=== PATIENT | female | born 1955 | race Caucasian/White ===

== ENCOUNTER 2018-10-12 12:42 | Outpatient (CLI) | payer MEDICARE, MEDICAID ==
[~2018-10-12] VITALS: Ht 165.1 cm; Wt 114.3 kg
[~2018-10-12 12:42] MED LIST: ASPI-586 PO; BUME1TAB4 PO; DICL100G13 TOP; DIPH25CA79 PO; DOCU100T7 PO; EPIN0.3P3 IM; ESZO2TAB31 PO; ESZO2TAB4 PO; ESZO3TAB39 PO; FLUO20CA25 PO; FLUO20TA28 PO; GABA-488 PO; HYDR-34 PO; LOSA1TAB19 PO; LOSA1TAB26 PO; LOVA20TA2 PO; MULT-874 PO; OXYC1TAB87 PO; PANT40TA3 PO; PNT40TEC PO; POTA20TA8 PO; SUMA25TA3 PO; TRAM50TA2 PO
[2018-10-12 12:51] VITALS: BP 145/92
[2018-10-12 13:38] LABS: BILIRUBIN,URINE NEGATIVE (NEGATIVE); CLARITY,URINE CLEAR; COLOR,URINE YELLOW; GLUCOSE, URINE (UA) NEGATIVE (NEGATIVE); KETONES,URINE NEGATIVE (NEGATIVE); LEUKOCYTE ESTERASE ,URINE NEGATIVE (NEGATIVE); NITRITE,URINE NEGATIVE (NEGATIVE); PH,URINE 6.5 (5-9); PROTEIN,URINE NEGATIVE (NEGATIVE); UROBILINOGEN,URINE NORMAL (NORMAL)
[2018-10-12 13:39] LABS: BASOPHILS % (AUTO) 0 % (0-10); EOSINOPHILS # (AUTO) 0.1 10^3/uL (0.0-0.3); EOSINOPHILS % (AUTO) 1 % (0-10); HEMATOCRIT 40 % (35-52); LYMPHOCYTES % (AUTO) 32 % (12-44); MEAN CORPUSCULAR HEMOGLOBIN 27 PG (25-34); MEAN CORPUSCULAR HGB CONC 33 G/DL (32-36); MEAN CORPUSCULAR VOLUME 83 FL (80-99); MEAN PLATELET VOLUME 9.5 FL (7.4-10.4); MONOCYTES # (AUTO) 0.7 X 10^3 (0.0-1.0); MONOCYTES % (AUTO) 8 % (0-12); NEUTROPHILS # (AUTO) 5.7 X 10^3 (1.8-7.8); NEUTROPHILS % (AUTO) 60 % (42-75); PLATELET COUNT 377 10^3/uL (130-400); RED BLOOD COUNT 4.77 10^6/uL (4.35-5.85); RED CELL DISTRIBUTION WIDTH 14.8 % (10.0-14.5); WHITE BLOOD COUNT 9.5 10^3/uL (4.3-11.0)
[2018-10-12] MEDS ORDERED: FLUO40CR8 TP (13:55)
[2018-10-12] MEDS ORDERED: CLOP75TA28 PO (13:55)
[2018-10-12] MEDS ORDERED: ATOR20TA66 PO (13:55)
[2018-10-12] MEDS ORDERED: BUME1TAB4 PO (13:55)
[2018-10-12] MEDS ORDERED: TRET40CR4 TP (13:55)
[2018-10-12 13:58] LABS: INR 1.1 (0.8-1.4); PROTHROMBIN TIME PATIENT 14.2 SEC (12.2-14.7)
[2018-10-12 14:00] LABS: ALANINE AMINOTRANSFERASE 17 U/L (0-55); ALBUMIN 4.3 GM/DL (3.2-4.5); ALKALINE PHOSPHATASE 122 U/L (40-136); BILIRUBIN,TOTAL 0.5 MG/DL (0.1-1.0); BUN/CREATININE RATIO 17; CALCIUM 9.6 MG/DL (8.5-10.1); CARBON DIOXIDE 24 MMOL/L (21-32); CHLORIDE 105 MMOL/L (98-107); CREATININE SERUM 0.86 MG/DL (0.60-1.30); GFR ESTIMATED > 60; GLUCOSE 122 MG/DL (70-105); POTASSIUM 3.2 MMOL/L (3.6-5.0); SODIUM 141 MMOL/L (135-145); TOTAL PROTEIN 7.3 GM/DL (6.4-8.2)
[2018-10-12 14:14] LABS: BACTERIA,URINE TRACE /HPF; HYALINE CASTS, URINE RARE /LPF
[2018-10-12 14:16] LABS: ERYTHROCYTE SEDIMENTATION RATE 29 MM/HR (0-30)
--- NOTE | 2018-10-12 17:02 | Diagnostic Imaging Report ---
EXAMINATION: PA and lateral chest at 01:50 p.m. INDICATION: Preop for left total knee replacement. FINDINGS: There are no prior studies available for comparison. The heart size is within normal limits. The lungs are clear. There is no evidence for failure, pneumonia, or for a pleural effusion. The mediastinum is not widened. The osseous structures are intact. IMPRESSION: There is no evidence for active disease. Dictated by: Dictated on workstation # [id number]
== END 2018-10-12 15:00 | disposition home or self-care (01) ==
LOC: PREOP 12:42
PROVIDERS: ATTEND Orthopaedic Surgery
DX: Z01.810 Encounter for preprocedural cardiovascular examination (principal); Z01.811 Encounter for preprocedural respiratory examination; Z01.812 Encounter for preprocedural laboratory examination; M17.12 Unilateral primary osteoarthritis, left knee; R53.83 Other fatigue
CPT/HCPCS: 36415; 71046; 80053; 81000; 85025; 85610; 85652; 86850; 86900; 86901; 87081; 93005

== ENCOUNTER 2018-10-18 06:00 | Inpatient (IN) | payer MEDICARE, MEDICAID ==
--- NOTE | 2018-10-09 11:23 | HISTORY AND PHYSICAL ---
DATE OF SERVICE: 10/18/2018 ADMISSION HISTORY AND PHYSICAL DATE OF ADMISSION: 10/18/2018 DATE OF SURGERY: 10/18/2018 for left total knee arthroplasty. HISTORY OF PRESENT ILLNESS: The patient is a 63-year-old female with complaints of progressive worsening left knee pain. She has undergone treatment with injections multiple times. She reports progressive worsening pain to the point where it is interfering with her right knee. She reports activity limitations. She reports this is affecting her activities of daily living. Radiographs reveal complete loss of medial joint space with mild lateral patellofemoral joint space narrowing. Due to functional impairment and failure to improve with conservative measures, the patient elected to proceed with surgical intervention. REVIEW OF SYSTEMS: No chest pain, no shortness of breath. No dysuria. PAST MEDICAL HISTORY: Significant for reflux, hyperlipidemia, hypertension and anxiety. PAST SURGICAL HISTORY: Appendectomy, lumbar spine, tubal ligation, cholecystectomy, hysterectomy, breast lumpectomy, pelvic sling and skin cancer removal from the face. FAMILY HISTORY: Significant for Alzheimer's, aortic aneurysm, breast cancer, diabetes. PRIMARY CARE PROVIDER: Dr. Braden in [place]. MEDICATIONS: Lovastatin, pantoprazole, bumetanide, EpiPen, Lunesta, gabapentin, Percocet, ibuprofen, clopidogrel and losartan. ALLERGIES: SULFA and TAPE. SOCIAL HISTORY: The patient denies alcohol and tobacco use. PHYSICAL EXAMINATION: GENERAL: Well-developed, well-nourished, in no acute distress. HEENT: Normocephalic, atraumatic. Pupils were equal, round and reactive to light. Oropharynx is clear. NECK: Supple. No lymphadenopathy. LUNGS: Clear to auscultation bilaterally. HEART: Regular rate and rhythm. ABDOMEN: Soft, nontender, nondistended. EXTREMITIES: Her left knee demonstrates varus alignment. There is a slight effusion. She has no joint line tenderness. Patella tracks well. There is no varus valgus laxity. Negative anterior and posterior drawer. Range of motion is 0/0/120. She is tender along the medial femoral condyle and pain medially with Jr's. She is also tender along the medial tibial plateau. She ambulates with an antalgic gait. IMPRESSION: Left knee severe osteoarthritis, unresponsive to conservative measures. PLAN: Left total knee arthroplasty. Risks, benefits, options, ramifications and recovery have been discussed at length with the patient. She understands and wishes to proceed. She will require regular inpatient admission due to pain management, physical therapy, weakness and gait training. Date of admission will be 10/18/2018. Job ID: [id number] DocumentID: [id number] Dictated Date: 10/09/2018 10:44:36 Tank Builder Helper Date: 10/09/2018 11:23:03 Dictated By: OC SMITH MD
[~2018-10-18] VITALS: Ht 165.1 cm; Wt 114.3 kg
[~2018-10-18 06:00] MED LIST changes: +ATOR20TA66 PO; +CLOP75TA28 PO; +FLUO40CR8 TP; +TRET40CR4 TP
[2018-10-18] MEDS: LACTATED RINGERS 1,000 ML IV PRN ×2 (06:20→07:45)
[2018-10-18] MEDS ORDERED: CEFUROXIME INJECTION 1,500 MG in NS (IVPB) 50 ML IV ONE (06:30)
[2018-10-18] MEDS ORDERED: FAMOTIDINE 20MG/2ML IV (PEPCID) ONE (06:37)
[2018-10-18] MEDS ORDERED: ONDANSETRON 4 MG/2 ML (SDV) Z0FRAN ONE ×2 (06:38→08:20)
[2018-10-18] MEDS ORDERED: SCOPOLAMINE 1.5 MG (TRANSDERM-SCOP) PATCH ONE (06:38)
[2018-10-18] MEDS ORDERED: SCOPOLAMINE 1.5 MG (TRANSDERM-SCOP) PATCH TOP ONE (06:45)
[2018-10-18] MEDS ORDERED: ONDANSETRON 4 MG/2 ML (SDV) Z0FRAN IV ONE (06:45)
[2018-10-18] MEDS ORDERED: FAMOTIDINE 20MG/2ML IV (PEPCID) IV ONE (06:45)
[2018-10-18] MEDS ORDERED: fentaNYL INJECTION 100 MCG/2 ML AMP ONE ×2 (06:55→07:57)
[2018-10-18] MEDS ORDERED: MIDAZOLAM 2 MG/2 ML (VERSED) VIAL ONE (06:56)
[2018-10-18] MEDS ORDERED: NS (IVPB) 50 ML ONE (06:58)
[2018-10-18] MEDS ORDERED: CEFUROXIME 1.5 GM (ZINACEF) VIAL ONE (06:58)
[2018-10-18] MEDS ORDERED: NS IV 1000 ML 1,000 ML IV SCH ×2 (07:11→22:30)
[2018-10-18] MEDS ORDERED: ACETAMINOPHEN 325 MG TABLET PO PRN (07:15)
[2018-10-18] MEDS ORDERED: morphine PCA 100 MG/100 ML BAG IV PRN (07:15)
[2018-10-18] MEDS ORDERED: ONDANSETRON 4 MG/2 ML (SDV) Z0FRAN IVP PRN ×2 (07:15→09:15)
--- NOTE | 2018-10-18 07:22 | Progress Note-Pre Operative ---
Pre-Operative Progress Note H&P Reviewed The H&P was reviewed, patient examined and no changes noted. Date Seen by Provider: Oct 18, 2018 Time Seen by Provider: 07:21 Date H&P Reviewed: Oct 18, 2018 Time H&P Reviewed: 07:21 Pre-Operative Diagnosis: left knee primary osteoarthitis OC SMITH MD Oct 18, 2018 07:21
--- NOTE | 2018-10-18 07:22 | Progress Note-Post Operative ---
Post-Operative Progess Note Surgeon (s)/Tree Inspector (s) Surgeon OC SMITH MD Tree Inspector: Rik Van Pre-Operative Diagnosis left knee primary osteoarthitis Post-Operative Diagnosis left knee primary osteoarthritis Procedure & Operative Findings Date of Procedure 10/18/18 Procedure Performed/Findings left total knee arthroplasty Anesthesia Type GETA Estimated Blood Loss Estimated blood loss (mL): minimal Specimens/Packing Specimens Removed none Packing: none OC SMITH MD Oct 18, 2018 07:22
--- NOTE | 2018-10-18 07:25 | D/C HH Face to Face Order ---
D/C Face to Face Orders Instructions for Patient Via [facility], Patient Instructions/FollowUp: three weeks Physician to follow Patient: three weeks Discharge Diet for Home: Regular Diet Patient Data-Allergies,Ht & Wt Patient Allergies: Coded Allergies: wasp venom (Verified Allergy, Severe, 08/20/15) Sulfa (Sulfonamide Antibiotics) (Unverified Allergy, Unknown, 09/30/14) Uncoded Allergies: TAPE (Allergy, Mild, RASH, 08/20/15) Height (Feet): 5 Height (Inches): 5.00 Weight (Pounds): 252 Weight (Ounces): 0.0 Home Health Need/Face to Face Date of Face to Face: Oct 18, 2018 Clinical Findings: Instability, Muscle weakness, Pain with ambulation, Unsteady gait I have seen Pt [id number]: Yes Discharged To: Home Diagnosis/Conditions: left total knee arthroplasty Patient is Homebound due to: Simone fall risk due to instabilty, Muscle weakness , Pain w/ambulation Homebound Status Due to the above stated illness, injury or surgical procedure (medical condition or diagnosis) and associated clinical findings, the patient is homebound because of his/her inability to leave home except with aid of a supportive device and/or person AND leaving the home requires a considerable and taxing effort or is medically contraindicated. Pt req the following assistanc: [facility] Nursing Orders Home Health Services Order: Physical Therapy-Evaluate & Treat Therapy Orders Therapy Orders: Physical Therapy, PT to assess for OT Therapy Specific Orders: Eval assistive deivces, Teach enviro modifications/ safety, Gait training, Increase strength/endurance, Restore ROM (DC left knee sneha and apply steri strips 11/01/18) Certify Stmt I certify that this patient is under my care and that I, a nurse practitioner or a physician; a editorial assistant working with me, had a face to face encounter that - meets the physician face to face encounter requirements with this patient as dated. OC SMITH MD Oct 18, 2018 07:25
[2018-10-18] MEDS ORDERED: INTRA-ARTICULAR IU ONE ×5 (07:45)
[2018-10-18] MEDS ORDERED: TRANEXAMIC ACID 100 MG/ML 10 ML INJECTION IV ONE (08:12)
[2018-10-18] MEDS ORDERED: LIDOCAINE PF 2% 5 ML (XYLOCAINE) VIAL ONE (08:20)
[2018-10-18] MEDS ORDERED: proPOfol 200 MG/20 ML (DIPRIVAN) VIAL IV ONE (08:20)
[2018-10-18] MEDS ORDERED: DEXAMETHASONE 10 MG/ML (DECADRON) 1 ML VIAL ONE (08:20)
[2018-10-18] MEDS ORDERED: BUPIVACAINE 0.5% 30 ML (SENSORCAINE) VIAL ONE (08:20)
[2018-10-18] MEDS ORDERED: SEVOFLURANE (ULTANE) 15 ML INHAL SOLN ONE ×2 (08:41→09:11)
[2018-10-18] MEDS ORDERED: OXYC1TAB87 PO (09:02)
[2018-10-18] MEDS ORDERED: ATROPINE INJ 0.4 MG/ML SDV ONE (09:12)
[2018-10-18] MEDS ORDERED: morphine INJ 10 MG/ML 1ML (SYR OR VIAL) IVP ONE (09:15)
[2018-10-18] MEDS ORDERED: HYDROmorphone 2 MG/ML VIAL (DILAUDID) IV ONE (09:15)
--- NOTE | 2018-10-18 09:33 | Progress Note-Standard ---
Standard Progress Note Progress Notes/Assess & Plan Date Seen by a Provider: Oct 18, 2018 Time Seen by a Provider: 09:32 Progress/Assessment & Plan post op check no complaints radiographs--HW well positioned without fracture LLE--2 plus DP pulse with brisk cap refill. Intact sensation throughout. Intact DF and PF of toes and ankle s/p LTKA mobilize as able OC SMITH MD Oct 18, 2018 09:33
--- NOTE | 2018-10-18 09:58 | Diagnostic Imaging Report ---
EXAMINATION: Left knee at 9:17 AM. INDICATION: Knee pain. TECHNIQUE/COMPARISON: AP and lateral views were obtained from the OR. There are no prior plain film examinations available for comparison. FINDINGS: There is a total knee prosthesis in place. The prosthetic components seem to be in good position. There is gas in the soft tissues and there are skin sneha along the anterior aspect of the knee joint. There is no fracture or acute bony abnormality noted. IMPRESSION: Stable post operative left knee. Dictated by: Dictated on workstation # [id number]
[2018-10-18 10:00] VITALS: BP 152/81
[2018-10-18] MEDS: SENNA W/DOCUSATE (SENOKOT S) TABLET PO SCH ×2 (10:54→20:53)
[2018-10-18] MEDS: oxyCODONE/APAP 5/325MG (PERCOCET 5) TABLET PO PRN (10:54)
--- OUTSIDE RECORDS SUMMARY | 2018-10-18 11:44 | XMS REPORT | CCD ---
Author Author JESSY SPARKS Organization Unknown Address [address] [place] [address] Care Team Providers Care Signal Worker Helper Name Role Phone JAYASHREE NICHOLSON MD Attphys JAYASHREE NICHOLSON MD Prisurg Allergies Allergy Code Allergy Type Reaction Status SULFA (sulfonamide) 0 Drug allergy Active TAPE 0 Allergy to substance Active Active Medications Unknown or Not Available. Problems Unknown or Not Available. Procedures Procedure Code Procedure Type Date KNEE [address] 08/04/2016 KNEE [address] 08/04/2016 Results Unknown or Not Available. Function Status Unknown or Not Available. History of Immunizations Immunization Code Date pneumococcal polysaccharide PPV23 33 07/22/2016 Influenza, seasonal, injectable 141 08/04/2016 Plan of Treatment Unknown or Not Available. Social History Smoking Status Code Start Date End Date Never smoker [id number] Vital Signs Unknown or Not Available. Function Status Unknown or Not Available. Goals Unknown or Not Available. ASSESSMENTS Unknown or Not Available. Health Concerns Section Unknown or Not Available.
--- OUTSIDE RECORDS SUMMARY | 2018-10-18 11:44 | XMS REPORT | CCD ---
Author Author ROYA WALKER Unknown Address [address] [place], [place] [id number] Care Team Providers Care Talent Development Manager Name Role Phone ANURAG WILLARD, OC [place] Attphyeduard ANURAG WILLARD, OC [place] Vital Signs Unknown or Not Available. Allergies Allergy Code Allergy Type Reaction Status SULFA (sulfonamide) 0 Drug allergy Active TAPE 0 Allergy to substance Active Procedures Procedure Code Procedure Type Date CT HEAD W/O CONTRAST 894298445 SNOMED CT 07/20/2016 UA ROUTINE C&S IF IND 982021862 SNOMED CT 07/20/[address] 07/20/2016 C REACTIVE PROTEIN 32225475 [facility] CT 07/20/2016 COMPREHENSIVE METABOLIC PANEL 968465866 SNOMED CT 2015 CBC W/ AUTO DIFF (RFLX MAN DIFF IF IND) 6629830 SNOMED CT 07/20/2016 ^CBC W/AUTO DIFF 5920618 OMED CT 07/20/2016 History of Immunizations Unknown or Not Available. Problems Unknown or Not Available. Results COMPREHENSIVE METABOLIC PANEL - Collect Date/Time: 07/20/2016 17:20 Test Name Code Test Result Test Units Test Ref Range GLUCOSE 2345-7 127 MG/DL L=70 H=100 SODIUM 2951-2 142 MEQ/L L=135 H=148 POTASSIUM 2823-3 3.7 MEQ/L L=3.5 H=5.3 CHLORIDE 2075-0 104 MEQ/L L=96 H=110 CO2 2028-9 25 MEQ/L L=22 H=29 BUN 3094-0 19 MG/DL L=8 H=22 CREATININE 2160-0 1.0 MG/DL L=0.6 H=1.6 SGOT/AST 1920-8 20 IU/L L=10 H=40 SGPT/ALT 1742-6 29 IU/L L=8 H=54 ALK PHOS 6768-6 125 IU/L L=35 H=115 TOTAL PROTEIN 2885-2 7.7 G/DL L=5.5 H=8.5 ALBUMIN 1751-7 4.5 G/DL L=3.1 H=5.4 TOTAL BILI 1975-2 0.3 MG/DL L=0.0 H=1.5 CALCIUM 46237-9 10.1 MG/DL L=8.2 H=10.6 AGE 60 yrs GFR NonAA 57 GFR AA 69 eGFR 57 mL/min/1.7 eGFR AA* >60 N/A CPK - Collect Date/Time: 07/20/2016 17:20 Test Name Code Test Result Test Units Test Ref Range CPK 2157-6 33 IU/L L=0 H=235 CBC W/ AUTO DIFF (RFLX MAN DIFF IF IND) - Collect Date/Time: 07/20/2016 17:20 Test Name Code Test Result Test Units Test Ref Range WBC 71570-6 10.5 TH/CMM L=4.5 H=10.8 RBC 789-8 4.99 ML/CMM L=4.20 H=5.40 HGB 718-7 13.2 G/DL L=12.0 H=16.0 HCT 4544-3 42.7 % L=37.0 H=47.0 MCV 86 FL L=81 H=99 MCH 26.5 PG L=27.0 H=33.0 MCHC 30.9 G/DL L=31.0 H=36.0 RDW SD 46 FL L=36 H=50 RDW CV 14.8 % L=0.0 H=14.8 MPV 9.3 FL L=9.3 H=12.5 PLT 777-3 383 TH/CMM L=130 H=440 NRBC# 0.00 TH/CMM L=0.00 H=0.00 NRBC% 0.0 /100WBC L=0.0 H=2.0 %NEUT 50.8 % %LYMP 39.1 % %MONO 8.0 % %EOS 1.1 % %BASO 0.4 % #NEUT 5.32 TH/CMM L=2.10 H=8.20 #LYMP 4.09 TH/CMM L=0.90 H=5.20 #MONO 0.84 TH/CMM L=0.16 H=1.00 #EOS 0.11 TH/CMM L=0.00 H=0.80 #BASO 0.04 TH/CMM L=0.00 H=0.20 MANUAL DIFF NOT IND N/A PT/PTT - Collect Date/Time: 07/20/2016 17:20 Test Name Code Test Result Test Units Test Ref Range PROTIME 72108-9 11.1 SEC L=9.9 H=11.9 INR 1.0 PTT 3173-2 25.0 SEC L=22.2 H=37.2 UA ROUTINE C&S IF IND - Collect Date/Time: 07/20/2016 18:10 Test Name Code Test Result Test Units Test Ref Range COLOR YELLOW N/A NL: YELLOW APPEARANCE CLEAR N/A NL: CLEAR SPEC GRAV 1.020 N/A NL: 1.002 - 1.022 pH 6.0 N/A NL: 5 - 9 PROTEIN NEGATIVE N/A NL: NEGATIVE mg/dl GLUCOSE NEGATIVE N/A NL: NEGATIVE mg/dl KETONE NEGATIVE N/A NL: NEGATIVE mg/dl BILIRUBIN NEGATIVE N/A NL: NEGATIVE BLOOD NEGATIVE N/A NL: NEGATIVE NITRITE NEGATIVE N/A NL: NEGATIVE LEUK SCREEN NEGATIVE N/A NL: NEGATIVE MICRO INDICATED? NOT INDICATED N/A C REACTIVE PROTEIN - Collect Date/Time: 07/20/2016 17:20 Test Name Code Test Result Test Units Test Ref Range C REACTIVE PROTEIN 1988-5 2.6 MG/DL L=0.0 H= 1.0 Active Medications Unknown or Not Available. Medications Administered During Visit Unknown or Not Available. 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 Discharge Instructions You were admitted to [facility] on 07/20/2016 15:48 with a principal diagnosis of Fluency disorder following cerebral infarction You had the following tests done: C REACTIVE PROTEIN CBC W/ AUTO DIFF (RFLX MAN DIFF IF IND) COMPREHENSIVE METABOLIC PANEL CPK PT/PTT UA ROUTINE C&S IF IND You were discharged from [facility] on 07/20/2016 19:43 Should you have any questions prior to discharge, please contact a member of your healthcare team. If you have left the hospital and have any questions, please contact your primary care physician. Chief Complaint and Reason For Visit Chief Complaint Date of Onset POSS STROKE Function Status Unknown or Not Available. Plan of Care Unknown or Not Available. Referral/Transition of Care Unknown or Not Available.
--- OUTSIDE RECORDS SUMMARY | 2018-10-18 11:45 | XMS REPORT ---
Author Candido Liriano [facility] Address [address] [place], [place] [id number] Care Team Providers Care Workday Manager Name Role Phone Candido Willoughby PCP Candido Willoughby PreferredProvider Allergies and Adverse Reactions Name Reaction Notes SULFA (SULFONAMIDES) body shuts down Wasp Sting anaphyalatic reaction Tape skin rash Percocet skin itching Plan of Treatment Planned Activity Comments Planned Date Planned Time Plan/Goal Magnesium level 08/21/2015 12:00 AM Lipid Blood Profile 12/27/2016 12:00 AM RUQ US (right upper quadrant ultrasound) 03/03/2017 12:00 AM HIV 1 + 2 ab ser w reflex to Western blot conf 03/04/2017 12:00 AM Medications Active Name Start Date Estimated Completion Date SIG Comments fluoxetine 20 mg oral capsule take 1 capsule (20 mg) by oral route once daily EpiPen 2-Filipe 0.3 mg/0.3 mL injection auto-injector 01/26/2016 inject 0.3 milliliter (0.3 mg) by intramuscular route once as needed for anaphylaxis EpiPen 2-Filipe 0.3 mg/0.3 mL injection auto-injector 01/26/2016 inject 0.3 milliliter (0.3 mg) by intramuscular route once as needed for anaphylaxis bumetanide 1 mg oral tablet 03/11/2016 take 1 tablet (1 mg) by oral route every other day for 30 days aspirin 81 mg oral tablet,delayed release (DR/EC) take 1 tablet (81 mg) by oral route once daily Benadryl 25 mg oral capsule take 3 capsules by oral route eszopiclone 3 mg oral tablet take 1 tablet (3 mg) by oral route once daily at bedtime multivitamin oral capsule take 1 capsule by oral route daily ibuprofen 800 mg oral tablet take 1 tablet by oral route every 8 hours bumetanide 1 mg oral tablet 10/28/2016 TAKE 1 TABLET EVERY OTHER DAY fluorouracil 5 % topical cream apply a sufficient amount to cover the lesions in the affected area(s) by topical route 2 times per day for 2-4 weeks oxycodone 10 mg oral tablet take 1 tablet (10 mg) by oral route every 6 hours sumatriptan 20 mg/actuation nasal spray,non-aerosol 04/26/2018 1 spray (20 mg)intranasal route once; if headache returns, may be repeated once after 2 hours, not to exceed 40 mg per day losartan-hydrochlorothiazide 100-12.5 mg oral tablet 05/29/2018 TAKE 1 TABLET BY MOUTH DAILY pantoprazole 40 mg oral tablet,delayed release (DR/EC) 05/29/2018 TAKE 1 TABLET BY MOUTH DAILY bumetanide 1 mg oral tablet 05/29/2018 TAKE 1 TABLET BY MOUTH EVERY OTHER DAY baclofen 10 mg oral tablet take 1 tablet (10 mg) by oral route 3 times per day tretinoin topical atorvastatin 20 mg oral tablet 08/09/2018 02/05/2019 take 1 tablet (20 mg) by oral route once daily at bedtime for 30 days clopidogrel 75 mg oral tablet 08/18/2018 TAKE ONE TABLET BY MOUTH ONCE DAILY Name Start Date Expiration Date SIG Comments doxycycline hyclate 100 mg oral capsule 11/08/2013 11/18/2013 take 1 capsule ( 100 mg) by oral route every 12 hours for 10 days Tessalon Perles 100 mg oral capsule 11/08/2013 11/18/2013 take 1 capsule by oral route once a day (at bedtime) for 10 days hydrocodone-acetaminophen 5-325 mg oral tablet 01/28/2015 02/04/2015 take 1 tablet by oral route every 6 hours as needed for pain for 7 days potassium chloride 20 mEq oral tablet extended release 08/21/2015 09/20/2015 take 2 tablet (20 meq) by oral route TID x 3 days then 40mEq daily amoxicillin 500 mg oral capsule 12/06/2016 12/13/2016 take 1 capsule (500 mg) by oral route every 12 hours for 7 days clopidogrel 75 mg oral tablet 08/11/2017 02/07/2018 TAKE ONE TABLET BY MOUTH ONCE DAILY bumetanide 1 mg oral tablet 11/10/2017 11/10/2017 TAKE 1 TABLET EVERY OTHER DAY gabapentin 300 mg oral capsule 12/12/2017 12/12/2017 TAKE ONE CAPSULE BY MOUTH ONCE DAILY AT BEDTIME Discontinued Name Start Date Discontinued Date SIG Comments trandolapril 4 mg oral tablet 01/28/2015 take 1 tablet (4 mg) by oral route once daily EpiPen 0.3 mg/0.3 mL injection auto-injector 07/28/2018 inject 0.3 milliliter (0.3 mg) by intramuscular route once as needed for anaphylaxis already on list EpiPen 0.3 mg/0.3 mL injection auto-injector 07/28/2018 inject 0.3 milliliter (0.3 mg) by intramuscular route once as needed for anaphylaxis already on list Voltaren 1 % topical gel 05/05/2016 apply 2 gram to the affected area(s) by topical route 4 times per day Lunesta 2 mg oral tablet 01/28/2015 take 1 tablet (2 mg) by oral route once daily at bedtime Percocet 5-325 mg oral tablet 01/28/2015 take 1 - 2 tablets by oral route every 4-6 hours as needed eszopiclone 2 mg oral tablet 05/05/2016 take 1 tablet (2 mg) by oral route once daily at bedtime docusate sodium 100 mg oral capsule 07/28/2018 take 1 capsule (100 mg) by oral route 2 times per day as needed cyclobenzaprine 10 mg oral tablet 12/14/2016 take 1 tablet (10 mg) by oral route 3 times per day PRN Vitamin D2 50,000 unit oral capsule 12/14/2016 07/28/2018 take 1 capsule (50, 000 unit) by oral route once weekly atorvastatin 40 mg oral tablet 02/03/2017 02/21/2017 take 1 tablet (40 mg) by oral route once daily for 30 days epinephrine 0.3 mg/0.3 mL injection auto-injector 05/20/2017 07/28/2018 INJECT 0.3 ML'S BY INTRAMUSCULAR ROUTE ONCE NEEDED FOR ANAPHYLAXIS already on list epinephrine 0.3 mg/0.3 mL injection auto-injector 05/20/2017 07/28/2018 INJECT 0.3 ML'S BY INTRAMUSCULAR ROUTE ONCE NEEDED FOR ANAPHYLAXIS already on list potassium chloride 10 mEq oral tablet extended release 10/11/2017 07/28/2018 take 1 tablet (10 meq) by oral route with food, on 3 days of the week. d/c'd by Dr Riddel Problem List Description Status Onset Hypercholesterolemia Active Hypertension Active Breast Mass Active Vital Signs Date Time BP-Sys(mm[Hg] BP-Nasra(mm[Hg]) HR(bpm) RR(rpm) Temp WT HT HC BMI BSA BMI Percentile O2 Sat(%) 09/22/2018 3:28:00 PM 117 mmHg 74 mmHg 78 bpm 20 rpm 98.1 F 255 lbs 64 in 43.7702 kg/m 2.2854 m 96 % 07/28/2018 8:41:00 AM 124 mmHg 86 mmHg 63 bpm 18 rpm 98.4 F 252.25 lbs 64 in 43.30 kg/m2 2.27 m2 97 % 07/28/2018 8:32:00 AM 252.5 lbs 64 in 43.34 kg/m2 2.2742 m 10/10/2017 1:08:00 PM 116 mmHg 82 mmHg 105 bpm 18 rpm 99 F 243.125 lbs 64 in 41.73 kg/m2 2.23 m2 95 % 03/03/2017 2:13:00 PM 138 mmHg 98 mmHg 88 bpm 18 rpm 98.8 F 248.375 lbs 64 in 42.633 kg/m 2.2555 m 98 % 01/27/2017 11:32:00 AM 126 mmHg 92 mmHg 90 bpm 16 rpm 98.2 F 247.5 lbs 64 in 42.48 kg/m2 2.25 m2 97 % 12/06/2016 1:55:00 PM 142 mmHg 90 mmHg 73 bpm 18 rpm 99 F 246.375 lbs 64 in 42.2897 kg/m 2.2464 m 99 % 08/04/2016 11:03:00 AM 138 mmHg 92 mmHg 94 bpm 16 rpm 99.4 F 249.375 lbs 64 in 42.80 kg/m2 2.26 m2 97 % 07/20/2016 2:35:00 PM 126 mmHg 92 mmHg 97 bpm 18 rpm 98.8 F 251.5 lbs 64 in 43.1694 kg/m 2.2696 m 97 % 05/05/2016 4:26:00 PM 118 mmHg 84 mmHg 85 bpm 18 rpm 98.4 F 250 lbs 64 in 42.91 kg/m2 2.26 m2 96 % 01/26/2016 2:08:00 PM 105 mmHg 80 mmHg 110 bpm 16 rpm 96.7 F 239 lbs 64 in 41.0238 kg/m 2.2125 m 97 % 05/07/2015 8:19:00 AM 132 mmHg 96 mmHg 61 bpm 20 rpm 97.3 F 238.6 lbs 64 in 40.96 kg/m2 2.21 m2 99 % 01/28/2015 8:18:00 AM 126 mmHg 94 mmHg 78 bpm 98 F 228.25 lbs 64 in 39.1786 kg/m 2.1622 m 98 % 07/30/2014 9:19:00 AM 150 mmHg 105 mmHg 78 bpm 18 rpm 96.7 F 233 lbs 64 in 39.99 kg/m2 2.18 m2 98 % 05/02/2014 8:41:00 AM 140 mmHg 102 mmHg 69 bpm 18 rpm 97.5 F 245.125 lbs 64 in 42.0752 kg/m 2.2407 m 98 % 11/08/2013 1:49:00 PM 98 bpm 22 rpm 101 F 241 lbs 64 in 41.37 kg/ m2 2.22 m2 96 % 10/24/2013 3:41:00 PM 115 mmHg 70 mmHg 114 bpm 18 rpm 97.7 F 243 lbs 64 in 41.7104 kg/m 2.231 m 98 % 10/10/2013 3:30:00 PM 145 mmHg 102 mmHg 96 bpm 18 rpm 96.9 F 245 lbs 64 in 42.05 kg/m2 2.24 m2 97 % 09/28/2013 9:54:00 AM 145 mmHg 90 mmHg 81 bpm 18 rpm 96.6 F 240 lbs 64 in 41.1955 kg/m 2.2171 m 97 % 09/05/2013 11:26:00 AM 126 mmHg 100 mmHg 90 bpm 20 rpm 96 F 239 lbs 64 in 41.02 kg/m2 2.21 m2 97 % 08/28/2013 11:52:00 AM 140 mmHg 100 mmHg 72 bpm 16 rpm 96 F 240 lbs 64 in 41.1955 kg/m 2.2171 m 98 % Social History Name Description Comments Tobacco Never smoker History of Procedures Date Ordered Description Order Status 07/30/2015 12:00 AM MAMMOGRAM BOTH BREASTS Reviewed 08/21/2015 12:00 AM COMPREHEN METABOLIC PANEL Reviewed 08/03/2016 12:00 AM MAMMOGRAM BOTH BREASTS Reviewed 08/04/2016 12:00 AM IM ADM PRQ ID SUBQ/IM [id number] 1 VACCINE Reviewed 08/04/2016 12:00 AM INFLUENZA VACCINE QUADRIVALENT 3 YRS PLUS IM Reviewed 12/06/2016 12:00 AM COMPLETE CBC W/AUTO DIFF WBC Returned 12/06/2016 12:00 AM COMPREHEN METABOLIC PANEL Returned 12/06/2016 12:00 AM GLYCOSYLATED HEMOGLOBIN TEST Returned 12/06/2016 12:00 AM VITAMIN D 25 HYDROXY Returned 12/06/2016 12:00 AM ASSAY OF GGT Returned 01/23/2017 12:00 AM COMPREHEN METABOLIC PANEL Returned 01/23/2017 12:00 AM ASSAY OF GGT Returned 01/23/2017 12:00 AM LIPID PANEL Returned 02/03/2017 12:00 AM ASSAY OF GGT Returned 03/04/2017 12:00 AM COMPREHEN METABOLIC PANEL Returned 03/04/2017 12:00 AM ASSAY THYROID STIM HORMONE Returned 03/04/2017 12:00 AM ACUTE HEPATITIS PANEL Returned 03/04/2017 12:00 AM ASSAY OF IRON Returned 03/04/2017 12:00 AM IRON BINDING TEST Returned 03/04/2017 12:00 AM ASSAY OF TRANSFERRIN Returned 03/04/2017 12:00 AM ASSAY OF FERRITIN Returned 03/04/2017 12:00 AM ANTINUCLEAR ANTIBODIES LAMONT Returned 03/04/2017 12:00 AM [id number] TOTAL Returned 03/04/2017 12:00 AM ASSAY OF CERULOPLASMIN Returned 07/12/2017 12:00 AM MAMMOGRAM BOTH BREASTS Reviewed 09/13/2017 12:00 AM [facility] MEDICARE - flu vaccine administration Reviewed 09/13/2017 12:00 AM INFLUENZA VAC 4 VALENT PRSRV FREE 3 YRS PLUS IM Reviewed 10/10/2017 12:00 AM METABOLIC PANEL TOTAL CA Returned 10/10/2017 12:00 AM COMPLETE CBC W/AUTO DIFF WBC Returned 07/28/2018 12:00 AM LIPID PANEL Returned 07/28/2018 12:00 AM GLYCOSYLATED HEMOGLOBIN TEST Returned 07/28/2018 12:00 AM COMPREHEN METABOLIC PANEL Returned 07/28/2018 12:00 AM FLU VAC NO PRSV 4 LEONARD 6-35 M Reviewed 07/28/2018 12:00 AM MEDICARE - flu vaccine administration Reviewed 07/31/2018 12:00 AM FLU VAC NO PRSV 4 LEONARD 3 YRS+ Reviewed 2018 12:00 AM COMPREHEN METABOLIC PANEL Returned 08/24/2018 12:00 AM ROUTINE VENIPUNCTURE Reviewed 08/28/2013 12:00 AM Mammographic guidance for needle placement, breast (eg, for wire localization or for injection), each lesion, radiological supervision and interpretation Reviewed 10/29/2013 12:00 AM MAMMOGRAM ONE BREAST Reviewed 05/02/2014 12:00 AM COMPREHEN METABOLIC PANEL Reviewed 05/02/2014 12:00 AM LIPID PANEL Reviewed 05/02/2014 12:00 AM COMPLETE CBC W/AUTO DIFF WBC Reviewed 07/23/2014 12:00 AM MAMMOGRAM BOTH BREASTS Reviewed 01/28/2015 12:00 AM COMPLETE CBC W/AUTO DIFF WBC Reviewed 01/28/2015 12:00 AM COMPREHEN METABOLIC PANEL Reviewed 01/28/2015 12:00 AM LIPID PANEL Reviewed 01/28/2015 12:00 AM VITAMIN B-12 Reviewed 02/20/2015 12:00 AM URINALYSIS AUTO W/SCOPE Reviewed Results Summary Date and Description Results 05/06/2014 9:48 AM GLUCOSE 106.0 mg/dLSODIUM 139.0 mmol/LPOTASSIUM 4.20 mmol/ LCHLORIDE 106.0 mmol/LCO2 23.0 mmol/LBUN 17.0 mg/dLCREATININE 0.70 mg/dLSGOT/ AST 24.0 IU/LSGPT/ALT 35.0 IU/LALK PHOS 92.0 IU/LTOTAL PROTEIN 7.10 g/dLALBUMIN 4.20 g/dLTOTAL BILI 0.50 mg/dLCALCIUM 9.40 mg/dLAGE 58 GFR NonAA 87 GFR AA 105 eGFR 60 eGFR AA* 60 WBC 8.4 RBC 4.76 HGB 13.0 g/dLHCT 39.70 %MCV 83.0 fLMCH 27.30 pgMCHC 32.70 g/dLRDW SD 42 RDW CV 13.80 %MPV 9.20 fLPLT 311 NRBC# 0.00 NRBC% 0.0 %NEUT 49.60 %%LYMP 41.40 %%MONO 7.30 %%EOS 1.50 %%BASO 0.20 %#NEUT 4.16 #LYMP 3.48 #MONO 0.61 #EOS 0.13 #BASO 0.02 MANUAL DIFF NOT IND TRIGLYCERIDES 135.0 mg/dLCHOLESTEROL 204.0 mg/dLHDL 54.0 mg/dLTOT CHOL/HDL 3.8 LDL (CALC) 123.0 mg/dL 02/20/2015 9:20 AM WBC 7.6 RBC 4.62 HGB 12.60 g/dLHCT 39.70 %MCV 86.0 fLMCH 27.30 pgMCHC 31.70 g/dLRDW SD 44 RDW CV 14.10 %MPV 9.70 fLPLT 302 NRBC# 0.00 NRBC% 0.0 %NEUT 50.60 %%LYMP 41.30 %%MONO 7.20 %%EOS 0.80 %%BASO 0.10 %#NEUT 3.86 #LYMP 3.15 #MONO 0.55 #EOS 0.06 #BASO 0.01 MANUAL DIFF NOT IND GLUCOSE 100.0 mg/dLSODIUM 142.0 mmol/LPOTASSIUM 3.60 mmol/LCHLORIDE 103.0 mmol/LCO2 27.0 mmol/LBUN 20.0 mg/dLCREATININE 0.70 mg/dLSGOT/AST 14.0 IU/LSGPT/ALT 15.0 IU /LALK PHOS 93.0 IU/LTOTAL PROTEIN 7.40 g/dLALBUMIN 4.30 g/dLTOTAL BILI 0.70 mg/ dLCALCIUM 9.80 mg/dLAGE 59 GFR NonAA 86 GFR AA 104 eGFR >60 mL/min/1.73 m2eGFR AA* >60 TRIGLYCERIDES 168.0 mg/dLCHOLESTEROL 218.0 mg/dLHDL 56.0 mg/dLTOT CHOL/ HDL 3.9 LDL (CALC) 128.0 mg/dLVITAMIN B12 356.0 pg/mL 02/20/2015 9:31 AM COLOR YELLOW APPEARANCE CLEAR SPEC GRAV 1.020 pH 6.0 PROTEIN NEGATIVE GLUCOSE NEGATIVE KETONE NEGATIVE BILIRUBIN NEGATIVE BLOOD NEGATIVE NITRITE NEGATIVE LEUK SCREEN NEGATIVE WBC/HPF NEGATIVE RBC/HPF NEGATIVE CASTS/LPF NEGATIVE CRYSTALS NEGATIVE MUCOUS THRDS 1+ BACTERIA NEGATIVE EPITH CELLS 1+ SQUAMOUS TRICHOMONAS NEGATIVE YEAST NEGATIVE CULT SET UP? NO 08/24/2015 1:10 PM GLUCOSE 94.0 mg/dLSODIUM 139.0 mmol/LPOTASSIUM 4.70 mmol/ LCHLORIDE 105.0 mmol/LCO2 26.0 mmol/LBUN 17.0 mg/dLCREATININE 0.70 mg/dLSGOT/ AST 16.0 IU/LSGPT/ALT 18.0 IU/LALK PHOS 99.0 IU/LTOTAL PROTEIN 7.10 g/dLALBUMIN 4.10 g/dLTOTAL BILI 0.40 mg/dLCALCIUM 9.80 mg/dLAGE 60 GFR NonAA 86 GFR AA 104 eGFR >60 mL/min/1.73meGFR AA* >60 History Of Immunizations Name Date Admin Mfg Name Mfg Code Trade Name Lot# Route Inj Vis Given Vis Pub CVX Tdap 07/30/2014 Not Entered NE Not Entered Not Entered Not Entered 11/0711/07/2018 115 Influenza 09/10/2014 Not Entered NE Flucelvax Not Entered Not Entered 11/07/2018 11/07/2018 141 Pneumococcal 07/22/2016 Not Entered NE PNEUMOVAX 23 Not Entered Not Entered 08/04/2016 11/07/2018 33 Influenza 08/04/2016 sanofi pasteur PMC FLUZONE [id number] Intramuscular Left Deltoid 08/04/2016 06/13/2015 141 Influenza 09/13/2017 GlaxoSmithKline SKB Flulaval quadrivalent [id number] Intramuscular Left Deltoid 09/13/2017 06/13/2015 158 Influenza 07/28/2018 sanofi pasteur PMC Flulaval quadrivalent 3PM59 Intramuscular Right Arm 07/28/2018 11/07/2018 158 Influenza 07/28/2018 GlaxoSmithKline SKB Flulaval quadrivalent 3PM59 Intramuscular Right Arm 07/28/2018 11/07/2018 158 History of Past Illness Name Date of Onset Comments Hypercholesterolemia Hypertension Arthritis unspecified Breast Mass Left breast x2 Fatigue Breast Mass Aug 28 2013 3:27PM Abnormal mammogram Aug 28 2013 11:56AM Breast Neoplasm, Benign Sep 05 2013 11:28AM Fibrocystic changes of the breast Sep 05 2013 11:28AM Post Operative Follow-up Visit Sep 05 2013 11:28AM Transient Ischemic Attack (TIA) Sep 28 2013 10:03AM Injury to peripheral nerve(s) of shoulder girdle and upper limb; unspecified nerve of shoulder girdle and upper limb Sep 28 2013 10:03AM Breast Cancer, Female Sep 28 2013 10:03AM Knee Meniscus Injury Sep 28 2013 10:03AM Lumbar spinal stenosis Sep 28 2013 10:03AM Migraine Oct 10 2013 3:33PM Hypertension Oct 10 2013 3:33PM Hypercholesterolemia Oct 24 2013 3:47PM Hypertension Oct 24 2013 3:47PM Breast Mass Oct 24 2013 3:47PM Screening Mammogram For High Risk Patient Oct 29 2013 3:09PM Upper Respiratory Infection Nov 08 2013 1:53PM Essential Hypertension May 02 2014 8:49AM Hyperlipidemia May 02 2014 8:49AM Osteoarthrosis May 02 2014 8:49AM Migraine May 02 2014 8:49AM Depressive Disorder May 02 2014 8:49AM Insomnia May 02 2014 8:49AM Screening Mammogram Jul 23 2014 11:06AM Hypertension Jul 30 2014 9:24AM Hypercholesterolemia Jul 30 2014 9:24AM Breast Mass Jul 30 2014 9:24AM Hypercholesterolemia Jan 28 2015 8:22AM Back Pain Jan 28 2015 8:22AM Hypertension Jan 28 2015 8:22AM Sciatica Jan 28 2015 8:22AM Edema Jan 28 2015 8:22AM Dysuria Feb 20 2015 8:14AM Pre-op examination May 07 2015 8:22AM Mastodynia Jun 24 2015 11:20AM Screening Mammogram Jul 30 2015 9:52AM Hypokalemia Aug 21 2015 2:07PM Hypokalemia Aug 21 2015 2:24PM History of anaphylaxis Jan 26 2016 2:10PM Preop exam for internal medicine May 05 2016 4:30PM Screening Mammogram Aug 03 2016 2:39PM Flu Vaccine Aug 04 2016 11:43AM Lymphedema Aug 04 2016 11:09AM Cognitive and behavioral changes Aug 04 2016 11:09AM Hyperlipidemia, Mixed Dec 06 2016 2:01PM Hypertension Dec 06 2016 2:01PM Sinusitis, Acute Dec 06 2016 2:01PM prison medication use Dec 06 2016 2:01PM Osteoporosis Dec 06 2016 2:01PM Hyperglycemia Dec 06 2016 2:01PM Elevated alkaline phosphatase level Dec 06 2016 2:01PM Osteopenia Dec 06 2016 2:01PM Elevated liver enzymes Jan 23 2017 9:39AM Hyperlipidemia Jan 23 2017 9:39AM Hypertension Jan 23 2017 9:39AM Hypertension, Benign Essential Jan 27 2017 11:34AM Elevated liver enzymes Feb 03 2017 9:43AM Elevated liver enzymes Mar 03 2017 2:46PM Elevated liver enzymes Mar 03 2017 2:17PM Hyperlipidemia, Mixed Mar 03 2017 2:17PM Obesity Mar 03 2017 2:17PM Osteoarthritis Mar 03 2017 2:17PM Hypertension, Benign Essential Mar 03 2017 2:17PM Dorsalgia, unspecified Mar 03 2017 2:17PM Other chronic pain Mar 03 2017 2:17PM History of TIA (transient ischemic attack) Mar 03 2017 2:17PM Screening Mammogram Jul 12 2017 5:41PM Flu Vaccine Sep 13 2017 2:55PM Preop exam for internal medicine Oct 10 2017 1:12PM Chronic sinusitis, unspecified Oct 10 2017 1:12PM Other viral agents as the cause of diseases classified elsewhere Oct 10 2017 1:12PM Pure hypercholesterolemia Jul 28 2018 8:43AM Essential Hypertension Jul 28 2018 8:43AM Screening for diabetes mellitus Jul 28 2018 8:43AM Hemispheric carotid artery syndrome Jul 28 2018 8:43AM Establishing care with new doctor, encounter for Jul 28 2018 8:43AM At risk for falling Jul 28 2018 8:43AM Flu Vaccine Jul 28 2018 9:57AM Potassium (K) deficiency Aug 09 2018 8:39AM Potassium (K) deficiency Aug 24 2018 9:03AM Pre-operative general physical examination Sep 22 2018 3:32PM Payers Insurance Name Company Name Plan Name Plan Number Policy Number Policy Group Number Start Date Medicare RHC Medicare [facility] [id number] Saturday, 2018 [facility] Comm Plan of [id number] N/A [facility] [id number] N/A [facility] [id number] N/A FRA Insurance Plans FRA Insurance Plans [id number] N/A Disability Determination Disability Determination [id number] Tuesday BCBS Bcbs [facility] [id number] N/A [employer] - [facility] - [place] State Plan Amer[employer] - [facility] State Plan [id number] N/A [facility] Financial Assistance [facility] Financial [place] 50 percent November [facility] Financial Assistance [facility] Financial [place] 50 percent Saturday, November 07, 2015 Medicare [facility] Medicare RHC [id number] Saturday, February 06, 2016 Medicare Part A Medicare - Lab/Xray [id number] Saturday, February 06, 2016 Medicare Part B Medicare Of [place] [id number] N/A AARP Aarp [id number] July [facility] Community [facility] Comm [id number] Thursday, September 07, 2017 History of Encounters Visit Date Visit Type Provider 09/22/[address] Candido Willoughby MD 08/24/2018 Laboratory Adonay Sarabia NP 07/28/[address] Candido Willoughby MD 10/10/2017 Office visit Bailey Braden MD 09/13/2017 Nurse visit Bailey Braden MD 04/05/2017 Hospital Addi Mancilla MD 03/03/2017 Office visit Bailey Braden MD 01/27/2017 Nurse visit Bailey Braden MD 12/06/2016 Office visit Bailey Braden MD 08/04/2016 Office visit Bailey Braden MD 07/20/2016 Voided Bailey Braden MD 07/20/2016 [facility] Addi Mancilla MD 05/05/2016 Office visit Bailey Braden MD 01/26/2016 Office visit Sourav Ruiz APRN 06/24/2015 Office visit Ron Cochran MD 05/07/2015 Office visit Michela Gaytan TOP FORMER 05/07/2015 [facility] Addi Mancilla MD 01/28/2015 Office visit Bailey Braden MD 07/30/2014 Office visit Bailey Braden MD 05/02/2014 Office visit Michela Gaytan TOP FORMER 01/21/2014 Records Request Bailey Braden MD 11/08/2013 Office visit Bailey Braden MD 10/24/2013 Office visit Bailey Braden MD 10/10/2013 Office visit Bailey Braden MD 10/10/2013 Records Request Ron Cochran MD 09/28/2013 Office visit Bailey Braden MD 09/05/2013 Office visit Ron Cochran MD 08/30/2013 Surgery Ron Cochran MD 08/28/2013 Office visit Ron Cochran MD
--- OUTSIDE RECORDS SUMMARY | 2018-10-18 11:46 | XMS REPORT ---
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 Name Role Phone Adonay Sarabia PCP Candido Willoughby PreferredProvider Allergies and Adverse [...] HC BMI BSA BMI Percentile O2 Sat(%) 07/28/2018 8:41:00 AM 124 mmHg 86 mmHg 63 bpm 18 rpm 98.4 F 252.25 lbs 64 in 43.2982 kg/m 2.273 m 97 % 07/28/2018 8:32:00 AM 252.5 lbs 64 in 43.34 kg/m2 2.27 m2 10/10/2017 1:08:00 PM 116 mmHg 82 mmHg 105 bpm 18 rpm 99 F 243.125 lbs 64 in 41.7319 kg/m 2.2315 m 95 % 03/03/2017 2:13:00 PM 138 mmHg 98 mmHg 88 bpm 18 rpm 98.8 F 248.375 lbs 64 in 42.63 kg/m2 2.26 m2 98 % 01/27/2017 11:32:00 AM 126 mmHg [...] ANTINUCLEAR ANTIBODIES LAMONT Returned 03/04/2017 12:00 AM [id number] TOTAL Returned 03/04/2017 12:00 AM ASSAY OF CERULOPLASMIN Returned 07/12/2017 12:00 AM MAMMOGRAM BOTH BREASTS Reviewed 09/13/2017 12:00 AM [facility] MEDICARE - flu vaccine administration Reviewed [...] 33 Influenza 08/04/2016 sanofi pasteur PMC FLUZONE [id number] Intramuscular Left Deltoid 08/04/2016 06/13/2015 141 Influenza [...] 2:01PM Sinusitis, Acute Dec 06 2016 2:01PM care home medication use Dec 06 2016 2:01PM Osteoporosis [...] Potassium (K) deficiency Aug 24 2018 9:03AM Payers Insurance Name Company Name Plan Name Plan Number Policy Number Policy Group Number Start Date Medicare [facility] Medicare [facility] [id number] Saturday, 2018 [facility] Plan [facility] Comm Plan of [id number] N/A [facility] [id number] N/A [facility] [employer] [id number] N/A FRA Insurance Plans FRA Insurance Plans [id number] N/A Disability Determination Disability Determination [id number] Tuesday [id number] N/A [employer] - [place] State Plan [employer] - [facility] State Plan [id number] N/A [facility] Financial Assistance [facility] Financial [place] 50 percent November [facility] Financial Assistance [facility] Financial [place] 50 percent Saturday, November 07, 2015 Medicare [facility] Medicare C [id number] Saturday, February 06, 2016 Medicare Part A Medicare - Lab/Xray [id number] Saturday, February 06, 2016 Medicare Part B Medicare Of [place] [id number] N/A AARP Aarp [id number] July [facility] - [facility] - Community [place] [facility] [id number] Thursday, September 07, 2017 History of Encounters Visit Date Visit Type Provider 08/24/2018 Laboratory Adonay Sarabia NP 07/28/[address] Candido Willoughby MD 10/10/2017 Office visit Bailey Braden MD 09/13/2017 Nurse visit Bailey Braden MD 04/05/2017 [facility] Rosalinda Mancilla MD 03/03/2017 Office visit Bailey Braden MD 01/27/2017 Nurse visit Bailey Braden MD 12/06/2016 Office visit Bailey Braden MD 08/04/2016 Office visit Bailey Braden MD 07/20/2016 Voided Bailey Braden MD 07/20/2016 Hospital Addi Mancilla MD 05/05/2016 Office visit Bailey Braden MD 01/26/2016 Office visit Sourav Ruiz APRN 06/24/2015 Office visit Ron Cochran MD 05/07/2015 Office visit Michela Gaytan CARROTER 05/07/2015 Hospital Addi Mancilla MD 01/28/2015 Office visit Bailey Braden MD 07/30/2014 Office visit Bailey Braden MD 05/02/2014 Office visit Michela Gaytan CARROTER 01/21/2014 Records Request Bailey Braden MD 11/08/2013 Office visit Bailey Braden MD 10/24/2013 Office visit Bailey Braden MD 10/10/2013 Office visit Bailey Braden MD 10/10/2013 Records Request Ron Cochran MD 09/28/2013 Office visit Bailey Braden MD 09/05/2013 Office visit Ron Cochran MD 08/30/2013 Surgery Ron Cochran MD 08/28/2013 Office visit Ron Cochran MD
--- OUTSIDE RECORDS SUMMARY | 2018-10-18 11:46 | XMS REPORT ---
Author Author Adonay Sarabia Organization [facility] Address [address] [place], [place] [id number] Care Team Providers Care Ceramics Technician Name Role Phone Adonay Sarabia PCP Candido [...] to Western blot conf 03/04/2017 12:00 AM CMP 2018 12:00 AM Medications Active Name Start Date [...] days of the week. d/c'd by Dr Braden Problem List Description Status Onset Hypercholesterolemia Active [...] ANTINUCLEAR ANTIBODIES LAMONT Returned 03/04/2017 12:00 AM [id number] TOTAL Returned 03/04/2017 12:00 AM ASSAY OF CERULOPLASMIN Returned 07/12/2017 12:00 AM MAMMOGRAM BOTH BREASTS Reviewed 09/13/2017 12:00 AM [facility] MEDICARE - flu vaccine administration Reviewed [...] NO PRSV 4 LEONARD 3 YRS+ Reviewed 08/24/2018 12:00 AM ROUTINE VENIPUNCTURE Reviewed 08/28/2013 [...] 33 Influenza 08/04/2016 sanofi pasteur PMC FLUZONE [id number] Intramuscular Left Deltoid 08/04/2016 06/13/2015 141 Influenza [...] 2:01PM Sinusitis, Acute Dec 06 2016 2: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 Dec 06 2016 2:01PM Osteoporosis [...] Number Policy Group Number Start Date Medicare RH Medicare RH [id number] Saturday, 2018 [facility] Comm Plan of [id number] N/A [facility] TriWest [id number] N/A [facility] TriWest [id number] N/A FRA Insurance Plans FRA Insurance Plans [id number] N/A Disability Determination Disability Determination [id number] Tuesday BCBS Bcbs [facility] [id number] N/A Amerigroup - [place] - [place] State Plan Amerigroup - [facility] State Plan [id number] N/A [facility] Financial Assistance [facility] R[place] 50 percent November [facility] Financial [facility] [place] 50 percent Saturday, November 07, 2015 Medicare [facility] Medicare RHC [id number] Saturday, February 06, 2016 Medicare Part A Medicare - Lab/Xray [id number] Saturday, February 06, 2016 Medicare Part B Medicare Of [place] [id number] N/A AARP Aarp [id number] July United [facility] - [facility] - Community Plan [facility] RHC Comm [id number] Thursday, September 07, 2017 History of Encounters Visit Date Visit Type Provider 08/24/2018 Laboratory Adonay Sarabia NP 07/28/[address] Candido Willoughby MD 10/10/2017 Office visit Bailey Braden MD 09/13/2017 Nurse visit Bailey Braden MD 04/05/2017 [facility] Rosalinda Mancilla MD 03/03/2017 Office visit Bailey Braden MD 01/27/2017 Nurse visit Bailey Braden MD 12/06/2016 Office visit Bailey Braden MD 08/04/2016 Office visit Bailey Braden MD 07/20/2016 Voided Bailey Braden MD 07/20/2016 Hospital Addi Mancilla MD 05/05/2016 Office visit Bailey Braden MD 01/26/2016 Office visit Sourav Ruiz FREIGHT CAR INSPECTOR 06/24/2015 Office visit Ron Cochran MD 05/07/2015 Office visit Michela Gaytan FREIGHT CAR INSPECTOR 05/07/2015 Hospital Addi Mancilla MD 01/28/2015 Office visit Bailey Braden MD 07/30/2014 Office visit Bailey Braden MD 05/02/2014 Office visit Michela Gaytan FREIGHT CAR INSPECTOR 01/21/2014 Records Request Bailey Braden MD 11/08/2013 Office visit Bailey Braden MD 10/24/2013 Office visit Bailey Braden MD 10/10/2013 Office visit Bailey Braden MD 10/10/2013 Records Request Ron Cochran MD 09/28/2013 Office visit Bailey Braden MD 09/05/2013 Office visit Ron Cochran MD 08/30/2013 Surgery Ron Cochran MD 08/28/2013 Office visit Ron Cochran MD
--- OUTSIDE RECORDS SUMMARY | 2018-10-18 11:47 | XMS REPORT ---
Author Candido Liriano [facility] Address [address] [place], [place] [id number] Care Team Providers Care Security Engineer Name Role Phone Candido Willoughby PCP Candido [...] mg) by oral route every 6 hours clopidogrel 75 mg oral tablet 02/28/2018 TAKE ONE TABLET BY MOUTH ONCE DAILY sumatriptan 20 mg/actuation nasal spray,non-aerosol 04/26/2018 1 [...] once daily at bedtime for 30 days Name Start Date Expiration Date SIG Comments [...] ANTINUCLEAR ANTIBODIES LAMONT Returned 03/04/2017 12:00 AM [id number] TOTAL Returned 03/04/2017 12:00 AM ASSAY OF CERULOPLASMIN Returned 07/12/2017 12:00 AM MAMMOGRAM BOTH BREASTS Reviewed 09/13/2017 12:[address] [facility] MEDICARE - flu vaccine administration Reviewed [...] NO PRSV 4 LEONARD 3 YRS+ Reviewed 08/28/2013 12:00 AM Mammographic guidance for [...] 33 Influenza 08/04/2016 sanofi pasteur PMC FLUZONE [id number] Intramuscular Left Deltoid 08/04/2016 06/13/2015 141 Influenza [...] 2:01PM Sinusitis, Acute Dec 06 2016 2:01PM residential medication use Dec 06 2016 2:01PM Osteoporosis [...] Potassium (K) deficiency Aug 09 2018 8:39AM Payers Insurance Name Company Name Plan Name Plan Number Policy Number Policy Group Number Start Date Medicare RHC Medicare RHC [id number] Saturday, 2018 [facility] - RHC - Community Plan [facility] RHC Comm [id number] Thursday, 2017 [facility] TriWest [id number] N/A [facility] C [facility] [id number] N/A FRA Insurance Plans FRA Insurance Plans [id number] N/A Disability Determination Disability Determination [id number] Tuesday BCBS Bcbs [facility] [id number] N/A Amerigroup - [place] State [place] Amer[employer] [place] [id number] N/A [facility] Financial Assistance [facility] Financial [place]iana 50 percent November [facility] Financial Assistance [facility] Financial R[place] 50 percent Saturday, November 07, 2015 Medicare RHC Medicare RHC [id number] Saturday, February 06, 2016 Medicare Part A Medicare - Lab/Xray [id number] Saturday, February 06, 2016 Medicare Part B Medicare Of [place] [id number] N/A AARP Aarp [id number] July History of Encounters Visit Date Visit Type Provider 07/28/[address] Candido Willoughby MD 10/10/2017 Office visit Bailey Braden MD 09/13/2017 Nurse visit Bailey Braden MD 04/05/2017 Hospital Addi Mancilla MD 03/03/2017 Office visit Bailey Braden MD 01/27/2017 Nurse visit Bailey Braden MD 12/06/2016 Office visit Bailey Braden MD 08/04/2016 Office visit Bailey Braden MD 07/20/2016 Voided Bailey Braden MD 07/20/2016 [facility] Addi Mancilla MD 05/05/2016 Office visit Bailey Braden MD 01/26/2016 Office visit Sourav Ruiz PAID SEARCH SPECIALIST 06/24/2015 Office visit Ron Cochran MD 05/07/2015 Office visit Michela Gaytan PAID SEARCH SPECIALIST 05/07/2015 [facility] Rosalinda Mancilla MD 01/28/2015 Office visit Bailey Braden MD 07/30/2014 Office visit Bailey Braden MD 05/02/2014 Office visit Michela Gaytan PAID SEARCH SPECIALIST 01/21/2014 Records Request Bailey Braden MD 11/08/2013 Office visit Bailey Braden MD 10/24/2013 Office visit Bailey Braden MD 10/10/2013 Office visit Bailey Braden MD 10/10/2013 Records Request Ron Cochran MD 09/28/2013 Office visit Bailey Braden MD 09/05/2013 Office visit Ron Cochran MD 08/30/2013 Surgery Ron Cochran MD 08/28/2013 Office visit Ron Cochran MD
--- OUTSIDE RECORDS SUMMARY | 2018-10-18 11:48 | XMS REPORT ---
Author Candido Liriano [facility] Address [address] [place], [place] [phone] Care Team Providers Care Final Cleaner Name Role Phone Candido Willoughby PCP Candido [...] to Western blot conf 03/04/2017 12:00 AM Flu vaccine 3 yrs & older, Quadrivalent, Preservative-free (single-dose syringe ) 07/31/2018 12:00 AM Medications Active Name Start Date [...] route 3 times per day tretinoin topical Name Start Date Expiration Date SIG Comments [...] ANTINUCLEAR ANTIBODIES LAMONT Returned 03/04/2017 12:00 AM [id number] TOTAL Returned 03/04/2017 12:00 AM ASSAY OF CERULOPLASMIN Returned 07/12/2017 12:00 AM MAMMOGRAM BOTH BREASTS Reviewed 09/13/2017 12:00 AM [facility] MEDICARE - flu vaccine administration Reviewed 09/13/2017 [...] NO PRSV 4 LEONARD 6-35 M Reviewed 08/28/2013 12:00 AM Mammographic guidance for [...] NE Not Entered Not Entered Not Entered 11/0711/07/2017 115 Influenza 09/10/2014 Not Entered NE Flucelvax Not Entered Not Entered 11/07/2017 11/07/2017 141 Pneumococcal 07/22/2016 Not Entered NE PNEUMOVAX 23 Not Entered Not Entered 08/04/2016 11/07/2017 33 Influenza 08/04/2016 sanofi pasteur PMC FLUZONE [id number] Intramuscular Left Deltoid 08/04/2016 06/13/2015 141 Influenza 09/13/2017 GlaxoSmithKline SKB Flulaval quadrivalent [id number] Intramuscular Left Deltoid 09/13/2017 06/13/2015 158 Influenza 07/28/2018 sanofi pasteur PMC Flulaval quadrivalent [id number] Intramuscular Right Arm 07/28/2018 11/07/2017 158 History of Past Illness Name Date [...] 2:01PM Sinusitis, Acute Dec 06 2016 2:01PM skilled nursing medication use Dec 06 2016 2:01PM Osteoporosis [...] 8:43AM Flu Vaccine Jul 28 2018 9:57AM Payers Insurance Name Company Name Plan Name Plan Number Policy Number Policy Group Number Start Date Medicare RHC Medicare RHC [id number] Saturday, 2018 [facility] - RHC - Community Plan [place] [facility] Comm [id number] Thursday, 2017 [facility] C [facility] [id number] N/A [facility] - UHC [facility]West [id number] N/A FRA Insurance Plans FRA Insurance Plans [id number] N/A Disability Determination Disability Determination [id number] Tuesday BCBS Bcbs [facility] [id number] N/A Amerigroup - [place] - [place] State Plan Amerigroup - RHC [place] State Plan [id number] N/A [facility] Financial Assistance [facility] Financial [place] 50 percent November [facility] Financial Assistance [facility] Financial R[place] 50 percent Saturday, November 07, 2015 Medicare RHC Medicare RHC [id number] Saturday, February 06, 2016 Medicare Part A Medicare - Lab/Xray [id number] Saturday, February 06, 2016 Medicare Part B Medicare Of [place] [id number] N/A AARP Aarp [id number] July History of Encounters Visit Date Visit Type Provider 07/28/[address] Candido Willoughby MD 10/10/2017 Office visit Bailey Braden MD 09/13/2017 Nurse visit Bailey Braden MD 04/05/2017 [facility] Addi Mancilla MD 03/03/2017 Office visit Bailey Braden MD 01/27/2017 Nurse visit Bailey Braden MD 12/06/2016 Office visit Bailey Braden MD 08/04/2016 Office visit Bailey Braden MD 07/20/2016 Voided Bailey Braden MD 07/20/2016 Hospital Addi Mancilla MD 05/05/2016 Office visit Bailey Braden MD 01/26/2016 Office visit Sourav Ruiz APRN 06/24/2015 Office visit Ron Cochran MD 05/07/2015 Office visit Michela Gaytan OFFICE CASHIER 05/07/2015 [facility] Addi Mancilla MD 01/28/2015 Office visit Bailey Braden MD 07/30/2014 Office visit Bailey Braden MD 05/02/2014 Office visit Michela Gaytan OFFICE CASHIER 01/21/2014 Records Request Bailey Braden MD 11/08/2013 Office visit Bailey Braden MD 10/24/2013 Office visit Bailey Braden MD 10/10/2013 Office visit Bailey Braden MD 10/10/2013 Records Request Ron Cochran MD 09/28/2013 Office visit Bailey Braden MD 09/05/2013 Office visit Ron Cochran MD 08/30/2013 Surgery Ron Cochran MD 08/28/2013 Office visit Ron Cochran MD
--- OUTSIDE RECORDS SUMMARY | 2018-10-18 11:49 | XMS REPORT ---
Author Candido Liriano [facility] Address [address] [place], [place] [address] Care Team Providers Care Weigher And Grader Name Role Phone Candido Willoughby PCP Candido [...] to Western blot conf 03/04/2017 12:00 AM LIPID PANEL 07/28/2018 12:00 AM HEMOGLOBIN A1C 07/28/2018 12:00 AM CMP 07/28/2018 12:00 AM Flu Vaccine 6 to 35 month, Quadrivalent, Preservative-free (single-dose syringe ) 07/28/2018 12:00 AM Medications Active Name Start Date [...] ANTINUCLEAR ANTIBODIES LAMONT Returned 03/04/2017 12:00 AM [id number] TOTAL Returned 03/04/2017 12:00 AM ASSAY OF CERULOPLASMIN Returned 07/12/2017 12:00 AM MAMMOGRAM BOTH BREASTS Reviewed 09/13/2017 12:00 AM [facility] MEDICARE - flu vaccine administration Reviewed 09/13/2017 12:00 AM INFLUENZA VAC 4 VALENT PRSRV FREE 3 YRS PLUS IM Reviewed 10/10/2017 12:00 AM METABOLIC PANEL TOTAL CA Returned 10/10/2017 12:00 AM COMPLETE CBC W/AUTO DIFF WBC Returned 08/28/2013 12:00 AM Mammographic guidance for needle [...] 33 Influenza 08/04/2016 sanofi pasteur PMC FLUZONE [id number] Intramuscular Left Deltoid 08/04/2016 06/13/2015 141 Influenza 09/13/2017 [employer] SKB Flulaval quadrivalent [id number] Intramuscular Left Deltoid 09/13/2017 06/13/2015 158 History of Past Illness Name Date [...] 2:01PM Sinusitis, Acute Dec 06 2016 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 Dec 06 2016 2:01PM Osteoporosis [...] Number Policy Group Number Start Date Medicare [facility] Medicare [facility] [id number] Saturday, 2018 [facility] Plan [facility] Comm [id number] Thursday, 2017 [facility] [id number] N/A [facility]West [id number] N/A FRA Insurance Plans FRA Insurance Plans [id number] N/A Disability Determination Disability Determination [id number] Tuesday BCBS Bcbs [facility] [id number] N/A [employer] - [place] State Plan Amer[employer] [place] State Plan [id number] N/A [facility] Financial Assistance [facility] Financial Riana 50 percent November [facility] Financial Assistance [facility] Financial [place] 50 percent Saturday, November 07, 2015 Medicare RHC Medicare RHC [id number] Saturday, February 06, 2016 Medicare Part A Medicare - Lab/Xray [id number] Saturday, February 06, 2016 Medicare Part B Medicare Of [place] [id number] N/A AARP Aarp [id number] July History of Encounters Visit Date Visit Type Provider 07/28/[address] Candido Willoughby MD 10/10/2017 Office visit Bailey Braden MD 09/13/2017 Nurse visit Bailey Braden MD 04/05/2017 [facility] Rosalinda Mancilla MD 03/03/2017 Office visit Bailey Braden MD 01/27/2017 Nurse visit Bailey Braden MD 12/06/2016 Office visit Bailey Braden MD 08/04/2016 Office visit Bailey Braden MD 07/20/2016 Voided Bailey Braden MD 07/20/2016 Hospital Addi Mancilla MD 05/05/2016 Office visit Bailey Braden MD 01/26/2016 Office visit Sourav Ruiz SHUTTLE FINAL INSPECTOR 06/24/2015 Office visit Ron Cochran MD 05/07/2015 Office visit Michela Gaytan SHUTTLE FINAL INSPECTOR 05/07/2015 [facility] Addi Mancilla MD 01/28/2015 Office visit Bailey Braden MD 07/30/2014 Office visit Bailey Braden MD 05/02/2014 Office visit Michela Gaytan SHUTTLE FINAL INSPECTOR 01/21/2014 Records Request Bailey Braden MD 11/08/2013 Office visit Bailey Braden MD 10/24/2013 Office visit Bailey Braden MD 10/10/2013 Office visit Bailey Braden MD 10/10/2013 Records Request Ron Cochran MD 09/28/2013 Office visit Bailey Braden MD 09/05/2013 Office visit Ron Cochran MD 08/30/2013 Surgery Ron Cochran MD 08/28/2013 Office visit Ron Cochran MD
--- OUTSIDE RECORDS SUMMARY | 2018-10-18 11:50 | XMS REPORT ---
Author Author Ron Cochran [facility] Address [address] [place], [place] [id number] Care Team Providers Care [employer] Volleyball Coach Name Role Phone Ron Cochran PCP Unavailable Allergies and Adverse Reactions Name Reaction Notes SULFA (SULFONAMIDES) body shuts down Plan of Treatment Planned Activity Comments Planned Date Planned Time Plan/Goal MAMMOGRAM BOTH BREASTS 07/30/2015 12:00 AM Medications Active Name Start Date Estimated Completion Date SIG Comments fluoxetine 20 mg oral capsule take 1 capsule (20 mg) by oral route once daily EpiPen 0.3 mg/0.3 mL (1:1,000) injection auto-injector inject 0.3 milliliter (0.3 mg) by intramuscular route once as needed for anaphylaxis Voltaren 1 % topical gel apply 2 gram to the affected area(s) by topical route 4 times per day eszopiclone 2 mg oral tablet take 1 tablet (2 mg) by oral route once daily at bedtime gabapentin 300 mg oral capsule 01/28/2015 01/23/2016 take 1 capsule by oral route once a day (at bedtime) for 90 days bumetanide 1 mg oral tablet 01/28/2015 10/25/2015 take 1 tablet (1 mg) by oral route every other day for 90 days losartan-hydrochlorothiazide 100-12.5 mg oral tablet 01/28/2015 04/22/2016 TAKE ONE TABLET BY MOUTH EVERY DAY FOR 30 DAYS lovastatin 20 mg oral tablet 01/28/2015 04/22/2016 take 1 tablet (20 mg) by oral route once daily with the evening meal for 90 days pantoprazole 40 mg oral tablet,delayed release (DR/EC) 01/28/2015 04/22/2016 take 1 tablet (40 mg) by oral route once daily for 90 days Name Start Date Expiration Date SIG Comments losartan-hydrochlorothiazide 100-12.5 mg oral tablet 10/29/2013 01/22/2014 take 1 tablet by oral route once daily for 30 days doxycycline hyclate 100 mg oral capsule 11/08/2013 11/18/2013 take 1 capsule ( 100 mg) by oral route every 12 hours for 10 days Tessalon Perles 100 mg oral capsule 11/08/2013 11/18/2013 take 1 capsule by oral route once a day (at bedtime) for 10 days sumatriptan 20 mg/actuation nasal spray,non-aerosol 12/06/2014 05/05/2014 1 spray (20 mg)intranasal route once; if headache returns, may be repeated once after 2 hours, not to exceed 40 mg per day losartan-hydrochlorothiazide 100-12.5 mg oral tablet 07/15/2014 01/11/2015 TAKE ONE TABLET BY MOUTH EVERY DAY FOR 30 DAYS for 30 days hydrocodone-acetaminophen 5-325 mg oral tablet 01/28/2015 02/04/2015 take 1 tablet by oral route every 6 hours as needed for pain for 7 days Discontinued Name Start Date Discontinued Date SIG Comments trandolapril 4 mg oral tablet 01/28/2015 take 1 tablet (4 mg) by oral route once daily Lunesta 2 mg oral tablet 01/28/2015 take 1 tablet (2 mg) by oral route once daily at bedtime Percocet 5-325 mg oral tablet 01/28/2015 take 1 - 2 tablets by oral route every 4-6 hours as needed Problem List Description Status Onset Hypercholesterolemia Active Hypertension Active Breast Mass Active Vital Signs Date Time BP-Sys(mm[Hg] BP-Nasra(mm[Hg]) HR(bpm) RR(rpm) Temp WT HT HC BMI BSA BMI Percentile O2 Sat(%) 05/07/2015 8:19:00 AM 132 mmHg 96 mmHg [...] of Procedures Date Ordered Description Order Status 08/28/2013 12:00 AM Mammographic guidance for needle placement, breast (eg, for wire localization or for injection), each lesion, radiological supervision and interpretation Reviewed 10/29/2013 12:00 AM MAMMOGRAM ONE BREAST Returned 05/02/2014 12:00 AM COMPREHEN METABOLIC PANEL Returned 05/02/2014 12:00 AM LIPID PANEL Returned 05/02/2014 12:00 AM COMPLETE CBC W/AUTO DIFF WBC Returned 07/23/2014 12:00 AM MAMMOGRAM BOTH BREASTS Returned 01/28/2015 12:00 AM COMPLETE CBC W/AUTO DIFF WBC Returned 01/28/2015 12:00 AM COMPREHEN METABOLIC PANEL Returned 01/28/2015 12:00 AM LIPID PANEL Returned 01/28/2015 12:00 AM VITAMIN B-12 Returned 02/20/2015 12:00 AM URINALYSIS AUTO W/SCOPE Returned Results Summary Data and Description Results 05/06/2014 9:48 AM GLUCOSE 106.0 mg/dLSODIUM 139.0 mmol/LPOTASSIUM 4.20 mmol/ LCHLORIDE 106.0 mmol/LCO2 23.0 mmol/LBUN 17.0 mg/dLCREATININE 0.70 mg/dLSGOT/ AST 24.0 IU/LSGPT/ALT 35.0 IU/LALK PHOS 92.0 IU/LTOTAL PROTEIN 7.10 g/dLALBUMIN 4.20 g/dLTOTAL BILI 0.50 mg/dLCALCIUM 9.40 mg/dLeGFR 60 WBC 8.4 RBC 4.76 HGB 13.0 g/dLHCT 39.70 %MCV 83.0 fLMCH 27.30 pgMCHC 32.70 g/dLRDW CV 13.80 %MPV 9.20 fLPLT 311 %NEUT 49.60 %%LYMP 41.40 %%MONO 7.30 %%EOS 1.50 %%BASO 0.20 %# NEUT 4.16 #LYMP 3.48 #MONO 0.61 #EOS 0.13 #BASO 0.02 TRIGLYCERIDES 135.0 mg/ dLCHOLESTEROL 204.0 mg/dLHDL 54.0 mg/dLLDL (CALC) 123.0 mg/dL 02/20/2015 9:20 AM WBC 7.6 RBC 4.62 HGB 12.60 g/dLHCT 39.70 %MCV 86.0 fLMCH 27.30 pgMCHC 31.70 g/dLRDW CV 14.10 %MPV 9.70 fLPLT 302 %NEUT 50.60 %%LYMP 41.30 %%MONO 7.20 %%EOS 0.80 %%BASO 0.10 %#NEUT 3.86 #LYMP 3.15 #MONO 0.55 #EOS 0.06 #BASO 0.01 GLUCOSE 100.0 mg/dLSODIUM 142.0 mmol/LPOTASSIUM 3.60 mmol/ LCHLORIDE 103.0 mmol/LCO2 27.0 mmol/LBUN 20.0 mg/dLCREATININE 0.70 mg/dLSGOT/ AST 14.0 IU/LSGPT/ALT 15.0 IU/LALK PHOS 93.0 IU/LTOTAL PROTEIN 7.40 g/dLALBUMIN 4.30 g/dLTOTAL BILI 0.70 mg/dLCALCIUM 9.80 mg/dLeGFR >60 mL/min/1.73 [id number] 168.0 mg/dLCHOLESTEROL 218.0 mg/dLHDL 56.0 mg/dLLDL (CALC) 128.0 mg/dLVITAMIN B12 356.0 pg/mL 02/20/2015 9:31 AM COLOR YELLOW APPEARANCE CLEAR SPEC GRAV 1.020 pH 6.0 PROTEIN NEGATIVE GLUCOSE NEGATIVE KETONE NEGATIVE BILIRUBIN NEGATIVE BLOOD NEGATIVE NITRITE NEGATIVE LEUK SCREEN NEGATIVE CASTS/LPF NEGATIVE CRYSTALS NEGATIVE MUCOUS THRDS 1+ BACTERIA NEGATIVE EPITH CELLS 1+ SQUAMOUS TRICHOMONAS NEGATIVE YEAST NEGATIVE History Of Immunizations Name Date Admin Mfg Name [facility] Code Trade Name Lot# Route Inj Vis Given Vis Pub CVX Tdap 07/30/2014 Not Entered NE Not Entered Not Entered Not Entered 11/0711/07/2015 115 Influenza 09/10/2014 Not Entered NE Flucelvax Not Entered Not Entered 11/07/2015 11/07/2015 141 History of Past Illness Name Date of Onset Comments Hypercholesterolemia Hypertension Arthritis unspecified Breast Mass Left breast x2 Breast Mass Aug 28 2013 3:27PM Abnormal [...] 11:20AM Screening Mammogram Jul 30 2015 9:52AM Payers Insurance Name Company Name Plan Name Plan Number Policy Number Policy Group Number Start Date Bcbs [facility] [place] [id number] N/A [facility] [id number] N/A [facility] [id number] N/A FRA Insurance Plans FRA Insurance Plans [id number] N/A Disability Determination Disability Determination [id number] Tuesday History of Encounters Visit Date Visit Type Provider 06/24/2015 Office visit Ron Cochran MD 05/07/2015 Office visit Michela Gaytan TICKET COLLECTOR 05/07/2015 [facility] Rosalinda Mancilla MD 01/28/2015 Office visit Bailey Braden MD 07/30/2014 Office visit Bailey Braden MD 05/02/2014 Office visit Michela Gaytan TICKET COLLECTOR 01/21/2014 Records Request Bailey Braden MD 11/08/2013 Office visit Bailey Braden MD 10/24/2013 Office visit Bailey Braden MD 10/10/2013 Office visit Bailey Braden MD 10/10/2013 Records Request Ron Cochran MD 09/28/2013 Office visit Bailey Braden MD 09/05/2013 Office visit Ron Cochran MD 08/30/2013 Surgery Ron Cochran MD 08/28/2013 Office visit Ron Cochran MD
--- OUTSIDE RECORDS SUMMARY | 2018-10-18 11:50 | XMS REPORT ---
Author Candido Liriano [facility] Address [address] [place], [place] [id number] Care Team Providers Care Delivery Truck Driver Name Role Phone Candido Willoughby PCP Candido [...] 07/28/2018 12:00 AM CMP 07/28/2018 12:00 AM Medications Active Name Start [...] ANTINUCLEAR ANTIBODIES LAMONT Returned 03/04/2017 12:00 AM [id number] TOTAL Returned 03/04/2017 12:00 AM ASSAY OF CERULOPLASMIN Returned 07/12/2017 12:00 AM MAMMOGRAM BOTH BREASTS Reviewed 09/13/2017 12:00 AM [facility] MEDICARE - flu vaccine administration Reviewed [...] 33 Influenza 08/04/2016 sanofi pasteur PMC FLUZONE [id number] Intramuscular Left Deltoid 08/04/2016 06/13/2015 141 Influenza 09/13/2017 [employer] [facility] Flulaval quadrivalent [id number] Intramuscular Left Deltoid 09/13/2017 [...] 2:01PM Sinusitis, Acute Dec 06 2016 2:01PM longterm medication use Dec 06 2016 2:01PM Osteoporosis [...] risk for falling Jul 28 2018 8:43AM Payers Insurance Name Company Name Plan Name Plan Number Policy Number Policy Group Number Start Date Medicare RH Medicare RH [id number] Saturday, 2018 [facility] Plan [facility] [id number] Thursday, 2017 [facility] [id number] N/A [facility] [id number] N/A FRA Insurance Plans FRA Insurance Plans [id number] N/A Disability Determination Disability Determination [id number] Tuesday BCBS [employer] [place] [id number] N/A Amer[employer] [place] Amer[employer] [place] [id number] N/A [facility] Financial Assistance [facility] Financial [place] 50 percent November [facility] Financial Assistance [facility] Financial [place] 50 percent Saturday, November 07, 2015 Medicare RHC Medicare RHC [id number] Saturday, February 06, 2016 Medicare Part A Medicare - Lab/Xray [id number] Saturday, February 06, 2016 Medicare Part B Medicare Of [place] [id number] N/A AARP [employer] [id number] July History of Encounters Visit Date Visit Type Provider 07/28/[address] Candido Willoughby MD 10/10/2017 Office visit Bailey Braden MD 09/13/2017 Nurse visit Bailey Braden MD 04/05/2017 Hospital Rosalinda Mancilla MD 03/03/2017 Office visit Bailey Braden MD 01/27/2017 Nurse visit Bailey Braden MD 12/06/2016 Office visit Bailey Braden MD 08/04/2016 Office visit Bailey Braedn MD 07/20/2016 Voided Bailey Braden MD 07/20/2016 Hospital Addi Mancilla MD 05/05/2016 Office visit Bailey Braden MD 01/26/2016 Office visit Sourav Ruiz PAPER CUP HANDLE MACHINE OPERATOR 06/24/2015 Office visit Ron Cochran MD 05/07/2015 Office visit Michela Gaytan PAPER CUP HANDLE MACHINE OPERATOR 05/07/2015 Hospital Addi Mancilla MD 01/28/2015 Office visit Bailey Braden MD 07/30/2014 Office visit Bailey Braden MD 05/02/2014 Office visit Michela Gaytan PAPER CUP HANDLE MACHINE OPERATOR 01/21/2014 Records Request Bailey Braden MD 11/08/2013 Office visit Bailey Braden MD 10/24/2013 Office visit Bailey Braden MD 10/10/2013 Office visit Bailey Braden MD 10/10/2013 Records Request Ron Cochran MD 09/28/2013 Office visit Bailey Braden MD 09/05/2013 Office visit Ron Cochran MD 08/30/2013 Surgery Ron Cochran MD 08/28/2013 Office visit Ron Cochran MD
--- NOTE | 2018-10-18 11:51 | OPERATIVE REPORT ---
DATE OF SERVICE: 10/18/2018 PREOPERATIVE DIAGNOSIS: Left knee primary osteoarthritis. POSTOPERATIVE DIAGNOSIS: Left knee primary osteoarthritis. PROCEDURE PERFORMED: Left total knee arthroplasty. SURGEON: Ron Smith MD. INTERACTIVE DEVELOPER: GUILLERMO Giraldo, who assisted throughout the procedure and closed the incision. ANESTHESIA: General endotracheal plus regional nerve block by Maggie Serrano CRNA. TOURNIQUET TIME: Approximately 65 minutes at 300 mmHg. ESTIMATED BLOOD LOSS: Minimal. DRAINS: None. COMPLICATIONS: None. POSTOPERATIVE PLAN: Routine protocol. The patient was transported to the recovery room awake and in stable condition. MATERIALS: MicroPort cemented to size 4 femur, cemented size 4 tibia with a 12 mm insert and cemented size 32 patellar button. STATEMENT OF MEDICAL NECESSITY: The patient is a 63-year-old female with longstanding progressive left knee pain. She has undergone treatment with multiple injections and arthroscopy without relief. Radiographs revealed severe medial and patellofemoral arthrosis. She had failed to respond to conservative measures and due to functional impairment, the patient elected to proceed with surgical intervention. DESCRIPTION OF PROCEDURE: After the risks and benefits of the procedure were discussed and questions were answered, an informed consent was signed and placed on the chart. The operative site was confirmed in the preoperative holding area initialed by the surgeon. The patient was then transferred to the operating room and after adequate levels of general endotracheal anesthetic were obtained, a timeout was called confirming the operative site. The left lower extremity was prepped and draped in the usual sterile fashion with the leg elevated and tourniquet was inflated to 300 mmHg. A standard anterior approach was utilized. Hemostasis was obtained with the cautery. A medial parapatellar arthrotomy was performed leaving 1 cm cuff on the patella for the later reattachment. A portion of the fat pad was resected and a subperiosteal release was performed in the proximal medial tibia being careful to stay on the bony surfaces. The ACL was resected. The intramedullary guide was passed into the femur and the distal cutting block was placed. The distal cut was made and the femur was sized to a size 4. The 4 cutting block was placed parallel to the epicondylar axis and the cuts were made from posterior to anterior. Subperiosteal release was then carefully performed on the posterior distal femur being careful to stay on the bony surface. Attention was then turned to the tibia. The intramedullary guide was passed into the tibia. The cutting block was placed. The drop car transected the intramedullary axis and cut was made. The baseplate was placed and the drop car transected the intermalleolar axis and this was prepared with the drill and keel punch. The trials were inserted. The trochlear cut was made. The patella was then prepared using the free hand technique by resecting 10 mm off the undersurface. The peg guide was placed and the peg holes were drilled. The trials were inserted with 12 mm insert. Full extension was easily obtained. Greater than 120 degrees of flexion with gravity was easily obtained. The patella tracked well. There was no anterior/posterior or medial/lateral laxity in flexion or extension. The trials were removed. The bone ends were irrigated with the pulse lavage. The periarticular block was placed in the posterior capsule, medial and lateral retinaculum and extensor mechanisms. The bone ends were again copiously irrigated and dried. The tibial baseplate was cemented into position. Excessive cement was removed. The superior surface was irrigated and dried and the polyethylene insert was placed. The distal femur was irrigated and dried and the femoral prosthesis was cemented into position. Excessive cement was removed. The knee was brought into full extension until the cement had cured. The undersurface of the patella was irrigated and dried. The patellar button was cemented into position. Excessive cement was removed. Once the cement had cured, the knee was taken through range of motion with the full extension easily obtained and 120 degrees of flexion with gravity was easily obtained. The patella tracked well. There was no anterior/posterior or medial/lateral laxity in flexion or extension. The joint was further irrigated with a pulse lavage. Arthrotomy was closed with #2 Tevdek in a [id number] interrupted fashion. The knee was flexed with no undue tension over the repair site and the patella tracked well. The subcutaneous tissues were irrigated and dried using a total of 6 liters throughout the procedure. A 0 Vicryl was used for the deep subcutaneous tissues, 2-0 Vicryl for the superficial subcutaneous tissue, staple was used on the skin. A soft dressing was applied. The tourniquet was deflated. The patient was transferred to the recovery room in awake and stable condition. Job ID: [id number] DocumentID: [id number] Dictated Date: 10/18/2018 09:04:56 Mediation Commissioner Date: 10/18/2018 11:50:39 Dictated By: RON SMITH MD
--- OUTSIDE RECORDS SUMMARY | 2018-10-18 11:51 | XMS REPORT ---
Author Author Bailey Braden Organization [facility] Address [address] [place], [place] [id number] Care Team Providers Care Optical Manager Name Role Phone Bailey Braden PCP Allergies and Adverse Reactions Name Reaction Notes SULFA (SULFONAMIDES) body shuts down Wasp Sting anaphyalatic reaction Tape skin rash Percocet skin itching Plan of Treatment Planned Activity Comments Planned Date Planned Time Plan/Goal ASSAY OF MAGNESIUM 08/21/2015 12:00 AM MAMMOGRAM BOTH BREASTS 08/03/2016 12:00 AM Medications Active Name Start Date Estimated Completion Date SIG Comments fluoxetine 20 mg oral capsule take 1 capsule (20 mg) by oral route once daily EpiPen 0.3 mg/0.3 mL injection auto-injector inject 0.3 milliliter (0.3 mg) by intramuscular route once as needed for anaphylaxis gabapentin 300 mg oral capsule 01/12/2016 01/06/2017 take 1 capsule by oral route once a day (at bedtime) for 90 days EpiPen 2-Filipe 0.3 mg/0.3 mL injection auto-injector 01/26/2016 inject 0.3 milliliter (0.3 mg) by intramuscular route once as needed for anaphylaxis losartan-hydrochlorothiazide 100-12.5 mg oral tablet 02/09/2016 05/04/2017 TAKE ONE TABLET BY MOUTH EVERY DAY FOR 30 DAYS lovastatin 20 mg oral tablet 02/09/2016 05/04/2017 take 1 tablet (20 mg) by oral route once daily with the evening meal for 90 days pantoprazole 40 mg oral tablet,delayed release (DR/EC) 02/09/2016 05/04/2017 take 1 tablet (40 mg) by oral route once daily for 90 days bumetanide 1 mg oral tablet 03/11/2016 take [...] bedtime docusate sodium 100 mg oral capsule take 1 capsule (100 mg) by oral route 2 times per day as needed multivitamin oral capsule take 1 capsule by oral route daily ibuprofen 800 mg oral tablet take 1 tablet by oral route every 8 hours cyclobenzaprine 10 mg oral tablet take 1 tablet (10 mg) by oral route 3 times per day PRN clopidogrel 75 mg oral tablet 08/04/2016 01/31/2017 take 1 tablet (75 mg) by oral route once daily for 30 days sumatriptan 20 mg/actuation nasal spray,non-aerosol 08/04/2016 08/07/2016 1 spray (20 mg)intranasal route once; if headache returns, may be repeated once after 2 hours, not to exceed 40 mg per day Name Start Date Expiration Date SIG Comments [...] a day (at bedtime) for 10 days losartan-hydrochlorothiazide 100-12.5 mg oral tablet 07/15/2014 01/11/2015 [...] TID x 3 days then 40mEq daily bumetanide 1 mg oral tablet 02/10/2016 03/11/2016 take 1 tablet (1 mg) by oral route every other day for 30 days Discontinued Name Start Date Discontinued Date SIG Comments trandolapril 4 mg oral tablet 01/28/2015 take 1 tablet (4 mg) by oral route once daily Voltaren 1 % topical gel 05/05/2016 apply [...] by oral route once daily at bedtime Problem List Description Status Onset Hypercholesterolemia Active Hypertension Active Breast Mass Active Vital Signs Date Time BP-Sys(mm[Hg] BP-Nasra(mm[Hg]) HR(bpm) RR(rpm) Temp WT HT HC BMI BSA BMI Percentile O2 Sat(%) 08/04/2016 11:03:00 AM 138 mmHg 92 mmHg [...] Status 07/30/2015 12:00 AM MAMMOGRAM BOTH BREASTS Returned 08/21/2015 12:00 AM COMPREHEN METABOLIC PANEL Returned 08/04/2016 12:00 AM IM ADM PRQ ID SUBQ/IM [id number] 1 VACCINE Reviewed 08/04/2016 12:00 AM INFLUENZA VACCINE QUADRIVALENT 3 YRS PLUS IM Reviewed 08/28/2013 12:00 AM Mammographic guidance for [...] BILI 0.70 mg/dLCALCIUM 9.80 mg/dLeGFR >60 mL/min/1.73 [id number] 168.0 mg/dLCHOLESTEROL 218.0 mg/dLHDL 56.0 mg/dLLDL (CALC) 128.0 mg/dLVITAMIN B12 356.0 pg/mL 02/20/2015 9:31 AM COLOR YELLOW APPEARANCE CLEAR SPEC GRAV 1.020 pH 6.0 PROTEIN NEGATIVE GLUCOSE NEGATIVE KETONE NEGATIVE BILIRUBIN NEGATIVE BLOOD NEGATIVE NITRITE NEGATIVE LEUK SCREEN NEGATIVE CASTS/LPF NEGATIVE CRYSTALS NEGATIVE MUCOUS THRDS 1+ BACTERIA NEGATIVE EPITH CELLS 1+ SQUAMOUS TRICHOMONAS NEGATIVE YEAST NEGATIVE 08/24/2015 1:10 PM GLUCOSE 94.0 mg/dLSODIUM 139.0 mmol/LPOTASSIUM 4.70 mmol/ LCHLORIDE 105.0 mmol/LCO2 26.0 mmol/LBUN 17.0 mg/dLCREATININE 0.70 mg/dLSGOT/ AST 16.0 IU/LSGPT/ALT 18.0 IU/LALK PHOS 99.0 IU/LTOTAL PROTEIN 7.10 g/dLALBUMIN 4.10 g/dLTOTAL BILI 0.40 mg/dLCALCIUM 9.80 mg/dLeGFR >60 mL/min/1.73m 04/23/2016 8:20 AM COLOR YELLOW APPEARANCE CLEAR SPEC GRAV 1.020 pH 6.0 PROTEIN NEGATIVE GLUCOSE NEGATIVE mg/dLKETONE NEGATIVE BILIRUBIN NEGATIVE BLOOD NEGATIVE NITRITE NEGATIVE LEUK SCREEN NEGATIVE GLUCOSE 114.0 mg/dLSODIUM 137.0 mmol/LPOTASSIUM 3.50 mmol/LCHLORIDE 100.0 mmol/LCO2 26.0 mmol/LBUN 15.0 mg/ dLCREATININE 0.80 mg/dLSGOT/AST 16.0 IU/LSGPT/ALT 27.0 IU/LALK PHOS 122.0 IU/ LTOTAL PROTEIN 7.0 g/dLALBUMIN 4.40 g/dLTOTAL BILI 0.40 mg/dLCALCIUM 9.50 mg/ dLeGFR >60 mL/min/1.73mPROTIME 11.20 secsINR 1.0 WBC 10.4 RBC 4.84 HGB 12.90 g /dLHCT 40.80 %MCV 84.0 fLMCH 26.70 pgMCHC 31.60 g/dLRDW CV 14.50 %MPV 9.20 fLPLT 377 %NEUT 58.80 %%LYMP 30.30 %%MONO 8.80 %%EOS 1.30 %%BASO 0.40 %#NEUT 6.11 #LYMP 3.14 #MONO 0.91 #EOS 0.13 #BASO 0.04 History Of Immunizations Name Date Admin Mfg Name Mfg Code Trade Name Lot# Route Inj Vis Given Vis Pub CVX Tdap 07/30/2014 Not Entered NE Not Entered Not Entered Not Entered 11/0711/07/2016 115 Influenza 09/10/2014 Not Entered NE Flucelvax Not Entered Not Entered 11/07/2016 11/07/2016 141 PCV 07/22/2016 Not Entered NE Pneumovax 23 Not Entered Not Entered 11/07/2016 33 Influenza 08/04/2016 sanofi pasteur PMC Fluzone [id number] Intramuscular Left Deltoid 08/04/2016 06/13/2015 141 History of Past Illness Name Date [...] and behavioral changes Aug 04 2016 11:09AM Payers Insurance Name Company Name Plan Name Plan Number Policy Number Policy Group Number Start Date Medicare Part A Medicare RHC [id number] Saturday, 2016 [employer] [place] [employer] [place] [id number] N/A [facility] Financial Assistance [facility] Financial [place] 50 percent November [facility] Financial Assistance [facility] Financial [place] 50 percent Saturday, November 07, 2015 Medicare Part A Medicare - Lab/Xray [id number] Saturday, February 06, 2016 [facility] [id number] N/A [facility] [id number] N/A FRA Insurance Plans FRA Insurance Plans [id number] N/A Disability Determination Disability Determination [id number] Tuesday [facility] [id number] N/A History of Encounters Visit Date Visit Type Provider 08/04/2016 Office visit Bailey Braden MD 07/20/2016 Office visit Bailey Braden MD 05/05/2016 Office visit Bailey Braden MD 01/26/2016 Office visit Sourav Ruiz FOOD CONCESSION MANAGER 06/24/2015 Office visit Ron Cochran MD 05/07/2015 Office visit Michela Gaytan FOOD CONCESSION MANAGER 05/07/2015 [facility] Rosalinda Mancilla MD 01/28/2015 Office visit Bailey Braden MD 07/30/2014 Office visit Bailey Braden MD 05/02/2014 Office visit Michela Gaytan APRN 01/21/2014 Records Request Bailey Braden MD 11/08/2013 Office visit Bailey Braden MD 10/24/2013 Office visit Bailey Braden MD 10/10/2013 Office visit Bailey Braden MD 10/10/2013 Records Request Ron Cochran MD 09/28/2013 Office visit Bailey Braden MD 09/05/2013 Office visit Ron Cochran MD 08/30/2013 Surgery Ron Cochran MD 08/28/2013 Office visit Ron Cochran MD
--- OUTSIDE RECORDS SUMMARY | 2018-10-18 11:51 | XMS REPORT ---
Author Author Ron Cochran [facility] Address [address] [place], [place] [id number] Care Team Providers Care Logistics Planning Manager Name Role Phone Ron Cochran PCP Unavailable Allergies and Adverse Reactions Name Reaction Notes SULFA (SULFONAMIDES) body shuts down Plan of Treatment Planned Activity Comments Planned Date Planned Time Plan/Goal MAMMOGRAM BOTH BREASTS 07/30/2015 12:00 AM ASSAY OF MAGNESIUM 08/21/2015 12:00 AM Medications Active Name Start Date [...] BILI 0.70 mg/dLCALCIUM 9.80 mg/dLeGFR >60 mL/min/1.73 [id number] 168.0 mg/dLCHOLESTEROL 218.0 mg/dLHDL 56.0 mg/dLLDL (CALC) [...] 2015 9:52AM Hypokalemia Aug 21 2015 2:07PM Payers Insurance Name Company Name Plan Name Plan Number Policy Number Policy Group Number Start Date Bcbs [employer] [place] [id number] N/A [facility] [id number] N/A [facility] [id number] N/A FRA Insurance Plans FRA Insurance Plans [id number] N/A Disability Determination Disability Determination [id number] Tuesday History of Encounters Visit Date Visit Type Provider 06/24/2015 Office visit Ron Cochran MD 05/07/2015 Office visit Michela Gaytan CARPET CUTTER 05/07/2015 [facility] Rosalinda Mancilla MD 01/28/2015 Office visit Bailey Braden MD 07/30/2014 Office visit Bailey Braden MD 05/02/2014 Office visit Michela Gaytan CARPET CUTTER 01/21/2014 Records Request Bailey Braden MD 11/08/2013 Office visit Bailey Braden MD 10/24/2013 Office visit Bailey Braden MD 10/10/2013 Office visit Bailey Braden MD 10/10/2013 Records Request Ron Cochran MD 09/28/2013 Office visit Bailey Braden MD 09/05/2013 Office visit Ron Cochran MD 08/30/2013 Surgery Ron Cochran MD 08/28/2013 Office visit Ron Cochran MD
--- OUTSIDE RECORDS SUMMARY | 2018-10-18 11:52 | XMS REPORT ---
Author Author Bailey Braden Organization [facility] Address [address] [place], [place] [id number] Care Team Providers Care Constitutional Law Professor Name Role Phone Bailey Braden PCP Allergies [...] by oral route once daily at bedtime clopidogrel 75 mg oral tablet take 1 tablet (75 mg) by oral route once daily docusate sodium 100 mg oral capsule take 1 capsule (100 mg) by oral route 2 times per day as needed multivitamin oral capsule take 1 capsule by oral route daily ibuprofen 800 mg oral tablet take 1 tablet by oral route every 8 hours cyclobenzaprine 10 mg oral tablet take 1 tablet (10 mg) by oral route 3 times per day PRN Name Start Date Expiration Date SIG Comments [...] BILI 0.70 mg/dLCALCIUM 9.80 mg/dLeGFR >60 mL/min/1.73 [id number] 168.0 mg/dLCHOLESTEROL 218.0 mg/dLHDL 56.0 mg/dLLDL (CALC) [...] 33 Influenza 08/04/2016 sanofi pasteur PMC Fluzone [id number] Intramuscular Left Deltoid 08/04/2016 06/13/2015 141 History [...] Start Date Medicare Part A Medicare RHC [id number] Saturday, 2016 [employer] [place] [employer] [place] [id number] N/A [facility] Financial Assistance [facility] Financial [place] 50 percent November [facility] Financial Assistance [facility] Financial [place] 50 percent Saturday, November 07, 2015 Medicare Part A Medicare - Lab/Xray [id number] Saturday, February 06, 2016 [facility] [id number] N/A [facility] [id number] N/A FRA Insurance Plans FRA Insurance Plans [id number] N/A Disability Determination Disability Determination [id number] Tuesday [facility] [id number] N/A History of Encounters Visit Date Visit Type Provider 08/04/2016 Office visit Bailey Braden MD 07/20/2016 Office visit Bailey Braden MD 05/05/2016 Office visit Bailey Braden MD 01/26/2016 Office visit Sourav Ruiz SPORTING GOODS SALES ASSOCIATE 06/24/2015 Office visit Ron Cochran MD 05/07/2015 Office visit Michela Gaytan SPORTING GOODS SALES ASSOCIATE 05/07/2015 [facility] Rosalinda Mancilla MD 01/28/2015 Office visit Bailey Braden MD 07/30/2014 Office visit Bailey Braden MD 05/02/2014 Office visit Michela Gaytan SPORTING GOODS SALES ASSOCIATE 01/21/2014 Records Request Bailey Braden MD 11/08/2013 Office visit Bailey Braden MD 10/24/2013 Office visit Bailey Braden MD 10/10/2013 Office visit Bailey Braden MD 10/10/2013 Records Request Ron Cochran MD 09/28/2013 Office visit Bailey Braden MD 09/05/2013 Office visit Ron Cochran MD 08/30/2013 Surgery Ron Cochran MD 08/28/2013 Office visit Ron Cochran MD
--- OUTSIDE RECORDS SUMMARY | 2018-10-18 11:52 | XMS REPORT ---
Author Author Bailey Braden Organization [facility] Address [address] [place], [place] [address] Care Team Providers Care Cork Insulation Setter Name Role Phone Bailey Braden PCP Allergies and Adverse Reactions Name Reaction Notes SULFA (SULFONAMIDES) body shuts down Wasp Sting anaphyalatic reaction Tape skin rash Plan of Treatment Planned Activity Comments Planned Date Planned Time Plan/Goal ASSAY OF MAGNESIUM 08/21/2015 12:00 AM Medications [...] by oral route once daily at bedtime Name Start Date Expiration Date SIG Comments [...] HC BMI BSA BMI Percentile O2 Sat(%) 05/05/2016 4:26:00 PM 118 mmHg 84 mmHg [...] 08/21/2015 12:00 AM COMPREHEN METABOLIC PANEL Returned 08/28/2013 12:00 AM Mammographic guidance for [...] BILI 0.70 mg/dLCALCIUM 9.80 mg/dLeGFR >60 mL/min/1.73 [id number] 168.0 mg/dLCHOLESTEROL 218.0 mg/dLHDL 56.0 mg/dLLDL (CALC) [...] 0.04 History Of Immunizations Name Date Admin [facility] Name [facility] Code Trade Name Lot# Route Inj Vis Given Vis Pub CVX Tdap 07/30/2014 Not Entered NE Not Entered Not Entered Not Entered 11/0711/07/2016 115 Influenza 09/10/2014 Not Entered NE Flucelvax Not Entered Not Entered 11/07/2016 11/07/2016 141 History of Past Illness Name Date [...] for internal medicine May 05 2016 4:30PM Payers Insurance Name Company Name Plan Name Plan Number Policy Number Policy Group Number Start Date Medicare Part A Medicare [facility] [id number] Saturday, 2016 [employer] [place] [employer] [place] [id number] N/A [facility] Financial Assistance [facility] Financial [place] 50 percent Saturday, November 07, 2015 [facility] Financial Assistance [facility] Financial [place] 50 percent November [facility] [id number] N/A [facility] [id number] N/A FRA Insurance Plans FRA Insurance Plans [id number] N/A Disability Determination Disability Determination [id number] Tuesday [id number] N/A History of Encounters Visit Date Visit Type Provider 05/05/2016 Office visit Bailey Braden MD 01/26/2016 Office visit Sourav Ruiz ROVING INSPECTOR 06/24/2015 Office visit Ron Cochran MD 05/07/2015 Office visit Michela Gaytan ROVING INSPECTOR 05/07/2015 [facility] Rosalinda Mancilla MD 01/28/2015 Office visit Bailey Braden MD 07/30/2014 Office visit Bailey Braden MD 05/02/2014 Office visit Michela Gaytan ROVING INSPECTOR 01/21/2014 Records Request Bailey Braden MD 11/08/2013 Office visit Bailey Braden MD 10/24/2013 Office visit Bailey Braden MD 10/10/2013 Office visit Bailey Braden MD 10/10/2013 Records Request Ron Cochran MD 09/28/2013 Office visit Bailey Braden MD 09/05/2013 Office visit Ron Cochran MD 08/30/2013 Surgery Ron Cochran MD 08/28/2013 Office visit Ron Cochran MD
--- OUTSIDE RECORDS SUMMARY | 2018-10-18 11:53 | XMS REPORT ---
Author Author Bailey Braden Organization [facility] Address [address] [place], [place] [id number] Care Team Providers Care Bakery Helper Name Role Phone Bailey Braden PCP Bailey Braden PreferredProvider Allergies and Adverse Reactions Name Reaction Notes SULFA (SULFONAMIDES) body shuts down Wasp Sting anaphyalatic reaction Tape skin rash Percocet skin itching Plan of Treatment Planned Activity Comments Planned Date Planned Time Plan/Goal Magnesium level 08/21/2015 12:00 AM Lipid Blood Profile 12/27/2016 12:00 AM Medications Active Name Start Date [...] tablet by oral route every 8 hours clopidogrel 75 mg oral tablet 08/04/2016 01/31/2017 take 1 tablet (75 mg) by oral route once daily for 30 days bumetanide 1 mg oral tablet 10/28/2016 TAKE 1 TABLET EVERY OTHER DAY fluorouracil 5 % topical cream apply a sufficient amount to cover the lesions in the affected area(s) by topical route 2 times per day for 2-4 weeks Vitamin D2 50,000 unit oral capsule 12/14/2016 take 1 capsule (50,000 unit) by oral route once weekly gabapentin 300 mg oral capsule 01/17/2017 01/12/2018 take 1 capsule by oral route once a day (at bedtime) for 90 days Name Start Date Expiration [...] route every other day for 30 days sumatriptan 20 mg/actuation nasal spray,non-aerosol 08/04/2016 08/07/2016 1 spray (20 mg)intranasal route once; if headache returns, may be repeated once after 2 hours, not to exceed 40 mg per day amoxicillin 500 mg oral capsule 12/06/2016 12/13/2016 take 1 capsule (500 mg) by oral route every 12 hours for 7 days Discontinued Name Start Date [...] by oral route once daily at bedtime cyclobenzaprine 10 mg oral tablet 12/14/2016 take 1 tablet (10 mg) by oral route 3 times per day PRN Problem List Description Status Onset Hypercholesterolemia Active Hypertension Active Breast Mass Active Vital Signs Date Time BP-Sys(mm[Hg] BP-Nasra(mm[Hg]) HR(bpm) RR(rpm) Temp WT HT HC BMI BSA BMI Percentile O2 Sat(%) 12/06/2016 1:55:00 PM 142 mmHg 90 mmHg 73 bpm 18 rpm 99 F 246.375 lbs 64 in 42.29 kg/m2 2.25 m2 99 % 08/04/2016 11:03:00 AM 138 mmHg 92 mmHg 94 bpm 16 rpm 99.4 F 249.375 lbs 64 in 42.8047 kg/m 2.26 m 97 % 07/20/2016 2:35:00 PM 126 mmHg 92 mmHg 97 bpm 18 rpm 98.8 F 251.5 lbs 64 in 43.17 kg/m2 2.27 m2 97 % 05/05/2016 4:26:00 PM 118 mmHg 84 mmHg 85 bpm 18 rpm 98.4 F 250 lbs 64 in 42.912 kg/m 2.2629 m 96 % 01/26/2016 2:08:00 PM 105 mmHg 80 mmHg 110 bpm 16 rpm 96.7 F 239 lbs 64 in 41.02 kg/m2 2.21 m2 97 % 05/07/2015 8:19:00 AM 132 mmHg 96 mmHg 61 bpm 20 rpm 97.3 F 238.6 lbs 64 in 40.9552 kg/m 2.2107 m 99 % 01/28/2015 8:18:00 AM 126 mmHg 94 mmHg 78 bpm 98 F 228.25 lbs 64 in 39.18 kg/m2 2.16 m2 98 % 07/30/2014 9:19:00 AM 150 mmHg 105 mmHg 78 bpm 18 rpm 96.7 F 233 lbs 64 in 39.9939 kg/m 2.1846 m 98 % 05/02/2014 8:41:00 AM 140 mmHg 102 mmHg 69 bpm 18 rpm 97.5 F 245.125 lbs 64 in 42.08 kg/m2 2.24 m2 98 % 11/08/2013 1:49:00 PM 98 bpm 22 rpm 101 F 241 lbs 64 in 41.3671 kg/m 2.2218 m 96 % 10/24/2013 3:41:00 PM 115 mmHg 70 mmHg 114 bpm 18 rpm 97.7 F 243 lbs 64 in 41.71 kg/m2 2.23 m2 98 % 10/10/2013 3:30:00 PM 145 mmHg 102 mmHg 96 bpm 18 rpm 96.9 F 245 lbs 64 in 42.0537 kg/m 2.2401 m 97 % 09/28/2013 9:54:00 AM 145 mmHg 90 mmHg 81 bpm 18 rpm 96.6 F 240 lbs 64 in 41.20 kg/m2 2.22 m2 97 % 09/05/2013 11:26:00 AM 126 mmHg 100 mmHg 90 bpm 20 rpm 96 F 239 lbs 64 in 41.0238 kg/m 2.2125 m 97 % 08/28/2013 11:52:00 AM 140 mmHg 100 mmHg 72 bpm 16 rpm 96 F 240 lbs 64 in 41.20 kg/m2 2.22 m2 98 % Social History Name Description Comments [...] 12/06/2016 12:00 AM ASSAY OF GGT Returned 08/28/2013 12:00 AM Mammographic guidance for [...] AM URINALYSIS AUTO W/SCOPE Reviewed Results Summary Data and Description Results 05/06/2014 [...] AA 104 eGFR >60 mL/min/1.73meGFR AA* >60 04/23/2016 8:20 AM COLOR YELLOW APPEARANCE CLEAR SPEC GRAV 1.020 pH 6.0 PROTEIN NEGATIVE GLUCOSE NEGATIVE mg/dLKETONE NEGATIVE BILIRUBIN NEGATIVE BLOOD NEGATIVE NITRITE NEGATIVE LEUK SCREEN NEGATIVE MICRO INDICATED? NOT INDICATED GLUCOSE 114.0 mg/dLSODIUM 137.0 mmol/LPOTASSIUM 3.50 mmol/LCHLORIDE 100.0 mmol/ LCO2 26.0 mmol/LBUN 15.0 mg/dLCREATININE 0.80 mg/dLSGOT/AST 16.0 IU/LSGPT/ALT 27.0 IU/LALK PHOS 122.0 IU/LTOTAL PROTEIN 7.0 g/dLALBUMIN 4.40 g/dLTOTAL BILI 0.40 mg/dLCALCIUM 9.50 mg/dLAGE 60 GFR NonAA 74 GFR AA 90 eGFR >60 mL/min/1.73m eGFR AA* >60 PROTIME 11.20 secsINR 1.0 WBC 10.4 RBC 4.84 HGB 12.90 g/dLHCT 40.80 %MCV 84.0 fLMCH 26.70 pgMCHC 31.60 g/dLRDW SD 44 RDW CV 14.50 %MPV 9.20 fLPLT 377 NRBC# 0.00 NRBC% 0.0 %NEUT 58.80 %%LYMP 30.30 %%MONO 8.80 %%EOS 1.30 % %BASO 0.40 %#NEUT 6.11 #LYMP 3.14 #MONO 0.91 #EOS 0.13 #BASO 0.04 MANUAL DIFF NOT IND 12/06/2016 3:00 PM WBC 10.1 RBC 4.65 HGB 12.20 g/dLHCT 39.10 %MCV 84.0 fLMCH 26.20 pgMCHC 31.20 g/dLRDW SD 44 RDW CV 14.30 %MPV 9.30 fLPLT 352 NRBC# 0.00 NRBC% 0.0 %NEUT 57.0 %%LYMP 33.70 %%MONO 7.0 %%EOS 1.50 %%BASO 0.30 %#NEUT 5.74 #LYMP 3.39 #MONO 0.70 #EOS 0.15 #BASO 0.03 MANUAL DIFF NOT IND VITAMIN D 20.90 ng/mLGGTP 59 GLUCOSE 89.0 mg/dLSODIUM 140.0 mmol/LPOTASSIUM 4.10 mmol/LCHLORIDE 105.0 mmol/LCO2 26.0 mmol/LBUN 17.0 mg/dLCREATININE 0.80 mg/dLSGOT/AST 17.0 IU/ LSGPT/ALT 23.0 IU/LALK PHOS 121.0 IU/LTOTAL PROTEIN 7.20 g/dLALBUMIN 4.20 g/ dLTOTAL BILI 0.30 mg/dLCALCIUM 9.50 mg/dLAGE 61 GFR NonAA 73 GFR AA 88 eGFR >60 mL/min/1.73meGFR AA* >60 HGB A1C 5.70 %Est Avg Glucose 116.9 mg/dL History Of Immunizations Name Date Admin Mfg Name Mfg Code Trade Name Lot# Route Inj Vis Given Vis Pub CVX Tdap 07/30/2014 Not Entered NE Not Entered Not Entered Not Entered 11/0711/07/2017 115 Influenza 09/10/2014 Not Entered NE Flucelvax Not Entered Not Entered 11/07/2017 11/07/2017 141 Pneumococcal 07/22/2016 Not Entered NE Pneumovax 23 Not Entered Not Entered 08/04/2016 11/07/2017 33 Influenza 08/04/2016 sanofi pasteur PMC Fluzone [id number] Intramuscular Left Deltoid 08/04/2016 06/13/2015 141 History [...] 2:01PM Sinusitis, Acute Dec 06 2016 2:01PM 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 Dec 06 2016 2:01PM Osteoporosis Dec 06 2016 2:01PM Hyperglycemia Dec 06 2016 2:01PM Elevated alkaline phosphatase level Dec 06 2016 2:01PM Osteopenia Dec 06 2016 2:01PM Payers Insurance Name Company Name Plan Name Plan Number Policy Number Policy Group Number Start Date Medicare RHC Medicare RHC [id number] Saturday, 2016 AARP Aarp [id number] July Medicare Part A Medicare - Lab/Xray [id number] Saturday, February 06, 2016 Medicare Part B Medicare Of [place] [id number] N/A [facility] [id number] N/A [facility] [id number] N/A FRA Insurance Plans FRA Insurance Plans [id number] N/A Disability Determination Disability Determination [id number] Tuesday BCBS Bcbs [facility] [id number] N/A Amerigroup - [place] State Plan Amerigroup - [place] State Plan [id number] N/A [facility] Financial Assistance [facility] [place] 50 percent November [facility] Financial Assistance [facility] Financial [place] 50 percent Saturday, November 07, 2015 History of Encounters Visit Date Visit Type Provider 12/06/2016 Office visit Bailey Braden MD 08/04/2016 Office visit Bailey Braden MD 07/20/2016 Voided Bailey Braden MD 07/20/2016 [facility] Addi Mancilla MD 05/05/2016 Office visit Bailey Braden MD 01/26/2016 Office visit Sourav Ruiz APRN 06/24/2015 Office visit Ron Cochran MD 05/07/2015 Office visit Michela Gaytan HOP TRAINER 05/07/2015 [facility] Addi Mancilla MD 01/28/2015 Office visit [...]
--- OUTSIDE RECORDS SUMMARY | 2018-10-18 11:54 | XMS REPORT ---
Author Author Sourav Ruiz [facility] Address [address] [place], [place] [id number] Care Team Providers Care Blasting Clay Miner Name Role Phone Sourav Ruiz PCP Allergies and Adverse Reactions Name Reaction [...] by oral route once daily at bedtime losartan-hydrochlorothiazide 100-12.5 mg oral tablet 01/28/2015 04/22/2016 TAKE ONE TABLET BY MOUTH EVERY DAY FOR 30 DAYS lovastatin 20 mg oral tablet 01/28/2015 04/22/2016 take 1 tablet (20 mg) by oral route once daily with the evening meal for 90 days pantoprazole 40 mg oral tablet,delayed release (DR/EC) 01/28/2015 04/22/2016 take 1 tablet (40 mg) by oral route once daily for 90 days gabapentin 300 mg oral capsule 01/12/2016 01/06/2017 take 1 capsule by oral route once a day (at bedtime) for 90 days EpiPen 2-Filipe 0.3 mg/0.3 mL injection auto-injector 01/26/2016 inject 0.3 milliliter (0.3 mg) by intramuscular route once as needed for anaphylaxis Name Start Date Expiration Date SIG Comments [...] as needed for pain for 7 days bumetanide 1 mg oral tablet 01/28/2015 10/25/2015 take 1 tablet (1 mg) by oral route every other day for 90 days potassium chloride 20 mEq oral tablet extended release 08/21/2015 09/20/2015 take 2 tablet (20 meq) by oral route TID x 3 days then 40mEq daily Discontinued Name Start Date Discontinued Date SIG [...] HC BMI BSA BMI Percentile O2 Sat(%) 01/26/2016 2:08:00 PM 105 mmHg 80 mmHg [...] BILI 0.70 mg/dLCALCIUM 9.80 mg/dLeGFR >60 mL/min/1.73 [id number] 168.0 mg/dLCHOLESTEROL 218.0 mg/dLHDL 56.0 mg/dLLDL (CALC) [...] BILI 0.40 mg/dLCALCIUM 9.80 mg/dLeGFR >60 mL/min/1.73m History Of Immunizations Name Date Admin Mfg [...] History of anaphylaxis Jan 26 2016 2:10PM Payers Insurance Name Company Name Plan Name Plan Number Policy Number Policy Group Number Start Date [facility] [place] State Plan [facility] [place] State Plan [id number] N/A [employer] Financial Assistance [employer] [place] 50 percent Tuesday, November 07, 2015 [facility] Financial Assistance [employer] [place] 50 percent November [facility] [id number] N/A [facility] [id number] N/A FRA Insurance Plans FRA Insurance Plans [id number] N/A Disability Determination Disability Determination [id number] Tuesday BCBS [facility] [facility] [place] [id number] N/A History of Encounters Visit Date Visit Type Provider 01/26/2016 Office visit Sourav Ruiz SOFTWARE LICENSING EXECUTIVE 06/24/2015 Office visit Ron Cochran MD 05/07/2015 Office visit Michela Gaytan SOFTWARE LICENSING EXECUTIVE 05/07/2015 [facility] Rosalinda Mancilla MD 01/28/2015 Office visit Bailey Braden MD 07/30/2014 Office visit Bailey Braden MD 05/02/2014 Office visit Michela Gaytan SOFTWARE LICENSING EXECUTIVE 01/21/2014 Records Request Bailey Braden MD 11/08/2013 Office visit Bailey Braden MD 10/24/2013 Office visit Bailey Braden MD 10/10/2013 Office visit Bailey Braden MD 10/10/2013 Records Request Ron Cochran MD 09/28/2013 Office visit Bailey Braden MD 09/05/2013 Office visit Ron Cochran MD 08/30/2013 Surgery Ron Cochran MD 08/28/2013 Office visit Ron Cochran MD
--- OUTSIDE RECORDS SUMMARY | 2018-10-18 11:54 | XMS REPORT ---
Author Author Bailey Braden Organization [facility] Address [address] [place], [place] [address] Care Team Providers Care County Court Judge Name Role Phone Bailey Braden PCP Allergies [...] HC BMI BSA BMI Percentile O2 Sat(%) 07/20/2016 2:35:00 PM 126 mmHg 92 mmHg [...] BILI 0.70 mg/dLCALCIUM 9.80 mg/dLeGFR >60 mL/min/1.73 [id number] 168.0 mg/dLCHOLESTEROL 218.0 mg/dLHDL 56.0 mg/dLLDL (CALC) [...] 4:30PM Screening Mammogram Aug 03 2016 2:39PM Payers Insurance Name Company Name Plan Name Plan Number Policy Number Policy Group Number Start Date Medicare Part A Medicare RHC [id number] Saturday, 2016 [facility] Financial Assistance [facility] Financial [place] 50 percent Saturday, November 07, 2015 Medicare Part A Medicare - Lab/Xray [id number] Saturday, February 06, 2016 [facility] [id number] N/A [facility] [id number] N/A FRA Insurance Plans FRA Insurance Plans [id number] N/A Disability Determination Disability Determination [id number] Tuesday BCBS [facility] [place] [id number] N/A [employer] - [place] State Plan Amer[employer] - [place] State Plan [id number] N/A [facility] Financial Assistance [facility] Financial [place] 50 percent November History of Encounters Visit Date Visit Type Provider 07/20/2016 Office visit Bailey Braden MD 05/05/2016 Office visit Bailey Braden MD 01/26/2016 Office visit Sourav Ruiz APRN 06/24/2015 Office visit Ron Cochran MD 05/07/2015 Office visit Michela Gaytan POLE FRAME CONSTRUCTION WORKER 05/07/2015 [facility] Addi Mancilla MD 01/28/2015 [...]
--- OUTSIDE RECORDS SUMMARY | 2018-10-18 11:55 | XMS REPORT ---
Author Author Bailey Braden [facility] Address [address] [place], [place] [id number] Care Team Providers Care Quality Review Specialist Name Role Phone Bailey Braden PCP Allergies and Adverse Reactions Name Reaction Notes SULFA (SULFONAMIDES) body shuts down Plan of Treatment Not available. Medications Active Name Start Date Estimated Completion Date SIG Comments fluoxetine Oral capsule 20 mg take 1 capsule (20 mg) by oral route once daily EpiPen Injection auto-injector 0.3 mg/0.3 mL (1:1,000) inject 0.3 milliliter (0.3 mg) by intramuscular route once as needed for anaphylaxis Voltaren Topical Gel 1 % apply 2 gram to the affected area(s) by topical route 4 times per day eszopiclone oral tablet 2 mg take 1 tablet (2 mg) by oral route once daily at bedtime gabapentin oral capsule 300 mg 01/28/2015 01/23/2016 take 1 capsule by oral route once a day (at bedtime) for 90 days bumetanide oral tablet 1 mg 01/28/2015 10/25/2015 take 1 tablet (1 mg) by oral route every other day for 90 days losartan-hydrochlorothiazide oral tablet 100-12.5 mg 01/28/2015 04/22/2016 TAKE ONE TABLET BY MOUTH EVERY DAY FOR 30 DAYS lovastatin oral tablet 20 mg 01/28/2015 04/22/2016 take 1 tablet (20 mg) by oral route once daily with the evening meal for 90 days pantoprazole oral tablet,delayed release (DR/EC) 40 mg 01/28/2015 04/22/2016 take 1 tablet (40 mg) by oral route once daily for 90 days Name Start Date Expiration Date SIG Comments losartan-hydrochlorothiazide oral tablet 100-12.5 mg 10/29/2013 01/22/2014 take 1 tablet by oral route once daily for 30 days doxycycline hyclate oral capsule 100 mg 11/08/2013 11/18/2013 take 1 capsule ( 100 mg) by oral route every 12 hours for 10 days Tanya Bedoyaes oral capsule 100 mg 11/08/2013 11/18/2013 take 1 capsule by oral route once a day (at bedtime) for 10 days sumatriptan nasal spray,non-aerosol 20 mg/actuation 12/06/2014 05/05/2014 1 spray (20 mg)intranasal route once; if headache returns, may be repeated once after 2 hours, not to exceed 40 mg per day losartan-hydrochlorothiazide oral tablet 100-12.5 mg 07/15/2014 01/11/2015 TAKE ONE TABLET BY MOUTH EVERY DAY FOR 30 DAYS for 30 days hydrocodone-acetaminophen oral tablet 5-325 mg 01/28/2015 02/04/2015 take 1 tablet by oral route every 6 hours as needed for pain for 7 days Discontinued Name Start Date Discontinued Date SIG Comments trandolapril Oral tablet 4 mg 01/28/2015 take 1 tablet (4 mg) by oral route once daily Lunesta Oral tablet 2 mg 01/28/2015 take 1 tablet (2 mg) by oral route once daily at bedtime Percocet Oral tablet 5-325 mg 01/28/2015 take 1 - 2 tablets by [...] BILI 0.70 mg/dLCALCIUM 9.80 mg/dLeGFR >60 mL/min/1.73 [id number] 168.0 mg/dLCHOLESTEROL 218.0 mg/dLHDL 56.0 mg/dLLDL (CALC) [...] 8:14AM Pre-op examination May 07 2015 8:22AM Payers Insurance Name Company Name Plan Name Plan Number Policy Number Policy Group Number Start Date Bcbs Bcbs [facility] [id number] N/A [facility] [id number] N/A [facility] [id number] N/A FRA Insurance Plans FRA Insurance Plans [id number] N/A Disability Determination Disability Determination [id number] Tuesday History of Encounters Visit Date Visit Type Provider 05/07/2015 Office visit Michela Gaytan TIMBER MANAGEMENT TECHNICIAN 01/28/2015 Office visit Bailey Braden MD 07/30/2014 Office visit Bailey Braden MD 05/02/2014 Office visit Michela Gaytan TIMBER MANAGEMENT TECHNICIAN 01/21/2014 Records Request Bailey Braden MD 11/08/2013 Office visit Bailey Braden MD 10/24/2013 Office visit Bailey Braden MD 10/10/2013 Records Request Ron Cochran MD 10/10/2013 Office visit Bailey Braden MD 09/28/2013 Office visit Bailey Braden MD 09/05/2013 Office visit Ron Cochran MD 08/30/2013 Surgery Ron Cochran MD 08/28/2013 Office visit Ron Cochran MD
--- OUTSIDE RECORDS SUMMARY | 2018-10-18 11:55 | XMS REPORT ---
Author Author Bailey Braden [facility] Address [address] [place], [place] [address] Care Team Providers Care Space Scheduler Name Role Phone Bailey Braden PCP Bailey Braden PreferredProvider Allergies and Adverse Reactions Name Reaction Notes SULFA (SULFONAMIDES) body shuts down Wasp Sting anaphyalatic reaction Tape skin rash Percocet skin itching Plan of Treatment Planned Activity Comments Planned Date Planned Time Plan/Goal Magnesium level 08/21/2015 12:00 AM Lipid Blood Profile 12/27/2016 12:00 AM CMP 01/23/2017 12:00 AM GGTP 01/23/2017 12:00 AM Lipid Blood Profile 01/23/2017 12:00 AM Medications Active Name Start Date [...] HC BMI BSA BMI Percentile O2 Sat(%) 01/27/2017 11:32:00 AM 126 mmHg 92 mmHg [...] F 240 lbs 64 in 41.20 kg/m2 2.2171 m 97 % 09/05/2013 11:26:00 AM 126 mmHg 100 mmHg 90 bpm 20 rpm 96 F 239 lbs 64 in 41.0238 kg/m 2.21 m2 97 % 08/28/2013 11:52:00 AM 140 mmHg 100 mmHg 72 bpm 16 rpm 96 F 240 lbs 64 in 41.20 kg/m2 2.2171 m 98 % Social History Name [...] 33 Influenza 08/04/2016 sanofi pasteur PMC Fluzone [id number] Intramuscular Left Deltoid 08/04/2016 06/13/2015 141 History [...] 2:01PM Sinusitis, Acute Dec 06 2016 2:01PM 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 Dec 06 2016 2:01PM Osteoporosis Dec 06 2016 2:01PM Hyperglycemia Dec 06 2016 2:01PM Elevated alkaline phosphatase level Dec 06 2016 2:01PM Osteopenia Dec 06 2016 2:01PM Elevated liver enzymes Jan 23 2017 9:39AM Hyperlipidemia Jan 23 2017 9:39AM Hypertension Jan 23 2017 9:39AM Hypertension, Benign Essential Jan 27 2017 11:34AM Payers Insurance Name Company Name Plan Name Plan Number Policy Number Policy Group Number Start Date Medicare RHC Medicare RHC [id number] Saturday, 2016 AARP Aarp [id number] July Medicare Part A Medicare - Lab/Xray [id number] Saturday, February 06, 2016 Medicare Part B Medicare Of [place] [id number] N/A [facility] [id number] N/A [facility] [id number] N/A FRA Insurance Plans FRA Insurance Plans [id number] N/A Disability Determination Disability Determination [id number] Tuesday BCBS Bcbs [facility] [id number] N/A Amer[employer] [place] Amer[employer] [place] [id number] N/A [facility] Financial Assistance [facility] Financial [place] 50 percent November [facility] Financial Assistance [facility] Financial [place] 50 percent Saturday, November 07, 2015 History of Encounters Visit Date Visit Type Provider 01/27/2017 Nurse visit Bailey Braden MD 12/06/2016 Office visit Bailey Braden MD 08/04/2016 Office visit Bailey Braden MD 07/20/2016 Voided Bailey Braden MD 07/20/2016 Hospital Addi Mancilla MD 05/05/2016 Office visit Bailey Braden MD 01/26/2016 Office visit Sourav Ruiz APRN 06/24/2015 Office visit Ron Cochran MD 05/07/2015 Office visit Michela Gaytan APRN 05/07/2015 [facility] Addi Mancilla MD 01/28/2015 Office visit [...]
--- OUTSIDE RECORDS SUMMARY | 2018-10-18 11:55 | XMS REPORT ---
Author Author Ron Cochran [facility] Address [address] [place], [place] [address] Care Team Providers Care Glaze Sprayer Name Role Phone Ron Cochran PCP Unavailable [...] every 12 hours for 10 days Tanya Perles 100 mg oral capsule 11/08/2013 11/18/2013 [...] BILI 0.70 mg/dLCALCIUM 9.80 mg/dLeGFR >60 mL/min/1.73 [id number] 168.0 mg/dLCHOLESTEROL 218.0 mg/dLHDL 56.0 mg/dLLDL (CALC) [...] 2015 8:22AM Mastodynia Jun 24 2015 11:20AM Payers Insurance Name Company Name Plan Name Plan Number Policy Number Policy Group Number [facility] Date [id number] N/A [facility] [id number] N/A [facility] [id number] N/A FRA Insurance Plans FRA Insurance Plans [id number] N/A Disability Determination Disability Determination [id number] Tuesday History of Encounters Visit Date Visit Type Provider 06/24/2015 Office visit Ron Cochran MD 05/07/2015 Office visit Michela Gaytan EVAPORATOR REPAIRER 05/07/2015 [facility] Addi Mancilla MD 01/28/2015 Office visit Bailey Braden MD 07/30/2014 Office visit Bailey Braden MD 05/02/2014 Office visit Michela Gaytan EVAPORATOR REPAIRER 01/21/2014 Records Request Bailey Braden MD 11/08/2013 Office visit Bailey Braden MD 10/24/2013 Office visit Bailey Braden MD 10/10/2013 Office visit Bailey Braden MD 10/10/2013 Records Request Ron Cochran MD 09/28/2013 Office visit Bailey Braden MD 09/05/2013 Office visit Ron Cochran MD 08/30/2013 Surgery Ron Cochran MD 08/28/2013 Office visit Ron Cochran MD
--- OUTSIDE RECORDS SUMMARY | 2018-10-18 11:56 | XMS REPORT ---
Author Author Ron Cochran [facility] Address [address] [place], [place] [address] Care Team Providers Care Triple Drum Operator Name Role Phone Ron Cochran PCP Unavailable Allergies and Adverse Reactions Name Reaction Notes SULFA (SULFONAMIDES) body shuts down Plan of Treatment Planned Activity Comments Planned Date Planned Time Plan/Goal MAMMOGRAM BOTH BREASTS 07/30/2015 12:00 AM ASSAY OF MAGNESIUM 08/21/2015 12:00 AM COMPREHEN METABOLIC PANEL 08/21/2015 12:00 AM Medications Active Name Start [...] oral route once daily for 90 days potassium chloride 20 mEq oral tablet extended release 08/21/2015 09/20/2015 take 2 tablet (20 meq) by oral route TID x 3 days then 40mEq daily Name Start Date Expiration Date SIG Comments [...] BILI 0.70 mg/dLCALCIUM 9.80 mg/dLeGFR >60 mL/min/1.73 [id number] 168.0 mg/dLCHOLESTEROL 218.0 mg/dLHDL 56.0 mg/dLLDL (CALC) [...] 2015 2:07PM Hypokalemia Aug 21 2015 2:24PM Payers Insurance Name Company Name Plan Name Plan Number Policy Number Policy Group Number Start Date Bcbs [facility] [place] [id number] N/A [facility] [id number] N/A [facility] [id number] N/A FRA Insurance Plans FRA Insurance Plans [id number] N/A Disability Determination Disability Determination [id number] Tuesday History of Encounters Visit Date Visit Type Provider 06/24/2015 Office visit Ron Cochran MD 05/07/2015 Office visit Michela Gaytan REFRACTORY FURNACE DESIGNER 05/07/2015 [facility] Addi Mancilla MD 01/28/2015 Office visit Bailey Braden MD 07/30/2014 Office visit Bailey Braden MD 05/02/2014 Office visit Michela Gaytan REFRACTORY FURNACE DESIGNER 01/21/2014 Records Request Bailey Braden MD 11/08/2013 Office visit Bailey Braden MD 10/24/2013 Office visit Bailey Braden MD 10/10/2013 Office visit Bailey Braden MD 10/10/2013 Records Request Ron Cochran MD 09/28/2013 Office visit Bailey Braden MD 09/05/2013 Office visit Ron Cochran MD 08/30/2013 Surgery Ron Cochran MD 08/28/2013 Office visit Ron Cochran MD
--- OUTSIDE RECORDS SUMMARY | 2018-10-18 11:56 | XMS REPORT ---
Author Author Ron Cochran [facility] Address [address] [place], [place] [id number] Care Team Providers Care Disease Intervention Specialist Name Role Phone Ron Cochran PCP Unavailable [...] BILI 0.70 mg/dLCALCIUM 9.80 mg/dLeGFR >60 mL/min/1.73 [id number] 168.0 mg/dLCHOLESTEROL 218.0 mg/dLHDL 56.0 mg/dLLDL (CALC) [...] Number Policy Group Number [facility] Date [id number] N/A [facility] [id number] N/A [facility] [id number] N/A FRA Insurance Plans FRA Insurance Plans [id number] N/A Disability Determination Disability Determination [id number] Tuesday History of Encounters Visit Date Visit Type Provider 06/24/2015 Office visit Ron Cochran MD 05/07/2015 Office visit Michela Gaytan OCCUPATIONAL THERAPY DEPARTMENT CHAIR 05/07/2015 [facility] Addi Mancilla MD 01/28/2015 Office visit Bailey Braden MD 07/30/2014 Office visit Bailey Braden MD 05/02/2014 Office visit Michela Gaytan OCCUPATIONAL THERAPY DEPARTMENT CHAIR 01/21/2014 Records Request Bailey Braden MD 11/08/2013 Office visit Bailey Braden MD 10/24/2013 Office visit Bailey Braden MD 10/10/2013 Office visit Bailey Braden MD 10/10/2013 Records Request Ron Cochran MD 09/28/2013 Office visit Bailey Braden MD 09/05/2013 Office visit Ron Cochran MD 08/30/2013 Surgery Ron Cochran MD 08/28/2013 Office visit Ron Cochran MD
--- OUTSIDE RECORDS SUMMARY | 2018-10-18 11:57 | XMS REPORT ---
Author Author Bailey Braden Organization [facility] Address [address] [place], [place] [id number] Care Team Providers Care Registered Private Duty Nurse Name Role Phone Bailey Braden PCP Bailey [...] route once as needed for anaphylaxis EpiPen 0.3 mg/0.3 mL injection auto-injector inject [...] a day (at bedtime) for 90 days oxycodone 10 mg oral tablet take 1 tablet (10 mg) by oral route every 6 hours losartan-hydrochlorothiazide 100-12.5 mg oral tablet 03/03/2017 02/26/2018 TAKE ONE TABLET BY MOUTH EVERY DAY FOR 30 DAYS pantoprazole 40 mg oral tablet,delayed release (DR/EC) 03/03/2017 02/26/2018 take 1 tablet (40 mg) by oral route once daily for 90 days bumetanide 1 mg oral tablet 05/16/2017 TAKE 1 TABLET EVERY OTHER DAY epinephrine 0.3 mg/0.3 mL injection auto-injector 05/20/2017 INJECT 0.3 ML' S BY INTRAMUSCULAR ROUTE ONCE NEEDED FOR ANAPHYLAXIS epinephrine 0.3 mg/0.3 mL injection auto-injector 05/20/2017 INJECT 0.3 ML' S BY INTRAMUSCULAR ROUTE ONCE NEEDED FOR ANAPHYLAXIS clopidogrel 75 mg oral tablet 08/11/2017 02/07/2018 TAKE ONE TABLET BY MOUTH ONCE DAILY potassium chloride 10 mEq oral tablet extended release 10/11/2017 take 1 tablet (10 meq) by oral route with food, on 3 days of the week. Name Start Date Expiration Date SIG Comments losartan-hydrochlorothiazide 100-12.5 mg oral tablet 10/29/2013 01/22/2014 take 1 tablet by oral route once daily for 30 days doxycycline hyclate 100 mg oral capsule 11/08/2013 11/18/2013 take 1 capsule ( 100 mg) by oral route every 12 hours for 10 days Tanya Gonzalez 100 mg oral capsule 11/08/2013 11/18/2013 take [...] route every other day for 30 days clopidogrel 75 mg oral tablet 08/04/2016 01/31/2017 [...] oral route 3 times per day PRN atorvastatin 40 mg oral tablet 02/03/2017 02/21/2017 take 1 tablet (40 mg) by oral route once daily for 30 days Problem List Description Status Onset Hypercholesterolemia Active Hypertension Active Breast Mass Active Vital Signs Date Time BP-Sys(mm[Hg] BP-Nasra(mm[Hg]) HR(bpm) RR(rpm) Temp WT HT HC BMI BSA BMI Percentile O2 Sat(%) 10/10/2017 1:08:00 PM 116 mmHg 82 mmHg [...] ANTINUCLEAR ANTIBODIES LAMONT Returned 03/04/2017 12:00 AM [id number] TOTAL Returned 03/04/2017 12:00 AM ASSAY OF CERULOPLASMIN Returned 07/12/2017 12:00 AM MAMMOGRAM BOTH BREASTS Reviewed 09/13/2017 12:00 AM [facility] MEDICARE - flu vaccine administration [...] Of Immunizations Name Date Admin Mfg Name Mf Code Trade Name Lot# Route Inj Vis Given Vis Pub CVX Tdap 07/30/2014 Not Entered NE Not Entered Not Entered Not Entered 11/0711/07/2017 115 Influenza 09/10/2014 Not Entered NE Flucelvax Not Entered Not Entered 11/07/2017 11/07/2017 141 Pneumococcal 07/22/2016 Not Entered NE Pneumovax 23 Not Entered Not Entered 08/04/2016 11/07/2017 33 Influenza 08/04/2016 sanofi pasteur PMC Fluzone [id number] Intramuscular Left Deltoid 08/04/2016 06/13/2015 141 Influenza 09/13/2017 [employer] SKB Flulaval Quadrivalent [id number] Intramuscular Left Deltoid 09/13/2017 06/13/2015 158 [...] 2:01PM Sinusitis, Acute Dec 06 2016 2:01PM long-term medication use Dec 06 2016 2:01PM Osteoporosis [...] diseases classified elsewhere Oct 10 2017 1:12PM Payers Insurance Name Company Name Plan Name Plan Number Policy Number Policy Group Number Start Date Medicare RHC Medicare RHC [id number] Saturday, 2016 AARP Aarp [id number] July [facility] Comm [id number] Thursday, 2017 Medicare Part A Medicare - Lab/Xray [id number] Saturday, February 06, 2016 Medicare Part B Medicare Of [place] [id number] N/A [facility] [id number] N/A [facility] [id number] N/A FRA Insurance Plans FRA Insurance Plans [id number] N/A Disability Determination Disability Determination [id number] Tuesday BCBS Bcbs [facility] [id number] N/A [facility] [place] State Plan [facility] State Plan [id number] N/A [employer] Financial Assistance [employer] [place] 50 percent November [employer] Financial Assistance [facility] Financial [place] 50 percent Saturday, November 07, 2015 History of Encounters Visit Date Visit Type Provider 10/10/2017 Office visit Bailey Braden MD 09/13/2017 Nurse visit Bailey Braden MD 04/05/2017 Hospital Addi Mancilla MD 03/03/2017 Office visit Bailey Braden MD 01/27/2017 Nurse visit Bailey Braden MD 12/06/2016 Office visit Bailey Braden MD 08/04/2016 Office visit Bailey Braden MD 07/20/2016 Voided Bailey Braden MD 07/20/2016 [facility] Addi Mancilla MD 05/05/2016 Office visit Bailey Braden MD 01/26/2016 Office visit Sourav Ruiz DROSSER 06/24/2015 Office visit Ron Cochran MD 05/07/2015 Office visit Michela Gaytan DROSSER 05/07/2015 [facility] Addi Mancilla MD 01/28/2015 Office visit Bailey Braden MD 07/30/2014 Office visit Bailey Braden MD 05/02/2014 Office visit Michela Gaytan DROSSER 01/21/2014 Records Request Bailey Braden MD 11/08/2013 Office visit Bailey Braden MD 10/24/2013 Office visit Bailey Braden MD 10/10/2013 Office visit Bailey Braden MD 10/10/2013 Records Request Ron Cochran MD 09/28/2013 Office visit Bailey Braden MD 09/05/2013 Office visit Ron Cochran MD 08/30/2013 Surgery Ron Cochran MD 08/28/2013 Office visit Ron Cochran MD
--- OUTSIDE RECORDS SUMMARY | 2018-10-18 11:58 | XMS REPORT ---
Author Author Bailey Braden Organization [facility] Address [address] [place], [place] [address] Care Team Providers Care Public Works Commissioner Name Role Phone Bailey Braden PCP Allergies and Adverse Reactions Name Reaction Notes SULFA (SULFONAMIDES) body shuts down Wasp Sting anaphyalatic reaction Tape skin rash Percocet skin itching Plan of Treatment Planned Activity Comments Planned Date Planned Time Plan/Goal ASSAY OF MAGNESIUM 08/21/2015 12:00 AM MAMMOGRAM BOTH BREASTS 08/03/2016 12:00 AM IMMUNIZATION ADMIN 08/04/2016 12:00 AM FLU VACC 4 LEONARD 3 YRS PLUS IM 08/04/2016 12:00 AM Medications Active Name Start Date [...] BILI 0.70 mg/dLCALCIUM 9.80 mg/dLeGFR >60 mL/min/1.73 [id number] 168.0 mg/dLCHOLESTEROL 218.0 mg/dLHDL 56.0 mg/dLLDL (CALC) [...] 23 Not Entered Not Entered 11/07/2016 33 History of Past Illness Name Date of [...] 2:39PM Flu Vaccine Aug 04 2016 11:43AM Payers Insurance Name Company Name Plan Name Plan Number Policy Number Policy Group Number Start Date Medicare Part A Medicare RHC [id number] Saturday, 2016 [employer] - [place] [employer] - [place] [id number] N/A [facility] Financial Assistance [facility] [place] 50 percent November [facility] Financial [facility] [place] 50 percent Saturday, November 07, 2015 Medicare Part A Medicare - Lab/Xray [id number] Saturday, February 06, 2016 [facility] [id number] N/A [facility] [id number] N/A FRA Insurance Plans FRA Insurance Plans [id number] N/A Disability Determination Disability Determination [id number] Tuesday BCBS Bcbs [facility] [id number] N/A History of Encounters Visit Date Visit Type Provider 08/04/2016 Office visit Bailey Braden MD 07/20/2016 Office visit Bailey Braden MD 05/05/2016 Office visit Bailey Braden MD 01/26/2016 Office visit Sourav Ruiz TELECOMMUNICATIONS PROFESSIONAL 06/24/2015 Office visit Ron Cochran MD 05/07/2015 Office visit Michela Gaytan TELECOMMUNICATIONS PROFESSIONAL 05/07/2015 [facility] Addi Mancilla MD 01/28/2015 Office visit Bailey Braden MD 07/30/2014 Office visit Bailey Braden MD 05/02/2014 Office visit Michela Gaytan TELECOMMUNICATIONS PROFESSIONAL 01/21/2014 Records Request Bailey Braden MD 11/08/2013 Office visit Bailey Braden MD 10/24/2013 Office visit Bailey Braden MD 10/10/2013 Office visit Bailey Braden MD 10/10/2013 Records Request Ron Cochran MD 09/28/2013 Office visit Bailey Braden MD 09/05/2013 Office visit Ron Cochran MD 08/30/2013 Surgery Ron Cochran MD 08/28/2013 Office visit Ron Cochran MD
--- OUTSIDE RECORDS SUMMARY | 2018-10-18 11:58 | XMS REPORT ---
Author Author Bailey Braden Organization [facility] Address [address] [place], [place] [id number] Care Team Providers Care Multifocal Button Inspector Name Role Phone Bailey Braden PCP Bailey [...] ANTINUCLEAR ANTIBODIES LAMONT Returned 03/04/2017 12:00 AM [id number] TOTAL Returned 03/04/2017 12:00 AM ASSAY OF CERULOPLASMIN Returned 07/12/2017 12:00 AM MAMMOGRAM BOTH BREASTS Reviewed 09/13/2017 12:00 AM [facility] MEDICARE - flu vaccine administration Reviewed [...] 33 Influenza 08/04/2016 sanofi pasteur PMC Fluzone [id number] Intramuscular Left Deltoid 08/04/2016 06/13/2015 141 Influenza 09/13/2017 [employer] SKB Flulaval Quadrivalent [id number] Intramuscular Left Deltoid [...] 2:01PM Sinusitis, Acute Dec 06 2016 2:01PM nursing home medication use Dec 06 2016 2:01PM [...] for internal medicine Oct 10 2017 1:12PM Payers Insurance Name Company Name Plan Name Plan Number Policy Number Policy Group Number Start Date Medicare [facility] Medicare C [id number] Saturday, 2016 AARP Aarp [id number] July [facility] - Community Plan [facility] Comm [id number] Thursday, 2017 Medicare Part A Medicare - Lab/Xray [id number] Saturday, February 06, 2016 Medicare Part B Medicare Of [place] [id number] N/A [facility] [id number] N/A [facility] [id number] N/A FRA Insurance Plans FRA Insurance Plans [id number] N/A Disability Determination Disability Determination [id number] Tuesday [id number] N/A [facility] [place] [facility] State Plan [id number] N/A [facility] Financial Assistance [facility] [place] 50 percent November [facility] Financial Assistance [facility] [place] 50 percent Saturday, November [...] Braden MD 01/26/2016 Office visit Sourav Ruiz RESIDENT SERVICES COORDINATOR 06/24/2015 Office visit Ron Cochran MD 05/07/2015 Office visit Michela Gaytan RESIDENT SERVICES COORDINATOR 05/07/2015 [facility] Addi Mancilla MD 01/28/2015 Office visit Bailey Braden MD 07/30/2014 Office visit Bailey Braden MD 05/02/2014 Office visit Michela Gaytan RESIDENT SERVICES COORDINATOR 01/21/2014 Records Request Bailey Braden MD 11/08/2013 Office visit Bailey Braden MD 10/24/2013 Office visit Bailey Braden MD 10/10/2013 Office visit Bailey Braden MD 10/10/2013 Records Request Ron Cochran MD 09/28/2013 Office visit Bailey Braden MD 09/05/2013 Office visit Ron Cochran MD 08/30/2013 Surgery Ron Cochran MD 08/28/2013 Office visit Ron Cochran MD
[2018-10-18 12:00] VITALS: BP 138/73
--- OUTSIDE RECORDS SUMMARY | 2018-10-18 12:00 | XMS REPORT ---
Author Author Bailey Braden Organization [facility] Address [address] [place], [place] [address] Care Team Providers Care Tube Turner Name Role Phone Bailey Braden PCP Bailey [...] 33 Influenza 08/04/2016 sanofi pasteur PMC Fluzone [id number] Intramuscular Left Deltoid 08/04/2016 06/13/2015 141 History [...] 2017 9:39AM Hypertension Jan 23 2017 9:39AM Payers Insurance Name Company Name Plan Name Plan Number Policy Number Policy Group Number Start Date Medicare RHC Medicare RHC [id number] Saturday, 2016 AARP Aarp [id number] July Medicare Part A Medicare - Lab/Xray [id number] Saturday, February 06, 2016 Medicare Part B Medicare Of [place] [id number] N/A [facility] [id number] N/A [facility] [id number] N/A FRA Insurance Plans FRA Insurance Plans [id number] N/A Disability Determination Disability Determination [id number] Tuesday BCBS Bcbs [facility] [id number] N/A [employer] - [place] State [place] [employer] [place] State Plan [id number] N/A [facility] Financial Assistance [facility] [place] 50 percent November [facility] Financial Assistance [facility] Financial [place] 50 percent Saturday, November 07, 2015 History of Encounters Visit Date Visit Type Provider 12/06/2016 Office visit Bailey Braden MD 08/04/2016 Office visit Bailey Braden MD 07/20/2016 Voided Bailey Braden MD 07/20/2016 [facility] Addi Mancilla MD 05/05/2016 Office visit Bailey Braden MD 01/26/2016 Office visit Sourav Ruiz APRN 06/24/2015 Office visit Ron Cochran MD 05/07/2015 Office visit Michela Gaytan APRN 05/07/2015 [facility] Addi Mancilla MD 01/28/2015 Office [...]
--- OUTSIDE RECORDS SUMMARY | 2018-10-18 12:01 | XMS REPORT ---
Author Author Bailey Braden [facility] Address [address] [place], [place] [address] Care Team Providers Care Camp Maintenance Supervisor Name Role Phone Bailey Braden PCP Bailey Braden PreferredProvider Allergies and Adverse Reactions Name Reaction Notes SULFA (SULFONAMIDES) body shuts down Wasp Sting anaphyalatic reaction Tape skin rash Percocet skin itching Plan of Treatment Planned Activity Comments Planned Date Planned Time Plan/Goal Magnesium level 08/21/2015 12:00 AM Lipid Blood Profile 12/27/2016 12:00 AM RUQ US (right upper quadrant ultrasound) 03/03/2017 12:00 AM Medications Active Name Start Date [...] a day (at bedtime) for 90 days clopidogrel 75 mg oral tablet 02/14/2017 TAKE ONE TABLET BY MOUTH ONCE DAILY bumetanide 1 mg oral tablet 02/23/2017 TAKE 1 TABLET EVERY OTHER DAY oxycodone 10 mg oral tablet take 1 tablet (10 mg) by oral route every 6 hours Name Start Date Expiration Date SIG Comments [...] HC BMI BSA BMI Percentile O2 Sat(%) 03/03/2017 2:13:00 PM 138 mmHg 98 mmHg 88 bpm 18 rpm 98.8 F 248.375 lbs 64 in 42.63 kg/m2 2.26 m2 98 % 01/27/2017 11:32:00 AM 126 mmHg 92 mmHg 90 bpm 16 rpm 98.2 F 247.5 lbs 64 in 42.4828 kg/m 2.2515 m 97 % 12/06/2016 1:55:00 PM 142 mmHg [...] 02/03/2017 12:00 AM ASSAY OF GGT Returned 08/28/2013 [...] A1C 5.70 %Est Avg Glucose 116.9 mg/dL 01/27/2017 11:10 AM TRIGLYCERIDES 193.0 mg/dLCHOLESTEROL 251.0 mg/dLHDL 56.0 mg /dLTOT CHOL/HDL 4.5 LDL (CALC) 156.0 mg/dLGLUCOSE 95.0 mg/dLSODIUM 140.0 mmol/ LPOTASSIUM 3.50 mmol/LCHLORIDE 102.0 mmol/LCO2 24.0 mmol/LBUN 21.0 mg/ dLCREATININE 0.80 mg/dLSGOT/AST 13.0 IU/LSGPT/ALT 19.0 IU/LALK PHOS 125.0 IU/ LTOTAL PROTEIN 8.20 g/dLALBUMIN 4.30 g/dLTOTAL BILI 0.30 mg/dLCALCIUM 9.70 mg/ dLAGE 59 GFR NonAA 73 GFR AA 88 eGFR >60 mL/min/1.73meGFR AA* >60 GGTP 85 02/18/2017 10:00 AM GGTP 42 History Of Immunizations Name Date Admin Mfg [...] 33 Influenza 08/04/2016 sanofi pasteur PMC Fluzone [id number] Intramuscular Left Deltoid 08/04/2016 06/13/2015 141 History [...] 2:01PM Sinusitis, Acute Dec 06 2016 2:01PM jail medication use Dec 06 2016 2:01PM Osteoporosis [...] Elevated liver enzymes Mar 03 2017 2:46PM Payers Insurance Name Company Name Plan Name Plan Number Policy Number Policy Group Number Start Date Medicare RHC Medicare RHC [id number] Saturday, 2016 AARP Aarp [id number] July Medicare Part A Medicare - Lab/Xray [id number] Saturday, February 06, 2016 Medicare Part B Medicare Of [place] [id number] N/A [facility] [id number] N/A [facility] [id number] N/A FRA Insurance Plans FRA Insurance Plans [id number] N/A Disability Determination Disability Determination [id number] Tuesday BCBS Bcbs [facility] [id number] N/A [employer] [place] [employer] [place] Plan [id number] N/A [facility] Financial Assistance [facility] Financial [place] 50 percent November [facility] Financial Assistance [facility] Financial [place] 50 percent Saturday, November 07, 2015 History of Encounters Visit Date Visit Type Provider 03/03/2017 Office visit Bailey Braden MD 01/27/2017 Nurse visit Bailey Braden MD 12/06/2016 Office visit Bailey Braden MD 08/04/2016 Office visit Bailey Braden MD 07/20/2016 Voided Bailey Braden MD 07/20/2016 Hospital Addi Mancilla MD 05/05/2016 Office visit Bailey Braden MD 01/26/2016 Office visit Sourav Ruiz REALTIME COURT REPORTER 06/24/2015 Office visit Ron Cochran MD 05/07/2015 Office visit Michela Gaytan REALTIME COURT REPORTER 05/07/2015 Hospital Addi Mancilla MD 01/28/2015 Office visit Bailey Braden MD 07/30/2014 Office visit Bailey Braden MD 05/02/2014 Office visit Michela Gaytan REALTIME COURT REPORTER 01/21/2014 Records Request Bailey Braden MD 11/08/2013 Office visit Bailey Braden MD 10/24/2013 Office visit Bailey Braden MD 10/10/2013 Office visit Bailey Braden MD 10/10/2013 Records Request Ron Cochran MD 09/28/2013 Office visit Bailey Braden MD 09/05/2013 Office visit Ron Cochran MD 08/30/2013 Surgery Ron Cochran MD 08/28/2013 Office visit Ron Cochran MD
--- OUTSIDE RECORDS SUMMARY | 2018-10-18 12:04 | XMS REPORT ---
Author Author Bailey Braden [facility] Address [address] [place], [place] [address] Care Team Providers Care Dietist Name Role Phone Bailey Braden PCP Bailey [...] to Western blot conf 03/04/2017 12:00 AM Mammography; bilateral 07/12/2017 12:00 AM Medications Active Name Start Date [...] TAKE ONE TABLET BY MOUTH ONCE DAILY oxycodone 10 mg oral tablet take 1 [...] BY INTRAMUSCULAR ROUTE ONCE NEEDED FOR ANAPHYLAXIS Name Start Date Expiration Date SIG Comments [...] ANTINUCLEAR ANTIBODIES LAMONT Returned 03/04/2017 12:00 AM [id number] TOTAL Returned 03/04/2017 12:00 AM ASSAY OF CERULOPLASMIN Returned 08/28/2013 12:00 AM Mammographic guidance for [...] Entered 08/04/2016 11/07/2017 33 Influenza 08/04/2016 sanofi [facility] PMC Fluzone [id number] Intramuscular Left Deltoid 08/04/2016 06/13/2015 141 History [...] 2:17PM Screening Mammogram Jul 12 2017 5:41PM Payers Insurance Name Company Name Plan Name Plan Number Policy Number Policy Group Number Start Date Medicare RHC Medicare RHC [id number] Saturday, 2016 AARP Aarp [id number] July Medicare Part A Medicare - Lab/Xray [id number] Saturday, February 06, 2016 Medicare Part B Medicare Of [place] [id number] N/A [facility] [id number] N/A [facility] [id number] N/A FRA Insurance Plans FRA Insurance Plans [id number] N/A Disability Determination Disability Determination [id number] Tuesday BCBS Bcbs [facility] [id number] N/A [employer] [place] [employer] [place] Plan [id number] N/A [facility] Financial Assistance [facility] [place] 50 percent November [facility] Financial Assistance [facility] Financial [place] 50 percent Saturday, November 07, 2015 History of Encounters Visit Date Visit Type Provider 03/03/2017 Office visit Bailey Braden MD 01/27/2017 Nurse visit Bailey Braden MD 12/06/2016 Office visit Bailey Braden MD 08/04/2016 Office visit Bailey Braden MD 07/20/2016 Voided Bailey Braden MD 07/20/2016 [facility] Addi Mancilla MD 05/05/2016 Office visit Bailey Braden MD 01/26/2016 Office visit Sourav Ruiz APRN 06/24/2015 Office visit Ron Cochran MD 05/07/2015 Office visit Michela Gaytan APPLICATION PENETRATION TESTER 05/07/2015 [facility] Addi Mancilla MD 01/28/2015 Office visit Bailey Braden MD 07/30/2014 Office visit Bailey Braden MD 05/02/2014 Office visit Michela Gaytan APPLICATION PENETRATION TESTER 01/21/2014 Records Request Bailey Braden MD 11/08/2013 Office visit Bailey Braden MD 10/24/2013 Office visit Bailey Braden MD 10/10/2013 Office visit Bailey Braden MD 10/10/2013 Records Request Ron Cochran MD 09/28/2013 Office visit Bailey Braden MD 09/05/2013 Office visit Ron Cochran MD 08/30/2013 Surgery Ron Cochran MD 08/28/2013 Office visit Ron Cochran MD
--- OUTSIDE RECORDS SUMMARY | 2018-10-18 12:06 | XMS REPORT ---
Author Author Bailey Braden Organization [facility] Address [address] [place], [place] [address] Care Team Providers Care Security Control Assessor Name Role Phone Bailey Braden PCP Bailey [...] ANTINUCLEAR ANTIBODIES LAMONT Returned 03/04/2017 12:00 AM [id number] TOTAL Returned 03/04/2017 12:00 AM ASSAY OF CERULOPLASMIN Returned 07/12/2017 12:00 AM MAMMOGRAM BOTH BREASTS Reviewed 09/13/2017 12:00 AM [facility] MEDICARE - flu vaccine administration Reviewed 09/13/2017 12:00 AM INFLUENZA VAC 4 VALENT PRSRV FREE 3 YRS PLUS IM Reviewed 08/28/2013 12:00 [...] 33 Influenza 08/04/2016 sanofi pasteur PMC Fluzone [id number] Intramuscular Left Deltoid 08/04/2016 06/13/2015 141 Influenza 09/13/2017 [employer] SKB Flulaval Quadrivalent [id number] Intramuscular Left Deltoid [...] 5:41PM Flu Vaccine Sep 13 2017 2:55PM Payers Insurance Name Company Name Plan Name Plan Number Policy Number Policy Group Number Start Date Medicare C Medicare RHC [id number] Saturday, 2016 AARP Aarp [id number] July Medicare Part A Medicare - Lab/Xray [id number] Saturday, February 06, 2016 Medicare Part B Medicare Of [place] [id number] N/A [facility] [id number] N/A [facility] [id number] N/A FRA Insurance Plans FRA Insurance Plans [id number] N/A Disability Determination Disability Determination [id number] Tuesday BCBS Bcbs [facility] [id number] N/A [employer] [place] [employer] [place] [id number] N/A [facility] Financial Assistance [facility] Financial [place] 50 percent November [facility] Financial Assistance [facility] Financial [place] 50 percent Saturday, November 07, 2015 History of Encounters Visit Date Visit Type Provider 09/13/2017 Nurse visit Bailey Braden MD 04/05/2017 Hospital Addi Mancilla MD 03/03/2017 Office visit Bailey Braden MD 01/27/2017 Nurse visit Bailey Braden MD 12/06/2016 Office visit Bailey Braden MD 08/04/2016 Office visit Bailey Braden MD 07/20/2016 Voided Bailey Braden MD 07/20/2016 Hospital Addi Mancilla MD 05/05/2016 Office visit Bailey Braden MD 01/26/2016 Office visit Sourav Ruiz MENTAL HEALTH CASE MANAGER 06/24/2015 Office visit Ron Cochran MD 05/07/2015 Office visit Michela Gaytan MENTAL HEALTH CASE MANAGER 05/07/2015 [facility] Addi Mancilla MD 01/28/2015 Office [...]
--- OUTSIDE RECORDS SUMMARY | 2018-10-18 12:07 | XMS REPORT ---
Author Author Ron Cochran [facility] Address [address] [place], [place] [address] Care Team Providers Care Lead Care Manager Name Role Phone Ron Cochran PCP [...] BILI 0.70 mg/dLCALCIUM 9.80 mg/dLeGFR >60 mL/min/1.73 [id number] 168.0 mg/dLCHOLESTEROL 218.0 mg/dLHDL 56.0 mg/dLLDL (CALC) [...] Of Immunizations Name Date Admin Mfg Name [facility] Code Trade Name Lot# [...] Group Number Start Date Bcbs Bcbs [facility] [place] [id number] N/A [facility] [id number] N/A [facility] [id number] N/A FRA Insurance Plans FRA Insurance Plans [id number] N/A Disability Determination Disability Determination [id number] Tuesday History of Encounters Visit Date Visit Type Provider 06/24/2015 Office visit Ron Cochran MD 05/07/2015 Office visit Michela Gaytan CORN HUSKER MACHINE OPERATOR 05/07/2015 [facility] Rosalinda Mancilla MD 01/28/2015 Office visit Bailey Braden MD 07/30/2014 Office visit Bailey Braden MD 05/02/2014 Office visit Michela Gaytan CORN HUSKER MACHINE OPERATOR 01/21/2014 Records Request Bailey Braden MD 11/08/2013 Office visit Bailey Braden MD 10/24/2013 Office visit Bailey Braden MD 10/10/2013 Office visit Bailey Braden MD 10/10/2013 Records Request Ron Cochran MD 09/28/2013 Office visit Bailey Braden MD 09/05/2013 Office visit Ron Cochran MD 08/30/2013 Surgery Ron Cochran MD 08/28/2013 Office visit Ron Cochran MD
--- OUTSIDE RECORDS SUMMARY | 2018-10-18 12:08 | XMS REPORT ---
Author Author Bailey Braden Organization [facility] Address [address] [place], [place] [address] Care Team Providers Care Community Outreach Director Name Role Phone Bailey Braden PCP Bailey [...] ANTINUCLEAR ANTIBODIES LAMONT Returned 03/04/2017 12:00 AM [id number] TOTAL Returned 03/04/2017 12:00 AM ASSAY OF [...] GGTP 85 02/18/2017 10:00 AM GGTP 42 03/09/2017 11:15 AM IRON TOTAL 47.0 ug/dLTransferrin 203.0 mg/dLTIBC Calculation 254 %Saturation Calc 19 GLUCOSE 86.0 mg/dLSODIUM 141.0 mmol/ LPOTASSIUM 3.60 mmol/LCHLORIDE 106.0 mmol/LCO2 24.0 mmol/LBUN 20.0 mg/ dLCREATININE 0.70 mg/dLSGOT/AST 12.0 IU/LSGPT/ALT 21.0 IU/LALK PHOS 117.0 IU/ LTOTAL PROTEIN 7.30 g/dLALBUMIN 3.90 g/dLTOTAL BILI 0.30 mg/dLCALCIUM 9.10 mg/ dLAGE 59 GFR NonAA 86 GFR AA 104 eGFR >60 mL/min/1.73meGFR AA* >60 TSH 1.660 uIU/mLFERRITIN 139.0 ng/mLHIV AG/AB COMBO 0.08 Hep A Ab, IgM Negative HBsAg Screen Negative Hep B Core Ab, IgM Negative Hep C Virus Ab <0.1 Ceruloplasmin 40.6 LAMONT Direct Negative Jiasn-6-Jwsattvuezn,Serum 131 History Of Immunizations Name Date Admin Mfg [...] 33 Influenza 08/04/2016 sanofi pasteur PMC Fluzone [id number] Intramuscular Left Deltoid 08/04/2016 06/13/2015 141 History [...] 2:01PM Sinusitis, Acute Dec 06 2016 2:01PM 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 Dec 06 2016 2:01PM Osteoporosis [...] (transient ischemic attack) Mar 03 2017 2:17PM Payers Insurance Name Company Name Plan Name Plan Number Policy Number Policy Group Number Start Date Medicare RHC Medicare RHC [id number] Saturday, 2016 AARP Aarp [id number] July Medicare Part A Medicare - Lab/Xray [id number] Saturday, February 06, 2016 Medicare Part B Medicare Of [place] [id number] N/A [facility] [id number] N/A [facility] [id number] N/A FRA Insurance Plans FRA Insurance Plans [id number] N/A Disability Determination Disability Determination [id number] Tuesday BCBS Bcbs [facility] [id number] N/A Amerigroup - RHC [place] State Plan Amerigroup - [place] State Plan [id number] N/A [facility] Financial Assistance [facility] Financial [place]iana 50 percent November [facility] Financial Assistance [facility] Financial [place] 50 percent Saturday, November 07, 2015 History of Encounters Visit Date Visit Type Provider 03/03/2017 Office visit Bailey Braden MD 01/27/2017 Nurse visit Bailey Braden MD 12/06/2016 Office visit Bailey Braden MD 08/04/2016 Office visit Bailey Braden MD 07/20/2016 Voided Bailey Braden MD 07/20/2016 Hospital Addi Mancilla MD 05/05/2016 Office visit Bailey Braden MD 01/26/2016 Office visit Sourav Ruiz NEWS LIBRARY DIRECTOR 06/24/2015 Office visit Ron Cochran MD 05/07/2015 Office visit Michela Gaytan NEWS LIBRARY DIRECTOR 05/07/2015 Hospital Addi Mancilla MD 01/28/2015 Office visit Bailey Braden MD 07/30/2014 Office visit Bailey Braden MD 05/02/2014 Office visit Michela Gaytan NEWS LIBRARY DIRECTOR 01/21/2014 Records Request Bailey Braden MD 11/08/2013 Office visit Bailey Braden MD 10/24/2013 Office visit Bailey Braden MD 10/10/2013 Office visit Bailey Braden MD 10/10/2013 Records Request Ron Cochran MD 09/28/2013 Office visit Bailey Braden MD 09/05/2013 Office visit Ron Cochran MD 08/30/2013 Surgery Ron Cochran MD 08/28/2013 Office visit Ron Cochran MD
--- OUTSIDE RECORDS SUMMARY | 2018-10-18 12:10 | XMS REPORT ---
Author Author Bailey Braden Organization [facility] Address [address] [place], [place] [address] Care Team Providers Care Hotel Night Auditor Name Role Phone Bailey Braden PCP Bailey Braden PreferredProvider Allergies and Adverse Reactions Name Reaction Notes SULFA (SULFONAMIDES) body shuts down Wasp Sting anaphyalatic reaction Tape skin rash Percocet skin itching Plan of Treatment Planned Activity Comments Planned Date Planned Time Plan/Goal Magnesium level 08/21/2015 12:00 AM Lipid Blood Profile 12/27/2016 12:00 AM GGTP 02/03/2017 12:00 AM Medications Active Name Start Date [...] Returned 01/23/2017 12:00 AM LIPID PANEL Returned 08/28/2013 12:00 AM Mammographic guidance [...] eGFR >60 mL/min/1.73meGFR AA* >60 GGTP 85 History Of Immunizations Name Date Admin Mfg [...] 33 Influenza 08/04/2016 sanofi pasteur PMC Fluzone [id number] Intramuscular Left Deltoid 08/04/2016 06/13/2015 141 History [...] 2:01PM Sinusitis, Acute Dec 06 2016 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 06 2016 2:01PM Osteoporosis Dec 06 2016 2:01PM Hyperglycemia Dec 06 2016 2:01PM Elevated alkaline phosphatase level Dec 06 2016 2:01PM Osteopenia Dec 06 2016 2:01PM Elevated liver enzymes Jan 23 2017 9:39AM Hyperlipidemia Jan 23 2017 9:39AM Hypertension Jan 23 2017 9:39AM Hypertension, Benign Essential Jan 27 2017 11:34AM Elevated liver enzymes Feb 03 2017 9:43AM Payers Insurance Name Company Name Plan Name Plan Number Policy Number Policy Group Number Start Date Medicare RHC Medicare [facility] [id number] Saturday, 2016 AARP Aarp [id number] July Medicare Part A Medicare - Lab/Xray [id number] Saturday, February 06, 2016 Medicare Part B Medicare Of [place] [id number] N/A [facility] [id number] N/A [facility] [id number] N/A FRA Insurance Plans FRA Insurance Plans [id number] N/A Disability Determination Disability Determination [id number] Tuesday BCBS Bcbs [facility] [id number] N/A Amerigroup - [place] State Plan Amerigroup - [facility] [place] State Plan [id number] N/A [facility] Financial Assistance [facility] Financial [place] 50 percent November [facility] Financial Assistance [facility] Financial [place] 50 percent Saturday, November 07, 2015 History of Encounters Visit Date Visit Type Provider 01/27/2017 Nurse visit Bailey Braden MD 12/06/2016 Office visit Bailey Braden MD 08/04/2016 Office visit Bailey Braden MD 07/20/2016 Voided Bailey Braden MD 07/20/2016 Hospital Addi Mancilla MD 05/05/2016 Office visit Bailey Braden MD 01/26/2016 Office visit Sourav Ruiz BUTTER FAT TESTER 06/24/2015 Office visit Ron Cochran MD 05/07/2015 Office visit Michela Gaytan BUTTER FAT TESTER 05/07/2015 [facility] Addi Mancilla MD 01/28/2015 Office visit Bailey Braden MD 07/30/2014 Office visit Bailey Braden MD 05/02/2014 Office visit Michela Gaytan BUTTER FAT TESTER 01/21/2014 Records Request Bailey Braden MD 11/08/2013 Office visit Baiely Braden MD 10/24/2013 Office visit Bailey Braden MD 10/10/2013 Office visit Bailey Braden MD 10/10/2013 Records Request Ron Cochran MD 09/28/2013 Office visit Bailey Braden MD 09/05/2013 Office visit Ron Cochran MD 08/30/2013 Surgery Ron Cochran MD 08/28/2013 Office visit Ron Cochran MD
--- OUTSIDE RECORDS SUMMARY | 2018-10-18 12:12 | XMS REPORT | Clinical Summary ---
Author Author MD Mathew, Carlos Ramirez Organization [facility], [facility] Address [address] [facility] [address] [place] [address] Phone Care Team Providers Care Rn Digestive Name Role Phone MD Mathew, Carlos Ramirez Unavailable Conditions or Problems Problem Name Problem Code Onset Date Status Entry Date Provider Comment Standard Description Annotate Lumbar spine instability 025965124 (SNOMED CT) Active Sallie Lee Lumbar spine instability Spondylolisthesis, lumbar region 349493753 (SNOMED CT) Active MANAS Chavarria Spondylolisthesis Pain in left leg 945572953 (SNOMED CT) Active Sam Palaniswamy Pain in left lower limb Other intervertebral disc degeneration, lumbar region 03367465 (SNOMED CT) Active Sam Palaniswamy Degeneration of lumbar intervertebral disc Lumbar spondylolisthesis 434420582 (SNOMED CT) Active Sam Palaniswamy Spondylolisthesis Arthrodesis status 475974346 (SNOMED CT) Active Oren Priya H/O: arthrodesis Spinal stenosis, lumbar 00960264 (SNOMED CT) Active MANAS Menjivar Spinal stenosis of lumbar region Low back pain 248480635 (SNOMED CT) Active Oren Priya Low back pain Other intervertebral disc degeneration, lumbosacral region M51.37 (ICD-10-CM) Active Oren Powers Other intervertebral disc degeneration, lumbosacral region Displacement of lumbar intervertebral disc without myelopathy 31236998 ( SNOMED CT) Active MANAS Francis, COSC Displacement of lumbar intervertebral disc without myelopathy Degeneration of lumbar or lumbosacral intervertebral disc 722.52 (ICD-9-CM) Active MANAS Francis, COSC Degeneration of lumbar or lumbosacral intervertebral disc Lumbago 928152551 (SNOMED CT) Active MANAS Hunter Low back pain Spinal stenosis, lumbar 30746960 (SNOMED CT) Active MANAS Hunter Spinal stenosis of lumbar region Medications Medication Instructions Start Date Stop Date Generic Name [facility] Provider PERCOCET 10-325 MG TABS sig 1-2 q 4-6 prn pain OXYCODONE- ACETAMINOPHEN [id number] Carlos Carmona MD LOVASTATIN 20 MG TABS LOVASTATIN 57967091262 Geri Dyer CCM PANTOPRAZOLE SODIUM 40 MG TBEC PANTOPRAZOLE SODIUM 94346139786 LATANYA Merritt LOSARTAN POTASSIUM-HCTZ 100-12.5 MG TABS LOSARTAN POTASSIUM-HCTZ 65022748218 LATANYA Merritt BUMETANIDE 1 MG TABS BUMETANIDE 04854517379 LATANYA Merritt FLUOXETINE HCL 20 MG CAPS FLUOXETINE HCL 33922808047 LATANYA Merritt SUMATRIPTAN SUCCINATE 25 MG TABS SUMATRIPTAN SUCCINATE 95676871532 LATANYA Merritt VOLTAREN 1 % GEL DICLOFENAC SODIUM 87562245376 LATANYA Merritt CENTRUM ULTRA WOMENS TABS MULTIPLE VITAMINS-MINERALS 51994652821 LATANYA Merritt PERCOCET 10-325 MG TABS OXYCODONE-ACETAMINOPHEN 95111482029 LATAYNA Merritt PLAVIX 75 MG TABS CLOPIDOGREL BISULFATE 70411280510 LATANYA Merritt Medications Administered No information available. Allergies, Adverse Reactions, Alerts Allergy Name Reaction Description Start Date Severity Status Provider SULFA Critical Active Geri Dyer, CCMA TAPE Critical Active LATANYA Merritt Results Date Name Value Unit Range Flag Description Office Visit: F/U AFTER INJ W/DR. AREVALO LUMBAR SPINE 12/18/14 DH CRETN No CREATININE Office Visit: rck lumbar spine after injection, Medicare, 01/24/2017. 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 SMOK STATUS Never smoker Tobacco smoking status OKIS CARD RSK GRP No cardiac risk group Plan of Care Type Date Detail Appointment 02:00 PM Carlos Carmona MD, [address], [address], [place], [address], Patient education BMI Handout Patient education Oxycodone%2FAcetaminophen%20(Oral)%20(Capsule%2C %20Liquid%2C%20Tablet%2C%20Tablet%2C%20Extended%20Release) Patient education BMI Handout Procedures Code Procedure Name Date Entry Date CPT-G8730 Pain assessment documented as positive and f/u plan is documented CPT-1130F Back pain and function assessed CPT-2040F PE on initial visit for low back pain performed CPT-4248F counseled during the initial visit for back pain against bed rest > 4 days CPT-G8730 Pain assessment documented as positive and f/u plan is documented CPT-1130F Back pain and function assessed CPT-2040F PE on initial visit for low back pain performed CPT-4248F counseled during the initial visit for back pain against bed rest > 4 days CPT-1111F Discharge medications reconciled w/ current medication list CPT-1111F Discharge medications reconciled w/ current medication list CPT-35954 Lumbar Spine 4-6 Views CPT-1130F Back pain and function assessed CPT-2040F PE on initial visit for low back pain performed CPT-4248F counseled during the initial visit for back pain against bed rest > 4 days CPT-G8730 Pain assessment documented as positive and f/u plan is documented CPT-G8629 order for antibiotic to be given within 1 hour prior to surgical incision CPT-4248F counseled during the initial visit for back pain against bed rest > 4 days CPT-2040F PE on initial visit for low back pain performed CPT-1130F Back pain and function assessed CPT-G8730 Pain assessment documented as positive and f/u plan is documented CPT-1111F Discharge medications reconciled w/ current medication list CPT-03203 Lumbar Spine 4-6 Views CPT-G8629 order for antibiotic to be given within 1 hour prior to surgical incision CPT-G8629 order for antibiotic to be given within 1 hour prior to surgical incision CPT-G8629 order for antibiotic to be given within 1 hour prior to surgical incision CPT-1130F Back pain and function assessed CPT-1111F Discharge medications reconciled w/ current medication list CPT-2040F PE on initial visit for low back pain performed CPT-G8730 Pain assessment documented as positive and f/u plan is documented CPT-4248F counseled during the initial visit for back pain against bed rest > 4 days CPT-10583 Lumbar Spine 4-6 Views CPT-34687 Lumbar Spine 4-6 Views REF MD SEND LETTER TO REF MD REF MD SEND LETTER TO REF MD REF MD SEND LETTER TO REF MD REF MD SEND LETTER TO REF MD REF MD SEND LETTER TO REF MD CPT-53094 Lumbar Spine 4-6 Views REF MD SEND LETTER TO REF REF MD SEND LETTER TO REF MD REF MD SEND LETTER TO REF REF MD SEND LETTER TO REF REF MD SEND LETTER TO REF CPT-71480 Lumbar Spine 4-6 Views REF MD SEND LETTER TO REF REF MD SEND LETTER TO REF REF MD SEND LETTER TO REF REF MD SEND LETTER TO REF MD REF MD SEND LETTER TO REF REF MD SEND LETTER TO REF REF MD SEND LETTER TO REF REF MD SEND LETTER TO REF CPT-57985 Lumbar Spine 4-6 Views REF MD SEND LETTER TO REF REF MD SEND LETTER TO REF MD REF MD SEND LETTER TO REF MD REF SEND LETTER TO REF REF SEND LETTER TO REF REF SEND LETTER TO REF REF MD SEND LETTER TO REF CPT-37607 Lumbar Spine 4-6 Views REF MD SEND LETTER TO REF MD REF MD SEND LETTER TO REF MD REF MD SEND LETTER TO REF REF MD SEND LETTER TO REF REF MD SEND LETTER TO REF MD REF MD SEND LETTER TO REF CPT-L0637 [id number] CPT-66531 Lumbar Spine 4-6 Views REF MD SEND LETTER TO REF REF SEND LETTER TO REF REF SEND LETTER TO REF REF SEND LETTER TO REF REF SEND LETTER TO REF REF SEND LETTER TO REF REF SEND LETTER TO REF REF SEND LETTER TO REF REF SEND LETTER TO REF Vital Signs Date Name Value Unit Description BMI (Body Mass Index) 39.93 kg/m2 Body Mass Index [Ratio] BP Diastolic 68 mm[Hg] blood pressure, diastolic - 8462-4 BP Systolic 110 mm[Hg] blood pressure, systolic - 8480-6 Heart Rate 67 /min pulse rate E&M - 8867-4 Height 65 [in_us] height E&M - 8302-2 Weight Measured 240 [lb_av] weight E&M - 3141-9 Encounters Code Encounter Date Provider Facility CPT-88271 94301- Est Level III Carlos Carmona MD [facility] CPT-06103 00238- Est Level III Carlos Carmona MD [facility] CPT-06367 73146 - Postoperative follow-up visit GUILLERMO High [facility] CPT-79261 39445 - Postoperative follow-up visit Carlos Carmona MD [facility], [facility] CPT-41897 06588 - Postoperative follow-up visit Carlos Carmona MD [facility], [facility] CPT-32483 77139- Est Level IV Carlos Carmona MD [facility], [facility] CPT-85377 74423- Est Level IV Carlos Carmona MD [facility], [facility] CPT-71502 65063- Est Level IV Carlos Carmona MD [facility] [place] CPT-68022 03363- Est Level IV Carlos Carmona MD [facility] [place] CPT-39820 95980- Est Level III Carlos Carmona MD [facility] [place] CPT-31621 11170 - Postoperative follow-up visit Carlos Carmona MD [facility]-42856 54223 - Postoperative follow-up visit Carlos Carmona MD [facility] [place] CPT-08991 28032- Est Level III Carlos Carmona MD [facility] [place] CPT-38153 09965- Est Level IV Carlos Carmona MD [facility] [place] CPT-01211 72363- Est Level IV Carlos Carmona MD [facility] [place] CPT-25464 64561-Dbt Level IV Carlos Carmona MD [facility] [place] Social History Concept Description Observation Name Observation Value Units Start Date Alcohol use ETOH USE No Never smoker SMOK STATUS Never smoker Alcohol use ETOH USE No Never smoker SMOK STATUS Never smoker Alcohol use ETOH USE No Never smoker SMOK STATUS Never smoker Alcohol use ETOH USE No Never smoker SMOK STATUS Never smoker Alcohol use ETOH USE No Never smoker SMOK STATUS Never smoker Alcohol use ETOH USE No Never smoker SMOK STATUS Never smoker Alcohol use ETOH USE No Never smoker SMOK STATUS Never smoker Alcohol use ETOH USE No Never smoker SMOK STATUS Never smoker Alcohol use ETOH USE No Never smoker SMOK STATUS Never smoker Alcohol use ETOH USE No Never smoker SMOK STATUS Never smoker Alcohol use ETOH USE No Never smoker SMOK STATUS Never smoker Alcohol use ETOH USE No Never smoker SMOK STATUS Never smoker Alcohol use ETOH USE No Never smoker SMOK STATUS Never smoker Alcohol use ETOH USE No Never smoker SMOK STATUS Never smoker Alcohol use ETOH USE No Never smoker SMOK STATUS Never smoker
--- OUTSIDE RECORDS SUMMARY | 2018-10-18 12:12 | XMS REPORT ---
Author Author Bailey Braden [facility] Address [address] [place], [place] [address] Care Team Providers Care Forms Builder Name Role Phone Bailey Braden PCP Allergies [...] BILI 0.70 mg/dLCALCIUM 9.80 mg/dLeGFR >60 mL/min/1.73 [id number] 168.0 mg/dLCHOLESTEROL 218.0 mg/dLHDL 56.0 mg/dLLDL (CALC) [...] 8:22AM Edema Jan 28 2015 8:22AM Dysuria Apr 16 2015 8:14AM Pre-op examination May 07 2015 8:22AM Mastodynia Jun 24 2015 11:20AM Payers Insurance Name Company Name Plan Name Plan Number Policy Number Policy Group Number Start Date Bcbs Bcbs [facility] [id number] N/A [facility] [id number] N/A [facility] [id number] N/A FRA Insurance Plans FRA Insurance Plans [id number] N/A Disability Determination Disability Determination [id number] Tuesday History of Encounters Visit Date Visit Type Provider 06/24/2015 Office visit Ron Cochran MD 05/07/2015 Office visit Michela Gaytan CHEMICAL OPERATIONS SPECIALIST 01/28/2015 Office visit Bailey Braden MD 07/30/2014 Office visit Bailey Braden MD 05/02/2014 Office visit Michela Gaytan CHEMICAL OPERATIONS SPECIALIST 01/21/2014 Records Request Bailey Braden MD 11/08/2013 Office visit Bailey Braden MD 10/24/2013 Office visit Bailey Braden MD 10/10/2013 Records Request Ron Cochran MD 10/10/2013 Office visit Bailey Braden MD 09/28/2013 Office visit Bailey Braden MD 09/05/2013 Office visit Ron Cochran MD 08/30/2013 Surgery Ron Cochran MD 08/28/2013 Office visit Ron Cochran MD
--- OUTSIDE RECORDS SUMMARY | 2018-10-18 12:14 | XMS REPORT | Continuity of Care Document ---
Demographics x Preferred Language Unknown Marital Status Unknown Restorationism Affiliation Unknown Race Unknown Ethnic Group Unknown Author Author [facility] Organization [facility] Address Unknown Phone Unavailable Allergies Active Description Code Type Severity Reaction Onset Reported/Identified Relationship to Patient Clinical Status Yes bee venom (honey bee) 6698 Drug Allergy N/A N/A Yes Sulfa(Sulfonamide Antibiotics) 491 Drug Allergy N/A N/A Yes TAPE Tape Miscellaneous Allergy Moderate Rash Yes TAPE Tape Miscellaneous Allergy N/A N/A Confirmed or Verified Yes Wasp Venom 7665 Drug Allergy N/ A N/A Yes Bee Stings Drug Moderate hives~swelling Yes HYDROcodone Drug N/A [id number] Yes latex Drug N/A unknown Yes sulfa drug 16 Drug N/A N/A Yes sulfa drug 16 Drug Anaphylaxis unable to function/BP drops Yes Tape Drug N/A N/A Yes Tape Drug Severe rash Yes SULFA (sulfonamide) [id number] CLASS N/A N/A Yes TAPE [id number] ENVIRONMENTAL N/ A N/A Yes Sulfa (Sulfonamide Antibiotics) [id number] Drug Allergy Unknown N/A 2013 Yes venom-wasp [id number] Drug Allergy Severe N/A 08/20/2015 Yes wasp venom [id number] Drug Allergy Severe N/A 08/20/2015 Yes TAPE TAPE Mild RASH 08/20/2015 Yes venom-wasp venom-wasp Drug Allergy Moderate SWELLING NECK 05/12/2016 Yes wasp venom wasp venom Drug Allergy Moderate SWELLING NECK 05/12/2016 Yes adhesive tape adhesive tape Drug Allergy Mild REDNESS,RASH 05/12/2016 Yes Sulfa (Sulfonamide Antibiotics) Sulfa (Sulfonamide Antibiotics) Drug Allergy Mild "BODY SHUTS DOWN " 05/12/2016 Yes hydrocodone hydrocodone Drug Allergy Moderate HIVES 07/21/2016 Medications There is no data. Problems Date Dx Coded Attending Type Code Diagnosis Diagnosed By 09/30/2014 OC SMITH MD Ot 715.31 09/30/2014 OC SMITH MD, Ot 836.0 09/30/2014 LUIS WILLARD, OC P Ot E928.9 10/09/2014 LUIS WILLARD, OC P Ot 272.0 10/09/2014 LUIS WILLARD, OC P Ot 401.9 10/09/2014 LUIS WILLARD, OC P Ot 717.3 10/09/2014 LUIS WILLARD, OC P Ot 717.40 10/09/2014 LUIS WILLARD, OC P Ot 717.7 10/09/2014 LUIS WILLARD, OC P Ot 733.92 10/09/2014 LUIS WILLARD, OC P Ot V57.1 10/21/2014 LUIS WILLARD, OC P Ot 836.0 10/21/2014 LUIS WILLARD, OC P Ot E000.8 10/21/2014 LUIS WILLARD, OC P Ot E928.9 10/21/2014 LUIS WILLARD, OC P Ot V72.63 10/21/2014 LUIS WILLARD, OC P Ot V72.81 10/21/2014 LUIS WILLARD, OC P Ot V74.8 11/11/2014 LUIS WILLARD, OC P Ot 836.0 11/11/2014 LUIS WILLARD, OC P Ot E000.8 11/11/2014 LUIS WILLARD, OC P Ot E928.9 11/11/2014 LUIS WILLARD, OC P Ot V72.63 11/11/2014 LUIS WILLARD, CO P Ot V72.81 11/11/2014 LUIS WILLARD, OC P Ot V74.8 12/02/2014 LUIS WILLARD, OC P Ot 715.31 12/02/2014 LUIS WILLARD, OC P Ot 836.0 12/02/2014 LUIS WILLARD, OC P Ot E928.9 12/02/2014 LUIS WILLARD, OC P Ot 836.0 12/02/2014 LUIS WILLARD, OC P Ot E000.8 12/02/2014 LUIS WILLARD, OC P Ot E928.9 12/02/2014 LUIS WILLARD, OC P Ot V72.63 12/02/2014 LUIS WILLARD, OC P Ot V72.81 12/02/2014 LUIS WILLARD, OC P Ot V74.8 05/30/2015 Mathew WILLARD, [place] A 722.10 LUMBAR DISC DISPLACEMENT 05/30/2015 Mathew WILLARD, James A 722.52 LUMB/LUMBOSAC DISC DEGEN 05/30/2015 Mathew WILLARD, James A 724.02 SPINAL STENOSIS, LUMBAR REG, W/OUT NEURO 05/30/2015 Mathew WILLARD, James A 724.2 LUMBAGO 08/30/2015 LUIS WILLARD, OC P Ot E78.5 HYPERLIPIDEMIA, UNSPECIFIED 08/30/2015 LUIS WILLARD, OC P Ot I10 ESSENTIAL (PRIMARY) HYPERTENSION 08/30/2015 LUIS WILLARD, OC P Ot K21.9 GASTRO-ESOPHAGEAL REFLUX DISEASE WITHOUT 08/30/2015 LUIS WILLARD, OC P Ot M17.11 UNILATERAL PRIMARY OSTEOARTHRITIS, RIGHT 09/03/2015 LUIS WILLARD, OC P Ot M17.11 09/03/2015 LUIS WILLARD, OC P Ot R53.83 09/03/2015 LUIS WILLARD, OC P Ot Z01.812 09/03/2015 LUIS WILLARD, OC P Ot Z11.2 09/03/2015 MARY WILLARD, ITM M Ot E87.6 09/29/2015 LUIS WILLARD, OC P Ot 715.31 09/29/2015 LUIS WILLARD, OC P Ot 836.0 09/29/2015 LUIS WILLARD, OC P Ot E928.9 09/29/2015 LUIS WILLARD, OC P Ot 836.0 09/29/2015 LUIS WILLARD, OC P Ot E000.8 09/29/2015 LUIS WILLARD, OC P Ot E928.9 09/29/2015 LUIS WILLARD, OC P Ot V72.63 09/29/2015 LUIS WILLARD, OC P Ot V72.81 09/29/2015 LUIS WILLARD, OC P Ot V74.8 09/29/2015 LUIS WILLARD, OC P Ot M17.11 09/29/2015 LUIS WILLARD, OC P Ot R53.83 09/29/2015 LUIS WILLARD, OC P Ot Z01.812 09/29/2015 LUIS WILLARD, OC P Ot Z11.2 12/29/2015 LUIS WILLARD, OC P Ot M17.11 12/29/2015 LUIS WILLARD, OC P Ot R53.83 12/29/2015 LUIS WILLARD, OC Forrester Ot Z01.812 12/29/2015 LUIS WILLARD, OC Forrester Ot Z11.2 12/29/2015 MARY WILLARD, TIM M Ot E87.6 12/29/2015 LUIS WILLARD, OC Forrester Ot M17.11 12/29/2015 LUIS WILLARD, OC Forrester Ot R53.83 12/29/2015 LUIS WILLARD, OC P Ot Z01.812 12/29/2015 LUIS WILLARD, OC P Ot Z11.2 12/29/2015 MARY WILLARD, TIM M Ot E87.6 01/07/2016 LUIS WILLARD, OC Forrester Ot E78.5 HYPERLIPIDEMIA, UNSPECIFIED 01/07/2016 LUIS WILLARD, OC Forrester Ot I10 ESSENTIAL (PRIMARY) HYPERTENSION 01/07/2016 LUIS WILLARD, OC Forrester Ot K21.9 GASTRO-ESOPHAGEAL REFLUX DISEASE WITHOUT 01/07/2016 LUIS WILLARD, OC Forrester Ot S83.8X1A SPRAIN OF OTHER SPECIFIED PARTS OF RIGHT 01/07/2016 LUIS WILLARD, OC Forrester Ot W19.XXXA UNSPECIFIED FALL, INITIAL ENCOUNTER 01/07/2016 LUIS WILLARD, OC Forrester Ot Y92.[address] [facility] 01/07/2016 LUIS WILLARD, OC Forrester Ot Y99.8 OTHER EXTERNAL CAUSE STATUS 01/07/2016 LUIS WILLARD, OC Forrester Ot Z96.651 PRESENCE OF RIGHT ARTIFICIAL KNEE JOINT 01/12/2016 OC SMITH MD Ot S83.8X1A 01/12/2016 OC SMITH MD Ot W19.XXXA 01/12/2016 OC SMITH MD Ot Y92.009 01/12/2016 OC SMITH MD Ot Y99.8 01/12/2016 LUIS WILLARD, OC Forrester Ot Z01.812 01/12/2016 LUIS WILLARD, OC Forrester Ot Z11.2 05/14/2016 Mathew WILLARD, James Moreno E66.9 OBESITY, UNSPECIFIED 05/14/2016 Mathew WILLARD, James F E78.5 HYPERLIPIDEMIA, UNSPECIFIED 05/14/2016 Mathew WILLARD, James F F41.9 ANXIETY DISORDER, UNSPECIFIED 05/14/2016 James Carmona MD G43.909 MIGRAINE, UNSP, NOT INTRACTABLE, WITHOUT STATUS GA 05/14/2016 James Carmona MD I10 ESSENTIAL (PRIMARY) HYPERTENSION 05/14/2016 James Carmona MD K21.9 GASTRO-ESOPHAGEAL REFLUX DISEASE WITHOUT ESOPHAGIT 05/14/2016 James Carmona MD M48.06 SPINAL STENOSIS, LUMBAR REGION 05/14/2016 James Carmona MD M51.37 OTHER INTERVERTEBRAL DISC DEGENERATION, LUMBOSACRA 05/14/2016 James Carmona MD M54.16 RADICULOPATHY, LUMBAR REGION 05/14/2016 James Carmona MD M54.5 LOW BACK PAIN 05/14/2016 James Carmona MD Z68.41 BODY MASS INDEX (BMI) 40.0-44.9, ADULT 05/14/2016 James Carmona MD Z88.0 ALLERGY STATUS TO PENICILLIN 06/09/2016 Gibbs, Jose A M48.07 Spinal stenosis, lumbosacral region Gibbs, Jose A 06/09/2016 Gibbs, Jose A M51.27 Other intervertebral disc displacement, lumbosacral region Gibbs, Jose A 06/09/2016 Gibbs, Jose A M96.1 Postlaminectomy syndrome, not elsewhere classified Gibbs, Jose A 06/10/2016 Gibbs, Jose A M48.07 Spinal stenosis, lumbosacral region Gibbs, Jose A 06/10/2016 Gibbs, Jose A M51.27 Other intervertebral disc displacement, lumbosacral region Gibbs, Jose A 06/10/2016 Gibbs, Jose A M96.1 Postlaminectomy syndrome, not elsewhere classified Gibbs, Jose A 06/11/2016 Gibbs, Jose A M48.07 Spinal stenosis, lumbosacral region Gibbs, Jose A 06/11/2016 Gibbs, Jose A M51.27 Other intervertebral disc displacement, lumbosacral region Gibbs, Jose A 06/11/2016 Gibbs, Jose A M96.1 Postlaminectomy syndrome, not elsewhere classified Gibbs, Jose A 07/20/2016 Evelio WILLARD, Jourdan Moreno E78.5 HYPERLIPIDEMIA, UNSPECIFIED 07/20/2016 Jourdan Fraser MD G43.909 MIGRAINE, UNSP, NOT INTRACTABLE, WITHOUT STATUS GA 07/20/2016 Jourdan Fraser MD G45.9 TRANSIENT CEREBRAL ISCHEMIC ATTACK, UNSPECIFIED 07/20/2016 Jourdan Fraser MD I10 ESSENTIAL (PRIMARY) HYPERTENSION 07/20/2016 Jourdan Fraser MD I67.1 CEREBRAL ANEURYSM, NONRUPTURED 07/20/2016 Jourdan Fraser MD R47.01 APHASIA 07/28/2016 Dmitriy WILLARD, Wan Alegria R90.89 OTH ABNORMAL FINDINGS ON DIAGNOSTIC IMAG 10/27/2016 OC SMITH MD Ot M17.11 UNILATERAL PRIMARY OSTEOARTHRITIS, RIGHT 10/27/2016 OC SMITH MD Ot R53.83 OTHER FATIGUE 10/27/2016 OC SMITH MD Ot Z01.812 ENCOUNTER FOR PREPROCEDURAL LABORATORY E 10/27/2016 OC SMITH MD Ot Z11.2 ENCOUNTER FOR SCREENING FOR OTHER BACTER 04/26/2017 James Carmona MD E66.9 OBESITY, UNSPECIFIED 04/26/2017 James Carmona MD F41.9 ANXIETY DISORDER, UNSPECIFIED 04/26/2017 James Carmona MD I10 ESSENTIAL (PRIMARY) HYPERTENSION 04/26/2017 James Carmona MD I95.81 POSTPROCEDURAL HYPOTENSION 04/26/2017 James Carmona MD K21.9 GASTRO-ESOPHAGEAL REFLUX DISEASE WITHOUT ESOPHAGIT 04/26/2017 James Carmona MD M43.16 SPONDYLOLISTHESIS, LUMBAR REGION 04/26/2017 James Carmona MD M48.06 SPINAL STENOSIS, LUMBAR REGION 04/26/2017 James Carmona MD M51.16 INTERVERTEBRAL DISC DISORDERS W RADICULOPATHY, LUM 04/26/2017 James Carmona MD M53.2X6 SPINAL INSTABILITIES, LUMBAR REGION 04/26/2017 James Carmona MD M54.9 DORSALGIA, UNSPECIFIED 04/26/2017 James Carmona MD Z68.41 BODY MASS INDEX (BMI) 40.0-44.9, ADULT 04/26/2017 James Carmona MD Z86.73 PRSNL HX OF TIA (TIA), 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 04/26/2017 James Carmona MD Z88.2 ALLERGY STATUS TO SULFONAMIDES STATUS 04/27/2017 James Carmona MD E66.9 OBESITY, UNSPECIFIED 04/27/2017 James Carmona MD F41.9 ANXIETY DISORDER, UNSPECIFIED 04/27/2017 James Carmona MD I10 ESSENTIAL (PRIMARY) HYPERTENSION 04/27/2017 James Carmona MD I95.81 POSTPROCEDURAL HYPOTENSION 04/27/2017 James Carmona MD K21.9 GASTRO-ESOPHAGEAL REFLUX DISEASE WITHOUT ESOPHAGIT 04/27/2017 James Carmona MD M43.16 SPONDYLOLISTHESIS, LUMBAR REGION 04/27/2017 James Carmona MD M48.06 SPINAL STENOSIS, LUMBAR REGION 04/27/2017 James Carmona MD M51.16 INTERVERTEBRAL DISC DISORDERS W RADICULOPATHY, LUM 04/27/2017 James Carmona MD M54.9 DORSALGIA, UNSPECIFIED 04/27/2017 James Carmona MD Z68.41 BODY MASS INDEX (BMI) 40.0-44.9, ADULT 04/27/2017 James Carmona MD Z86.73 PRSNL HX OF TIA (TIA), 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 05/20/2017 Gibbs, Jose A M43.16 Spondylolisthesis, lumbar region Gibbs, Jose A 05/20/2017 Gibbs, Jose A M51.36 Other intervertebral disc degeneration, lumbar region Gibbs , Jose A 05/20/2017 Gibbs, Jose A M54.16 Radiculopathy, lumbar region Gibbs, Jose A 10/12/2018 OC SMITH MD, Ot M17.11 UNILATERAL PRIMARY OSTEOARTHRITIS, RIGHT 10/12/2018 OC SMITH MD, Ot R53.83 OTHER FATIGUE 10/12/2018 OC SMITH MD, Ot Z01.812 ENCOUNTER FOR PREPROCEDURAL LABORATORY E 10/12/2018 CO SMITH MD, Ot Z11.2 ENCOUNTER FOR SCREENING FOR OTHER BACTER 10/12/2018 TIM HERNANDEZ MD Ot E87.6 HYPOKALEMIA 10/12/2018 OC SMITH MD Ot S83.8X1A SPRAIN OF OTHER SPECIFIED PARTS OF RIGHT 10/12/2018 OC SMITH MD Ot W19.XXXA UNSPECIFIED FALL, INITIAL ENCOUNTER 10/12/2018 OC SMITH MD Ot Y92.[address] [facility] 10/12/2018 OC SMITH MD Ot Y99.8 OTHER EXTERNAL CAUSE STATUS 10/12/2018 OC SMITH MD Ot Z01.812 ENCOUNTER FOR PREPROCEDURAL LABORATORY E 10/12/2018 OC SMITH MD Ot Z11.2 ENCOUNTER FOR SCREENING FOR OTHER BACTER 10/12/2018 OC SMITH MD Ot Z01.812 ENCOUNTER FOR PREPROCEDURAL LABORATORY E 10/12/2018 OC SMITH MD Ot Z01.812 ENCOUNTER FOR PREPROCEDURAL LABORATORY E 10/16/2018 OC SMITH MD Ot M17.12 UNILATERAL PRIMARY OSTEOARTHRITIS, LEFT 10/16/2018 OC SMITH MD Ot R53.83 OTHER FATIGUE 10/16/2018 OC SMITH MD Ot Z01.810 ENCOUNTER FOR PREPROCEDURAL CARDIOVASCUL 10/16/2018 OC SMITH MD Ot Z01.811 ENCOUNTER FOR PREPROCEDURAL RESPIRATORY 10/16/2018 OC SMITH MD Ot Z01.812 ENCOUNTER FOR PREPROCEDURAL LABORATORY E 10/16/2018 OC SMITH MD Ot M17.12 UNILATERAL PRIMARY OSTEOARTHRITIS, LEFT 10/16/2018 OC SMITH MD Ot R53.83 OTHER FATIGUE 10/16/2018 OC SMITH MD Ot Z01.810 ENCOUNTER FOR PREPROCEDURAL CARDIOVASCUL 10/16/2018 OC SMITH MD Ot Z01.811 ENCOUNTER FOR PREPROCEDURAL RESPIRATORY 10/16/2018 OC SMITH MD Ot Z01.812 ENCOUNTER FOR PREPROCEDURAL LABORATORY E 10/18/2018 OC SMITH MD Ot M17.12 UNILATERAL PRIMARY OSTEOARTHRITIS, LEFT 10/18/2018 OC SMITH MD Ot R53.83 OTHER FATIGUE 10/18/2018 OC SMITH MD Ot Z01.810 ENCOUNTER FOR PREPROCEDURAL CARDIOVASCUL 10/18/2018 LUIS WILLARD, OC Forrester Ot Z01.811 ENCOUNTER FOR PREPROCEDURAL RESPIRATORY 10/18/2018 LUIS WILLARD, OC Forrester Ot Z01.812 ENCOUNTER FOR PREPROCEDURAL LABORATORY E Procedures Code Description Performed By Performed On [id number] REPLACE OF R KNEE JT WITH SYNTH SUB, ISIAH 08/27/2015 [id number] EXCISION OF LUMBOSACRAL DISC, OPEN APPROACH Mathew WILLARD, [place] 2015 [id number] FUSION LUMSAC JT W INTBD FUS DEV, ANT APPR A COLMathew MD, [place] [address] Arthrodesis, anterior interbody technique, including minimal diskectomy to prepare interspace (other Gibbs, Jose A 06/09/2016 67655 Anterior instrumentation; 2 to 3 vertebral segments GibbsRyanne salternt A 06/09 66768 Application of intervertebral biomechanical device(s) (eg, sythentic cages, threaded bone dowels, Ryanne Hilliardnt A 06/09/2016 [id number] ULTRASONOGRAPHY OF HEART WITH AORTA, TRANSESKRISH Anne MD, Wassi H 07/20/2016 72717 Arthrodesis, anterior interbody technique, including minimal diskectomy to prepare interspace (other Gibbs, Jose A 11/23/2016 78782 Anterior instrumentation; 2 to 3 vertebral segments Gibbs, Jose A 11/23 00831 Application of intervertebral biomechanical device(s) (eg, sythentic cages, threaded bone dowels, Jose Hilliard A 11/23/2016 [id number] FUSION LUM JT W AUTOL SUB , POST APPR P COL, NATAN Gibbs MD, Jose A [id number] FUSION LUM JT W INTBD FUS DEV, ANT APPR A KIT BOJORQUEZ MD, [place] [id number] RESECTION OF LUMBAR VERTEBRAL DISC, OPEN APPROACH Mathew WILLARD, [place] 04/26/2017 [id number] FUSION LUM JT W AUTOL SUB , POST APPR P COLNATAN MD, James [id number] FUSION LUM JT W INTBD FUS DEV, ANT APPR A KIT BOJORQUEZ MD, James [id number] RESECTION OF LUMBAR VERTEBRAL DISC, OPEN APPROACH Mathew WILLARD, James 04/27/2017 31567 Arthrodesis, anterior interbody technique, including minimal diskectomy to prepare interspace (other Jose Gibbs 06/16/2017 19656 Insertion of interbody biomechanical device(s) (eg, synthetic cage, mesh) with integral anterior ins Jose Gibbs 06/16/2017 <section xmlns="urn:hl7-org:v3" xmlns:xsi="http://www.Funplus3.org/2001/XMLSchema-instance"> <templateId root= "[email or web address]" /> <templateId root= "[email or web address]" /> <code codeSystemName="LOINC" codeSystem= "[id number]" code="44465-8" displayName="Results" /> <title>Results< /title> <text> <table> <thead> <tr> <th>Test</th> <th>Result</th> <th>Range</th> </tr> </thead> < tbody> <tr> <th colspan="10">CBC WITH DIFF - 06/27/14 00:00</th > </tr> <tr> <td>BASO%</td> <td>0.4 %</ td> <td>0-2</td> </tr> <tr> <td>EOS%</td> <td>1.2 %</td> <td>0-7.0</td> </tr> <tr> <td>HCT</td> <td>39.7 %</td> <td>36.9-47.0</td> </tr> <tr> <td>HGB</td> <td>12.6 G/DL</td> <td>12.0-16.0</td> </tr> <tr> <td>LYMPH%</td> <td>45.1 %</td> <td>20-40</td> </tr> <tr> <td>MCH</td> <td>27.0 PG</td> <td>27-31</td> </tr> <tr> <td>MCHC</td> <td>31.7 G/DL</td> <td>33- 37</td> </tr> <tr> <td>MCV</td> <td>85.0 FL</td > <td>81-99</td> </tr> <tr> <td>MONO%</td> <td>8.5 %</td> <td>0-10.0</td> </tr> <tr> <td>MPV</td> <td>9.3 FL</td> <td>7.3-10.4</td> </tr> <tr> <td>NEUTRO%</td> <td>44.8 %</td> <td>40-70</td> </tr> <tr> <td>PLT</td> < td>331 10^3u</td> <td>130-400</td> </tr> <tr> < td>RBC</td> <td>4.7 10^6u</td> <td>4.2-5.4</td> </tr> <tr> <td>RDW</td> <td>14.9 %</td> <td>11.5 -15.5</td> </tr> <tr> <td>WBC</td> <td>8.5 10^3u </td> <td>4.8-10.8</td> </tr> <tr> <td>NEUTRO#</ td> <td>3.8 10^3u</td> <td>1.5-7.5</td> </tr> < tr> <td>LYMPH#</td> <td>3.9 10^3u</td> <td>0.9-4.0</ td> </tr> <tr> <td>MONO#</td> <td>0.7 10^3u</td > <td>0-0.8</td> </tr> <tr> <td>EOS#</td> <td>0.1 10^3u</td> <td>0-0.6</td> </tr> <tr> <td>BASO#</td> <td>0.0 10^3u</td> <td>0-0.1</td> </tr > <tr> <th colspan="10">TYPE AND SCREEN - 06/27/14 00:00</th> </tr> <tr> <td>ABO</td> <td>A </td> <td /> </tr> <tr> <td>ABSCRN</td> <td>N </td> <td>Negative</td> </tr> <tr> <td>RH</td> <td >P </td> <td /> </tr> <tr> <th colspan="10"> CROSSMATCH - 06/27/14 00:00</th> </tr> <tr> <td>CRSMTCH</ td> <td>COMP </td> <td>Compatible</td> </tr> <tr > <th colspan="10">CROSSMATCH - 06/27/14 00:00</th> </tr> <tr> <td>CRSMTCH</td> <td>COMP </td> <td>Compatible </td> </tr> <tr> <th colspan="10">H AND H - 07/01/14 00: 00</th> </tr> <tr> <td>HCT</td> <td>37.2 %</ td> <td>36.9-47.0</td> </tr> <tr> <td>HGB</td> <td>11.5 G/DL</td> <td>12.0-16.0</td> </tr> <tr > <th colspan="10">H AND H - 07/02/14 00:00</th> </tr> < tr> <td>HCT</td> <td>33.1 %</td> <td>36.9-47.0</ td> </tr> <tr> <td>HGB</td> <td>10.3 G/DL</td> <td>12.0-16.0</td> </tr> <tr> <th colspan="10"> POTASSIUM - 05/12/16 11:34</th> </tr> <tr> <td>POTASSIUM< /td> <td>3.4 mmol/L</td> <td>3.5-5.3</td> </tr> <tr> <th colspan="10">MRSA SURVEILLANCE SCREEN - 05/12/16 11:34</th> </tr> <tr> <td>Microbiology</td> <td> </td> <td /> </tr> <tr> <th colspan="10">METABOLIC PANEL, BASIC - 05/15/16 07:10</th> </tr> <tr> <td>POTASSIUM</td > <td>3.5 mmol/L</td> <td>3.5-5.3</td> </tr> <tr > <td>EST GFR (MDRD)</td> <td>> 60 mL/min</td> <td >> 59</td> </tr> <tr> <td>ANION GAP</td> <td> 10 mmol/L</td> <td>5-15</td> </tr> <tr> <td>EST CrCl (CG)</td> <td>> 60 mL/min</td> <td>> 59</td> </tr> <tr> <td>GLUCOSE</td> <td>142 mg/dL</td> <td>70-99</td> </tr> <tr> <td>CALCIUM</td> < td>8.6 mg/dL</td> <td>8.5-10.1</td> </tr> <tr> < td>BLOOD UREA NITROGEN</td> <td>14 mg/dL</td> <td>7-20</td> </tr> <tr> <td>CREATININE</td> <td>0.7 mg/dL</td > <td>0.6-1.0</td> </tr> <tr> <td>SODIUM</td> <td>137 mmol/L</td> <td>135-148</td> </tr> <tr> <td>CHLORIDE</td> <td>102 mmol/L</td> <td>98-110</td > </tr> <tr> <td>CARBON DIOXIDE</td> <td>25 mmol /L</td> <td>21-32</td> </tr> <tr> < colspan= "10">CBC - 05/15/16 07:12</th> </tr> <tr> <td>MEAN CELL HGB</td> <td>26.9 pg</td> <td>27.0-33.0</td> </tr> <tr> <td>MEAN CELL HGB CONCENTRATION</td> <td>32.0 g/dL</ td> <td>32.0-37.0</td> </tr> <tr> <td>MEAN CELL VOLUME</td> <td>83.9 fl</td> <td>80.0-100.0</td> </tr> <tr> <td>RED BLOOD CELL</td> <td>4.17 m/cumm</td> <td>4.00-6.00</td> </tr> <tr> <td>RED CELL DISTRIBUTION WIDTH</td> <td>14.4 %</td> <td>11.0-15.6</td > </tr> <tr> <td>WHITE BLOOD CELL</td> <td>14.4 k/cumm</td> <td>5.0-10.0</td> </tr> <tr> <td> HEMOGLOBIN</td> <td>11.2 gm/dL</td> <td>12.0-16.0</td> </tr> <tr> <td>HEMATOCRIT</td> <td>35.0 %</td> <td>37.0-47.0</td> </tr> <tr> <td>PLATELET COUNT</ td> <td>299 k/cumm</td> <td>150-400</td> </tr> < tr> <th colspan="10">GLUCOSE (POC) - 07/20/16 21:34</th> </tr> <tr> <td>GLUCOSE (POC)</td> <td>120 mg/dL</td> <td>70-99</td> </tr> <tr> <th colspan="10">CBC W/DIFF - 07/21/16 00:27</th> </tr> <tr> <td>EOSINOPHIL #</td> <td>0.1 k/cumm</td> <td>0.1-0.5</td> </tr> <tr> <td>EOSINOPHIL %</td> <td>1 %</td> <td>2-4</ td> </tr> <tr> <td>GRANULOCYTE #</td> <td>4.7 k/ cumm</td> <td>2.0-9.0</td> </tr> <tr> <td> GRANULOCYTE %</td> <td>45 %</td> <td>50-75</td> </tr> <tr> <td>LYMPHOCYTE #</td> <td>4.7 k/cumm</td> <td>1.0-4.0</td> </tr> <tr> <td>LYMPHOCYTE &#37 ;</td> <td>45 %</td> <td>20-30</td> </tr> < tr> <td>MEAN CELL HGB</td> <td>26.7 pg</td> <td>27.0- 33.0</td> </tr> <tr> <td>MEAN CELL HGB CONCENTRATION</td > <td>31.9 g/dL</td> <td>32.0-37.0</td> </tr> < tr> <td>MEAN CELL VOLUME</td> <td>83.5 fl</td> <td> 80.0-100.0</td> </tr> <tr> <td>MONOCYTE #</td> < td>0.8 k/cumm</td> <td>0.1-1.0</td> </tr> <tr> < td>MONOCYTE %</td> <td>8 %</td> <td>4-6</td> </ tr> <tr> <td>RED BLOOD CELL</td> <td>4.54 m/cumm</td> <td>4.00-6.00</td> </tr> <tr> <td>RED CELL DISTRIBUTION WIDTH</td> <td>15.0 %</td> <td>11.0-15.6</td > </tr> <tr> <td>WHITE BLOOD CELL</td> <td>10.3 k/cumm</td> <td>5.0-10.0</td> </tr> <tr> <td> HEMOGLOBIN</td> <td>12.1 gm/dL</td> <td>12.0-16.0</td> </tr> <tr> <td>HEMATOCRIT</td> <td>37.9 %</td> <td>37.0-47.0</td> </tr> <tr> <td>PLATELET COUNT</ td> <td>320 k/cumm</td> <td>150-400</td> </tr> < tr> <th colspan="10">HEMOGLOBIN A1C - 07/21/16 00:27</th> </tr> <tr> <td>HEMOGLOBIN A1C</td> <td>6.1 %</td> <td>< 5.7</td> </tr> <tr> <th colspan="10"> PROTHROMBIN TIME WITH INR - 07/21/16 00:27</th> </tr> <tr> <td>INTERNATIONAL NORMAL RATIO</td> <td>1.1 </td> <td>0.9- 1.1</td> </tr> <tr> <td>PROTHROMBIN TIME</td> < td>12.1 sec</td> <td>10.0-12.9</td> </tr> <tr> < colspan="10">METABOLIC PANEL, COMPREHN - 07/21/16 00:27</th> </tr> <tr> <td>POTASSIUM</td> <td>3.5 mmol/L</td> <td> 3.5-5.3</td> </tr> <tr> <td>EST GFR (MDRD)</td> <td>> 60 mL/min</td> <td>> 59</td> </tr> <tr> <td>ANION GAP</td> <td>6 mmol/L</td> <td>5-15</td> </tr> <tr> <td>EST CrCl (CG)</td> <td>> 60 mL/min< /td> <td>> 59</td> </tr> <tr> <td>GLUCOSE</td > <td>120 mg/dL</td> <td>70-99</td> </tr> <tr> <td>CALCIUM</td> <td>9.0 mg/dL</td> <td>8.5-10.1</td > </tr> <tr> <td>BLOOD UREA NITROGEN</td> <td> 22 mg/dL</td> <td>7-20</td> </tr> <tr> <td> CREATININE</td> <td>0.9 mg/dL</td> <td>0.6-1.0</td> </ tr> <tr> <td>SODIUM</td> <td>141 mmol/L</td> < td>135-148</td> </tr> <tr> <td>CHLORIDE</td> <td >108 mmol/L</td> <td>98-110</td> </tr> <tr> <td> AST/SGOT</td> <td>15 Units/L</td> <td>10-37</td> </tr> <tr> <td>ALT/SGPT</td> <td>34 Units/L</td> < td>< 66</td> </tr> <tr> <td>CARBON DIOXIDE</td> <td>27 mmol/L</td> <td>21-32</td> </tr> <tr> <td>TOTAL PROTEIN</td> <td>7.0 gm/dL</td> <td>6.4-8.2</td> </tr> <tr> <td>ALBUMIN</td> <td>3.4 gm/dL</td> <td>3.4-5.0</td> </tr> <tr> <td>BILI TOTAL</td> <td>0.2 mg/dL</td> <td>0.0-1.0</td> </tr> <tr> <td>ALKALINE PHOSPHATASE TOTAL</td> <td>113 IU/L</td> <td>45-117</td> </tr> <tr> <th colspan="10"> PHOSPHORUS - 07/21/16 00:27</th> </tr> <tr> <td> PHOSPHORUS</td> <td>3.6 mg/dL</td> <td>2.5-4.9</td> </ tr> <tr> <th colspan="10">CREATINE KINASE (CK/CPK) - 07/21/16 00 :27</th> </tr> <tr> <td>CREATINE KINASE (CK/CPK)</td> <td>35 Units/L</td> <td>< 193</td> </tr> <tr> <th colspan="10">MAGNESIUM - 07/21/16 00:27</th> </tr> < tr> <td>MAGNESIUM</td> <td>2.1 mg/dL</td> <td>1.8-2.4 </td> </tr> <tr> <th colspan="10">THYROID STIM HORMONE ( TSH) - 07/21/16 00:27</th> </tr> <tr> <td>THYROID STIM HORMONE (TSH)</td> <td>5.07 uIU/mL</td> <td>0.34-4.82</td> </tr> <tr> <th colspan="10">TROPONIN I - 07/21/16 00:27</th > </tr> <tr> <td>TROPONIN I</td> <td>< 0.02 ng/mL</td> <td>< 0.07</td> </tr> <tr> <th colspan="10">GLUCOSE (POC) - 07/21/16 05:44</th> </tr> <tr> <td>GLUCOSE (POC)</td> <td>116 mg/dL</td> <td>70-99</td> </tr> <tr> <th colspan="10">GLUCOSE (POC) - 07/21/16 10: 26</th> </tr> <tr> <td>GLUCOSE (POC)</td> <td> 102 mg/dL</td> <td>70-99</td> </tr> <tr> <th colspan="10">PLT FUNCTION, P2Y12 (PLAVIX) - 07/21/16 14:16</th> </tr> <tr> <td>PLATELET COUNT</td> <td>364 k/cumm</td> <td>150-450</td> </tr> <tr> <td>PLT FUNCTION P2Y12</td > <td>46 PRU</td> <td>194-418</td> </tr> <tr> <th colspan="10">GLUCOSE (POC) - 07/21/16 14:46</th> </tr> <tr> <td>GLUCOSE (POC)</td> <td>121 mg/dL</td> <td> 70-99</td> </tr> <tr> <th colspan="10">GLUCOSE (POC) - 21:10</th> </tr> <tr> <td>GLUCOSE (POC)</td> <td>128 mg/dL</td> <td>70-99</td> </tr> <tr> <th colspan="10">LIPID PANEL - 07/22/16 00:39</th> </tr> <tr> <td>CHOLESTEROL/HDL RATIO</td> <td>3.5 </td> <td> &lt ; 5.0</td> </tr> <tr> <td>LDL CHOLESTEROL</td> < td>106 mg/dL</td> <td>< 100</td> </tr> <tr> < td>VLDL CHOLESTEROL</td> <td>25 mg/dL</td> <td>< 30</td> </tr> <tr> <td>TRIGLYCERIDES</td> <td>124 mg/dL</ td> <td>< 150</td> </tr> <tr> <td>CHOLESTEROL </td> <td>183 mg/dL</td> <td>< 200</td> </tr> <tr> <td>HDL CHOLESTEROL</td> <td>52 mg/dL</td> <td >> 39</td> </tr> <tr> <th colspan="10">CBC W/DIFF - 05:43</th> </tr> <tr> <td>EOSINOPHIL #</td> <td>0.1 k/cumm</td> <td>0.1-0.5</td> </tr> <tr> <td>EOSINOPHIL %</td> <td>1 %</td> <td>2-4</td> </tr> <tr> <td>GRANULOCYTE #</td> <td>3.7 k/cumm </td> <td>2.0-9.0</td> </tr> <tr> <td> GRANULOCYTE %</td> <td>43 %</td> <td>50-75</td> </tr> <tr> <td>LYMPHOCYTE #</td> <td>3.9 k/cumm</td> <td>1.0-4.0</td> </tr> <tr> <td>LYMPHOCYTE &#37 ;</td> <td>45 %</td> <td>20-30</td> </tr> < tr> <td>MEAN CELL HGB</td> <td>26.7 pg</td> <td>27.0- 33.0</td> </tr> <tr> <td>MEAN CELL HGB CONCENTRATION</td > <td>32.0 g/dL</td> <td>32.0-37.0</td> </tr> < tr> <td>MEAN CELL VOLUME</td> <td>83.3 fl</td> <td> 80.0-100.0</td> </tr> <tr> <td>MONOCYTE #</td> < td>0.9 k/cumm</td> <td>0.1-1.0</td> </tr> <tr> < td>MONOCYTE %</td> <td>10 %</td> <td>4-6</td> < /tr> <tr> <td>RED BLOOD CELL</td> <td>4.50 m/cumm</td> <td>4.00-6.00</td> </tr> <tr> <td>RED CELL DISTRIBUTION WIDTH</td> <td>14.8 %</td> <td>11.0-15.6</td > </tr> <tr> <td>WHITE BLOOD CELL</td> <td>8.6 k /cumm</td> <td>5.0-10.0</td> </tr> <tr> <td> HEMOGLOBIN</td> <td>12.0 gm/dL</td> <td>12.0-16.0</td> </tr> <tr> <td>HEMATOCRIT</td> <td>37.5 %</td> <td>37.0-47.0</td> </tr> <tr> <td>PLATELET COUNT</ td> <td>306 k/cumm</td> <td>150-400</td> </tr> < tr> <th colspan="10">METABOLIC PANEL, BASIC - 07/22/16 05:43</th> </tr> <tr> <td>POTASSIUM</td> <td>4.1 mmol/L</td> <td>3.5-5.3</td> </tr> <tr> <td>EST GFR (MDRD)</ td> <td>> 60 mL/min</td> <td>> 59</td> </tr> <tr> <td>ANION GAP</td> <td>4 mmol/L</td> <td>5- 15</td> </tr> <tr> <td>EST CrCl (CG)</td> <td>& gt; 60 mL/min</td> <td>> 59</td> </tr> <tr> < td>GLUCOSE</td> <td>103 mg/dL</td> <td>70-99</td> </tr > <tr> <td>CALCIUM</td> <td>8.9 mg/dL</td> <td >8.5-10.1</td> </tr> <tr> <td>BLOOD UREA NITROGEN</td> <td>16 mg/dL</td> <td>7-20</td> </tr> <tr> <td>CREATININE</td> <td>0.7 mg/dL</td> <td>0.6-1.0</td> </tr> <tr> <td>SODIUM</td> <td>141 mmol/L</td> <td>135-148</td> </tr> <tr> <td>CHLORIDE</td> <td>108 mmol/L</td> <td>98-110</td> </tr> <tr> <td>CARBON DIOXIDE</td> <td>29 mmol/L</td> <td>21-32</ td> </tr> <tr> <th colspan="10">PHOSPHORUS - 07/22/16 05: 43</th> </tr> <tr> <td>PHOSPHORUS</td> <td>3.6 mg/dL</td> <td>2.5-4.9</td> </tr> <tr> <th colspan="10">MAGNESIUM - 07/22/16 05:43</th> </tr> <tr> < td>MAGNESIUM</td> <td>2.2 mg/dL</td> <td>1.8-2.4</td> < /tr> <tr> <th colspan="10">GLUCOSE (POC) - 07/22/16 05:54</th> </tr> <tr> <td>GLUCOSE (POC)</td> <td>106 mg/dL< /td> <td>70-99</td> </tr> <tr> <th colspan="10"> GLUCOSE (POC) - 07/22/16 10:21</th> </tr> <tr> <td> GLUCOSE (POC)</td> <td>113 mg/dL</td> <td>70-99</td> </ tr> <tr> <th colspan="10">GLUCOSE (POC) - 07/22/16 14:58</th> </tr> <tr> <td>GLUCOSE (POC)</td> <td>120 mg/dL</ td> <td>70-99</td> </tr> <tr> <th colspan="10"> GLUCOSE (POC) - 07/22/16 20:25</th> </tr> <tr> <td> GLUCOSE (POC)</td> <td>118 mg/dL</td> <td>70-99</td> </ tr> <tr> <th colspan="10">GLUCOSE (POC) - 07/23/16 06:38</th> </tr> <tr> <td>GLUCOSE (POC)</td> <td>108 mg/dL</ td> <td>70-99</td> </tr> <tr> <th colspan="10"> CBC W/DIFF - 07/23/16 07:13</th> </tr> <tr> <td> EOSINOPHIL #</td> <td>0.1 k/cumm</td> <td>0.1-0.5</td> </tr> <tr> <td>EOSINOPHIL %</td> <td>1 %</td> <td>2-4</td> </tr> <tr> <td>GRANULOCYTE #</td> <td>4.6 k/cumm</td> <td>2.0-9.0</td> </tr> <tr> <td>GRANULOCYTE %</td> <td>54 %</td> <td>50- 75</td> </tr> <tr> <td>LYMPHOCYTE #</td> <td> 3.1 k/cumm</td> <td>1.0-4.0</td> </tr> <tr> <td> LYMPHOCYTE %</td> <td>36 %</td> <td>20-30</td> </tr> <tr> <td>MEAN CELL HGB</td> <td>26.1 pg</td> <td>27.0-33.0</td> </tr> <tr> <td>MEAN CELL HGB CONCENTRATION</td> <td>31.5 g/dL</td> <td>32.0-37.0</td> </tr> <tr> <td>MEAN CELL VOLUME</td> <td>83.0 fl</td > <td>80.0-100.0</td> </tr> <tr> <td>MONOCYTE #< /td> <td>0.7 k/cumm</td> <td>0.1-1.0</td> </tr> <tr> <td>MONOCYTE %</td> <td>8 %</td> <td>4-6 </td> </tr> <tr> <td>RED BLOOD CELL</td> <td> 4.36 m/cumm</td> <td>4.00-6.00</td> </tr> <tr> < td>RED CELL DISTRIBUTION WIDTH</td> <td>14.5 %</td> <td> 11.0-15.6</td> </tr> <tr> <td>WHITE BLOOD CELL</td> <td>8.6 k/cumm</td> <td>5.0-10.0</td> </tr> <tr> <td>HEMOGLOBIN</td> <td>11.4 gm/dL</td> <td>12.0-16.0</ td> </tr> <tr> <td>HEMATOCRIT</td> <td>36.2 &#37 ;</td> <td>37.0-47.0</td> </tr> <tr> <td> PLATELET COUNT</td> <td>312 k/cumm</td> <td>150-400</td> </tr> <tr> <th colspan="10">METABOLIC PANEL, BASIC - 07:13</th> </tr> <tr> <td>POTASSIUM</td> <td> 4.1 mmol/L</td> <td>3.5-5.3</td> </tr> <tr> <td> EST GFR (MDRD)</td> <td>> 60 mL/min</td> <td>> 59</td> </tr> <tr> <td>ANION GAP</td> <td>7 mmol/L</td> <td>5-15</td> </tr> <tr> <td>EST CrCl (CG)</td > <td>> 60 mL/min</td> <td>> 59</td> </tr> <tr> <td>GLUCOSE</td> <td>112 mg/dL</td> <td>70-99< /td> </tr> <tr> <td>CALCIUM</td> <td>8.8 mg/dL</ td> <td>8.5-10.1</td> </tr> <tr> <td>BLOOD UREA NITROGEN</td> <td>16 mg/dL</td> <td>7-20</td> </tr> <tr> <td>CREATININE</td> <td>0.6 mg/dL</td> <td> 0.6-1.0</td> </tr> <tr> <td>SODIUM</td> <td>141 mmol/L</td> <td>135-148</td> </tr> <tr> <td> CHLORIDE</td> <td>109 mmol/L</td> <td>98-110</td> </tr > <tr> <td>CARBON DIOXIDE</td> <td>25 mmol/L</td> <td>21-32</td> </tr> <tr> <th colspan="10"> PHOSPHORUS - 07/23/16 07:13</th> </tr> <tr> <td> PHOSPHORUS</td> <td>3.7 mg/dL</td> <td>2.5-4.9</td> </ tr> <tr> < colspan="10">MAGNESIUM - 07/23/16 07:13</th> </tr> <tr> <td>MAGNESIUM</td> <td>2.1 mg/dL</td> <td>1.8-2.4</td> </tr> <tr> <th colspan="10"> GLUCOSE (POC) - 07/23/16 10:36</th> </tr> <tr> <td> GLUCOSE (POC)</td> <td>100 mg/dL</td> <td>70-99</td> </ tr> <tr> < colspan="10">Ceruloplasmin - 03/09/17 11:15</th> </tr> <tr> <td>Ceruloplasmin</td> <td>40.6 mg/dL< /td> <td>19.0-39.0</td> </tr> <tr> < colspan= "10">LAMONT w/Reflex - 03/09/17 11:15</th> </tr> <tr> <td> LAMONT Direct</td> <td>Negative </td> <td>Negative</td> </ tr> <tr> < colspan="10">Afcgk-6-Wjyfbxhosit, Serum - 03/09/17 11:15</th> </tr> <tr> <td>Kdxvy-8-Lfhujnuslan, Serum</td > <td>131 mg/dL</td> <td>90-200</td> </tr> <tr> < colspan="10">Hepatitis Panel (4) - 03/09/17 11:15</th> </tr > <tr> <td>HBsAg Screen</td> <td>Negative </td> <td>Negative</td> </tr> <tr> <td>Hep A Ab, IgM</td> <td>Negative </td> <td>Negative</td> </tr> <tr> <td>Hep B Core Ab, IgM</td> <td>Negative </td> <td> Negative</td> </tr> <tr> <td>Hep C Virus Ab</td> <td><0.1 s/co ratio</td> <td>0.0-0.9</td> </tr> <tr > <th colspan="10">t-Transglutaminase (tTG) IgA - 03/09/17 11:15</th> </tr> <tr> <td>t-Transglutaminase (tTG) IgA</td> <td><2 U/mL</td> <td>0-3</td> </tr> <tr> < th colspan="10">HEMOGLOBIN - 04/26/17 05:59</th> </tr> <tr> <td>MEAN CELL VOLUME</td> <td>83.0 fl</td> <td>80.0-100.0< /td> </tr> <tr> <td>HEMOGLOBIN</td> <td>12.7 gm/ dL</td> <td>12.0-16.0</td> </tr> <tr> <th colspan="10">METABOLIC PANEL, BASIC - 04/26/17 05:59</th> </tr> < tr> <td>POTASSIUM</td> <td>3.3 mmol/L</td> <td>3.5- 5.3</td> </tr> <tr> <td>EST GFR (MDRD)</td> <td> > 60 mL/min</td> <td>> 59</td> </tr> <tr> <td>ANION GAP</td> <td>10 mmol/L</td> <td>5-15</td> </ tr> <tr> <td>EST CrCl (CG)</td> <td>> 60 mL/min</td > <td>> 59</td> </tr> <tr> <td>GLUCOSE</td> <td>125 mg/dL</td> <td>70-99</td> </tr> <tr> <td>CALCIUM</td> <td>9.0 mg/dL</td> <td>8.5-10.1</td> </tr> <tr> <td>BLOOD UREA NITROGEN</td> <td>24 mg/dL</td> <td>7-20</td> </tr> <tr> <td> CREATININE</td> <td>0.9 mg/dL</td> <td>0.6-1.0</td> </ tr> <tr> <td>SODIUM</td> <td>141 mmol/L</td> < td>135-148</td> </tr> <tr> <td>CHLORIDE</td> <td >104 mmol/L</td> <td>98-110</td> </tr> <tr> <td> CARBON DIOXIDE</td> <td>27 mmol/L</td> <td>21-32</td> < /tr> <tr> <th colspan="10">MRSA SURVEILLANCE SCREEN - 04/26/17 05:59</th> </tr> <tr> <td>Microbiology</td> <td > </td> <td /> </tr> <tr> <th colspan="10">CBC - 04/27/17 03:52</th> </tr> <tr> <td>MEAN CELL HGB</td> <td>26.3 pg</td> <td>27.0-33.0</td> </tr> <tr> <td>MEAN CELL HGB CONCENTRATION</td> <td>30.9 g/dL</td> <td>32.0-37.0</td> </tr> <tr> <td>MEAN CELL VOLUME</ td> <td>85.1 fl</td> <td>80.0-100.0</td> </tr> < tr> <td>RED BLOOD CELL</td> <td>3.96 m/cumm</td> <td> 4.00-6.00</td> </tr> <tr> <td>RED CELL DISTRIBUTION WIDTH </td> <td>15.3 %</td> <td>11.0-15.6</td> </tr> <tr> <td>WHITE BLOOD CELL</td> <td>15.6 k/cumm</td> <td>5.0-10.0</td> </tr> <tr> <td>HEMOGLOBIN</td> <td>10.4 gm/dL</td> <td>12.0-16.0</td> </tr> <tr> <td>HEMATOCRIT</td> <td>33.7 %</td> <td>37.0-47.0 </td> </tr> <tr> <td>PLATELET COUNT</td> <td> 290 k/cumm</td> <td>150-400</td> </tr> <tr> <th colspan="10">METABOLIC PANEL, BASIC - 04/27/17 03:52</th> </tr> < tr> <td>POTASSIUM</td> <td>3.9 mmol/L</td> <td>3.5- 5.3</td> </tr> <tr> <td>EST GFR (MDRD)</td> <td> > 60 mL/min</td> <td>> 59</td> </tr> <tr> <td>ANION GAP</td> <td>11 mmol/L</td> <td>5-15</td> </ tr> <tr> <td>EST CrCl (CG)</td> <td>> 60 mL/min</td > <td>> 59</td> </tr> <tr> <td>GLUCOSE</td> <td>143 mg/dL</td> <td>70-99</td> </tr> <tr> <td>CALCIUM</td> <td>7.8 mg/dL</td> <td>8.5-10.1</td> </tr> <tr> <td>BLOOD UREA NITROGEN</td> <td>15 mg/dL</td> <td>7-20</td> </tr> <tr> <td> CREATININE</td> <td>0.7 mg/dL</td> <td>0.6-1.0</td> </ tr> <tr> <td>SODIUM</td> <td>141 mmol/L</td> < td>135-148</td> </tr> <tr> <td>CHLORIDE</td> <td >107 mmol/L</td> <td>98-110</td> </tr> <tr> <td> CARBON DIOXIDE</td> <td>23 mmol/L</td> <td>21-32</td> < /tr> <tr> <th colspan="10">Complete blood count (CBC) with automated white blood cell (WBC) differential - 10/12/18 13:00</th> </tr > <tr> <td>Blood leukocytes automated count (number/volume)</td > <td>9.5 10*3/uL</td> <td>4.3-11.0</td> </tr> < tr> <td>Blood erythrocytes automated count (number/volume)</td> <td>4.77 10*6/uL</td> <td>4.35-5.85</td> </tr> <tr> <td>Venous blood hemoglobin measurement (mass/volume)</td> <td> 13.0 g/dL</td> <td>11.5-16.0</td> </tr> <tr> <td >Blood hematocrit (volume fraction)</td> <td>40 %</td> <td >35-52</td> </tr> <tr> <td>Automated erythrocyte mean corpuscular volume</td> <td>83 [foz_us]</td> <td>80-99</td> </tr> <tr> <td>Automated erythrocyte mean corpuscular hemoglobin (mass per erythrocyte)</td> <td>27 pg</td> <td>25- 34</td> </tr> <tr> <td>Automated erythrocyte mean corpuscular hemoglobin concentration measurement (mass/volume)</td> <td >33 g/dL</td> <td>32-36</td> </tr> <tr> <td> Automated erythrocyte distribution width ratio</td> <td>14.8 %</td > <td>10.0-14.5</td> </tr> <tr> <td>Automated blood platelet count (count/volume)</td> <td>377 10*3/uL</td> <td>130-400</td> </tr> <tr> <td>Automated blood platelet mean volume measurement</td> <td>9.5 [foz_us]</td> <td>7.4- 10.4</td> </tr> <tr> <td>Automated blood neutrophils/100 leukocytes</td> <td>60 %</td> <td>42-75</td> </tr> <tr> <td>Automated blood lymphocytes/100 leukocytes</td> <td>32 %</td> <td>12-44</td> </tr> <tr> <td>Blood monocytes/100 leukocytes</td> <td>8 %</td> <td>0 -12</td> </tr> <tr> <td>Automated blood eosinophils/100 leukocytes</td> <td>1 %</td> <td>0-10</td> </tr> <tr> <td>Automated blood basophils/100 leukocytes</td> < td>0 %</td> <td>0-10</td> </tr> <tr> <td> Blood neutrophils automated count (number/volume)</td> <td>5.7 10*3</td > <td>1.8-7.8</td> </tr> <tr> <td>Blood lymphocytes automated count (number/volume)</td> <td>3.0 10*3</td> <td>1.0-4.0</td> </tr> <tr> <td>Blood monocytes automated count (number/volume)</td> <td>0.7 10*3</td> <td>0.0 -1.0</td> </tr> <tr> <td>Automated eosinophil count</td> <td>0.1 10*3/uL</td> <td>0.0-0.3</td> </tr> <tr > <td>Automated blood basophil count (count/volume)</td> <td> 0.0 10*3/uL</td> <td>0.0-0.1</td> </tr> <tr> < th colspan="10">PT panel in platelet poor plasma by coagulation assay - 13:00</th> </tr> <tr> <td>Prothrombin time (PT) in platelet poor plasma by coagulation assay</td> <td>14.2 s</td> <td>12.2-14.7</td> </tr> <tr> <td>INR in platelet poor plasma or blood by coagulation assay</td> <td>1.1 </td> <td> 0.8-1.4</td> </tr> <tr> <th colspan="10">Comprehensive metabolic panel - 10/12/18 13:00</th> </tr> <tr> <td> Serum or plasma sodium measurement (moles/volume)</td> <td>141 mmol/L</ td> <td>135-145</td> </tr> <tr> <td>Serum or plasma potassium measurement (moles/volume)</td> <td>3.2 mmol/L</td> <td>3.6-5.0</td> </tr> <tr> <td>Serum or plasma chloride measurement (moles/volume)</td> <td>105 mmol/L</td> < td>98-107</td> </tr> <tr> <td>Carbon dioxide</td> <td>24 mmol/L</td> <td>21-32</td> </tr> <tr> <td>Serum or plasma anion gap determination (moles/volume)</td> <td>12 mmol/L</td> <td>5-14</td> </tr> <tr> <td>Serum or plasma urea nitrogen measurement (mass/volume)</td> <td>15 mg/dL</td > <td>7-18</td> </tr> <tr> <td>Serum or plasma creatinine measurement (mass/volume)</td> <td>0.86 mg/dL</td> <td>0.60-1.30</td> </tr> <tr> <td>Serum or plasma urea nitrogen/creatinine mass ratio</td> <td>17 </td> <td>NRG</td> </tr> <tr> <td>Serum or plasma creatinine measurement with calculation of estimated glomerular filtration rate</td> <td>> </td> <td>NRG</td> </tr> <tr> <td>Serum or plasma glucose measurement (mass/volume)</td> <td>122 mg/dL</td> <td>70-105</td> </tr> <tr> <td>Serum or plasma calcium measurement (mass/volume)</td> <td>9.6 mg/dL</td> <td> 8.5-10.1</td> </tr> <tr> <td>Serum or plasma total bilirubin measurement (mass/volume)</td> <td>0.5 mg/dL</td> < td>0.1-1.0</td> </tr> <tr> <td>Serum or plasma alkaline phosphatase measurement (enzymatic activity/volume)</td> <td>122 U/L</ td> <td>40-136</td> </tr> <tr> <td>Serum or plasma aspartate aminotransferase measurement (enzymatic activity/volume)</td> <td>14 U/L</td> <td>5-34</td> </tr> <tr> <td>Serum or plasma alanine aminotransferase measurement (enzymatic activity/ volume)</td> <td>17 U/L</td> <td>0-55</td> </tr> <tr> <td>Serum or plasma protein measurement (mass/volume)</td> <td>7.3 g/dL</td> <td>6.4-8.2</td> </tr> <tr> <td>Serum or plasma albumin measurement (mass/volume)</td> <td>4.3 g/dL</td> <td>3.2-4.5</td> </tr> <tr> <td> CALCIUM CORRECTED</td> <td>9.4 mg/dL</td> <td>8.5-10.1</td> </tr> <tr> <th colspan="10">Erythrocyte sedimentation rate by westergren method - 10/12/18 13:00</th> </tr> <tr> <td>Erythrocyte sedimentation rate by westergren method</td> <td>29 mm</td> <td>0-30</td> </tr> <tr> <th colspan="10 ">Blood type T Indirect antibody screen panel - 10/12/18 13:00</th> </tr > <tr> <td>ABO+Rh group</td> <td>AP </td> <td> NRG</td> </tr> <tr> <td>Blood group antibody screen</td> <td>NEGATIVE </td> <td>NRG</td> </tr> <tr> <th colspan="10">Methicillin resistant Staphylococcus aureus (MRSA) screening culture - 10/12/18 13:11</th> </tr> <tr> <td> Methicillin resistant Staphylococcus aureus (MRSA) screening culture</td> <td>NEG </td> <td>NRG</td> </tr> <tr> < colspan="10">Complete urinalysis with reflex to culture - 10/12/18 13:25</th> </tr> <tr> <td>Urine color determination</td> <td >YELLOW </td> <td>NRG</td> </tr> <tr> <td>Urine clarity determination</td> <td>CLEAR </td> <td>NRG</td> </tr> <tr> <td>Urine pH measurement by test strip</td> <td>6.5 </td> <td>5-9</td> </tr> <tr> <td> Specific gravity of urine by test strip</td> <td>1.010 </td> < td>1.016-1.022</td> </tr> <tr> <td>Urine protein assay by test strip, semi-quantitative</td> <td>NEGATIVE </td> <td> NEGATIVE</td> </tr> <tr> <td>Urine glucose detection by automated test strip</td> <td>NEGATIVE </td> <td>NEGATIVE</td > </tr> <tr> <td>Erythrocytes detection in urine sediment by light microscopy</td> <td>NEGATIVE </td> <td> NEGATIVE</td> </tr> <tr> <td>Urine ketones detection by automated test strip</td> <td>NEGATIVE </td> <td>NEGATIVE</td > </tr> <tr> <td>Urine nitrite detection by test strip</ td> <td>NEGATIVE </td> <td>NEGATIVE</td> </tr> < tr> <td>Urine total bilirubin detection by test strip</td> <td >NEGATIVE </td> <td>NEGATIVE</td> </tr> <tr> <td >Urine urobilinogen measurement by automated test strip (mass/volume)</td> <td>NORMAL </td> <td>NORMAL</td> </tr> <tr> <td>Urine leukocyte esterase detection by dipstick</td> <td>NEGATIVE </td> <td>NEGATIVE</td> </tr> <tr> <td> Automated urine sediment erythrocyte count by microscopy (number/high power field)</td> <td>NONE </td> <td>NRG</td> </tr> < tr> <td>Automated urine sediment leukocyte count by microscopy (number/ high power field)</td> <td> [HPF]</td> <td>NRG</td> </ tr> <tr> <td>Bacteria detection in urine sediment by light microscopy</td> <td>TRACE </td> <td>NRG</td> </tr> <tr> <td>Squamous epithelial cells detection in urine sediment by light microscopy</td> <td>10-25 </td> <td>NRG</td> </tr > <tr> <td>Crystals detection in urine sediment by light microscopy</td> <td>NONE </td> <td>NRG</td> </tr> <tr> <td>Casts detection in urine sediment by light microscopy</td> <td>PRESENT </td> <td>NRG</td> </tr> <tr> <td>Mucus detection in urine sediment by light microscopy</td> <td >NEGATIVE </td> <td>NRG</td> </tr> <tr> <td> Complete urinalysis with reflex to culture</td> <td>NO </td> < td>NRG</td> </tr> <tr> <td>Hyaline casts detection in urine sediment by light microscopy</td> <td>RARE </td> <td>NRG </td> </tr> <tr> <td>Renal epithelial cells detection in urine sediment by light microscopy</td> <td>NONE </td> <td>NRG </td> </tr> <tr> < colspan="10">Blood type T Indirect antibody screen panel - 10/18/18 06:18</th> </tr> <tr> < td>ABO+Rh group</td> <td>AP </td> <td>NRG</td> </tr> <tr> <td>Transfusion band number</td> <td>[id number] </td> <td>NRG</td> </tr> <tr> <td>Blood group antibody screen</td> <td>NEGATIVE </td> <td>NRG</td> </ tr> </tbody> </table> </text> <entry> <organizer moodCode="EVN" classCode="BATTERY"> <templateId root="[id number]...4.1" /> <id nullFlavor="NA" /> <code codeSystem="local" code="CBCD" displayName="CBC WITH DIFF" /> <statusCode code="completed" /> < component> <observation moodCode="EVN" classCode="OBS"> < templateId root="[id number]...4.2" /> <id nullFlavor="NA " /> <code codeSystem="local" code="BASO%" displayName="BASO%" /> <statusCode code="completed" /> <effectiveTime value= "" /> <value unit="%" xsi:type="PQ" value="0.4" /> <referenceRange> <observationRange> <text>0-2</ text> </observationRange> </referenceRange> </ observation> </component> <component> <observation moodCode= "EVN" classCode="OBS"> <templateId root="[id number]..4.2 " /> <id nullFlavor="NA" /> <code codeSystem="local" code="EOS %" displayName="EOS%" /> <statusCode code="completed" /> <effectiveTime value="" /> <value unit="%" xsi:type ="PQ" value="1.2" /> <referenceRange> <observationRange> <text>0-7.0</text> </observationRange> </ referenceRange> </observation> </component> <component> <observation moodCode="EVN" classCode="OBS"> <templateId root= "[id number]" /> <id nullFlavor="NA" /> < code codeSystem="local" code="HCT" displayName="HCT" /> <statusCode code="completed" /> <effectiveTime value="" /> < value unit="%" xsi:type="PQ" value="39.7" /> <referenceRange> <observationRange> <text>36.9-47.0</text> </ observationRange> </referenceRange> </observation> </ component> <component> <observation moodCode="EVN" classCode="OBS"> <templateId root="[id number]..4.2" /> <id nullFlavor="NA" /> <code codeSystem="local" code="HGB" displayName="HGB " /> <statusCode code="completed" /> <effectiveTime value= "" /> <value unit="G/DL" xsi:type="PQ" value="12.6" /> <referenceRange> <observationRange> <text>12.0- 16.0</text> </observationRange> </referenceRange> </ observation> </component> <component> <observation moodCode= "EVN" classCode="OBS"> <templateId root="[id number] " /> <id nullFlavor="NA" /> <code codeSystem="local" code= "LYMPH%" displayName="LYMPH%" /> <statusCode code="completed" / > <effectiveTime value="" /> <value unit="%" xsi:type="PQ" value="45.1" /> <interpretationCode codeSystem="local" code="H" /> <referenceRange> <observationRange> <text>20-40</text> </observationRange> </referenceRange> </observation> </component> <component> <observation moodCode="EVN" classCode="OBS"> <templateId root= "216.840.1.234584.10.20.22.4.2" /> <id nullFlavor="NA" /> < code codeSystem="local" code="MCH" displayName="MCH" /> <statusCode code="completed" /> <effectiveTime value="" /> < value unit="PG" xsi:type="PQ" value="27.0" /> <referenceRange> <observationRange> <text>27-31</text> </ observationRange> </referenceRange> </observation> </ component> <component> <observation moodCode="EVN" classCode="OBS"> <templateId root="12.23.840.1.975037.10.20.22.4.2" /> <id nullFlavor="NA" /> <code codeSystem="local" code="MCHC" displayName= "MCHC" /> <statusCode code="completed" /> <effectiveTime value ="" /> <value unit="G/DL" xsi:type="PQ" value="31.7" /> <interpretationCode codeSystem="local" code="L" /> < referenceRange> <observationRange> <text>33-37</text> </observationRange> </referenceRange> </observation> </component> <component> <observation moodCode="EVN" classCode= "OBS"> <templateId root="12.23.830.1.544479.10..22.4.2" /> < id nullFlavor="NA" /> <code codeSystem="local" code="MCV" displayName= "MCV" /> <statusCode code="completed" /> <effectiveTime value= "" /> <value unit="FL" xsi:type="PQ" value="85.0" /> <referenceRange> <observationRange> <text>81-99</ text> </observationRange> </referenceRange> </ observation> </component> <component> <observation moodCode= "EVN" classCode="OBS"> <templateId root="2.16.840.1.503445...4.2 " /> <id nullFlavor="NA" /> <code codeSystem="local" code= "MONO%" displayName="MONO%" /> <statusCode code="completed" /> <effectiveTime value="" /> <value unit="%" xsi:type="PQ" value="8.5" /> <referenceRange> < observationRange> <text>0-10.0</text> </observationRange > </referenceRange> </observation> </component> < component> <observation moodCode="EVN" classCode="OBS"> < templateId root="2.16.840.1.592312.08.26.22.4.2" /> <id nullFlavor="NA " /> <code codeSystem="local" code="MPV" displayName="MPV" /> <statusCode code="completed" /> <effectiveTime value="" /> <value unit="FL" xsi:type="PQ" value="9.3" /> <referenceRange > <observationRange> <text>7.3-10.4</text> </ observationRange> </referenceRange> </observation> </ component> <component> <observation moodCode="EVN" classCode="OBS"> <templateId root="216.840.1.522472.10.22.4.2" /> <id nullFlavor="NA" /> <code codeSystem="local" code="NEUTRO%" displayName="NEUTRO%" /> <statusCode code="completed" /> < effectiveTime value="" /> <value unit="%" xsi:type="PQ " value="44.8" /> <referenceRange> <observationRange> <text>40-70</text> </observationRange> </ referenceRange> </observation> </component> <component> <observation moodCode="EVN" classCode="OBS"> <templateId root= "12.23.840.1.285429.22.4.2" /> <id nullFlavor="NA" /> < code codeSystem="local" code="PLT" displayName="PLT" /> <statusCode code="completed" /> <effectiveTime value="" /> < value unit="10^3u" xsi:type="PQ" value="331" /> <referenceRange> <observationRange> <text>130-400</text> </ observationRange> </referenceRange> </observation> </ component> <component> <observation moodCode="EVN" classCode="OBS"> <templateId root="16.840.1.872570.10.22.4.2" /> <id nullFlavor="NA" /> <code codeSystem="local" code="RBC" displayName="RBC " /> <statusCode code="completed" /> <effectiveTime value= "" /> <value unit="10^6u" xsi:type="PQ" value="4.7" /> <referenceRange> <observationRange> <text>4.2-5.4< /text> </observationRange> </referenceRange> </ observation> </component> <component> <observation moodCode= "EVN" classCode="OBS"> <templateId root="12.23.840.1.096995.10.20.22.4.2 " /> <id nullFlavor="NA" /> <code codeSystem="local" code="RDW " displayName="RDW" /> <statusCode code="completed" /> < effectiveTime value="" /> <value unit="%" xsi:type="PQ " value="14.9" /> <referenceRange> <observationRange> <text>11.5-15.5</text> </observationRange> </ referenceRange> </observation> </component> <component> <observation moodCode="EVN" classCode="OBS"> <templateId root= "840.1.154854.10.2022.4.2" /> <id nullFlavor="NA" /> < code codeSystem="local" code="WBC" displayName="WBC" /> <statusCode code="completed" /> <effectiveTime value="" /> < value unit="10^3u" xsi:type="PQ" value="8.5" /> <referenceRange> <observationRange> <text>4.8-10.8</text> </ observationRange> </referenceRange> </observation> </ component> <component> <observation moodCode="EVN" classCode="OBS"> <templateId root="12.23.840.1.853372.10.20.22.4.2" /> <id nullFlavor="NA" /> <code codeSystem="local" code="NEUTROA" displayName= "NEUTRO#" /> <statusCode code="completed" /> <effectiveTime value="" /> <value unit="10^3u" xsi:type="PQ" value="3.8" / > <referenceRange> <observationRange> <text>1.5 -7.5</text> </observationRange> </referenceRange> </ observation> </component> <component> <observation moodCode= "EVN" classCode="OBS"> <templateId root="12.23.840.1.714421.10..4.2 " /> <id nullFlavor="NA" /> <code codeSystem="local" code= "LYMPHA" displayName="LYMPH#" /> <statusCode code="completed" /> <effectiveTime value="" /> <value unit="10^3u" xsi:type ="PQ" value="3.9" /> <referenceRange> <observationRange> <text>0.9-4.0</text> </observationRange> </ referenceRange> </observation> </component> <component> <observation moodCode="EVN" classCode="OBS"> <templateId root= "12.23.840.1.828956.08.26.22.4.2" /> <id nullFlavor="NA" /> < code codeSystem="local" code="MONOA" displayName="MONO#" /> < statusCode code="completed" /> <effectiveTime value="" /> <value unit="10^3u" xsi:type="PQ" value="0.7" /> < referenceRange> <observationRange> <text>0-0.8</text> </observationRange> </referenceRange> </observation> </component> <component> <observation moodCode="EVN" classCode= "OBS"> <templateId root="12.23.840.1.376130.08.26.22.4.2" /> < id nullFlavor="NA" /> <code codeSystem="local" code="EOSA" displayName= "EOS#" /> <statusCode code="completed" /> <effectiveTime value ="" /> <value unit="10^3u" xsi:type="PQ" value="0.1" /> <referenceRange> <observationRange> <text>0-0.6</ text> </observationRange> </referenceRange> </ observation> </component> <component> <observation moodCode= "EVN" classCode="OBS"> <templateId root="840.1.793402.08.26.22.4.2 " /> <id nullFlavor="NA" /> <code codeSystem="local" code= "BASOA" displayName="BASO#" /> <statusCode code="completed" /> <effectiveTime value="" /> <value unit="10^3u" xsi:type= "PQ" value="0.0" /> <referenceRange> <observationRange> <text>0-0.1</text> </observationRange> </ referenceRange> </observation> </component> </organizer> </entry > <entry> <organizer moodCode="EVN" classCode="BATTERY"> <templateId root="12.23.840.1.904051.08.26.22.4.1" /> <id nullFlavor="NA" /> <code codeSystem="local" code="TYPSCRN" displayName="TYPE AND SCREEN" /> < statusCode code="completed" /> <component> <observation moodCode= "EVN" classCode="OBS"> <templateId root="12.23.840.1.586336.08.26.22.4.2 " /> <id nullFlavor="NA" /> <code codeSystem="local" code="ABO " displayName="ABO" /> <statusCode code="completed" /> < effectiveTime value="" /> <value unit="" xsi:type="PQ" value="A" /> <referenceRange> <observationRange> <text /> </observationRange> </referenceRange> </ observation> </component> <component> <observation moodCode= "EVN" classCode="OBS"> <templateId root="12.23.840.1.382236.08.26.22.4.2 " /> <id nullFlavor="NA" /> <code codeSystem="local" code= "ABSCRN" displayName="ABSCRN" /> <statusCode code="completed" /> <effectiveTime value="" /> <value unit="" xsi:type="PQ " value="N" /> <referenceRange> <observationRange> <text>Negative</text> </observationRange> </ referenceRange> </observation> </component> <component> <observation moodCode="EVN" classCode="OBS"> <templateId root= "12.23.840.1.607511.08.26.224.2" /> <id nullFlavor="NA" /> < code codeSystem="local" code="RH" displayName="RH" /> <statusCode code= "completed" /> <effectiveTime value="" /> <value unit="" xsi:type="PQ" value="P" /> <referenceRange> < observationRange> <text /> </observationRange> </referenceRange> </observation> </component> </organizer> </ entry> <entry> <organizer moodCode="EVN" classCode="BATTERY"> < templateId root="12.23.840.1.377196.08.26.22.4.1" /> <id nullFlavor="NA" /> <code codeSystem="local" code="CRSMTCH" displayName="CROSSMATCH" /> < statusCode code="completed" /> <component> <observation moodCode= "EVN" classCode="OBS"> <templateId root="216.840.1.121403.10..22.4.2 " /> <id nullFlavor="NA" /> <code codeSystem="local" code= "CRSMTCH" displayName="CRSMTCH" /> <statusCode code="completed" /> <effectiveTime value="" /> <value unit="" xsi:type= "PQ" value="COMP" /> <referenceRange> <observationRange> <text>Compatible</text> </observationRange> </ referenceRange> </observation> </component> </organizer> </entry > <entry> <organizer moodCode="EVN" classCode="BATTERY"> <templateId root="216.840.1.828264.10..22.4.1" /> <id nullFlavor="NA" /> <code codeSystem="local" code="CRSMTCH" displayName="CROSSMATCH" /> <statusCode code="completed" /> <component> <observation moodCode="EVN" classCode="OBS"> <templateId root="216.840.1.059260.10..22.4.2" /> <id nullFlavor="NA" /> <code codeSystem="local" code="CRSMTCH " displayName="CRSMTCH" /> <statusCode code="completed" /> < effectiveTime value="" /> <value unit="" xsi:type="PQ" value="COMP" /> <referenceRange> <observationRange> <text>Compatible</text> </observationRange> </ referenceRange> </observation> </component> </organizer> </entry > <entry> <organizer moodCode="EVN" classCode="BATTERY"> <templateId root="2.16.840.1.446109.10..22.4.1" /> <id nullFlavor="NA" /> <code codeSystem="local" code="HH" displayName="H AND H" /> <statusCode code= "completed" /> <component> <observation moodCode="EVN" classCode= "OBS"> <templateId root="2.16.840.1.234936.10..22.4.2" /> < id nullFlavor="NA" /> <code codeSystem="local" code="HCT" displayName= "HCT" /> <statusCode code="completed" /> <effectiveTime value= "" /> <value unit="%" xsi:type="PQ" value="37.2" /> <referenceRange> <observationRange> <text>36.9- 47.0</text> </observationRange> </referenceRange> </ observation> </component> <component> <observation moodCode= "EVN" classCode="OBS"> <templateId root="2.16.840.1.223974.10..22.4.2 " /> <id nullFlavor="NA" /> <code codeSystem="local" code="HGB " displayName="HGB" /> <statusCode code="completed" /> < effectiveTime value="" /> <value unit="G/DL" xsi:type="PQ" value="11.5" /> <interpretationCode codeSystem="local" code="L" /> <referenceRange> <observationRange> <text>12.0- 16.0</text> </observationRange> </referenceRange> </ observation> </component> </organizer> </entry> <entry> <organizer moodCode="EVN" classCode="BATTERY"> <templateId root= "216.840.1.877798.10..22.4.1" /> <id nullFlavor="NA" /> <code codeSystem="local" code="HH" displayName="H AND H" /> <statusCode code= "completed" /> <component> <observation moodCode="EVN" classCode= "OBS"> <templateId root="16.840.1.873409.10..22.4.2" /> < id nullFlavor="NA" /> <code codeSystem="local" code="HCT" displayName= "HCT" /> <statusCode code="completed" /> <effectiveTime value= "" /> <value unit="%" xsi:type="PQ" value="33.1" /> <interpretationCode codeSystem="local" code="L" /> < referenceRange> <observationRange> <text>36.9-47.0</text > </observationRange> </referenceRange> </observation > </component> <component> <observation moodCode="EVN" classCode="OBS"> <templateId root="16.840.1.663578.10..22.4.2" /> <id nullFlavor="NA" /> <code codeSystem="local" code="HGB" displayName="HGB" /> <statusCode code="completed" /> < effectiveTime value="" /> <value unit="G/DL" xsi:type="PQ" value="10.3" /> <interpretationCode codeSystem="local" code="L" /> <referenceRange> <observationRange> <text>12.0- 16.0</text> </observationRange> </referenceRange> </ observation> </component> </organizer> </entry> <entry> <organizer moodCode="EVN" classCode="BATTERY"> <templateId root= "840.1.846716.08.26.22.4.1" /> <id nullFlavor="NA" /> <code codeSystem="local" code="K" displayName="POTASSIUM" /> <statusCode code= "completed" /> <component> <observation moodCode="EVN" classCode= "OBS"> <templateId root="840.1.751037.08.26.22.4.2" /> < id nullFlavor="NA" /> <code codeSystem="local" code="K" displayName= "POTASSIUM" /> <statusCode code="completed" /> <effectiveTime value="832616150762" /> <value unit="mmol/L" xsi:type="PQ" value="3.4" /> <interpretationCode codeSystem="local" code="*" /> < referenceRange> <observationRange> <text>3.5-5.3</text> </observationRange> </referenceRange> </observation > </component> </organizer> </entry> <entry> <organizer moodCode= "EVN" classCode="BATTERY"> <templateId root="840.1.751205.08.26.22.4.1 " /> <id nullFlavor="NA" /> <code codeSystem="local" code="MRSAS" displayName="MRSA SURVEILLANCE SCREEN" /> <statusCode code="completed" /> <component> <observation moodCode="EVN" classCode="OBS"> < templateId root="840.1.374112.08.26.22.4.2" /> <id nullFlavor="NA " /> <code codeSystem="local" code="MB" displayName="Microbiology" /> <statusCode code="completed" /> <effectiveTime value= "463686836311" /> <value xsi:type="ST" value="<pre><b>MRSA SURVEILLANCE SCREEN</b> See BelowMRSA SURVEILLANCE SCREEN(F) Isidro Date/Time: 05/12/2016 11:34 [place] Date/Time: 05/13/2016 13: 47SOURCE: ANTERIOR NARESSPEC DESC: NNO METHICILLIN RESISTANT STAPH [facility] [facility] [place] [address]</pre>" /> <referenceRange> <observationRange> <text /> </observationRange> </referenceRange> </observation> </ component> </organizer> </entry> <entry> <organizer moodCode="EVN" classCode="BATTERY"> <templateId root="216.840.1.154744.10.20.22.4.1" /> <id nullFlavor="NA" /> <code codeSystem="local" code="METAB" displayName="METABOLIC PANEL, BASIC" /> <statusCode code="completed" /> <component> <observation moodCode="EVN" classCode="OBS"> < templateId root="216.840.1.361228.10..22.4.2" /> <id nullFlavor="NA " /> <code codeSystem="local" code="K" displayName="POTASSIUM" /> <statusCode code="completed" /> <effectiveTime value="100446791431 " /> <value unit="mmol/L" xsi:type="PQ" value="3.5" /> < referenceRange> <observationRange> <text>3.5-5.3</text> </observationRange> </referenceRange> </observation > </component> <component> <observation moodCode="EVN" classCode="OBS"> <templateId root="216.840.1.095502.10.20.22.4.2" /> <id nullFlavor="NA" /> <code codeSystem="local" code="eGFR" displayName="EST GFR (MDRD)" /> <statusCode code="completed" /> <effectiveTime value="" /> <value unit="mL/min" xsi:type ="PQ" value="> 60" /> <referenceRange> <observationRange > <text>> 59</text> </observationRange> </ referenceRange> </observation> </component> <component> <observation moodCode="EVN" classCode="OBS"> <templateId root= "12.23.840.1.224860.10.20.22.4.2" /> <id nullFlavor="NA" /> < code codeSystem="local" code="GAP" displayName="ANION GAP" /> < statusCode code="completed" /> <effectiveTime value="" /> <value unit="mmol/L" xsi:type="PQ" value="10" /> < referenceRange> <observationRange> <text>5-15</text> </observationRange> </referenceRange> </observation> </component> <component> <observation moodCode="EVN" classCode= "OBS"> <templateId root="12.23.840.1.028098.10..22.4.2" /> < id nullFlavor="NA" /> <code codeSystem="local" code="eCrCl" displayName ="EST CrCl (CG)" /> <statusCode code="completed" /> < effectiveTime value="725101105074" /> <value unit="mL/min" xsi:type="PQ " value="> 60" /> <referenceRange> <observationRange> <text>> 59</text> </observationRange> </ referenceRange> </observation> </component> <component> <observation moodCode="EVN" classCode="OBS"> <templateId root= "12.23.830.1.390177.10..22.4.2" /> <id nullFlavor="NA" /> < code codeSystem="local" code="GLU" displayName="GLUCOSE" /> < statusCode code="completed" /> <effectiveTime value="" /> <value unit="mg/dL" xsi:type="PQ" value="142" /> < interpretationCode codeSystem="local" code="*" /> <referenceRange> <observationRange> <text>70-99</text> </ observationRange> </referenceRange> </observation> </ component> <component> <observation moodCode="EVN" classCode="OBS"> <templateId root="16.840.1.450168....4.2" /> <id nullFlavor="NA" /> <code codeSystem="local" code="CA" displayName= "CALCIUM" /> <statusCode code="completed" /> <effectiveTime value="" /> <value unit="mg/dL" xsi:type="PQ" value="8.6" / > <referenceRange> <observationRange> <text>8.5 -10.1</text> </observationRange> </referenceRange> </ observation> </component> <component> <observation moodCode= "EVN" classCode="OBS"> <templateId root="12.23.840.1.089447.10..22.4.2 " /> <id nullFlavor="NA" /> <code codeSystem="local" code="BUN " displayName="BLOOD UREA NITROGEN" /> <statusCode code="completed" /> <effectiveTime value="" /> <value unit="mg/dL" xsi:type="PQ" value="14" /> <referenceRange> < observationRange> <text>7-20</text> </observationRange> </referenceRange> </observation> </component> < component> <observation moodCode="EVN" classCode="OBS"> < templateId root="216.840.1.386218.10.4.2" /> <id nullFlavor="NA " /> <code codeSystem="local" code="CREAT" displayName="CREATININE" /> <statusCode code="completed" /> <effectiveTime value= "" /> <value unit="mg/dL" xsi:type="PQ" value="0.7" /> <referenceRange> <observationRange> <text>0.6-1.0< /text> </observationRange> </referenceRange> </ observation> </component> <component> <observation moodCode= "EVN" classCode="OBS"> <templateId root="16.840.1.367997.08.26.22.4.2 " /> <id nullFlavor="NA" /> <code codeSystem="local" code="NA " displayName="SODIUM" /> <statusCode code="completed" /> < effectiveTime value="" /> <value unit="mmol/L" xsi:type="PQ " value="137" /> <referenceRange> <observationRange> <text>135-148</text> </observationRange> </ referenceRange> </observation> </component> <component> <observation moodCode="EVN" classCode="OBS"> <templateId root= "216.840.1.535154.08.26.22.4.2" /> <id nullFlavor="NA" /> < code codeSystem="local" code="CL" displayName="CHLORIDE" /> < statusCode code="completed" /> <effectiveTime value="" /> <value unit="mmol/L" xsi:type="PQ" value="102" /> < referenceRange> <observationRange> <text>98-110</text> </observationRange> </referenceRange> </observation> </component> <component> <observation moodCode="EVN" classCode ="OBS"> <templateId root="12.23.840.1.908873.10.2022.4.2" /> < id nullFlavor="NA" /> <code codeSystem="local" code="CO2" displayName= "CARBON DIOXIDE" /> <statusCode code="completed" /> < effectiveTime value="017701055790" /> <value unit="mmol/L" xsi:type="PQ " value="25" /> <referenceRange> <observationRange> <text>21-32</text> </observationRange> </ referenceRange> </observation> </component> </organizer> </entry > <entry> <organizer moodCode="EVN" classCode="BATTERY"> <templateId root="12.23.840.1.006462.1022.4.1" /> <id nullFlavor="NA" /> <code codeSystem="local" code="CBC" displayName="CBC" /> <statusCode code= "completed" /> <component> <observation moodCode="EVN" classCode= "OBS"> <templateId root="12.23.840.1.459197.102022.4.2" /> < id nullFlavor="NA" /> <code codeSystem="local" code="MCH" displayName= "MEAN CELL HGB" /> <statusCode code="completed" /> < effectiveTime value="433284545808" /> <value unit="pg" xsi:type="PQ" value="26.9" /> <interpretationCode codeSystem="local" code="*" /> <referenceRange> <observationRange> <text>27.0- 33.0</text> </observationRange> </referenceRange> </ observation> </component> <component> <observation moodCode= "EVN" classCode="OBS"> <templateId root="216.840.1.187916.10.4.2 " /> <id nullFlavor="NA" /> <code codeSystem="local" code= "MCHC" displayName="MEAN CELL HGB CONCENTRATION" /> <statusCode code= "completed" /> <effectiveTime value="" /> <value unit="g/dL" xsi:type="PQ" value="32.0" /> <referenceRange> < observationRange> <text>32.0-37.0</text> </ observationRange> </referenceRange> </observation> </ component> <component> <observation moodCode="EVN" classCode="OBS"> <templateId root="12.23.840.1.835763.08.26.22.4.2" /> <id nullFlavor="NA" /> <code codeSystem="local" code="MCV" displayName= "MEAN CELL VOLUME" /> <statusCode code="completed" /> < effectiveTime value="" /> <value unit="fl" xsi:type="PQ" value="83.9" /> <referenceRange> <observationRange> <text>80.0-100.0</text> </observationRange> </ referenceRange> </observation> </component> <component> <observation moodCode="EVN" classCode="OBS"> <templateId root= "12.23.840.1.359969.10..4.2" /> <id nullFlavor="NA" /> < code codeSystem="local" code="RBC" displayName="RED BLOOD CELL" /> < statusCode code="completed" /> <effectiveTime value="" /> <value unit="m/cumm" xsi:type="PQ" value="4.17" /> < referenceRange> <observationRange> <text>4.00-6.00</text > </observationRange> </referenceRange> </observation > </component> <component> <observation moodCode="EVN" classCode="OBS"> <templateId root="216.840.1.119894.22.4.2" /> <id nullFlavor="NA" /> <code codeSystem="local" code="RDW" displayName="RED CELL DISTRIBUTION WIDTH" /> <statusCode code= "completed" /> <effectiveTime value="" /> <value unit="%" xsi:type="PQ" value="14.4" /> <referenceRange> <observationRange> <text>11.0-15.6</text> </ observationRange> </referenceRange> </observation> </ component> <component> <observation moodCode="EVN" classCode="OBS"> <templateId root="2.16.840.1.951545.22.4.2" /> <id nullFlavor="NA" /> <code codeSystem="local" code="WBC" displayName= "WHITE BLOOD CELL" /> <statusCode code="completed" /> < effectiveTime value="" /> <value unit="k/cumm" xsi:type="PQ " value="14.4" /> <interpretationCode codeSystem="local" code="*" /> <referenceRange> <observationRange> <text>5.0- 10.0</text> </observationRange> </referenceRange> </ observation> </component> <component> <observation moodCode= "EVN" classCode="OBS"> <templateId root="2.16.840.1.417955.08.26.22.4.2 " /> <id nullFlavor="NA" /> <code codeSystem="local" code= "HGBT" displayName="HEMOGLOBIN" /> <statusCode code="completed" /> <effectiveTime value="790125357935" /> <value unit="gm/dL" xsi: type="PQ" value="11.2" /> <interpretationCode codeSystem="local" code= "*" /> <referenceRange> <observationRange> < text>12.0-16.0</text> </observationRange> </referenceRange> </observation> </component> <component> <observation moodCode="EVN" classCode="OBS"> <templateId root= "12.23.840.1.179891...4.2" /> <id nullFlavor="NA" /> < code codeSystem="local" code="HCTT" displayName="HEMATOCRIT" /> < statusCode code="completed" /> <effectiveTime value="" /> <value unit="%" xsi:type="PQ" value="35.0" /> < interpretationCode codeSystem="local" code="*" /> <referenceRange> <observationRange> <text>37.0-47.0</text> </ observationRange> </referenceRange> </observation> </ component> <component> <observation moodCode="EVN" classCode="OBS"> <templateId root="12.23.840.1.739640.10.22.4.2" /> <id nullFlavor="NA" /> <code codeSystem="local" code="PLT" displayName= "PLATELET COUNT" /> <statusCode code="completed" /> < effectiveTime value="" /> <value unit="k/cumm" xsi:type="PQ " value="299" /> <referenceRange> <observationRange> <text>150-400</text> </observationRange> </ referenceRange> </observation> </component> </organizer> </entry > <entry> <organizer moodCode="EVN" classCode="BATTERY"> <templateId root="12.23.840.1.652274.10..22.4.1" /> <id nullFlavor="NA" /> <code codeSystem="local" code="GLUMON" displayName="GLUCOSE (POC)" /> < statusCode code="completed" /> <component> <observation moodCode= "EVN" classCode="OBS"> <templateId root="840.1.883118.10..4.2 " /> <id nullFlavor="NA" /> <code codeSystem="local" code= "GLUMON" displayName="GLUCOSE (POC)" /> <statusCode code="completed" / > <effectiveTime value="287729040774" /> <value unit="mg/dL" xsi:type="PQ" value="120" /> <interpretationCode codeSystem="local" code="*" /> <referenceRange> <observationRange> <text>70-99</text> </observationRange> </referenceRange> </observation> </component> </organizer> </entry> <entry> < organizer moodCode="EVN" classCode="BATTERY"> <templateId root= "12.23.840.1.928995.10...4.1" /> <id nullFlavor="NA" /> <code codeSystem="local" code="CBCD" displayName="CBC W/DIFF" /> <statusCode code ="completed" /> <component> <observation moodCode="EVN" classCode= "OBS"> <templateId root="12.23.840.1.145606.10..22.4.2" /> < id nullFlavor="NA" /> <code codeSystem="local" code="EO#" displayName= "EOSINOPHIL #" /> <statusCode code="completed" /> < effectiveTime value="815429608284" /> <value unit="k/cumm" xsi:type="PQ " value="0.1" /> <referenceRange> <observationRange> <text>0.1-0.5</text> </observationRange> </ referenceRange> </observation> </component> <component> <observation moodCode="EVN" classCode="OBS"> <templateId root= "2.16.840.1.030335.10..4.2" /> <id nullFlavor="NA" /> < code codeSystem="local" code="EO%" displayName="EOSINOPHIL %" /> <statusCode code="completed" /> <effectiveTime value="186495470924" /> <value unit="%" xsi:type="PQ" value="1" /> < interpretationCode codeSystem="local" code="*" /> <referenceRange> <observationRange> <text>2-4</text> </ observationRange> </referenceRange> </observation> </ component> <component> <observation moodCode="EVN" classCode="OBS"> <templateId root="2.16.840.1.136347.10.4.2" /> <id nullFlavor="NA" /> <code codeSystem="local" code="GR#" displayName= "GRANULOCYTE #" /> <statusCode code="completed" /> < effectiveTime value="465222899142" /> <value unit="k/cumm" xsi:type="PQ " value="4.7" /> <referenceRange> <observationRange> <text>2.0-9.0</text> </observationRange> </ referenceRange> </observation> </component> <component> <observation moodCode="EVN" classCode="OBS"> <templateId root= "12.23.840.1.719528.1022.4.2" /> <id nullFlavor="NA" /> < code codeSystem="local" code="GR%" displayName="GRANULOCYTE %" /> <statusCode code="completed" /> <effectiveTime value="561402127281 " /> <value unit="%" xsi:type="PQ" value="45" /> < interpretationCode codeSystem="local" code="*" /> <referenceRange> <observationRange> <text>50-75</text> </ observationRange> </referenceRange> </observation> </ component> <component> <observation moodCode="EVN" classCode="OBS"> <templateId root="840.1.874267.08.26.22.4.2" /> <id nullFlavor="NA" /> <code codeSystem="local" code="LY#" displayName= "LYMPHOCYTE #" /> <statusCode code="completed" /> < effectiveTime value="705628272348" /> <value unit="k/cumm" xsi:type="PQ " value="4.7" /> <interpretationCode codeSystem="local" code="*" /> <referenceRange> <observationRange> <text>1.0-4.0 </text> </observationRange> </referenceRange> </ observation> </component> <component> <observation moodCode= "EVN" classCode="OBS"> <templateId root="12.23.840.1.891954.2022.4.2 " /> <id nullFlavor="NA" /> <code codeSystem="local" code="LY& #37;" displayName="LYMPHOCYTE %" /> <statusCode code="completed" / > <effectiveTime value="493513671256" /> <value unit="%" xsi:type="PQ" value="45" /> <interpretationCode codeSystem="local" code ="*" /> <referenceRange> <observationRange> < text>20-30</text> </observationRange> </referenceRange> </observation> </component> <component> <observation moodCode="EVN" classCode="OBS"> <templateId root= "2.16.840.1.904720.10.20.22.4.2" /> <id nullFlavor="NA" /> < code codeSystem="local" code="MCH" displayName="MEAN CELL HGB" /> < statusCode code="completed" /> <effectiveTime value="336779482065" /> <value unit="pg" xsi:type="PQ" value="26.7" /> < interpretationCode codeSystem="local" code="*" /> <referenceRange> <observationRange> <text>27.0-33.0</text> </ observationRange> </referenceRange> </observation> </ component> <component> <observation moodCode="EVN" classCode="OBS"> <templateId root="216.840.1.030744.10.20.22.4.2" /> <id nullFlavor="NA" /> <code codeSystem="local" code="MCHC" displayName= "MEAN CELL HGB CONCENTRATION" /> <statusCode code="completed" /> <effectiveTime value="622616445360" /> <value unit="g/dL" xsi:type= "PQ" value="31.9" /> <interpretationCode codeSystem="local" code="*" / > <referenceRange> <observationRange> <text> 32.0-37.0</text> </observationRange> </referenceRange> </observation> </component> <component> <observation moodCode="EVN" classCode="OBS"> <templateId root= "16.840.1.705566.10.4.2" /> <id nullFlavor="NA" /> < code codeSystem="local" code="MCV" displayName="MEAN CELL VOLUME" /> < statusCode code="completed" /> <effectiveTime value="" /> <value unit="fl" xsi:type="PQ" value="83.5" /> <referenceRange > <observationRange> <text>80.0-100.0</text> </observationRange> </referenceRange> </observation> </ component> <component> <observation moodCode="EVN" classCode="OBS"> <templateId root="12.23.840.1.130182.08.26.22.4.2" /> <id nullFlavor="NA" /> <code codeSystem="local" code="MO#" displayName= "MONOCYTE #" /> <statusCode code="completed" /> < effectiveTime value="" /> <value unit="k/cumm" xsi:type="PQ " value="0.8" /> <referenceRange> <observationRange> <text>0.1-1.0</text> </observationRange> </ referenceRange> </observation> </component> <component> <observation moodCode="EVN" classCode="OBS"> <templateId root= "216.840.1.502651...4.2" /> <id nullFlavor="NA" /> < code codeSystem="local" code="MO%" displayName="MONOCYTE %" /> <statusCode code="completed" /> <effectiveTime value="" /> <value unit="%" xsi:type="PQ" value="8" /> < interpretationCode codeSystem="local" code="*" /> <referenceRange> <observationRange> <text>4-6</text> </ observationRange> </referenceRange> </observation> </ component> <component> <observation moodCode="EVN" classCode="OBS"> <templateId root="216.840.1.362836.10..22.4.2" /> <id nullFlavor="NA" /> <code codeSystem="local" code="RBC" displayName=" RED BLOOD CELL" /> <statusCode code="completed" /> < effectiveTime value="[id number]" /> <value unit="m/cumm" xsi:type="PQ " value="4.54" /> <referenceRange> <observationRange> <text>4.00-6.00</text> </observationRange> </ referenceRange> </observation> </component> <component> <observation moodCode="EVN" classCode="OBS"> <templateId root= "216.840.1.897034.10.22.4.2" /> <id nullFlavor="NA" /> < code codeSystem="local" code="RDW" displayName="RED CELL DISTRIBUTION WIDTH" /> <statusCode code="completed" /> <effectiveTime value= "634370687209" /> <value unit="%" xsi:type="PQ" value="15.0" /> <referenceRange> <observationRange> <text>11.0- 15.6</text> </observationRange> </referenceRange> </ observation> </component> <component> <observation moodCode= "EVN" classCode="OBS"> <templateId root="2.16.840.1.854244.10.20.22.4.2 " /> <id nullFlavor="NA" /> <code codeSystem="local" code="WBC " displayName="WHITE BLOOD CELL" /> <statusCode code="completed" /> <effectiveTime value="" /> <value unit="k/cumm" xsi: type="PQ" value="10.3" /> <interpretationCode codeSystem="local" code= "*" /> <referenceRange> <observationRange> < text>5.0-10.0</text> </observationRange> </referenceRange> </observation> </component> <component> <observation moodCode="EVN" classCode="OBS"> <templateId root= "2.16.840.1.333920..22.4.2" /> <id nullFlavor="NA" /> < code codeSystem="local" code="HGBT" displayName="HEMOGLOBIN" /> < statusCode code="completed" /> <effectiveTime value="" /> <value unit="gm/dL" xsi:type="PQ" value="12.1" /> < referenceRange> <observationRange> <text>12.0-16.0</text > </observationRange> </referenceRange> </observation > </component> <component> <observation moodCode="EVN" classCode="OBS"> <templateId root="2.16.840.1.874794.1022.4.2" /> <id nullFlavor="NA" /> <code codeSystem="local" code="HCTT" displayName="HEMATOCRIT" /> <statusCode code="completed" /> < effectiveTime value="" /> <value unit="%" xsi:type="PQ " value="37.9" /> <referenceRange> <observationRange> <text>37.0-47.0</text> </observationRange> </ referenceRange> </observation> </component> <component> <observation moodCode="EVN" classCode="OBS"> <templateId root= "2.16.840.1.209444.10..22.4.2" /> <id nullFlavor="NA" /> < code codeSystem="local" code="PLT" displayName="PLATELET COUNT" /> < statusCode code="completed" /> <effectiveTime value="222415288188" /> <value unit="k/cumm" xsi:type="PQ" value="320" /> < referenceRange> <observationRange> <text>150-400</text> </observationRange> </referenceRange> </observation > </component> </organizer> </entry> <entry> <organizer moodCode= "EVN" classCode="BATTERY"> <templateId root="2.16.840.1.884790.10..22.4.1 " /> <id nullFlavor="NA" /> <code codeSystem="local" code="HBA1C" displayName="HEMOGLOBIN A1C" /> <statusCode code="completed" /> < component> <observation moodCode="EVN" classCode="OBS"> < templateId root="2.16.840.1.015976.10..22.4.2" /> <id nullFlavor="NA " /> <code codeSystem="local" code="HBA1C" displayName="HEMOGLOBIN A1C " /> <statusCode code="completed" /> <effectiveTime value= "504705530610" /> <value unit="%" xsi:type="PQ" value="6.1" /> <interpretationCode codeSystem="local" code="*" /> < referenceRange> <observationRange> <text>< 5.7</text > </observationRange> </referenceRange> </observation > </component> </organizer> </entry> <entry> <organizer moodCode= "EVN" classCode="BATTERY"> <templateId root="216.840.1.122284.10..22.4.1 " /> <id nullFlavor="NA" /> <code codeSystem="local" code="PT" displayName="PROTHROMBIN TIME WITH INR" /> <statusCode code="completed" /> <component> <observation moodCode="EVN" classCode="OBS"> < templateId root="216.840.1.548533.10..22.4.2" /> <id nullFlavor="NA " /> <code codeSystem="local" code="INRX" displayName="INTERNATIONAL NORMAL RATIO" /> <statusCode code="completed" /> < effectiveTime value="500824437730" /> <value unit="" xsi:type="PQ" value="1.1" /> <referenceRange> <observationRange> <text>0.9-1.1</text> </observationRange> </ referenceRange> </observation> </component> <component> <observation moodCode="EVN" classCode="OBS"> <templateId root= "216.840.1.155740.10..22.4.2" /> <id nullFlavor="NA" /> < code codeSystem="local" code="PTPAT" displayName="PROTHROMBIN TIME" /> <statusCode code="completed" /> <effectiveTime value="073889755552" /> <value unit="sec" xsi:type="PQ" value="12.1" /> < referenceRange> <observationRange> <text>10.0-12.9</text > </observationRange> </referenceRange> </observation > </component> </organizer> </entry> <entry> <organizer moodCode= "EVN" classCode="BATTERY"> <templateId root="2..840.1.988858.10..22.4.1 " /> <id nullFlavor="NA" /> <code codeSystem="local" code="METABC" displayName="METABOLIC PANEL, COMPREHN" /> <statusCode code="completed" /> <component> <observation moodCode="EVN" classCode="OBS"> < templateId root="12.23.840.1.782609.08.26.22.4.2" /> <id nullFlavor="NA " /> <code codeSystem="local" code="K" displayName="POTASSIUM" /> <statusCode code="completed" /> <effectiveTime value="857205615995 " /> <value unit="mmol/L" xsi:type="PQ" value="3.5" /> < referenceRange> <observationRange> <text>3.5-5.3</text> </observationRange> </referenceRange> </observation > </component> <component> <observation moodCode="EVN" classCode="OBS"> <templateId root="840.1.085323.08.26.22.4.2" /> <id nullFlavor="NA" /> <code codeSystem="local" code="eGFR" displayName="EST GFR (MDRD)" /> <statusCode code="completed" /> <effectiveTime value="705220217897" /> <value unit="mL/min" xsi:type ="PQ" value="> 60" /> <referenceRange> <observationRange > <text>> 59</text> </observationRange> </ referenceRange> </observation> </component> <component> <observation moodCode="EVN" classCode="OBS"> <templateId root= "12.23.840.1.657424.10...4.2" /> <id nullFlavor="NA" /> < code codeSystem="local" code="GAP" displayName="ANION GAP" /> < statusCode code="completed" /> <effectiveTime value="082858907945" /> <value unit="mmol/L" xsi:type="PQ" value="6" /> < referenceRange> <observationRange> <text>5-15</text> </observationRange> </referenceRange> </observation> </component> <component> <observation moodCode="EVN" classCode= "OBS"> <templateId root="2.16.840.1.038980.10..22.4.2" /> < id nullFlavor="NA" /> <code codeSystem="local" code="eCrCl" displayName ="EST CrCl (CG)" /> <statusCode code="completed" /> < effectiveTime value="119704607971" /> <value unit="mL/min" xsi:type="PQ " value="> 60" /> <referenceRange> <observationRange> <text>> 59</text> </observationRange> </ referenceRange> </observation> </component> <component> <observation moodCode="EVN" classCode="OBS"> <templateId root= "2.16.840.1.155506.10..22.4.2" /> <id nullFlavor="NA" /> < code codeSystem="local" code="GLU" displayName="GLUCOSE" /> < statusCode code="completed" /> <effectiveTime value="883581651531" /> <value unit="mg/dL" xsi:type="PQ" value="120" /> < interpretationCode codeSystem="local" code="*" /> <referenceRange> <observationRange> <text>70-99</text> </ observationRange> </referenceRange> </observation> </ component> <component> <observation moodCode="EVN" classCode="OBS"> <templateId root="16.840.1.442290.10.20.22.4.2" /> <id nullFlavor="NA" /> <code codeSystem="local" code="CA" displayName= "CALCIUM" /> <statusCode code="completed" /> <effectiveTime value="021305216912" /> <value unit="mg/dL" xsi:type="PQ" value="9.0" / > <referenceRange> <observationRange> <text>8.5 -10.1</text> </observationRange> </referenceRange> </ observation> </component> <component> <observation moodCode= "EVN" classCode="OBS"> <templateId root="16.840.1.028693.10..22.4.2 " /> <id nullFlavor="NA" /> <code codeSystem="local" code="BUN " displayName="BLOOD UREA NITROGEN" /> <statusCode code="completed" /> <effectiveTime value="499055804779" /> <value unit="mg/dL" xsi:type="PQ" value="22" /> <interpretationCode codeSystem="local" code ="*" /> <referenceRange> <observationRange> < text>7-20</text> </observationRange> </referenceRange> </observation> </component> <component> <observation moodCode="EVN" classCode="OBS"> <templateId root= "16.840.1.250614.10.20.22.4.2" /> <id nullFlavor="NA" /> < code codeSystem="local" code="CREAT" displayName="CREATININE" /> < statusCode code="completed" /> <effectiveTime value="845954516795" /> <value unit="mg/dL" xsi:type="PQ" value="0.9" /> < referenceRange> <observationRange> <text>0.6-1.0</text> </observationRange> </referenceRange> </observation > </component> <component> <observation moodCode="EVN" classCode="OBS"> <templateId root="16.840.1.277033.10..22.4.2" /> <id nullFlavor="NA" /> <code codeSystem="local" code="NA" displayName="SODIUM" /> <statusCode code="completed" /> < effectiveTime value="666602235899" /> <value unit="mmol/L" xsi:type="PQ " value="141" /> <referenceRange> <observationRange> <text>135-148</text> </observationRange> </ referenceRange> </observation> </component> <component> <observation moodCode="EVN" classCode="OBS"> <templateId root= "12.23.840.1.737268.08.26.22.4.2" /> <id nullFlavor="NA" /> < code codeSystem="local" code="CL" displayName="CHLORIDE" /> < statusCode code="completed" /> <effectiveTime value="640148692078" /> <value unit="mmol/L" xsi:type="PQ" value="108" /> < referenceRange> <observationRange> <text>98-110</text> </observationRange> </referenceRange> </observation> </component> <component> <observation moodCode="EVN" classCode ="OBS"> <templateId root="12.23.840.1.717372....4.2" /> < id nullFlavor="NA" /> <code codeSystem="local" code="AST" displayName= "AST/SGOT" /> <statusCode code="completed" /> <effectiveTime value="930696257081" /> <value unit="Units/L" xsi:type="PQ" value="15" /> <referenceRange> <observationRange> <text>10 -37</text> </observationRange> </referenceRange> </ observation> </component> <component> <observation moodCode= "EVN" classCode="OBS"> <templateId root="16.840.1.003085.10.20.22.4.2 " /> <id nullFlavor="NA" /> <code codeSystem="local" code="ALT " displayName="ALT/SGPT" /> <statusCode code="completed" /> < effectiveTime value="269515221778" /> <value unit="Units/L" xsi:type= "PQ" value="34" /> <referenceRange> <observationRange> <text>< 66</text> </observationRange> </ referenceRange> </observation> </component> <component> <observation moodCode="EVN" classCode="OBS"> <templateId root= "12.23.840.1.813123.10.22.4.2" /> <id nullFlavor="NA" /> < code codeSystem="local" code="CO2" displayName="CARBON DIOXIDE" /> < statusCode code="completed" /> <effectiveTime value="337757000462" /> <value unit="mmol/L" xsi:type="PQ" value="27" /> < referenceRange> <observationRange> <text>21-32</text> </observationRange> </referenceRange> </observation> </component> <component> <observation moodCode="EVN" classCode= "OBS"> <templateId root="12.23.840.1.312287.10.20.22.4.2" /> < id nullFlavor="NA" /> <code codeSystem="local" code="TP" displayName= "TOTAL PROTEIN" /> <statusCode code="completed" /> < effectiveTime value="036095957351" /> <value unit="gm/dL" xsi:type="PQ " value="7.0" /> <referenceRange> <observationRange> <text>6.4-8.2</text> </observationRange> </ referenceRange> </observation> </component> <component> <observation moodCode="EVN" classCode="OBS"> <templateId root= "216.840.1.507229.10..4.2" /> <id nullFlavor="NA" /> < code codeSystem="local" code="ALB" displayName="ALBUMIN" /> < statusCode code="completed" /> <effectiveTime value="036438817525" /> <value unit="gm/dL" xsi:type="PQ" value="3.4" /> < referenceRange> <observationRange> <text>3.4-5.0</text> </observationRange> </referenceRange> </observation > </component> <component> <observation moodCode="EVN" classCode="OBS"> <templateId root="16.840.1.330784.08.26.22.4.2" /> <id nullFlavor="NA" /> <code codeSystem="local" code="BILTOT" displayName="BILI TOTAL" /> <statusCode code="completed" /> < effectiveTime value="954763819603" /> <value unit="mg/dL" xsi:type="PQ " value="0.2" /> <referenceRange> <observationRange> <text>0.0-1.0</text> </observationRange> </ referenceRange> </observation> </component> <component> <observation moodCode="EVN" classCode="OBS"> <templateId root= "216.840.1.169635.08.26.22.4.2" /> <id nullFlavor="NA" /> < code codeSystem="local" code="ALKP" displayName="ALKALINE PHOSPHATASE TOTAL" /> <statusCode code="completed" /> <effectiveTime value= "223558587525" /> <value unit="IU/L" xsi:type="PQ" value="113" /> <referenceRange> <observationRange> <text>45-117</ text> </observationRange> </referenceRange> </ observation> </component> </organizer> </entry> <entry> <organizer moodCode="EVN" classCode="BATTERY"> <templateId root= "216.840.1.457507.10...4.1" /> <id nullFlavor="NA" /> <code codeSystem="local" code="PHOS" displayName="PHOSPHORUS" /> <statusCode code ="completed" /> <component> <observation moodCode="EVN" classCode= "OBS"> <templateId root="16.840.1.709055.10..22.4.2" /> < id nullFlavor="NA" /> <code codeSystem="local" code="PHOS" displayName= "PHOSPHORUS" /> <statusCode code="completed" /> < effectiveTime value="026631168255" /> <value unit="mg/dL" xsi:type="PQ " value="3.6" /> <referenceRange> <observationRange> <text>2.5-4.9</text> </observationRange> </ referenceRange> </observation> </component> </organizer> </entry > <entry> <organizer moodCode="EVN" classCode="BATTERY"> <templateId root="16.840.1.531213.10..22.4.1" /> <id nullFlavor="NA" /> <code codeSystem="local" code="CK" displayName="CREATINE KINASE (CK/CPK)" /> < statusCode code="completed" /> <component> <observation moodCode= "EVN" classCode="OBS"> <templateId root="16.840.1.126061.10..22.4.2 " /> <id nullFlavor="NA" /> <code codeSystem="local" code="CK " displayName="CREATINE KINASE (CK/CPK)" /> <statusCode code="completed " /> <effectiveTime value="708887915500" /> <value unit="Units /L" xsi:type="PQ" value="35" /> <referenceRange> < observationRange> <text>< 193</text> </ observationRange> </referenceRange> </observation> </ component> </organizer> </entry> <entry> <organizer moodCode="EVN" classCode="BATTERY"> <templateId root="12.23.840.1.523209.10..22.4.1" /> <id nullFlavor="NA" /> <code codeSystem="local" code="MAG" displayName ="MAGNESIUM" /> <statusCode code="completed" /> <component> < observation moodCode="EVN" classCode="OBS"> <templateId root= "12.23.840.1.062149.10.22.4.2" /> <id nullFlavor="NA" /> < code codeSystem="local" code="MAG" displayName="MAGNESIUM" /> < statusCode code="completed" /> <effectiveTime value="204747665772" /> <value unit="mg/dL" xsi:type="PQ" value="2.1" /> < referenceRange> <observationRange> <text>1.8-2.4</text> </observationRange> </referenceRange> </observation > </component> </organizer> </entry> <entry> <organizer moodCode= "EVN" classCode="BATTERY"> <templateId root="840.1.566903.10.4.1 " /> <id nullFlavor="NA" /> <code codeSystem="local" code="TSH" displayName="THYROID STIM HORMONE (TSH)" /> <statusCode code="completed" / > <component> <observation moodCode="EVN" classCode="OBS"> <templateId root="840.1.697449.08.26.22.4.2" /> <id nullFlavor="NA " /> <code codeSystem="local" code="TSH" displayName="THYROID STIM HORMONE (TSH)" /> <statusCode code="completed" /> < effectiveTime value="570814038091" /> <value unit="uIU/mL" xsi:type="PQ " value="5.07" /> <interpretationCode codeSystem="local" code="*" /> <referenceRange> <observationRange> <text>0.34- 4.82</text> </observationRange> </referenceRange> </ observation> </component> </organizer> </entry> <entry> <organizer moodCode="EVN" classCode="BATTERY"> <templateId root= "840.1.649603.08.26.22.4.1" /> <id nullFlavor="NA" /> <code codeSystem="local" code="TROPI" displayName="TROPONIN I" /> <statusCode code="completed" /> <component> <observation moodCode="EVN" classCode="OBS"> <templateId root="12.23.840.1.765731.1022.4.2" /> <id nullFlavor="NA" /> <code codeSystem="local" code="TROPI" displayName="TROPONIN I" /> <statusCode code="completed" /> < effectiveTime value="768297772620" /> <value unit="ng/mL" xsi:type="PQ " value="< 0.02" /> <referenceRange> <observationRange> <text>< 0.07</text> </observationRange> </ referenceRange> </observation> </component> </organizer> </entry > <entry> <organizer moodCode="EVN" classCode="BATTERY"> <templateId root="216.840.1.318244.10.20.22.4.1" /> <id nullFlavor="NA" /> <code codeSystem="local" code="GLUMON" displayName="GLUCOSE (POC)" /> < statusCode code="completed" /> <component> <observation moodCode= "EVN" classCode="OBS"> <templateId root="16.840.1.940353.10.20.22.4.2 " /> <id nullFlavor="NA" /> <code codeSystem="local" code= "GLUMON" displayName="GLUCOSE (POC)" /> <statusCode code="completed" / > <effectiveTime value="273659647713" /> <value unit="mg/dL" xsi:type="PQ" value="116" /> <interpretationCode codeSystem="local" code="*" /> <referenceRange> <observationRange> <text>70-99</text> </observationRange> </referenceRange> </observation> </component> </organizer> </entry> <entry> < organizer moodCode="EVN" classCode="BATTERY"> <templateId root= "16.840.1.879119.10.20.22.4.1" /> <id nullFlavor="NA" /> <code codeSystem="local" code="GLUMON" displayName="GLUCOSE (POC)" /> < statusCode code="completed" /> <component> <observation moodCode= "EVN" classCode="OBS"> <templateId root="216.840.1.142505.10.22.4.2 " /> <id nullFlavor="NA" /> <code codeSystem="local" code= "GLUMON" displayName="GLUCOSE (POC)" /> <statusCode code="completed" / > <effectiveTime value="609516299063" /> <value unit="mg/dL" xsi:type="PQ" value="102" /> <interpretationCode codeSystem="local" code="*" /> <referenceRange> <observationRange> <text>70-99</text> </observationRange> </referenceRange> </observation> </component> </organizer> </entry> <entry> < organizer moodCode="EVN" classCode="BATTERY"> <templateId root= "16.840.1.543883.10..22.4.1" /> <id nullFlavor="NA" /> <code codeSystem="local" code="PLAVIX" displayName="PLT FUNCTION, P2Y12 (PLAVIX)" /> <statusCode code="completed" /> <component> <observation moodCode="EVN" classCode="OBS"> <templateId root= "16.840.1.085686.10.22.4.2" /> <id nullFlavor="NA" /> < code codeSystem="local" code="PLAVPLT" displayName="PLATELET COUNT" /> <statusCode code="completed" /> <effectiveTime value="497378339901" /> <value unit="k/cumm" xsi:type="PQ" value="364" /> < referenceRange> <observationRange> <text>150-450</text> </observationRange> </referenceRange> </observation > </component> <component> <observation moodCode="EVN" classCode="OBS"> <templateId root="216.840.1.472346.10..22.4.2" /> <id nullFlavor="NA" /> <code codeSystem="local" code="PLTFUN" displayName="PLT FUNCTION P2Y12" /> <statusCode code="completed" /> <effectiveTime value="983716289773" /> <value unit="PRU" xsi: type="PQ" value="46" /> <interpretationCode codeSystem="local" code="* " /> <referenceRange> <observationRange> <text> 194-418</text> </observationRange> </referenceRange> </observation> </component> </organizer> </entry> <entry> < organizer moodCode="EVN" classCode="BATTERY"> <templateId root= "216.840.1.044807.10..22.4.1" /> <id nullFlavor="NA" /> <code codeSystem="local" code="GLUMON" displayName="GLUCOSE (POC)" /> < statusCode code="completed" /> <component> <observation moodCode= "EVN" classCode="OBS"> <templateId root="2.16.840.1.455122.10..22.4.2 " /> <id nullFlavor="NA" /> <code codeSystem="local" code= "GLUMON" displayName="GLUCOSE (POC)" /> <statusCode code="completed" / > <effectiveTime value="550897366421" /> <value unit="mg/dL" xsi:type="PQ" value="121" /> <interpretationCode codeSystem="local" code="*" /> <referenceRange> <observationRange> <text>70-99</text> </observationRange> </referenceRange> </observation> </component> </organizer> </entry> <entry> < organizer moodCode="EVN" classCode="BATTERY"> <templateId root= "12.23.840.1.885922.08.26.22.4.1" /> <id nullFlavor="NA" /> <code codeSystem="local" code="GLUMON" displayName="GLUCOSE (POC)" /> < statusCode code="completed" /> <component> <observation moodCode= "EVN" classCode="OBS"> <templateId root="840.1.987337.08.26.224.2 " /> <id nullFlavor="NA" /> <code codeSystem="local" code= "GLUMON" displayName="GLUCOSE (POC)" /> <statusCode code="completed" / > <effectiveTime value="965774852223" /> <value unit="mg/dL" xsi:type="PQ" value="128" /> <interpretationCode codeSystem="local" code="*" /> <referenceRange> <observationRange> <text>70-99</text> </observationRange> </referenceRange> </observation> </component> </organizer> </entry> <entry> < organizer moodCode="EVN" classCode="BATTERY"> <templateId root= "840.1.465832.08.26.22.4.1" /> <id nullFlavor="NA" /> <code codeSystem="local" code="HDLPRO" displayName="LIPID PANEL" /> <statusCode code="completed" /> <component> <observation moodCode="EVN" classCode="OBS"> <templateId root="12.23.840.1.240923.08.26.22.4.2" /> <id nullFlavor="NA" /> <code codeSystem="local" code="CHOL/HDL " displayName="CHOLESTEROL/HDL RATIO" /> <statusCode code="completed" / > <effectiveTime value="406698429694" /> <value unit="" xsi: type="PQ" value="3.5" /> <referenceRange> <observationRange > <text> < 5.0</text> </observationRange> </ referenceRange> </observation> </component> <component> <observation moodCode="EVN" classCode="OBS"> <templateId root= "16.840.1.146243.10.20.22.4.2" /> <id nullFlavor="NA" /> < code codeSystem="local" code="LDLX" displayName="LDL CHOLESTEROL" /> < statusCode code="completed" /> <effectiveTime value="842869750513" /> <value unit="mg/dL" xsi:type="PQ" value="106" /> < interpretationCode codeSystem="local" code="*" /> <referenceRange> <observationRange> <text>< 100</text> </ observationRange> </referenceRange> </observation> </ component> <component> <observation moodCode="EVN" classCode="OBS"> <templateId root="12.23.840.1.456016.10.20.22.4.2" /> <id nullFlavor="NA" /> <code codeSystem="local" code="VLDL" displayName= "VLDL CHOLESTEROL" /> <statusCode code="completed" /> < effectiveTime value="965191907801" /> <value unit="mg/dL" xsi:type="PQ " value="25" /> <referenceRange> <observationRange> <text>< 30</text> </observationRange> </ referenceRange> </observation> </component> <component> <observation moodCode="EVN" classCode="OBS"> <templateId root= "12.23.840.1.862436.10..22.4.2" /> <id nullFlavor="NA" /> < code codeSystem="local" code="TRIG" displayName="TRIGLYCERIDES" /> < statusCode code="completed" /> <effectiveTime value="630639114273" /> <value unit="mg/dL" xsi:type="PQ" value="124" /> < referenceRange> <observationRange> <text>< 150</text > </observationRange> </referenceRange> </observation > </component> <component> <observation moodCode="EVN" classCode="OBS"> <templateId root="216.840.1.762392.10..4.2" /> <id nullFlavor="NA" /> <code codeSystem="local" code="CHOL" displayName="CHOLESTEROL" /> <statusCode code="completed" /> < effectiveTime value="325904909914" /> <value unit="mg/dL" xsi:type="PQ " value="183" /> <referenceRange> <observationRange> <text>< 200</text> </observationRange> </ referenceRange> </observation> </component> <component> <observation moodCode="EVN" classCode="OBS"> <templateId root= "216.840.1.413807.10..22.4.2" /> <id nullFlavor="NA" /> < code codeSystem="local" code="HDL" displayName="HDL CHOLESTEROL" /> < statusCode code="completed" /> <effectiveTime value="918511531615" /> <value unit="mg/dL" xsi:type="PQ" value="52" /> < referenceRange> <observationRange> <text>> 39</text> </observationRange> </referenceRange> </observation > </component> </organizer> </entry> <entry> <organizer moodCode= "EVN" classCode="BATTERY"> <templateId root="2.16.840.1.459102.10..22.4.1 " /> <id nullFlavor="NA" /> <code codeSystem="local" code="CBCD" displayName="CBC W/DIFF" /> <statusCode code="completed" /> <component > <observation moodCode="EVN" classCode="OBS"> <templateId root= "2.16.840.1.292055.10..22.4.2" /> <id nullFlavor="NA" /> < code codeSystem="local" code="EO#" displayName="EOSINOPHIL #" /> < statusCode code="completed" /> <effectiveTime value="" /> <value unit="k/cumm" xsi:type="PQ" value="0.1" /> < referenceRange> <observationRange> <text>0.1-0.5</text> </observationRange> </referenceRange> </observation > </component> <component> <observation moodCode="EVN" classCode="OBS"> <templateId root="[id number]" /> <id nullFlavor="NA" /> <code codeSystem="local" code="EO% " displayName="EOSINOPHIL %" /> <statusCode code="completed" /> <effectiveTime value="[id number]" /> <value unit="%" xsi: type="PQ" value="1" /> <interpretationCode codeSystem="local" code="*" /> <referenceRange> <observationRange> <text>2- 4</text> </observationRange> </referenceRange> </ observation> </component> <component> <observation moodCode= "EVN" classCode="OBS"> <templateId root="12.23.840.1.154156.10.20.22.4.2 " /> <id nullFlavor="NA" /> <code codeSystem="local" code="GR# " displayName="GRANULOCYTE #" /> <statusCode code="completed" /> <effectiveTime value="" /> <value unit="k/cumm" xsi: type="PQ" value="3.7" /> <referenceRange> <observationRange > <text>2.0-9.0</text> </observationRange> </ referenceRange> </observation> </component> <component> <observation moodCode="EVN" classCode="OBS"> <templateId root= "12.23.840.1.583505.10.22.4.2" /> <id nullFlavor="NA" /> < code codeSystem="local" code="GR%" displayName="GRANULOCYTE %" /> <statusCode code="completed" /> <effectiveTime value=" " /> <value unit="%" xsi:type="PQ" value="43" /> < interpretationCode codeSystem="local" code="*" /> <referenceRange> <observationRange> <text>50-75</text> </ observationRange> </referenceRange> </observation> </ component> <component> <observation moodCode="EVN" classCode="OBS"> <templateId root="12.23.840.1.587895.10.2022.4.2" /> <id nullFlavor="NA" /> <code codeSystem="local" code="LY#" displayName= "LYMPHOCYTE #" /> <statusCode code="completed" /> < effectiveTime value="[id number]" /> <value unit="k/cumm" xsi:type="PQ " value="3.9" /> <referenceRange> <observationRange> <text>1.0-4.0</text> </observationRange> </ referenceRange> </observation> </component> <component> <observation moodCode="EVN" classCode="OBS"> <templateId root= "16.840.1.697438.10..22.4.2" /> <id nullFlavor="NA" /> < code codeSystem="local" code="LY%" displayName="LYMPHOCYTE %" /> <statusCode code="completed" /> <effectiveTime value="" /> <value unit="%" xsi:type="PQ" value="45" /> < interpretationCode codeSystem="local" code="*" /> <referenceRange> <observationRange> <text>20-30</text> </ observationRange> </referenceRange> </observation> </ component> <component> <observation moodCode="EVN" classCode="OBS"> <templateId root="12.23.840.1.714967.10.4.2" /> <id nullFlavor="NA" /> <code codeSystem="local" code="MCH" displayName= "MEAN CELL HGB" /> <statusCode code="completed" /> < effectiveTime value="" /> <value unit="pg" xsi:type="PQ" value="26.7" /> <interpretationCode codeSystem="local" code="*" /> <referenceRange> <observationRange> <text>27.0- 33.0</text> </observationRange> </referenceRange> </ observation> </component> <component> <observation moodCode= "EVN" classCode="OBS"> <templateId root="16.840.1.000120.10.4.2 " /> <id nullFlavor="NA" /> <code codeSystem="local" code= "[facility]CHC" displayName="MEAN CELL HGB CONCENTRATION" /> <statusCode code= "completed" /> <effectiveTime value="" /> <value unit="g/dL" xsi:type="PQ" value="32.0" /> <referenceRange> < observationRange> <text>32.0-37.0</text> </ observationRange> </referenceRange> </observation> </ component> <component> <observation moodCode="EVN" classCode="OBS"> <templateId root="216.840.1.703743.10..4.2" /> <id nullFlavor="NA" /> <code codeSystem="local" code="MCV" displayName= "MEAN CELL VOLUME" /> <statusCode code="completed" /> < effectiveTime value="" /> <value unit="fl" xsi:type="PQ" value="83.3" /> <referenceRange> <observationRange> <text>80.0-100.0</text> </observationRange> </ referenceRange> </observation> </component> <component> <observation moodCode="EVN" classCode="OBS"> <templateId root= "2.16.840.1.849595.10...4.2" /> <id nullFlavor="NA" /> < code codeSystem="local" code="MO#" displayName="MONOCYTE #" /> < statusCode code="completed" /> <effectiveTime value="" /> <value unit="k/cumm" xsi:type="PQ" value="0.9" /> < referenceRange> <observationRange> <text>0.1-1.0</text> </observationRange> </referenceRange> </observation > </component> <component> <observation moodCode="EVN" classCode="OBS"> <templateId root="2.16.840.1.459540.10.20.22.4.2" /> <id nullFlavor="NA" /> <code codeSystem="local" code="MO% " displayName="MONOCYTE %" /> <statusCode code="completed" /> <effectiveTime value="" /> <value unit="%" xsi: type="PQ" value="10" /> <interpretationCode codeSystem="local" code="* " /> <referenceRange> <observationRange> <text> 4-6</text> </observationRange> </referenceRange> </ observation> </component> <component> <observation moodCode= "EVN" classCode="OBS"> <templateId root="216.840.1.158655.08.26.22.4.2 " /> <id nullFlavor="NA" /> <code codeSystem="local" code="RBC " displayName="RED BLOOD CELL" /> <statusCode code="completed" /> <effectiveTime value="" /> <value unit="m/cumm" xsi: type="PQ" value="4.50" /> <referenceRange> <observationRange > <text>4.00-6.00</text> </observationRange> </ referenceRange> </observation> </component> <component> <observation moodCode="EVN" classCode="OBS"> <templateId root= "2.16.840.1.588499.10.2022.4.2" /> <id nullFlavor="NA" /> < code codeSystem="local" code="RDW" displayName="RED CELL DISTRIBUTION WIDTH" /> <statusCode code="completed" /> <effectiveTime value= "" /> <value unit="%" xsi:type="PQ" value="14.8" /> <referenceRange> <observationRange> <text>11.0- 15.6</text> </observationRange> </referenceRange> </ observation> </component> <component> <observation moodCode= "EVN" classCode="OBS"> <templateId root="216.840.1.641491.10.20.22.4.2 " /> <id nullFlavor="NA" /> <code codeSystem="local" code="WBC " displayName="WHITE BLOOD CELL" /> <statusCode code="completed" /> <effectiveTime value="" /> <value unit="k/cumm" xsi: type="PQ" value="8.6" /> <referenceRange> <observationRange > <text>5.0-10.0</text> </observationRange> </ referenceRange> </observation> </component> <component> <observation moodCode="EVN" classCode="OBS"> <templateId root= "16.840.1.434982.10.22.4.2" /> <id nullFlavor="NA" /> < code codeSystem="local" code="HGBT" displayName="HEMOGLOBIN" /> < statusCode code="completed" /> <effectiveTime value="" /> <value unit="gm/dL" xsi:type="PQ" value="12.0" /> < referenceRange> <observationRange> <text>12.0-16.0</text > </observationRange> </referenceRange> </observation > </component> <component> <observation moodCode="EVN" classCode="OBS"> <templateId root="16.840.1.395671.10.20.22.4.2" /> <id nullFlavor="NA" /> <code codeSystem="local" code="HCTT" displayName="HEMATOCRIT" /> <statusCode code="completed" /> < effectiveTime value="" /> <value unit="%" xsi:type="PQ " value="37.5" /> <referenceRange> <observationRange> <text>37.0-47.0</text> </observationRange> </ referenceRange> </observation> </component> <component> <observation moodCode="EVN" classCode="OBS"> <templateId root= "216.840.1.834391.10.22.4.2" /> <id nullFlavor="NA" /> < code codeSystem="local" code="PLT" displayName="PLATELET COUNT" /> < statusCode code="completed" /> <effectiveTime value="" /> <value unit="k/cumm" xsi:type="PQ" value="306" /> < referenceRange> <observationRange> <text>150-400</text> </observationRange> </referenceRange> </observation > </component> </organizer> </entry> <entry> <organizer moodCode= "EVN" classCode="BATTERY"> <templateId root="16.840.1.524859.10..22.4.1 " /> <id nullFlavor="NA" /> <code codeSystem="local" code="METAB" displayName="METABOLIC PANEL, BASIC" /> <statusCode code="completed" /> <component> <observation moodCode="EVN" classCode="OBS"> < templateId root="12.23.840.1.079448.10..22.4.2" /> <id nullFlavor="NA " /> <code codeSystem="local" code="K" displayName="POTASSIUM" /> <statusCode code="completed" /> <effectiveTime value=" " /> <value unit="mmol/L" xsi:type="PQ" value="4.1" /> < referenceRange> <observationRange> <text>3.5-5.3</text> </observationRange> </referenceRange> </observation > </component> <component> <observation moodCode="EVN" classCode="OBS"> <templateId root="16.840.1.510357.10..22.4.2" /> <id nullFlavor="NA" /> <code codeSystem="local" code="eGFR" displayName="EST GFR (MDRD)" /> <statusCode code="completed" /> <effectiveTime value="[id number]" /> <value unit="mL/min" xsi:type ="PQ" value="> 60" /> <referenceRange> <observationRange > <text>> 59</text> </observationRange> </ referenceRange> </observation> </component> <component> <observation moodCode="EVN" classCode="OBS"> <templateId root= "16.840.1.850644.10...4.2" /> <id nullFlavor="NA" /> < code codeSystem="local" code="GAP" displayName="ANION GAP" /> < statusCode code="completed" /> <effectiveTime value="351648232367" /> <value unit="mmol/L" xsi:type="PQ" value="4" /> < interpretationCode codeSystem="local" code="*" /> <referenceRange> <observationRange> <text>5-15</text> </ observationRange> </referenceRange> </observation> </ component> <component> <observation moodCode="EVN" classCode="OBS"> <templateId root="16.840.1.575676.10..22.4.2" /> <id nullFlavor="NA" /> <code codeSystem="local" code="eCrCl" displayName= "EST CrCl (CG)" /> <statusCode code="completed" /> < effectiveTime value="" /> <value unit="mL/min" xsi:type="PQ " value="> 60" /> <referenceRange> <observationRange> <text>> 59</text> </observationRange> </ referenceRange> </observation> </component> <component> <observation moodCode="EVN" classCode="OBS"> <templateId root= "2.16.840.1.861749.10..22.4.2" /> <id nullFlavor="NA" /> < code codeSystem="local" code="GLU" displayName="GLUCOSE" /> < statusCode code="completed" /> <effectiveTime value="" /> <value unit="mg/dL" xsi:type="PQ" value="103" /> < interpretationCode codeSystem="local" code="*" /> <referenceRange> <observationRange> <text>70-99</text> </ observationRange> </referenceRange> </observation> </ component> <component> <observation moodCode="EVN" classCode="OBS"> <templateId root="216.840.1.777714.10..22.4.2" /> <id nullFlavor="NA" /> <code codeSystem="local" code="CA" displayName= "CALCIUM" /> <statusCode code="completed" /> <effectiveTime value="" /> <value unit="mg/dL" xsi:type="PQ" value="8.9" / > <referenceRange> <observationRange> <text>8.5 -10.1</text> </observationRange> </referenceRange> </ observation> </component> <component> <observation moodCode= "EVN" classCode="OBS"> <templateId root="216.840.1.644486.10.20.22.4.2 " /> <id nullFlavor="NA" /> <code codeSystem="local" code="BUN " displayName="BLOOD UREA NITROGEN" /> <statusCode code="completed" /> <effectiveTime value="" /> <value unit="mg/dL" xsi:type="PQ" value="16" /> <referenceRange> < observationRange> <text>7-20</text> </observationRange> </referenceRange> </observation> </component> < component> <observation moodCode="EVN" classCode="OBS"> < templateId root="16.840.1.968167.10..22.4.2" /> <id nullFlavor="NA " /> <code codeSystem="local" code="CREAT" displayName="CREATININE" /> <statusCode code="completed" /> <effectiveTime value= "" /> <value unit="mg/dL" xsi:type="PQ" value="0.7" /> <referenceRange> <observationRange> <text>0.6-1.0< /text> </observationRange> </referenceRange> </ observation> </component> <component> <observation moodCode= "EVN" classCode="OBS"> <templateId root="16.840.1.089142.10.20.22.4.2 " /> <id nullFlavor="NA" /> <code codeSystem="local" code="NA " displayName="SODIUM" /> <statusCode code="completed" /> < effectiveTime value="[id number]" /> <value unit="mmol/L" xsi:type="PQ " value="141" /> <referenceRange> <observationRange> <text>135-148</text> </observationRange> </ referenceRange> </observation> </component> <component> <observation moodCode="EVN" classCode="OBS"> <templateId root= "216.840.1.663229.10.4.2" /> <id nullFlavor="NA" /> < code codeSystem="local" code="CL" displayName="CHLORIDE" /> < statusCode code="completed" /> <effectiveTime value="" /> <value unit="mmol/L" xsi:type="PQ" value="108" /> < referenceRange> <observationRange> <text>98-110</text> </observationRange> </referenceRange> </observation> </component> <component> <observation moodCode="EVN" classCode ="OBS"> <templateId root="12.23.840.1.754512.08.26.22.4.2" /> < id nullFlavor="NA" /> <code codeSystem="local" code="CO2" displayName= "CARBON DIOXIDE" /> <statusCode code="completed" /> < effectiveTime value="" /> <value unit="mmol/L" xsi:type="PQ " value="29" /> <referenceRange> <observationRange> <text>21-32</text> </observationRange> </ referenceRange> </observation> </component> </organizer> </entry > <entry> <organizer moodCode="EVN" classCode="BATTERY"> <templateId root="216.840.1.425535.10..4.1" /> <id nullFlavor="NA" /> <code codeSystem="local" code="PHOS" displayName="PHOSPHORUS" /> <statusCode code ="completed" /> <component> <observation moodCode="EVN" classCode= "OBS"> <templateId root="840.1.726418.10.22.4.2" /> < id nullFlavor="NA" /> <code codeSystem="local" code="PHOS" displayName= "PHOSPHORUS" /> <statusCode code="completed" /> < effectiveTime value="" /> <value unit="mg/dL" xsi:type="PQ " value="3.6" /> <referenceRange> <observationRange> <text>2.5-4.9</text> </observationRange> </ referenceRange> </observation> </component> </organizer> </entry > <entry> <organizer moodCode="EVN" classCode="BATTERY"> <templateId root="12.23.840.1.092325.22.4.1" /> <id nullFlavor="NA" /> <code codeSystem="local" code="MAG" displayName="MAGNESIUM" /> <statusCode code= "completed" /> <component> <observation moodCode="EVN" classCode= "OBS"> <templateId root="16.840.1.553330...22.4.2" /> < id nullFlavor="NA" /> <code codeSystem="local" code="MAG" displayName= "MAGNESIUM" /> <statusCode code="completed" /> <effectiveTime value="" /> <value unit="mg/dL" xsi:type="PQ" value="2.2" / > <referenceRange> <observationRange> <text>1.8 -2.4</text> </observationRange> </referenceRange> </ observation> </component> </organizer> </entry> <entry> <organizer moodCode="EVN" classCode="BATTERY"> <templateId root= "16.840.1.804604.22.4.1" /> <id nullFlavor="NA" /> <code codeSystem="local" code="GLUMON" displayName="GLUCOSE (POC)" /> < statusCode code="completed" /> <component> <observation moodCode= "EVN" classCode="OBS"> <templateId root="12.23.840.1.139750.10..4.2 " /> <id nullFlavor="NA" /> <code codeSystem="local" code= "GLUMON" displayName="GLUCOSE (POC)" /> <statusCode code="completed" / > <effectiveTime value="" /> <value unit="mg/dL" xsi:type="PQ" value="106" /> <interpretationCode codeSystem="local" code="*" /> <referenceRange> <observationRange> <text>70-99</text> </observationRange> </referenceRange> </observation> </component> </organizer> </entry> <entry> < organizer moodCode="EVN" classCode="BATTERY"> <templateId root= "840.1.667538...4.1" /> <id nullFlavor="NA" /> <code codeSystem="local" code="GLUMON" displayName="GLUCOSE (POC)" /> < statusCode code="completed" /> <component> <observation moodCode= "EVN" classCode="OBS"> <templateId root="12.23.840.1.922285.10..22.4.2 " /> <id nullFlavor="NA" /> <code codeSystem="local" code= "GLUMON" displayName="GLUCOSE (POC)" /> <statusCode code="completed" / > <effectiveTime value="406865884616" /> <value unit="mg/dL" xsi:type="PQ" value="113" /> <interpretationCode codeSystem="local" code="*" /> <referenceRange> <observationRange> <text>70-99</text> </observationRange> </referenceRange> </observation> </component> </organizer> </entry> <entry> < organizer moodCode="EVN" classCode="BATTERY"> <templateId root= "12.23.840.1.135199.10..22.4.1" /> <id nullFlavor="NA" /> <code codeSystem="local" code="GLUMON" displayName="GLUCOSE (POC)" /> < statusCode code="completed" /> <component> <observation moodCode= "EVN" classCode="OBS"> <templateId root="12.23.840.1.112073...4.2 " /> <id nullFlavor="NA" /> <code codeSystem="local" code= "GLUMON" displayName="GLUCOSE (POC)" /> <statusCode code="completed" / > <effectiveTime value="615030689292" /> <value unit="mg/dL" xsi:type="PQ" value="120" /> <interpretationCode codeSystem="local" code="*" /> <referenceRange> <observationRange> <text>70-99</text> </observationRange> </referenceRange> </observation> </component> </organizer> </entry> <entry> < organizer moodCode="EVN" classCode="BATTERY"> <templateId root= "12.23.840.1.936031.10.4.1" /> <id nullFlavor="NA" /> <code codeSystem="local" code="GLUMON" displayName="GLUCOSE (POC)" /> < statusCode code="completed" /> <component> <observation moodCode= "EVN" classCode="OBS"> <templateId root="12.23.840.1.812336.08.26.22.4.2 " /> <id nullFlavor="NA" /> <code codeSystem="local" code= "GLUMON" displayName="GLUCOSE (POC)" /> <statusCode code="completed" / > <effectiveTime value="056534394389" /> <value unit="mg/dL" xsi:type="PQ" value="118" /> <interpretationCode codeSystem="local" code="*" /> <referenceRange> <observationRange> <text>70-99</text> </observationRange> </referenceRange> </observation> </component> </organizer> </entry> <entry> < organizer moodCode="EVN" classCode="BATTERY"> <templateId root= "216.840.1.180693.10..22.4.1" /> <id nullFlavor="NA" /> <code codeSystem="local" code="GLUMON" displayName="GLUCOSE (POC)" /> < statusCode code="completed" /> <component> <observation moodCode= "EVN" classCode="OBS"> <templateId root="216.840.1.831884.10..22.4.2 " /> <id nullFlavor="NA" /> <code codeSystem="local" code= "GLUMON" displayName="GLUCOSE (POC)" /> <statusCode code="completed" / > <effectiveTime value="311502071549" /> <value unit="mg/dL" xsi:type="PQ" value="108" /> <interpretationCode codeSystem="local" code="*" /> <referenceRange> <observationRange> <text>70-99</text> </observationRange> </referenceRange> </observation> </component> </organizer> </entry> <entry> < organizer moodCode="EVN" classCode="BATTERY"> <templateId root= "12.23.830.1.753891.10..22.4.1" /> <id nullFlavor="NA" /> <code codeSystem="local" code="CBCD" displayName="CBC W/DIFF" /> <statusCode code ="completed" /> <component> <observation moodCode="EVN" classCode= "OBS"> <templateId root="216.840.1.152618.08.26.22.4.2" /> < id nullFlavor="NA" /> <code codeSystem="local" code="EO#" displayName= "EOSINOPHIL #" /> <statusCode code="completed" /> < effectiveTime value="062045698967" /> <value unit="k/cumm" xsi:type="PQ " value="0.1" /> <referenceRange> <observationRange> <text>0.1-0.5</text> </observationRange> </ referenceRange> </observation> </component> <component> <observation moodCode="EVN" classCode="OBS"> <templateId root= "216.840.1.914699.08.26.22.4.2" /> <id nullFlavor="NA" /> < code codeSystem="local" code="EO%" displayName="EOSINOPHIL %" /> <statusCode code="completed" /> <effectiveTime value="436239790802" /> <value unit="%" xsi:type="PQ" value="1" /> < interpretationCode codeSystem="local" code="*" /> <referenceRange> <observationRange> <text>2-4</text> </ observationRange> </referenceRange> </observation> </ component> <component> <observation moodCode="EVN" classCode="OBS"> <templateId root="216.840.1.814811..4.2" /> <id nullFlavor="NA" /> <code codeSystem="local" code="GR#" displayName= "GRANULOCYTE #" /> <statusCode code="completed" /> < effectiveTime value="" /> <value unit="k/cumm" xsi:type="PQ " value="4.6" /> <referenceRange> <observationRange> <text>2.0-9.0</text> </observationRange> </ referenceRange> </observation> </component> <component> <observation moodCode="EVN" classCode="OBS"> <templateId root= "2.16.840.1.586452.08.26.224.2" /> <id nullFlavor="NA" /> < code codeSystem="local" code="GR%" displayName="GRANULOCYTE %" /> <statusCode code="completed" /> <effectiveTime value=" " /> <value unit="%" xsi:type="PQ" value="54" /> < referenceRange> <observationRange> <text>50-75</text> </observationRange> </referenceRange> </observation> </component> <component> <observation moodCode="EVN" classCode= "OBS"> <templateId root="2.16.840.1.481728.08.26.22.4.2" /> < id nullFlavor="NA" /> <code codeSystem="local" code="LY#" displayName= "LYMPHOCYTE #" /> <statusCode code="completed" /> < effectiveTime value="" /> <value unit="k/cumm" xsi:type="PQ " value="3.1" /> <referenceRange> <observationRange> <text>1.0-4.0</text> </observationRange> </ referenceRange> </observation> </component> <component> <observation moodCode="EVN" classCode="OBS"> <templateId root= "2.16.840.1.437503.10.22.4.2" /> <id nullFlavor="NA" /> < code codeSystem="local" code="LY%" displayName="LYMPHOCYTE %" /> <statusCode code="completed" /> <effectiveTime value="" /> <value unit="%" xsi:type="PQ" value="36" /> < interpretationCode codeSystem="local" code="*" /> <referenceRange> <observationRange> <text>20-30</text> </ observationRange> </referenceRange> </observation> </ component> <component> <observation moodCode="EVN" classCode="OBS"> <templateId root="216.840.1.905454.10.4.2" /> <id nullFlavor="NA" /> <code codeSystem="local" code="MCH" displayName= "MEAN CELL HGB" /> <statusCode code="completed" /> < effectiveTime value="" /> <value unit="pg" xsi:type="PQ" value="26.1" /> <interpretationCode codeSystem="local" code="*" /> <referenceRange> <observationRange> <text>27.0- 33.0</text> </observationRange> </referenceRange> </ observation> </component> <component> <observation moodCode= "EVN" classCode="OBS"> <templateId root="216.840.1.238911.1022.4.2 " /> <id nullFlavor="NA" /> <code codeSystem="local" code= "[facility]CHC" displayName="MEAN CELL HGB CONCENTRATION" /> <statusCode code= "completed" /> <effectiveTime value="" /> <value unit="g/dL" xsi:type="PQ" value="31.5" /> <interpretationCode codeSystem="local" code="*" /> <referenceRange> < observationRange> <text>32.0-37.0</text> </ observationRange> </referenceRange> </observation> </ component> <component> <observation moodCode="EVN" classCode="OBS"> <templateId root="12.23.840.1.674085.10..4.2" /> <id nullFlavor="NA" /> <code codeSystem="local" code="MCV" displayName= "MEAN CELL VOLUME" /> <statusCode code="completed" /> < effectiveTime value="" /> <value unit="fl" xsi:type="PQ" value="83.0" /> <referenceRange> <observationRange> <text>80.0-100.0</text> </observationRange> </ referenceRange> </observation> </component> <component> <observation moodCode="EVN" classCode="OBS"> <templateId root= "12.23.840.1.608802.08.26.22.4.2" /> <id nullFlavor="NA" /> < code codeSystem="local" code="MO#" displayName="MONOCYTE #" /> < statusCode code="completed" /> <effectiveTime value="" /> <value unit="k/cumm" xsi:type="PQ" value="0.7" /> < referenceRange> <observationRange> <text>0.1-1.0</text> </observationRange> </referenceRange> </observation > </component> <component> <observation moodCode="EVN" classCode="OBS"> <templateId root="12.23.840.1.764760.08.26.22.4.2" /> <id nullFlavor="NA" /> <code codeSystem="local" code="MO% " displayName="MONOCYTE %" /> <statusCode code="completed" /> <effectiveTime value="" /> <value unit="%" xsi: type="PQ" value="8" /> <interpretationCode codeSystem="local" code="*" /> <referenceRange> <observationRange> <text>4- 6</text> </observationRange> </referenceRange> </ observation> </component> <component> <observation moodCode= "EVN" classCode="OBS"> <templateId root="216.840.1.326632.08.26.22.4.2 " /> <id nullFlavor="NA" /> <code codeSystem="local" code="RBC " displayName="RED BLOOD CELL" /> <statusCode code="completed" /> <effectiveTime value="" /> <value unit="m/cumm" xsi: type="PQ" value="4.36" /> <referenceRange> <observationRange > <text>4.00-6.00</text> </observationRange> </ referenceRange> </observation> </component> <component> <observation moodCode="EVN" classCode="OBS"> <templateId root= "216.840.1.964795.08.26.22.4.2" /> <id nullFlavor="NA" /> < code codeSystem="local" code="RDW" displayName="RED CELL DISTRIBUTION WIDTH" /> <statusCode code="completed" /> <effectiveTime value= "" /> <value unit="%" xsi:type="PQ" value="14.5" /> <referenceRange> <observationRange> <text>11.0- 15.6</text> </observationRange> </referenceRange> </ observation> </component> <component> <observation moodCode= "EVN" classCode="OBS"> <templateId root="216.840.1.515314.10.2022.4.2 " /> <id nullFlavor="NA" /> <code codeSystem="local" code="WBC " displayName="WHITE BLOOD CELL" /> <statusCode code="completed" /> <effectiveTime value="" /> <value unit="k/cumm" xsi: type="PQ" value="8.6" /> <referenceRange> <observationRange > <text>5.0-10.0</text> </observationRange> </ referenceRange> </observation> </component> <component> <observation moodCode="EVN" classCode="OBS"> <templateId root= "216.840.1.129377.10.4.2" /> <id nullFlavor="NA" /> < code codeSystem="local" code="HGBT" displayName="HEMOGLOBIN" /> < statusCode code="completed" /> <effectiveTime value="" /> <value unit="gm/dL" xsi:type="PQ" value="11.4" /> < interpretationCode codeSystem="local" code="*" /> <referenceRange> <observationRange> <text>12.0-16.0</text> </ observationRange> </referenceRange> </observation> </ component> <component> <observation moodCode="EVN" classCode="OBS"> <templateId root="216.840.1.882794.1022.4.2" /> <id nullFlavor="NA" /> <code codeSystem="local" code="HCTT" displayName= "HEMATOCRIT" /> <statusCode code="completed" /> < effectiveTime value="" /> <value unit="%" xsi:type="PQ " value="36.2" /> <interpretationCode codeSystem="local" code="*" /> <referenceRange> <observationRange> <text>37.0- 47.0</text> </observationRange> </referenceRange> </ observation> </component> <component> <observation moodCode= "EVN" classCode="OBS"> <templateId root="12.23.840.1.293361.10.22.4.2 " /> <id nullFlavor="NA" /> <code codeSystem="local" code="PLT " displayName="PLATELET COUNT" /> <statusCode code="completed" /> <effectiveTime value="" /> <value unit="k/cumm" xsi: type="PQ" value="312" /> <referenceRange> <observationRange > <text>150-400</text> </observationRange> </ referenceRange> </observation> </component> </organizer> </entry > <entry> <organizer moodCode="EVN" classCode="BATTERY"> <templateId root="12.23.840.1.618826.10..22.4.1" /> <id nullFlavor="NA" /> <code codeSystem="local" code="METAB" displayName="METABOLIC PANEL, BASIC" /> < statusCode code="completed" /> <component> <observation moodCode= "EVN" classCode="OBS"> <templateId root="12.23.840.1.410736.10..22.4.2 " /> <id nullFlavor="NA" /> <code codeSystem="local" code="K" displayName="POTASSIUM" /> <statusCode code="completed" /> < effectiveTime value="087673058436" /> <value unit="mmol/L" xsi:type="PQ " value="4.1" /> <referenceRange> <observationRange> <text>3.5-5.3</text> </observationRange> </ referenceRange> </observation> </component> <component> <observation moodCode="EVN" classCode="OBS"> <templateId root= "216.840.1.763095.10...4.2" /> <id nullFlavor="NA" /> < code codeSystem="local" code="eGFR" displayName="EST GFR (MDRD)" /> < statusCode code="completed" /> <effectiveTime value="594944090578" /> <value unit="mL/min" xsi:type="PQ" value="> 60" /> < referenceRange> <observationRange> <text>> 59</text> </observationRange> </referenceRange> </observation > </component> <component> <observation moodCode="EVN" classCode="OBS"> <templateId root="16.840.1.650615.10..4.2" /> <id nullFlavor="NA" /> <code codeSystem="local" code="GAP" displayName="ANION GAP" /> <statusCode code="completed" /> < effectiveTime value="542808123187" /> <value unit="mmol/L" xsi:type="PQ " value="7" /> <referenceRange> <observationRange> <text>5-15</text> </observationRange> </referenceRange > </observation> </component> <component> <observation moodCode="EVN" classCode="OBS"> <templateId root= "16.840.1.940100.10.20.22.4.2" /> <id nullFlavor="NA" /> < code codeSystem="local" code="eCrCl" displayName="EST CrCl (CG)" /> < statusCode code="completed" /> <effectiveTime value="089856753556" /> <value unit="mL/min" xsi:type="PQ" value="> 60" /> < referenceRange> <observationRange> <text>> 59</text> </observationRange> </referenceRange> </observation > </component> <component> <observation moodCode="EVN" classCode="OBS"> <templateId root="216.840.1.100435.10.20.22.4.2" /> <id nullFlavor="NA" /> <code codeSystem="local" code="GLU" displayName="GLUCOSE" /> <statusCode code="completed" /> < effectiveTime value="402442032003" /> <value unit="mg/dL" xsi:type="PQ " value="112" /> <interpretationCode codeSystem="local" code="*" /> <referenceRange> <observationRange> <text>70-99</ text> </observationRange> </referenceRange> </ observation> </component> <component> <observation moodCode= "EVN" classCode="OBS"> <templateId root="16.840.1.660448.10.20.22.4.2 " /> <id nullFlavor="NA" /> <code codeSystem="local" code="CA " displayName="CALCIUM" /> <statusCode code="completed" /> < effectiveTime value="574763708490" /> <value unit="mg/dL" xsi:type="PQ " value="8.8" /> <referenceRange> <observationRange> <text>8.5-10.1</text> </observationRange> </ referenceRange> </observation> </component> <component> <observation moodCode="EVN" classCode="OBS"> <templateId root= "2.16.840.1.810063.10..22.4.2" /> <id nullFlavor="NA" /> < code codeSystem="local" code="BUN" displayName="BLOOD UREA NITROGEN" /> <statusCode code="completed" /> <effectiveTime value="" / > <value unit="mg/dL" xsi:type="PQ" value="16" /> < referenceRange> <observationRange> <text>7-20</text> </observationRange> </referenceRange> </observation> </component> <component> <observation moodCode="EVN" classCode= "OBS"> <templateId root="2.16.840.1.059708.10..22.4.2" /> < id nullFlavor="NA" /> <code codeSystem="local" code="CREAT" displayName ="CREATININE" /> <statusCode code="completed" /> < effectiveTime value="" /> <value unit="mg/dL" xsi:type="PQ " value="0.6" /> <referenceRange> <observationRange> <text>0.6-1.0</text> </observationRange> </ referenceRange> </observation> </component> <component> <observation moodCode="EVN" classCode="OBS"> <templateId root= "2.16.840.1.067637.10..22.4.2" /> <id nullFlavor="NA" /> < code codeSystem="local" code="NA" displayName="SODIUM" /> <statusCode code="completed" /> <effectiveTime value="" /> < value unit="mmol/L" xsi:type="PQ" value="141" /> <referenceRange> <observationRange> <text>135-148</text> </ observationRange> </referenceRange> </observation> </ component> <component> <observation moodCode="EVN" classCode="OBS"> <templateId root="12.23.840.1.007584.08.26.22.4.2" /> <id nullFlavor="NA" /> <code codeSystem="local" code="CL" displayName= "CHLORIDE" /> <statusCode code="completed" /> <effectiveTime value="550020788477" /> <value unit="mmol/L" xsi:type="PQ" value="109" /> <referenceRange> <observationRange> <text>98 -110</text> </observationRange> </referenceRange> </ observation> </component> <component> <observation moodCode= "EVN" classCode="OBS"> <templateId root="12.23.840.1.730409.08.26.22.4.2 " /> <id nullFlavor="NA" /> <code codeSystem="local" code="CO2 " displayName="CARBON DIOXIDE" /> <statusCode code="completed" /> <effectiveTime value="123198722154" /> <value unit="mmol/L" xsi: type="PQ" value="25" /> <referenceRange> <observationRange> <text>21-32</text> </observationRange> </ referenceRange> </observation> </component> </organizer> </entry > <entry> <organizer moodCode="EVN" classCode="BATTERY"> <templateId root="12.23.840.1.299912.10..4.1" /> <id nullFlavor="NA" /> <code codeSystem="local" code="PHOS" displayName="PHOSPHORUS" /> <statusCode code ="completed" /> <component> <observation moodCode="EVN" classCode= "OBS"> <templateId root="12.23.840.1.467092.08.26.22.4.2" /> < id nullFlavor="NA" /> <code codeSystem="local" code="PHOS" displayName= "PHOSPHORUS" /> <statusCode code="completed" /> < effectiveTime value="407421536710" /> <value unit="mg/dL" xsi:type="PQ " value="3.7" /> <referenceRange> <observationRange> <text>2.5-4.9</text> </observationRange> </ referenceRange> </observation> </component> </organizer> </entry > <entry> <organizer moodCode="EVN" classCode="BATTERY"> <templateId root="16.840.1.786836.08.26.22.4.1" /> <id nullFlavor="NA" /> <code codeSystem="local" code="MAG" displayName="MAGNESIUM" /> <statusCode code= "completed" /> <component> <observation moodCode="EVN" classCode= "OBS"> <templateId root="16.840.1.806923...22.4.2" /> < id nullFlavor="NA" /> <code codeSystem="local" code="MAG" displayName= "MAGNESIUM" /> <statusCode code="completed" /> <effectiveTime value="044630807463" /> <value unit="mg/dL" xsi:type="PQ" value="2.1" / > <referenceRange> <observationRange> <text>1.8 -2.4</text> </observationRange> </referenceRange> </ observation> </component> </organizer> </entry> <entry> <organizer moodCode="EVN" classCode="BATTERY"> <templateId root= "16.840.1.129982.10..22.4.1" /> <id nullFlavor="NA" /> <code codeSystem="local" code="GLUMON" displayName="GLUCOSE (POC)" /> < statusCode code="completed" /> <component> <observation moodCode= "EVN" classCode="OBS"> <templateId root="16.840.1.913703.10..22.4.2 " /> <id nullFlavor="NA" /> <code codeSystem="local" code= "GLUMON" displayName="GLUCOSE (POC)" /> <statusCode code="completed" / > <effectiveTime value="375720205913" /> <value unit="mg/dL" xsi:type="PQ" value="100" /> <interpretationCode codeSystem="local" code="*" /> <referenceRange> <observationRange> <text>70-99</text> </observationRange> </referenceRange> </observation> </component> </organizer> </entry> <entry> < organizer moodCode="EVN" classCode="BATTERY"> <templateId root= "12.23.840.1.205566.10...4.1" /> <id nullFlavor="NA" /> <code codeSystem="local" code="991890" displayName="Ceruloplasmin" /> < statusCode code="completed" /> <component> <observation moodCode= "EVN" classCode="OBS"> <templateId root="12.23.840.1.800705.10..22.4.2 " /> <id nullFlavor="NA" /> <code codeSystem="local" code= "530515" displayName="Ceruloplasmin" /> <statusCode code="completed" / > <effectiveTime value="131603590932" /> <value unit="mg/dL" xsi:type="PQ" value="40.6" /> <interpretationCode codeSystem="local" code="H" /> <referenceRange> <observationRange> <text>19.0-39.0</text> </observationRange> </ referenceRange> </observation> </component> </organizer> </entry > <entry> <organizer moodCode="EVN" classCode="BATTERY"> <templateId root="12.23.840.1.236406.10...4.1" /> <id nullFlavor="NA" /> <code codeSystem="local" code="062220" displayName="LAMONT w/Reflex" /> <statusCode code="completed" /> <component> <observation moodCode="EVN" classCode="OBS"> <templateId root="12.23.840.1.122417.10...4.2" /> <id nullFlavor="NA" /> <code codeSystem="local" code="433022" displayName="LAMONT Direct" /> <statusCode code="completed" /> < effectiveTime value="138293894489" /> <value unit="" xsi:type="PQ" value="Negative" /> <referenceRange> <observationRange> <text>Negative</text> </observationRange> </ referenceRange> </observation> </component> </organizer> </entry > <entry> <organizer moodCode="EVN" classCode="BATTERY"> <templateId root="12.23.840.1.912050.10...4.1" /> <id nullFlavor="NA" /> <code codeSystem="local" code="783894" displayName="Lsfzy-8-Bszeqscbqwb, Serum" /> <statusCode code="completed" /> <component> <observation moodCode ="EVN" classCode="OBS"> <templateId root= "12.23.840.1.017872.10...4.2" /> <id nullFlavor="NA" /> < code codeSystem="local" code="499128" displayName="Trrgk-0-Rraqtekolvv, Serum" / > <statusCode code="completed" /> <effectiveTime value= "211210683003" /> <value unit="mg/dL" xsi:type="PQ" value="131" /> <referenceRange> <observationRange> <text>90-200</ text> </observationRange> </referenceRange> </ observation> </component> </organizer> </entry> <entry> <organizer moodCode="EVN" classCode="BATTERY"> <templateId root= "216.840.1.401179.10..4.1" /> <id nullFlavor="NA" /> <code codeSystem="local" code="911466" displayName="Hepatitis Panel (4)" /> < statusCode code="completed" /> <component> <observation moodCode= "EVN" classCode="OBS"> <templateId root="216.840.1.456636.10...4.2 " /> <id nullFlavor="NA" /> <code codeSystem="local" code= "801116" displayName="HBsAg Screen" /> <statusCode code="completed" /> <effectiveTime value="870727135718" /> <value unit="" xsi: type="PQ" value="Negative" /> <referenceRange> < observationRange> <text>Negative</text> </ observationRange> </referenceRange> </observation> </ component> <component> <observation moodCode="EVN" classCode="OBS"> <templateId root="216.840.1.828756.10...4.2" /> <id nullFlavor="NA" /> <code codeSystem="local" code="984717" displayName= "Hep A Ab, IgM" /> <statusCode code="completed" /> < effectiveTime value="442878912278" /> <value unit="" xsi:type="PQ" value="Negative" /> <referenceRange> <observationRange> <text>Negative</text> </observationRange> </ referenceRange> </observation> </component> <component> <observation moodCode="EVN" classCode="OBS"> <templateId root= "216.840.1.797364.08.26.22.4.2" /> <id nullFlavor="NA" /> < code codeSystem="local" code="360331" displayName="Hep B Core Ab, IgM" /> <statusCode code="completed" /> <effectiveTime value="513691559200 " /> <value unit="" xsi:type="PQ" value="Negative" /> < referenceRange> <observationRange> <text>Negative</text > </observationRange> </referenceRange> </observation > </component> <component> <observation moodCode="EVN" classCode="OBS"> <templateId root="2.16.840.1.480890.08.26.22.4.2" /> <id nullFlavor="NA" /> <code codeSystem="local" code="164065" displayName="Hep C Virus Ab" /> <statusCode code="completed" /> <effectiveTime value="485848949121" /> <value unit="s/coratio" xsi: type="PQ" value="<0.1" /> <referenceRange> < observationRange> <text>0.0-0.9</text> </ observationRange> </referenceRange> </observation> </ component> </organizer> </entry> <entry> <organizer moodCode="EVN" classCode="BATTERY"> <templateId root="12.23.840.1.792355.08.26.22.4.1" /> <id nullFlavor="NA" /> <code codeSystem="local" code="669513" displayName="t-Transglutaminase (tTG) IgA" /> <statusCode code="completed" /> <component> <observation moodCode="EVN" classCode="OBS"> <templateId root="840.1.062873.08.26.22.4.2" /> <id nullFlavor= "NA" /> <code codeSystem="local" code="286054" displayName="t- Transglutaminase (tTG) IgA" /> <statusCode code="completed" /> <effectiveTime value="333406964963" /> <value unit="U/mL" xsi:type= "PQ" value="<2" /> <referenceRange> <observationRange> <text>0-3</text> </observationRange> </ referenceRange> </observation> </component> </organizer> </entry > <entry> <organizer moodCode="EVN" classCode="BATTERY"> <templateId root="840.1.375972.08.26.22.4.1" /> <id nullFlavor="NA" /> <code codeSystem="local" code="HGB" displayName="HEMOGLOBIN" /> <statusCode code= "completed" /> <component> <observation moodCode="EVN" classCode= "OBS"> <templateId root="840.1.582066.08.26.22.4.2" /> < id nullFlavor="NA" /> <code codeSystem="local" code="MCV" displayName= "MEAN CELL VOLUME" /> <statusCode code="completed" /> < effectiveTime value="" /> <value unit="fl" xsi:type="PQ" value="83.0" /> <referenceRange> <observationRange> <text>80.0-100.0</text> </observationRange> </ referenceRange> </observation> </component> <component> <observation moodCode="EVN" classCode="OBS"> <templateId root= "12.23.840.1.186198.10.20.22.4.2" /> <id nullFlavor="NA" /> < code codeSystem="local" code="HGBT" displayName="HEMOGLOBIN" /> < statusCode code="completed" /> <effectiveTime value="" /> <value unit="gm/dL" xsi:type="PQ" value="12.7" /> < referenceRange> <observationRange> <text>12.0-16.0</text > </observationRange> </referenceRange> </observation > </component> </organizer> </entry> <entry> <organizer moodCode= "EVN" classCode="BATTERY"> <templateId root="12.23.840.1.826177.10..22.4.1 " /> <id nullFlavor="NA" /> <code codeSystem="local" code="METAB" displayName="METABOLIC PANEL, BASIC" /> <statusCode code="completed" /> <component> <observation moodCode="EVN" classCode="OBS"> < templateId root="12.23.840.1.777005.10.20.22.4.2" /> <id nullFlavor="NA " /> <code codeSystem="local" code="K" displayName="POTASSIUM" /> <statusCode code="completed" /> <effectiveTime value=" " /> <value unit="mmol/L" xsi:type="PQ" value="3.3" /> < interpretationCode codeSystem="local" code="*" /> <referenceRange> <observationRange> <text>3.5-5.3</text> </ observationRange> </referenceRange> </observation> </ component> <component> <observation moodCode="EVN" classCode="OBS"> <templateId root="216.840.1.214255.10..22.4.2" /> <id nullFlavor="NA" /> <code codeSystem="local" code="eGFR" displayName= "EST GFR (MDRD)" /> <statusCode code="completed" /> < effectiveTime value="" /> <value unit="mL/min" xsi:type="PQ " value="> 60" /> <referenceRange> <observationRange> <text>> 59</text> </observationRange> </ referenceRange> </observation> </component> <component> <observation moodCode="EVN" classCode="OBS"> <templateId root= "12.23.840.1.238223.08.26.22.4.2" /> <id nullFlavor="NA" /> < code codeSystem="local" code="GAP" displayName="ANION GAP" /> < statusCode code="completed" /> <effectiveTime value="" /> <value unit="mmol/L" xsi:type="PQ" value="10" /> < referenceRange> <observationRange> <text>5-15</text> </observationRange> </referenceRange> </observation> </component> <component> <observation moodCode="EVN" classCode= "OBS"> <templateId root="12.23.840.1.827387.10...4.2" /> < id nullFlavor="NA" /> <code codeSystem="local" code="eCrCl" displayName ="EST CrCl (CG)" /> <statusCode code="completed" /> < effectiveTime value="" /> <value unit="mL/min" xsi:type="PQ " value="> 60" /> <referenceRange> <observationRange> <text>> 59</text> </observationRange> </ referenceRange> </observation> </component> <component> <observation moodCode="EVN" classCode="OBS"> <templateId root= "216.840.1.506256.10.20.22.4.2" /> <id nullFlavor="NA" /> < code codeSystem="local" code="GLU" displayName="GLUCOSE" /> < statusCode code="completed" /> <effectiveTime value="" /> <value unit="mg/dL" xsi:type="PQ" value="125" /> < interpretationCode codeSystem="local" code="*" /> <referenceRange> <observationRange> <text>70-99</text> </ observationRange> </referenceRange> </observation> </ component> <component> <observation moodCode="EVN" classCode="OBS"> <templateId root="12.23.840.1.569499.22.4.2" /> <id nullFlavor="NA" /> <code codeSystem="local" code="CA" displayName= "CALCIUM" /> <statusCode code="completed" /> <effectiveTime value="" /> <value unit="mg/dL" xsi:type="PQ" value="9.0" / > <referenceRange> <observationRange> <text>8.5 -10.1</text> </observationRange> </referenceRange> </ observation> </component> <component> <observation moodCode= "EVN" classCode="OBS"> <templateId root="16.840.1.223668.10.20.22.4.2 " /> <id nullFlavor="NA" /> <code codeSystem="local" code="BUN " displayName="BLOOD UREA NITROGEN" /> <statusCode code="completed" /> <effectiveTime value="" /> <value unit="mg/dL" xsi:type="PQ" value="24" /> <interpretationCode codeSystem="local" code ="*" /> <referenceRange> <observationRange> < text>7-20</text> </observationRange> </referenceRange> </observation> </component> <component> <observation moodCode="EVN" classCode="OBS"> <templateId root= "2.16.840.1.002615.10..22.4.2" /> <id nullFlavor="NA" /> < code codeSystem="local" code="CREAT" displayName="CREATININE" /> < statusCode code="completed" /> <effectiveTime value="" /> <value unit="mg/dL" xsi:type="PQ" value="0.9" /> < referenceRange> <observationRange> <text>0.6-1.0</text> </observationRange> </referenceRange> </observation > </component> <component> <observation moodCode="EVN" classCode="OBS"> <templateId root="2.16.840.1.338649.10..22.4.2" /> <id nullFlavor="NA" /> <code codeSystem="local" code="NA" displayName="SODIUM" /> <statusCode code="completed" /> < effectiveTime value="" /> <value unit="mmol/L" xsi:type="PQ " value="141" /> <referenceRange> <observationRange> <text>135-148</text> </observationRange> </ referenceRange> </observation> </component> <component> <observation moodCode="EVN" classCode="OBS"> <templateId root= "840.1.080304.10..22.4.2" /> <id nullFlavor="NA" /> < code codeSystem="local" code="CL" displayName="CHLORIDE" /> < statusCode code="completed" /> <effectiveTime value="" /> <value unit="mmol/L" xsi:type="PQ" value="104" /> < referenceRange> <observationRange> <text>98-110</text> </observationRange> </referenceRange> </observation> </component> <component> <observation moodCode="EVN" classCode ="OBS"> <templateId root="840.1.706173.08.26.22.4.2" /> < id nullFlavor="NA" /> <code codeSystem="local" code="CO2" displayName= "CARBON DIOXIDE" /> <statusCode code="completed" /> < effectiveTime value="" /> <value unit="mmol/L" xsi:type="PQ " value="27" /> <referenceRange> <observationRange> <text>21-32</text> </observationRange> </ referenceRange> </observation> </component> </organizer> </entry > <entry> <organizer moodCode="EVN" classCode="BATTERY"> <templateId root="840.1.681254.1022.4.1" /> <id nullFlavor="NA" /> <code codeSystem="local" code="MRSAS" displayName="MRSA SURVEILLANCE SCREEN" /> < statusCode code="completed" /> <component> <observation moodCode= "EVN" classCode="OBS"> <templateId root="12.23.840.1.138615.10..22.4.2 " /> <id nullFlavor="NA" /> <code codeSystem="local" code="MB " displayName="Microbiology" /> <statusCode code="completed" /> <effectiveTime value="" /> <value xsi:type="ST" value="< pre><b>MRSA SURVEILLANCE SCREEN</b> See BelowMRSA SURVEILLANCE SCREEN(F) Isidro Date/Time: 04/26/2017 05:59 [place] Date/Time: 04/27/2017 07:47SOURCE: ANTERIOR NARESSPEC DESC: NNO METHICILLIN RESIST[facility] [facility] [place] [address]</pre> " /> <referenceRange> <observationRange> <text /> </observationRange> </referenceRange> </ observation> </component> </organizer> </entry> <entry> <organizer moodCode="EVN" classCode="BATTERY"> <templateId root= "2.16.840.1.758318.10.20.22.4.1" /> <id nullFlavor="NA" /> <code codeSystem="local" code="CBC" displayName="CBC" /> <statusCode code= "completed" /> <component> <observation moodCode="EVN" classCode= "OBS"> <templateId root="2.16.840.1.057190.10.20.22.4.2" /> < id nullFlavor="NA" /> <code codeSystem="local" code="MCH" displayName= "MEAN CELL HGB" /> <statusCode code="completed" /> < effectiveTime value="214306652098" /> <value unit="pg" xsi:type="PQ" value="26.3" /> <interpretationCode codeSystem="local" code="*" /> <referenceRange> <observationRange> <text>27.0- 33.0</text> </observationRange> </referenceRange> </ observation> </component> <component> <observation moodCode= "EVN" classCode="OBS"> <templateId root="216.840.1.943143.10..22.4.2 " /> <id nullFlavor="NA" /> <code codeSystem="local" code= "MCHC" displayName="MEAN CELL HGB CONCENTRATION" /> <statusCode code= "completed" /> <effectiveTime value="" /> <value unit="g/dL" xsi:type="PQ" value="30.9" /> <interpretationCode codeSystem="local" code="*" /> <referenceRange> < observationRange> <text>32.0-37.0</text> </ observationRange> </referenceRange> </observation> </ component> <component> <observation moodCode="EVN" classCode="OBS"> <templateId root="12.23.840.1.267343.08.26.22.4.2" /> <id nullFlavor="NA" /> <code codeSystem="local" code="MCV" displayName= "MEAN CELL VOLUME" /> <statusCode code="completed" /> < effectiveTime value="" /> <value unit="fl" xsi:type="PQ" value="85.1" /> <referenceRange> <observationRange> <text>80.0-100.0</text> </observationRange> </ referenceRange> </observation> </component> <component> <observation moodCode="EVN" classCode="OBS"> <templateId root= "216.840.1.642617.10..22.4.2" /> <id nullFlavor="NA" /> < code codeSystem="local" code="RBC" displayName="RED BLOOD CELL" /> < statusCode code="completed" /> <effectiveTime value="" /> <value unit="m/cumm" xsi:type="PQ" value="3.96" /> < interpretationCode codeSystem="local" code="*" /> <referenceRange> <observationRange> <text>4.00-6.00</text> </ observationRange> </referenceRange> </observation> </ component> <component> <observation moodCode="EVN" classCode="OBS"> <templateId root="216.840.1.165888.08.26.22.4.2" /> <id nullFlavor="NA" /> <code codeSystem="local" code="RDW" displayName=" RED CELL DISTRIBUTION WIDTH" /> <statusCode code="completed" /> <effectiveTime value="925710352093" /> <value unit="%" xsi:type= "PQ" value="15.3" /> <referenceRange> <observationRange> <text>11.0-15.6</text> </observationRange> </ referenceRange> </observation> </component> <component> <observation moodCode="EVN" classCode="OBS"> <templateId root= "216.840.1.917622.08.26.22.4.2" /> <id nullFlavor="NA" /> < code codeSystem="local" code="WBC" displayName="WHITE BLOOD CELL" /> < statusCode code="completed" /> <effectiveTime value="851447891967" /> <value unit="k/cumm" xsi:type="PQ" value="15.6" /> < interpretationCode codeSystem="local" code="*" /> <referenceRange> <observationRange> <text>5.0-10.0</text> </ observationRange> </referenceRange> </observation> </ component> <component> <observation moodCode="EVN" classCode="OBS"> <templateId root="2.16.840.1.092325.08.26.22.4.2" /> <id nullFlavor="NA" /> <code codeSystem="local" code="HGBT" displayName= "HEMOGLOBIN" /> <statusCode code="completed" /> < effectiveTime value="" /> <value unit="gm/dL" xsi:type="PQ " value="10.4" /> <interpretationCode codeSystem="local" code="*" /> <referenceRange> <observationRange> <text>12.0- 16.0</text> </observationRange> </referenceRange> </ observation> </component> <component> <observation moodCode= "EVN" classCode="OBS"> <templateId root="12.23.840.1.136931.08.26.22.4.2 " /> <id nullFlavor="NA" /> <code codeSystem="local" code= "HCTT" displayName="HEMATOCRIT" /> <statusCode code="completed" /> <effectiveTime value="" /> <value unit="%" xsi: type="PQ" value="33.7" /> <interpretationCode codeSystem="local" code= "*" /> <referenceRange> <observationRange> < text>37.0-47.0</text> </observationRange> </referenceRange> </observation> </component> <component> <observation moodCode="EVN" classCode="OBS"> <templateId root= "12.23.840.1.928488.10..4.2" /> <id nullFlavor="NA" /> < code codeSystem="local" code="PLT" displayName="PLATELET COUNT" /> < statusCode code="completed" /> <effectiveTime value="" /> <value unit="k/cumm" xsi:type="PQ" value="290" /> < referenceRange> <observationRange> <text>150-400</text> </observationRange> </referenceRange> </observation > </component> </organizer> </entry> <entry> <organizer moodCode= "EVN" classCode="BATTERY"> <templateId root="216.840.1.321204.10..22.4.1 " /> <id nullFlavor="NA" /> <code codeSystem="local" code="METAB" displayName="METABOLIC PANEL, BASIC" /> <statusCode code="completed" /> <component> <observation moodCode="EVN" classCode="OBS"> < templateId root="216.840.1.534801....4.2" /> <id nullFlavor="NA " /> <code codeSystem="local" code="K" displayName="POTASSIUM" /> <statusCode code="completed" /> <effectiveTime value="262188585475 " /> <value unit="mmol/L" xsi:type="PQ" value="3.9" /> < referenceRange> <observationRange> <text>3.5-5.3</text> </observationRange> </referenceRange> </observation > </component> <component> <observation moodCode="EVN" classCode="OBS"> <templateId root="16.840.1.450795....4.2" /> <id nullFlavor="NA" /> <code codeSystem="local" code="eGFR" displayName="EST GFR (MDRD)" /> <statusCode code="completed" /> <effectiveTime value="" /> <value unit="mL/min" xsi:type ="PQ" value="> 60" /> <referenceRange> <observationRange > <text>> 59</text> </observationRange> </ referenceRange> </observation> </component> <component> <observation moodCode="EVN" classCode="OBS"> <templateId root= "216.840.1.142032.10..22.4.2" /> <id nullFlavor="NA" /> < code codeSystem="local" code="GAP" displayName="ANION GAP" /> < statusCode code="completed" /> <effectiveTime value="" /> <value unit="mmol/L" xsi:type="PQ" value="11" /> < referenceRange> <observationRange> <text>5-15</text> </observationRange> </referenceRange> </observation> </component> <component> <observation moodCode="EVN" classCode= "OBS"> <templateId root="216.840.1.094068.10...4.2" /> < id nullFlavor="NA" /> <code codeSystem="local" code="eCrCl" displayName ="EST CrCl (CG)" /> <statusCode code="completed" /> < effectiveTime value="" /> <value unit="mL/min" xsi:type="PQ " value="> 60" /> <referenceRange> <observationRange> <text>> 59</text> </observationRange> </ referenceRange> </observation> </component> <component> <observation moodCode="EVN" classCode="OBS"> <templateId root= "16.840.1.080622.10..22.4.2" /> <id nullFlavor="NA" /> < code codeSystem="local" code="GLU" displayName="GLUCOSE" /> < statusCode code="completed" /> <effectiveTime value="" /> <value unit="mg/dL" xsi:type="PQ" value="143" /> < interpretationCode codeSystem="local" code="*" /> <referenceRange> <observationRange> <text>70-99</text> </ observationRange> </referenceRange> </observation> </ component> <component> <observation moodCode="EVN" classCode="OBS"> <templateId root="16.840.1.247503.10..22.4.2" /> <id nullFlavor="NA" /> <code codeSystem="local" code="CA" displayName= "CALCIUM" /> <statusCode code="completed" /> <effectiveTime value="356344112562" /> <value unit="mg/dL" xsi:type="PQ" value="7.8" / > <interpretationCode codeSystem="local" code="*" /> < referenceRange> <observationRange> <text>8.5-10.1</text > </observationRange> </referenceRange> </observation > </component> <component> <observation moodCode="EVN" classCode="OBS"> <templateId root="12.23.840.1.997950.08.26.22.4.2" /> <id nullFlavor="NA" /> <code codeSystem="local" code="BUN" displayName="BLOOD UREA NITROGEN" /> <statusCode code="completed" /> <effectiveTime value="" /> <value unit="mg/dL" xsi: type="PQ" value="15" /> <referenceRange> <observationRange> <text>7-20</text> </observationRange> </ referenceRange> </observation> </component> <component> <observation moodCode="EVN" classCode="OBS"> <templateId root= "16.840.1.892931.10...4.2" /> <id nullFlavor="NA" /> < code codeSystem="local" code="CREAT" displayName="CREATININE" /> < statusCode code="completed" /> <effectiveTime value="875486375636" /> <value unit="mg/dL" xsi:type="PQ" value="0.7" /> < referenceRange> <observationRange> <text>0.6-1.0</text> </observationRange> </referenceRange> </observation > </component> <component> <observation moodCode="EVN" classCode="OBS"> <templateId root="12.23.840.1.988310.10..22.4.2" /> <id nullFlavor="NA" /> <code codeSystem="local" code="NA" displayName="SODIUM" /> <statusCode code="completed" /> < effectiveTime value="232337131444" /> <value unit="mmol/L" xsi:type="PQ " value="141" /> <referenceRange> <observationRange> <text>135-148</text> </observationRange> </ referenceRange> </observation> </component> <component> <observation moodCode="EVN" classCode="OBS"> <templateId root= "12.23.840.1.238853...22.4.2" /> <id nullFlavor="NA" /> < code codeSystem="local" code="CL" displayName="CHLORIDE" /> < statusCode code="completed" /> <effectiveTime value="531787349096" /> <value unit="mmol/L" xsi:type="PQ" value="107" /> < referenceRange> <observationRange> <text>98-110</text> </observationRange> </referenceRange> </observation> </component> <component> <observation moodCode="EVN" classCode ="OBS"> <templateId root="12.23.840.1.496022.08.26.22.4.2" /> < id nullFlavor="NA" /> <code codeSystem="local" code="CO2" displayName= "CARBON DIOXIDE" /> <statusCode code="completed" /> < effectiveTime value="068471188221" /> <value unit="mmol/L" xsi:type="PQ " value="23" /> <referenceRange> <observationRange> <text>21-32</text> </observationRange> </ referenceRange> </observation> </component> </organizer> </entry > <entry> <organizer moodCode="EVN" classCode="BATTERY"> <templateId root="2.16.840.1.101017.08.26.22.4.1" /> <id nullFlavor="NA" /> <code codeSystem="local" code="79251-3" displayName="Complete blood count (CBC) with automated white blood cell (WBC) differential" /> <statusCode code= "completed" /> <component> <observation moodCode="EVN" classCode= "OBS"> <templateId root="2.16.840.1.696518.10...4.2" /> < id nullFlavor="NA" /> <code codeSystem="local" code="6690-2" displayName="Blood leukocytes automated count (number/volume)" /> < statusCode code="completed" /> <effectiveTime value="184851346089" /> <value unit="10*3/uL" xsi:type="PQ" value="9.5" /> < referenceRange> <observationRange> <text>4.3-11.0</text > </observationRange> </referenceRange> </observation > </component> <component> <observation moodCode="EVN" classCode="OBS"> <templateId root="2.16.840.1.115844.10..4.2" /> <id nullFlavor="NA" /> <code codeSystem="local" code="789-8" displayName="Blood erythrocytes automated count (number/volume)" /> < statusCode code="completed" /> <effectiveTime value="776179212544" /> <value unit="10*6/uL" xsi:type="PQ" value="4.77" /> < referenceRange> <observationRange> <text>4.35-5.85</text > </observationRange> </referenceRange> </observation > </component> <component> <observation moodCode="EVN" classCode="OBS"> <templateId root="2.16.840.1.544244.10..22.4.2" /> <id nullFlavor="NA" /> <code codeSystem="local" code="92456-0 " displayName="Venous blood hemoglobin measurement (mass/volume)" /> < statusCode code="completed" /> <effectiveTime value="103747736064" /> <value unit="g/dL" xsi:type="PQ" value="13.0" /> < referenceRange> <observationRange> <text>11.5-16.0</text > </observationRange> </referenceRange> </observation > </component> <component> <observation moodCode="EVN" classCode="OBS"> <templateId root="2.16.840.1.307754.10..22.4.2" /> <id nullFlavor="NA" /> <code codeSystem="local" code="80760-4 " displayName="Blood hematocrit (volume fraction)" /> <statusCode code= "completed" /> <effectiveTime value="114279966350" /> <value unit="%" xsi:type="PQ" value="40" /> <referenceRange> < observationRange> <text>35-52</text> </observationRange > </referenceRange> </observation> </component> < component> <observation moodCode="EVN" classCode="OBS"> < templateId root="2.16.840.1.916538.10..22.4.2" /> <id nullFlavor="NA " /> <code codeSystem="local" code="787-2" displayName="Automated erythrocyte mean corpuscular volume" /> <statusCode code="completed" / > <effectiveTime value="594845291529" /> <value unit="[foz_us] " xsi:type="PQ" value="83" /> <referenceRange> < observationRange> <text>80-99</text> </observationRange > </referenceRange> </observation> </component> < component> <observation moodCode="EVN" classCode="OBS"> < templateId root="2.16.840.1.375903.10.22.4.2" /> <id nullFlavor="NA " /> <code codeSystem="local" code="785-6" displayName="Automated erythrocyte mean corpuscular hemoglobin (mass per erythrocyte)" /> < statusCode code="completed" /> <effectiveTime value="159568407079" /> <value unit="pg" xsi:type="PQ" value="27" /> <referenceRange> <observationRange> <text>25-34</text> </ observationRange> </referenceRange> </observation> </ component> <component> <observation moodCode="EVN" classCode="OBS"> <templateId root="2.16.840.1.450231.10..22.4.2" /> <id nullFlavor="NA" /> <code codeSystem="local" code="786-4" displayName= "Automated erythrocyte mean corpuscular hemoglobin concentration measurement ( mass/volume)" /> <statusCode code="completed" /> < effectiveTime value="085316019372" /> <value unit="g/dL" xsi:type="PQ" value="33" /> <referenceRange> <observationRange> <text>32-36</text> </observationRange> </referenceRange > </observation> </component> <component> <observation moodCode="EVN" classCode="OBS"> <templateId root= "216.840.1.021309.10.20.22.4.2" /> <id nullFlavor="NA" /> < code codeSystem="local" code="788-0" displayName="Automated erythrocyte distribution width ratio" /> <statusCode code="completed" /> < effectiveTime value="709557281169" /> <value unit="%" xsi:type="PQ " value="14.8" /> <interpretationCode codeSystem="local" code="" /> <referenceRange> <observationRange> <text>10.0- 14.5</text> </observationRange> </referenceRange> </ observation> </component> <component> <observation moodCode= "EVN" classCode="OBS"> <templateId root="216.840.1.937609.10.20.22.4.2 " /> <id nullFlavor="NA" /> <code codeSystem="local" code="777 -3" displayName="Automated blood platelet count (count/volume)" /> < statusCode code="completed" /> <effectiveTime value="650541912800" /> <value unit="10*3/uL" xsi:type="PQ" value="377" /> < referenceRange> <observationRange> <text>130-400</text> </observationRange> </referenceRange> </observation > </component> <component> <observation moodCode="EVN" classCode="OBS"> <templateId root="216.840.1.627389.10.20.22.4.2" /> <id nullFlavor="NA" /> <code codeSystem="local" code="35295-2 " displayName="Automated blood platelet mean volume measurement" /> < statusCode code="completed" /> <effectiveTime value="129146429920" /> <value unit="[fo_us]" xsi:type="PQ" value="9.5" /> < referenceRange> <observationRange> <text>7.4-10.4</text > </observationRange> </referenceRange> </observation > </component> <component> <observation moodCode="EVN" classCode="OBS"> <templateId root="216.840.1.277633.10..22.4.2" /> <id nullFlavor="NA" /> <code codeSystem="local" code="770-8" displayName="Automated blood neutrophils/100 leukocytes" /> < statusCode code="completed" /> <effectiveTime value="844394379280" /> <value unit="%" xsi:type="PQ" value="60" /> < referenceRange> <observationRange> <text>42-75</text> </observationRange> </referenceRange> </observation> </component> <component> <observation moodCode="EVN" classCode= "OBS"> <templateId root="216.840.1.013929.10.20.22.4.2" /> < id nullFlavor="NA" /> <code codeSystem="local" code="736-9" displayName ="Automated blood lymphocytes/100 leukocytes" /> <statusCode code= "completed" /> <effectiveTime value="962479883315" /> <value unit="%" xsi:type="PQ" value="32" /> <referenceRange> < observationRange> <text>12-44</text> </observationRange > </referenceRange> </observation> </component> < component> <observation moodCode="EVN" classCode="OBS"> < templateId root="2.16.840.1.251730.10..4.2" /> <id nullFlavor="NA " /> <code codeSystem="local" code="03215-4" displayName="Blood monocytes/100 leukocytes" /> <statusCode code="completed" /> < effectiveTime value="305993533424" /> <value unit="%" xsi:type="PQ " value="8" /> <referenceRange> <observationRange> <text>0-12</text> </observationRange> </referenceRange > </observation> </component> <component> <observation moodCode="EVN" classCode="OBS"> <templateId root= "216.840.1.687641.08.26.22.4.2" /> <id nullFlavor="NA" /> < code codeSystem="local" code="713-8" displayName="Automated blood eosinophils/ 100 leukocytes" /> <statusCode code="completed" /> < effectiveTime value="988524691393" /> <value unit="%" xsi:type="PQ " value="1" /> <referenceRange> <observationRange> <text>0-10</text> </observationRange> </referenceRange > </observation> </component> <component> <observation moodCode="EVN" classCode="OBS"> <templateId root= "2.16.840.1.978590.10..22.4.2" /> <id nullFlavor="NA" /> < code codeSystem="local" code="706-2" displayName="Automated blood basophils/100 leukocytes" /> <statusCode code="completed" /> <effectiveTime value="152795077241" /> <value unit="%" xsi:type="PQ" value="0" /> <referenceRange> <observationRange> <text>0-10 </text> </observationRange> </referenceRange> </ observation> </component> <component> <observation moodCode= "EVN" classCode="OBS"> <templateId root="2.16.840.1.062538.10.22.4.2 " /> <id nullFlavor="NA" /> <code codeSystem="local" code="751 -8" displayName="Blood neutrophils automated count (number/volume)" /> <statusCode code="completed" /> <effectiveTime value="577584551468" /> <value unit="10*3" xsi:type="PQ" value="5.7" /> < referenceRange> <observationRange> <text>1.8-7.8</text> </observationRange> </referenceRange> </observation > </component> <component> <observation moodCode="EVN" classCode="OBS"> <templateId root="2.16.840.1.746990.08.26.22.4.2" /> <id nullFlavor="NA" /> <code codeSystem="local" code="731-0" displayName="Blood lymphocytes automated count (number/volume)" /> < statusCode code="completed" /> <effectiveTime value="046440750389" /> <value unit="10*3" xsi:type="PQ" value="3.0" /> < referenceRange> <observationRange> <text>1.0-4.0</text> </observationRange> </referenceRange> </observation > </component> <component> <observation moodCode="EVN" classCode="OBS"> <templateId root="2.16.840.1.908266.08.26.22.4.2" /> <id nullFlavor="NA" /> <code codeSystem="local" code="742-7" displayName="Blood monocytes automated count (number/volume)" /> < statusCode code="completed" /> <effectiveTime value="487742504523" /> <value unit="10*3" xsi:type="PQ" value="0.7" /> < referenceRange> <observationRange> <text>0.0-1.0</text> </observationRange> </referenceRange> </observation > </component> <component> <observation moodCode="EVN" classCode="OBS"> <templateId root="2.16.840.1.010934.08.26.22.4.2" /> <id nullFlavor="NA" /> <code codeSystem="local" code="711-2" displayName="Automated eosinophil count" /> <statusCode code="completed " /> <effectiveTime value="652605643422" /> <value unit="10*3/ uL" xsi:type="PQ" value="0.1" /> <referenceRange> < observationRange> <text>0.0-0.3</text> </ observationRange> </referenceRange> </observation> </ component> <component> <observation moodCode="EVN" classCode="OBS"> <templateId root="2.16.840.1.980930.08.26.22.4.2" /> <id nullFlavor="NA" /> <code codeSystem="local" code="704-7" displayName= "Automated blood basophil count (count/volume)" /> <statusCode code= "completed" /> <effectiveTime value="969345885277" /> <value unit="10*3/uL" xsi:type="PQ" value="0.0" /> <referenceRange> <observationRange> <text>0.0-0.1</text> </ observationRange> </referenceRange> </observation> </ component> </organizer> </entry> <entry> <organizer moodCode="EVN" classCode="BATTERY"> <templateId root="216.840.1.009710.10..22.4.1" /> <id nullFlavor="NA" /> <code codeSystem="local" code="48881-8" displayName="PT panel in platelet poor plasma by coagulation assay" /> < statusCode code="completed" /> <component> <observation moodCode= "EVN" classCode="OBS"> <templateId root="2.16.840.1.728836.10...4.2 " /> <id nullFlavor="NA" /> <code codeSystem="local" code= "5902-2" displayName="Prothrombin time (PT) in platelet poor plasma by coagulation assay" /> <statusCode code="completed" /> < effectiveTime value="684031823642" /> <value unit="s" xsi:type="PQ" value="14.2" /> <referenceRange> <observationRange> <text>12.2-14.7</text> </observationRange> </ referenceRange> </observation> </component> <component> <observation moodCode="EVN" classCode="OBS"> <templateId root= "216.840.1.473735.10..22.4.2" /> <id nullFlavor="NA" /> < code codeSystem="local" code="08973-4" displayName="INR in platelet poor plasma or blood by coagulation assay" /> <statusCode code="completed" /> <effectiveTime value="565164243169" /> <value unit="" xsi:type="PQ " value="1.1" /> <referenceRange> <observationRange> <text>0.8-1.4</text> </observationRange> </ referenceRange> </observation> </component> </organizer> </entry > <entry> <organizer moodCode="EVN" classCode="BATTERY"> <templateId root="2.16.840.1.139582.10..22.4.1" /> <id nullFlavor="NA" /> <code codeSystem="local" code="41715-3" displayName="Comprehensive metabolic panel" / > <statusCode code="completed" /> <component> <observation moodCode="EVN" classCode="OBS"> <templateId root= "2.16.840.1.824309.10...4.2" /> <id nullFlavor="NA" /> < code codeSystem="local" code="2951-2" displayName="Serum or plasma sodium measurement (moles/volume)" /> <statusCode code="completed" /> <effectiveTime value="560968665906" /> <value unit="mmol/L" xsi:type= "PQ" value="141" /> <referenceRange> <observationRange> <text>135-145</text> </observationRange> </ referenceRange> </observation> </component> <component> <observation moodCode="EVN" classCode="OBS"> <templateId root= "2.16.840.1.856318.10...4.2" /> <id nullFlavor="NA" /> < code codeSystem="local" code="2823-3" displayName="Serum or plasma potassium measurement (moles/volume)" /> <statusCode code="completed" /> <effectiveTime value="122697009069" /> <value unit="mmol/L" xsi:type= "PQ" value="3.2" /> <interpretationCode codeSystem="local" code="" / > <referenceRange> <observationRange> <text>3.6 -5.0</text> </observationRange> </referenceRange> </ observation> </component> <component> <observation moodCode= "EVN" classCode="OBS"> <templateId root="2.16.840.1.878972.10.20.22.4.2 " /> <id nullFlavor="NA" /> <code codeSystem="local" code= "" displayName="Serum or plasma chloride measurement (moles/volume)" /> <statusCode code="completed" /> <effectiveTime value= "142792820493" /> <value unit="mmol/L" xsi:type="PQ" value="105" /> <referenceRange> <observationRange> <text>98-107< /text> </observationRange> </referenceRange> </ observation> </component> <component> <observation moodCode= "EVN" classCode="OBS"> <templateId root="16.840.1.888701.10..22.4.2 " /> <id nullFlavor="NA" /> <code codeSystem="local" code= "2028-07" displayName="Carbon dioxide" /> <statusCode code="completed" / > <effectiveTime value="129932752326" /> <value unit="mmol/L" xsi:type="PQ" value="24" /> <referenceRange> < observationRange> <text>21-32</text> </observationRange > </referenceRange> </observation> </component> < component> <observation moodCode="EVN" classCode="OBS"> < templateId root="16.840.1.481848.10..22.4.2" /> <id nullFlavor="NA " /> <code codeSystem="local" code="72557-8" displayName="Serum or plasma anion gap determination (moles/volume)" /> <statusCode code= "completed" /> <effectiveTime value="932624092973" /> <value unit="mmol/L" xsi:type="PQ" value="12" /> <referenceRange> < observationRange> <text>5-14</text> </observationRange> </referenceRange> </observation> </component> < component> <observation moodCode="EVN" classCode="OBS"> < templateId root="2.16.840.1.291761.10..22.4.2" /> <id nullFlavor="NA " /> <code codeSystem="local" code="3094-0" displayName="Serum or plasma urea nitrogen measurement (mass/volume)" /> <statusCode code= "completed" /> <effectiveTime value="409865306623" /> <value unit="mg/dL" xsi:type="PQ" value="15" /> <referenceRange> < observationRange> <text>7-18</text> </observationRange> </referenceRange> </observation> </component> < component> <observation moodCode="EVN" classCode="OBS"> < templateId root="2.16.840.1.166592.10..22.4.2" /> <id nullFlavor="NA " /> <code codeSystem="local" code="2160-0" displayName="Serum or plasma creatinine measurement (mass/volume)" /> <statusCode code= "completed" /> <effectiveTime value="653148423669" /> <value unit="mg/dL" xsi:type="PQ" value="0.86" /> <referenceRange> <observationRange> <text>0.60-1.30</text> </ observationRange> </referenceRange> </observation> </ component> <component> <observation moodCode="EVN" classCode="OBS"> <templateId root="2.16.840.1.819160.10..22.4.2" /> <id nullFlavor="NA" /> <code codeSystem="local" code="3097-3" displayName= "Serum or plasma urea nitrogen/creatinine mass ratio" /> <statusCode code="completed" /> <effectiveTime value="438395500633" /> < value unit="" xsi:type="PQ" value="17" /> <referenceRange> < observationRange> <text>NRG</text> </observationRange> </referenceRange> </observation> </component> < component> <observation moodCode="EVN" classCode="OBS"> < templateId root="2.16.840.1.264580...4.2" /> <id nullFlavor="NA " /> <code codeSystem="local" code="72279-2" displayName="Serum or plasma creatinine measurement with calculation of estimated glomerular filtration rate" /> <statusCode code="completed" /> < effectiveTime value="862417748930" /> <value unit="" xsi:type="PQ" value=">" /> <referenceRange> <observationRange> <text>NRG</text> </observationRange> </referenceRange > </observation> </component> <component> <observation moodCode="EVN" classCode="OBS"> <templateId root= "2.16.840.1.953795.10.22.4.2" /> <id nullFlavor="NA" /> < code codeSystem="local" code="2345-7" displayName="Serum or plasma glucose measurement (mass/volume)" /> <statusCode code="completed" /> <effectiveTime value="677275035395" /> <value unit="mg/dL" xsi:type="PQ " value="122" /> <interpretationCode codeSystem="local" code="" /> <referenceRange> <observationRange> <text>70-105 </text> </observationRange> </referenceRange> </ observation> </component> <component> <observation moodCode= "EVN" classCode="OBS"> <templateId root="216.840.1.748221.10.20.22.4.2 " /> <id nullFlavor="NA" /> <code codeSystem="local" code= "86620-0" displayName="Serum or plasma calcium measurement (mass/volume)" /> <statusCode code="completed" /> <effectiveTime value= "627873141122" /> <value unit="mg/dL" xsi:type="PQ" value="9.6" /> <referenceRange> <observationRange> <text>8.5-10.1 </text> </observationRange> </referenceRange> </ observation> </component> <component> <observation moodCode= "EVN" classCode="OBS"> <templateId root="12.23.840.1.948063.10.20.22.4.2 " /> <id nullFlavor="NA" /> <code codeSystem="local" code= "1975" displayName="Serum or plasma total bilirubin measurement (mass/volume) " /> <statusCode code="completed" /> <effectiveTime value= "408238014829" /> <value unit="mg/dL" xsi:type="PQ" value="0.5" /> <referenceRange> <observationRange> <text>0.1-1.0< /text> </observationRange> </referenceRange> </ observation> </component> <component> <observation moodCode= "EVN" classCode="OBS"> <templateId root="16.840.1.970359.10.20.22.4.2 " /> <id nullFlavor="NA" /> <code codeSystem="local" code= "6768-6" displayName="Serum or plasma alkaline phosphatase measurement ( enzymatic activity/volume)" /> <statusCode code="completed" /> <effectiveTime value="146753758782" /> <value unit="U/L" xsi:type="PQ " value="122" /> <referenceRange> <observationRange> <text>40-136</text> </observationRange> </ referenceRange> </observation> </component> <component> <observation moodCode="EVN" classCode="OBS"> <templateId root= "2.16.840.1.719965.10.20.22.4.2" /> <id nullFlavor="NA" /> < code codeSystem="local" code="1920-06" displayName="Serum or plasma aspartate aminotransferase measurement (enzymatic activity/volume)" /> < statusCode code="completed" /> <effectiveTime value="078497557260" /> <value unit="U/L" xsi:type="PQ" value="14" /> <referenceRange > <observationRange> <text>5-34</text> </ observationRange> </referenceRange> </observation> </ component> <component> <observation moodCode="EVN" classCode="OBS"> <templateId root="2.16.840.1.672196.10.20.22.4.2" /> <id nullFlavor="NA" /> <code codeSystem="local" code="1742-04" displayName= "Serum or plasma alanine aminotransferase measurement (enzymatic activity/volume )" /> <statusCode code="completed" /> <effectiveTime value= "003855931441" /> <value unit="U/L" xsi:type="PQ" value="17" /> <referenceRange> <observationRange> <text>0-55</text > </observationRange> </referenceRange> </observation > </component> <component> <observation moodCode="EVN" classCode="OBS"> <templateId root="216.840.1.300085.10.20.22.4.2" /> <id nullFlavor="NA" /> <code codeSystem="local" code="2885-2" displayName="Serum or plasma protein measurement (mass/volume)" /> < statusCode code="completed" /> <effectiveTime value="822452061496" /> <value unit="g/dL" xsi:type="PQ" value="7.3" /> < referenceRange> <observationRange> <text>6.4-8.2</text> </observationRange> </referenceRange> </observation > </component> <component> <observation moodCode="EVN" classCode="OBS"> <templateId root="16.840.1.118133.10..22.4.2" /> <id nullFlavor="NA" /> <code codeSystem="local" code="1751-7" displayName="Serum or plasma albumin measurement (mass/volume)" /> < statusCode code="completed" /> <effectiveTime value="336844212906" /> <value unit="g/dL" xsi:type="PQ" value="4.3" /> < referenceRange> <observationRange> <text>3.2-4.5</text> </observationRange> </referenceRange> </observation > </component> <component> <observation moodCode="EVN" classCode="OBS"> <templateId root="16.840.1.376767.10.20.22.4.2" /> <id nullFlavor="NA" /> <code codeSystem="local" code= "CALCIUMCORR" displayName="CALCIUM CORRECTED" /> <statusCode code= "completed" /> <effectiveTime value="593078154697" /> <value unit="mg/dL" xsi:type="PQ" value="9.4" /> <referenceRange> < observationRange> <text>8.5-10.1</text> </ observationRange> </referenceRange> </observation> </ component> </organizer> </entry> <entry> <organizer moodCode="EVN" classCode="BATTERY"> <templateId root="216.840.1.069177.10.20.22.4.1" /> <id nullFlavor="NA" /> <code codeSystem="local" code="4537-7" displayName="Erythrocyte sedimentation rate by westergren method" /> < statusCode code="completed" /> <component> <observation moodCode= "EVN" classCode="OBS"> <templateId root="16.840.1.554193.10.20.22.4.2 " /> <id nullFlavor="NA" /> <code codeSystem="local" code= "4537-7" displayName="Erythrocyte sedimentation rate by westergren method" /> <statusCode code="completed" /> <effectiveTime value= "179168554980" /> <value unit="mm" xsi:type="PQ" value="29" /> <referenceRange> <observationRange> <text>0-30</text> </observationRange> </referenceRange> </observation > </component> </organizer> </entry> <entry> <organizer moodCode= "EVN" classCode="BATTERY"> <templateId root="16.840.1.102601.10..22.4.1 " /> <id nullFlavor="NA" /> <code codeSystem="local" code="71398-9" displayName="Blood type T Indirect antibody screen panel" /> <statusCode code="completed" /> <component> <observation moodCode="EVN" classCode="OBS"> <templateId root="12.23.840.1.761392.22.4.2" /> <id nullFlavor="NA" /> <code codeSystem="local" code="882-1" displayName="ABO+Rh group" /> <statusCode code="completed" /> <effectiveTime value="334234288104" /> <value unit="" xsi:type="PQ" value="AP" /> <referenceRange> <observationRange> <text>NRG</text> </observationRange> </referenceRange> </observation> </component> <component> <observation moodCode="EVN" classCode="OBS"> <templateId root= "12.23.840.1.010801.08.26.224.2" /> <id nullFlavor="NA" /> < code codeSystem="local" code="890-4" displayName="Blood group antibody screen" / > <statusCode code="completed" /> <effectiveTime value= "475501139562" /> <value unit="" xsi:type="PQ" value="NEGATIVE" /> <referenceRange> <observationRange> <text>NRG</ text> </observationRange> </referenceRange> </ observation> </component> </organizer> </entry> <entry> <organizer moodCode="EVN" classCode="BATTERY"> <templateId root= "12.23.840.1.862925.08.26.22.4.1" /> <id nullFlavor="NA" /> <code codeSystem="local" code="80031-8" displayName="Methicillin resistant Staphylococcus aureus (MRSA) screening culture" /> <statusCode code= "completed" /> <component> <observation moodCode="EVN" classCode= "OBS"> <templateId root="12.23.840.1.804647.1022.4.2" /> < id nullFlavor="NA" /> <code codeSystem="local" code="52954-4" displayName="Methicillin resistant Staphylococcus aureus (MRSA) screening culture" /> <statusCode code="completed" /> <effectiveTime value="892955876635" /> <value unit="" xsi:type="PQ" value="NEG" /> <referenceRange> <observationRange> <text>NRG</ text> </observationRange> </referenceRange> </ observation> </component> </organizer> </entry> <entry> <organizer moodCode="EVN" classCode="BATTERY"> <templateId root= "216.840.1.256171.10..22.4.1" /> <id nullFlavor="NA" /> <code codeSystem="local" code="90830-4" displayName="Complete urinalysis with reflex to culture" /> <statusCode code="completed" /> <component> < observation moodCode="EVN" classCode="OBS"> <templateId root= "216.840.1.877716.10..22.4.2" /> <id nullFlavor="NA" /> < code codeSystem="local" code="5778-6" displayName="Urine color determination" / > <statusCode code="completed" /> <effectiveTime value= "540299121826" /> <value unit="" xsi:type="PQ" value="YELLOW" /> <referenceRange> <observationRange> <text>NRG</text > </observationRange> </referenceRange> </observation > </component> <component> <observation moodCode="EVN" classCode="OBS"> <templateId root="216.840.1.778542.10..22.4.2" /> <id nullFlavor="NA" /> <code codeSystem="local" code="43836-1 " displayName="Urine clarity determination" /> <statusCode code= "completed" /> <effectiveTime value="884751909555" /> <value unit="" xsi:type="PQ" value="CLEAR" /> <referenceRange> < observationRange> <text>NRG</text> </observationRange> </referenceRange> </observation> </component> < component> <observation moodCode="EVN" classCode="OBS"> < templateId root="2.16.840.1.503371.10.22.4.2" /> <id nullFlavor="NA " /> <code codeSystem="local" code="5803-2" displayName="Urine pH measurement by test strip" /> <statusCode code="completed" /> <effectiveTime value="573967405287" /> <value unit="" xsi:type="PQ" value="6.5" /> <referenceRange> <observationRange> <text>5-9</text> </observationRange> </referenceRange> </observation> </component> <component> <observation moodCode="EVN" classCode="OBS"> <templateId root= "2.16.840.1.754961.10..4.2" /> <id nullFlavor="NA" /> < code codeSystem="local" code="5811-5" displayName="Specific gravity of urine by test strip" /> <statusCode code="completed" /> <effectiveTime value="141497192352" /> <value unit="" xsi:type="PQ" value="1.010" /> <interpretationCode codeSystem="local" code="" /> < referenceRange> <observationRange> <text>1.016-1.022</ text> </observationRange> </referenceRange> </ observation> </component> <component> <observation moodCode= "EVN" classCode="OBS"> <templateId root="2.16.840.1.013211.22.4.2 " /> <id nullFlavor="NA" /> <code codeSystem="local" code= "01040-5" displayName="Urine protein assay by test strip, semi-quantitative" /> <statusCode code="completed" /> <effectiveTime value= "059373420982" /> <value unit="" xsi:type="PQ" value="NEGATIVE" /> <referenceRange> <observationRange> <text>NEGATIVE </text> </observationRange> </referenceRange> </ observation> </component> <component> <observation moodCode= "EVN" classCode="OBS"> <templateId root="216.840.1.217954.08.26.22.4.2 " /> <id nullFlavor="NA" /> <code codeSystem="local" code= "07916-5" displayName="Urine glucose detection by automated test strip" /> <statusCode code="completed" /> <effectiveTime value="016694620981 " /> <value unit="" xsi:type="PQ" value="NEGATIVE" /> < referenceRange> <observationRange> <text>NEGATIVE</text > </observationRange> </referenceRange> </observation > </component> <component> <observation moodCode="EVN" classCode="OBS"> <templateId root="216.840.1.524361.08.26.22.4.2" /> <id nullFlavor="NA" /> <code codeSystem="local" code="23202-5 " displayName="Erythrocytes detection in urine sediment by light microscopy" /> <statusCode code="completed" /> <effectiveTime value= "878893015784" /> <value unit="" xsi:type="PQ" value="NEGATIVE" /> <referenceRange> <observationRange> <text>NEGATIVE </text> </observationRange> </referenceRange> </ observation> </component> <component> <observation moodCode= "EVN" classCode="OBS"> <templateId root="216.840.1.591031.10..22.4.2 " /> <id nullFlavor="NA" /> <code codeSystem="local" code= "67376-1" displayName="Urine ketones detection by automated test strip" /> <statusCode code="completed" /> <effectiveTime value="318605932330 " /> <value unit="" xsi:type="PQ" value="NEGATIVE" /> < referenceRange> <observationRange> <text>NEGATIVE</text > </observationRange> </referenceRange> </observation > </component> <component> <observation moodCode="EVN" classCode="OBS"> <templateId root="216.840.1.824609.10..4.2" /> <id nullFlavor="NA" /> <code codeSystem="local" code="5802-4" displayName="Urine nitrite detection by test strip" /> <statusCode code ="completed" /> <effectiveTime value="649221582136" /> <value unit="" xsi:type="PQ" value="NEGATIVE" /> <referenceRange> < observationRange> <text>NEGATIVE</text> </ observationRange> </referenceRange> </observation> </ component> <component> <observation moodCode="EVN" classCode="OBS"> <templateId root="16.840.1.311447.10..22.4.2" /> <id nullFlavor="NA" /> <code codeSystem="local" code="5770-3" displayName= "Urine total bilirubin detection by test strip" /> <statusCode code= "completed" /> <effectiveTime value="920338908122" /> <value unit="" xsi:type="PQ" value="NEGATIVE" /> <referenceRange> < observationRange> <text>NEGATIVE</text> </ observationRange> </referenceRange> </observation> </ component> <component> <observation moodCode="EVN" classCode="OBS"> <templateId root="216.840.1.616699.10.2022.4.2" /> <id nullFlavor="NA" /> <code codeSystem="local" code="41632-1" displayName= "Urine urobilinogen measurement by automated test strip (mass/volume)" /> <statusCode code="completed" /> <effectiveTime value="217590752321 " /> <value unit="" xsi:type="PQ" value="NORMAL" /> < referenceRange> <observationRange> <text>NORMAL</text> </observationRange> </referenceRange> </observation> </component> <component> <observation moodCode="EVN" classCode ="OBS"> <templateId root="12.23.840.1.667544.10..4.2" /> < id nullFlavor="NA" /> <code codeSystem="local" code="5799-2" displayName="Urine leukocyte esterase detection by dipstick" /> < statusCode code="completed" /> <effectiveTime value="252976388790" /> <value unit="" xsi:type="PQ" value="NEGATIVE" /> < referenceRange> <observationRange> <text>NEGATIVE</text > </observationRange> </referenceRange> </observation > </component> <component> <observation moodCode="EVN" classCode="OBS"> <templateId root="12.23.840.1.616755.10..4.2" /> <id nullFlavor="NA" /> <code codeSystem="local" code="59352-1 " displayName="Automated urine sediment erythrocyte count by microscopy (number/ high power field)" /> <statusCode code="completed" /> < effectiveTime value="673155958133" /> <value unit="" xsi:type="PQ" value="NONE" /> <referenceRange> <observationRange> <text>NRG</text> </observationRange> </referenceRange > </observation> </component> <component> <observation moodCode="EVN" classCode="OBS"> <templateId root= "216.840.1.573364.10..4.2" /> <id nullFlavor="NA" /> < code codeSystem="local" code="5821-4" displayName="Automated urine sediment leukocyte count by microscopy (number/high power field)" /> < statusCode code="completed" /> <effectiveTime value="409114911258" /> <value unit="[HPF]" xsi:type="PQ" value="" /> <referenceRange > <observationRange> <text>NRG</text> </ observationRange> </referenceRange> </observation> </ component> <component> <observation moodCode="EVN" classCode="OBS"> <templateId root="12.23.840.1.407410.10.4.2" /> <id nullFlavor="NA" /> <code codeSystem="local" code="44999-6" displayName= "Bacteria detection in urine sediment by light microscopy" /> < statusCode code="completed" /> <effectiveTime value="566269557402" /> <value unit="" xsi:type="PQ" value="TRACE" /> <referenceRange > <observationRange> <text>NRG</text> </ observationRange> </referenceRange> </observation> </ component> <component> <observation moodCode="EVN" classCode="OBS"> <templateId root="216.840.1.207805.08.26.22.4.2" /> <id nullFlavor="NA" /> <code codeSystem="local" code="56233-4" displayName= "Squamous epithelial cells detection in urine sediment by light microscopy" /> <statusCode code="completed" /> <effectiveTime value= "501263223360" /> <value unit="" xsi:type="PQ" value="-" /> <interpretationCode codeSystem="local" code="*" /> <referenceRange> <observationRange> <text>NRG</text> </ observationRange> </referenceRange> </observation> </ component> <component> <observation moodCode="EVN" classCode="OBS"> <templateId root="216.840.1.835770.08.26.22.4.2" /> <id nullFlavor="NA" /> <code codeSystem="local" code="25217-8" displayName= "Crystals detection in urine sediment by light microscopy" /> < statusCode code="completed" /> <effectiveTime value="344991067612" /> <value unit="" xsi:type="PQ" value="NONE" /> <referenceRange> <observationRange> <text>NRG</text> </ observationRange> </referenceRange> </observation> </ component> <component> <observation moodCode="EVN" classCode="OBS"> <templateId root="16.840.1.058166.08.26.22.4.2" /> <id nullFlavor="NA" /> <code codeSystem="local" code="62894-9" displayName= "Casts detection in urine sediment by light microscopy" /> <statusCode code="completed" /> <effectiveTime value="807427319877" /> < value unit="" xsi:type="PQ" value="PRESENT" /> <referenceRange> <observationRange> <text>NRG</text> </ observationRange> </referenceRange> </observation> </ component> <component> <observation moodCode="EVN" classCode="OBS"> <templateId root="216.840.1.768214.10..22.4.2" /> <id nullFlavor="NA" /> <code codeSystem="local" code="8247-9" displayName= "Mucus detection in urine sediment by light microscopy" /> <statusCode code="completed" /> <effectiveTime value="452945890596" /> < value unit="" xsi:type="PQ" value="NEGATIVE" /> <referenceRange> <observationRange> <text>NRG</text> </ observationRange> </referenceRange> </observation> </ component> <component> <observation moodCode="EVN" classCode="OBS"> <templateId root="2.840.1.339107.08.26.22.4.2" /> <id nullFlavor="NA" /> <code codeSystem="local" code="09286-0" displayName= "Complete urinalysis with reflex to culture" /> <statusCode code= "completed" /> <effectiveTime value="877472860593" /> <value unit="" xsi:type="PQ" value="NO" /> <referenceRange> < observationRange> <text>NRG</text> </observationRange> </referenceRange> </observation> </component> < component> <observation moodCode="EVN" classCode="OBS"> < templateId root="216.840.1.740307.10..22.4.2" /> <id nullFlavor="NA " /> <code codeSystem="local" code="36544-6" displayName="Hyaline casts detection in urine sediment by light microscopy" /> <statusCode code="completed" /> <effectiveTime value="387454216166" /> < value unit="" xsi:type="PQ" value="RARE" /> <referenceRange> <observationRange> <text>NRG</text> </observationRange > </referenceRange> </observation> </component> < component> <observation moodCode="EVN" classCode="OBS"> < templateId root="216.840.1.155513.10..22.4.2" /> <id nullFlavor="NA " /> <code codeSystem="local" code="88323-3" displayName="Renal epithelial cells detection in urine sediment by light microscopy" /> < statusCode code="completed" /> <effectiveTime value="972623540269" /> <value unit="" xsi:type="PQ" value="NONE" /> <referenceRange> <observationRange> <text>NRG</text> </ observationRange> </referenceRange> </observation> </ component> </organizer> </entry> <entry> <organizer moodCode="EVN" classCode="BATTERY"> <templateId root="16.840.1.499039.10..22.4.1" /> <id nullFlavor="NA" /> <code codeSystem="local" code="96747-8" displayName="Blood type T Indirect antibody screen panel" /> <statusCode code="completed" /> <component> <observation moodCode="EVN" classCode="OBS"> <templateId root="16.840.1.412332.10..22.4.2" /> <id nullFlavor="NA" /> <code codeSystem="local" code="882-1" displayName="ABO+Rh group" /> <statusCode code="completed" /> <effectiveTime value="532945643187" /> <value unit="" xsi:type="PQ" value="AP" /> <referenceRange> <observationRange> <text>NRG</text> </observationRange> </referenceRange> </observation> </component> <component> <observation moodCode="EVN" classCode="OBS"> <templateId root= "2.16.840.1.771480.10.20.22.4.2" /> <id nullFlavor="NA" /> < code codeSystem="local" code="34169-4" displayName="Transfusion band number" /> <statusCode code="completed" /> <effectiveTime value= "198840214646" /> <value unit="" xsi:type="PQ" value="G593413" /> <referenceRange> <observationRange> <text>NRG</text > </observationRange> </referenceRange> </observation > </component> <component> <observation moodCode="EVN" classCode="OBS"> <templateId root="2.16.840.1.894433.10.20.22.4.2" /> <id nullFlavor="NA" /> <code codeSystem="local" code="890-4" displayName="Blood group antibody screen" /> <statusCode code= "completed" /> <effectiveTime value="635722083945" /> <value unit="" xsi:type="PQ" value="NEGATIVE" /> <referenceRange> < observationRange> <text>NRG</text> </observationRange> </referenceRange> </observation> </component> </ organizer> </entry></section> Encounters ACCT No. Visit Date/Time Discharge Status Pt. Type Provider Facility Loc./Unit Complaint [id number] 07/01/2014 05:30:00 07/02/2014 10:05:00 DIS Inpatient MYLENE ZIMMERMAN [facility] [place] [id number] 10/06/2013 00:00:00 Document Registration [id number] 09/22/2018 15:52:03 09/22/2018 23:59:59 CLS Outpatient Candido Willoughby [id number] 08/24/2018 09:25:18 08/24/2018 23:59:59 CLS Outpatient Adonay Sarabia [id number] 07/28/2018 09:34:21 07/28/2018 23:59:59 CLS Outpatient Case Candido Sally [id number] 10/10/2017 13:43:53 10/10/2017 23:59:59 CLS Outpatient RiddelTim [id number] 09/13/2017 15:33:33 09/13/2017 23:59:59 CLS Outpatient RidTim glynn [id number] 07/21/2017 12:30:14 07/21/2017 23:59:59 CLS Outpatient Addi Mancilla [id number] 03/03/2017 14:34:59 03/03/2017 23:59:59 CLS Outpatient RidTim glynn [id number] 01/27/2017 12:16:57 01/27/2017 23:59:59 CLS Outpatient RiddelTim [id number] 12/06/2016 17:21:58 12/06/2016 23:59:59 CLS Outpatient Ridgretta Tim [id number] 08/12/2016 12:57:59 08/12/2016 23:59:59 CLS Outpatient Addi Mancilla [id number] 08/04/2016 11:58:36 08/04/2016 23:59:59 CLS Outpatient RidTim glynn [id number] 07/20/2016 15:09:39 07/20/2016 23:59:59 CLS Outpatient RidTim glynn [id number] 05/05/2016 16:57:05 05/05/2016 23:59:59 CLS Outpatient RiddelTim [id number] 01/26/2016 14:57:40 01/26/2016 23:59:59 CLS Outpatient Sourav Ruiz [id number] 07/07/2015 07:38:21 07/07/2015 23:59:59 CLS Outpatient Addi Mancilla [id number] 06/24/2015 11:26:34 06/24/2015 23:59:59 CLS Outpatient Oc Cochran [id number] 06/16/2015 22:07:30 06/16/2015 23:59:59 CLS Outpatient Michela Gaytan [id number] 01/28/2015 08:55:12 01/28/2015 23:59:59 CLS Outpatient Tim Hernandez [id number] 07/30/2014 10:09:38 07/30/2014 23:59:59 CLS Outpatient Tim Hernandez [id number] 01/21/2014 06:33:34 01/21/2014 23:59:59 CLS Outpatient Tim Hernandez [id number] 11/08/2013 14:33:26 11/08/2013 23:59:59 CLS Outpatient Tim Hernandez [id number] 03/10/2017 13:06:00 Document Registration [id number] 03/10/2017 13:06:00 Document Registration [id number] 10/04/2018 10:26:56 10/04/2018 23:59:59 DIS Outpatient MYLENE ZIMMERMAN [facility] RAD [id number] 08/21/2018 08:04:37 08/21/2018 23:59:59 DIS Outpatient ZACH CUNNINGHAM [facility] RAD [id number] 08/21/2018 08:00:00 08/21/2018 23:59:59 DIS Outpatient ZACH CUNNINGHAM [facility] [id number] 07/06/2018 13:48:43 07/06/2018 23:59:59 DIS Outpatient Aline Rios [facility] [id number] 04/22/2018 11:57:00 04/22/2018 23:59:59 CLS Emergency [facility] ED ER VISIT [id number] 03/15/2018 08:40:00 03/15/2018 23:59:59 CLS Outpatient Aline Rios [facility] [id number] 01/24/2018 13:10:00 01/24/2018 23:59:59 CLS Outpatient Devorah Simon [facility] [id number] 12/13/2017 12:53:26 12/13/2017 23:59:59 DIS Outpatient ADEEL MONGE [facility] [id number] 12/13/2017 13:46:31 12/13/2017 17:00:00 DIS R ADEEL MONGE [facility] OT R Wrist [id number] 11/01/2017 09:35:52 11/01/2017 23:59:59 DIS Outpatient ADEEL MONGE [facility] [id number] 10/05/2017 09:56:35 10/05/2017 23:59:59 CLS Preadmit ADEEL MONGE [facility] Surgery Wrist Arthroscopy [id number] 10/04/2017 09:43:43 10/04/2017 23:59:59 DIS Outpatient ADEEL MONGE [facility] [id number] 09/13/2017 10:43:52 09/13/2017 23:59:59 CLS Preadmit [facility] OT Splint [id number] 09/13/2017 09:49:55 09/13/2017 23:59:59 DIS Outpatient ADEEL MONGE [facility] [id number] 09/09/2017 10:45:00 09/09/2017 23:59:59 DIS Outpatient MARISA ZACH D [facility] [id number] 09/09/2017 08:50:27 09/09/2017 23:59:59 DIS Outpatient MARISAAZCH [facility] RAD wrist pain, looking for a TFCC tear [id number] 09/01/2017 12:59:43 09/01/2017 23:59:59 DIS Outpatient ZACH CUNNINGHAM [facility] RAD [id number] 09/01/2017 12:58:59 09/01/2017 23:59:59 DIS Outpatient ZACH CUNNINGHAM [facility] [id number] 08/16/2017 11:46:03 08/16/2017 23:59:59 DIS Outpatient MYLENE ZIMMERMAN [facility] [id number] 08/16/2017 10:51:33 08/16/2017 23:59:59 DIS Outpatient MYLENE ZIMMERMAN [facility] [id number] 07/28/2017 09:53:15 07/28/2017 23:59:59 DIS Outpatient ZACH CUNNINGHAM [facility] Orth[facility] [id number] 07/27/2017 13:44:27 07/27/2017 23:59:59 DIS Outpatient Devorha Simon [facility] [id number] 07/27/2017 13:19:08 07/27/2017 23:59:59 CLS Preadmit [facility] PT lumbar spine [id number] 07/07/2017 09:38:38 07/07/2017 23:59:59 DIS Outpatient ZACH CUNNINGHAM [facility] RAD [id number] 07/07/2017 09:01:48 07/07/2017 23:59:59 DIS Outpatient ZACH CUNNINGHAM [facility] [id number] 07/17/2017 02:03:13 Document Registration [id number] 07/07/2017 09:31:17 Document Registration [id number] 01/08/2017 02:03:10 Document Registration [id number] 11/30/2016 14:29:51 Document Registration [id number] 09/26/2017 11:12:25 09/26/2017 23:59:59 CLS Outpatient Jose Gibbs [id number] 03/10/2017 13:06:00 Document Registration [id number] 04/26/2017 04:59:00 04/27/2017 14:00:00 DIS Inpatient Mathew WILLARD, [facility] W.9TN [id number] 07/28/2016 14:02:00 07/28/2016 23:59:59 CLS Outpatient Dmitriy WILLARD, Wan Pandey [id number] 07/20/2016 21:10:00 07/23/2016 15:30:00 DIS Inpatient Evelio WILLARD, Jourdan [facility] W.10TS [id number] 05/14/2016 04:54:00 05/16/2016 14:36:00 DIS Inpatient Mathew WILLARD, [facility] W.9TN [id number] 05/12/2016 10:37:00 05/12/2016 10:37:00 DIS Outpatient Mathew WILLARD, [facility] RolandPOA [id number] 05/30/2015 07:30:00 05/30/2015 07:30:00 CAN Inpatient Mathew WILLARD, [facility] WNAEEM [id number] 10/12/2018 12:42:00 10/12/2018 15:00:00 DIS Outpatient OC SMITH MD Via [facility] PREOP OSTEOARTHRITIS LEFT KNEE [id number] 01/07/2016 08:34:00 01/07/2016 14:05:00 DIS Outpatient OC SMITH MD Via [facility] RIGHT KNEE MEDIAL RETINACULARY [id number] 12/29/2015 13:05:00 12/29/2015 23:59:59 CLS Outpatient OC SMITH MD [facility] PREOP RIGHT KNEE MEDIAL RETINACULARY [id number] 08/27/2015 05:58:00 08/30/2015 10:00:00 DIS Inpatient OC SMITH MD Via [address] RIGHT KNEE OSTEOARTHRITIS [id number] 08/20/2015 12:20:00 08/20/2015 23:59:59 CLS Outpatient TIM HERNANDEZ MD [facility] LABT OTHER XRAY OF DIGESTIVE SYSTEM [id number] 08/20/2015 11:26:00 08/20/2015 23:59:59 CLS Outpatient OC SMITH MD [facility] PREOP RIGHT KNEE OSTEOARTHRITIS [id number] 10/09/2014 10:16:00 10/09/2014 14:10:00 DIS Outpatient OC SMITH MD [facility] [id number] 09/30/2014 11:58:00 09/30/2014 23:59:59 CLS Outpatient OC SMITH MD [facility] PREOP [id number] 05/07/2014 13:44:00 05/07/2014 23:59:59 CLS Outpatient OC SMITH MD [facility] RAD [id number] 10/18/2018 06:00:00 ACT Inpatient OC SMITH MD Via [facility] 4TH OSTEOARTHRITIS LEFT KNEE [id number] 03/10/2017 12:07:00 Document Registration [id number] 03/11/2017 17:06:00 Document Registration [id number] 08/24/2018 13:01:35 Document Registration [id number] 07/28/2018 10:02:45 Document Registration [id number] 10/10/2017 13:40:25 Document Registration [id number] 06/27/2017 11:39:06 Document Registration [id number] 09/06/2016 09:33:33 ACT Unknown
--- NOTE | 2018-10-18 12:27 | Consultation-Hospitalist ---
HPI History of Present Illness: HPI/Chief Complaint CC: Left knee replacement POD # [address] Castañeda HPI: This is a 63yoWF clinic patient of Dr Roblero in [place] who presents after an uncomplicated left total knee replacement by Dr Castañeda. She denies pain at this current time and has no nausea. Home meds were evaluated and restarted only the necessary ones. She does not use O2 at home or CPAP. Checked pre-op labs and noted low potassium so will check potassium level now and tomorrow and evaluate the need for supplement. Source: patient Date Seen 10/18/18 Attending Physician Ron Castañeda MD PCP Candido Willoughby MD Referring Physician Date of Admission Oct 18, 2018 at 06:00 Home Medications & Allergies Home Medications Reviewed patient Home Medication Reconciliation performed by pharmacy medication reconciliations library cataloging technician and/or nursing. Patients Allergies have been reviewed. Allergies Allergies Coded Allergies venom-wasp (Verified Allergy, Severe, 10/18/18) Sulfa (Sulfonamide Antibiotics) (Unverified Allergy, Unknown, 10/18/18) Uncoded Allergies TAPE ( Allergy, Mild, RASH, 08/20/15) Past Tfodkax-Cgoslh-Nqcuhj Hx Past Med/Social Hx: Reviewed Nursing Past Med/Soc Hx, Reviewed and Corrections made Patient Social History Marrital Status: single Alcohol Use: Rarely Uses Number of Drinks Today: 0 Recreational Drug Use: No Smoking Status: Never a Smoker Physical Abuse Screen: No Sexual Abuse: No Recent Foreign Travel: No Contact w/other who traveled: No Recent Hopitalizations: No Recent Infectious Disease Expo: No Immunizations Up To Date Date of Influenza Vaccine: Aug 07, 2018 Seasonal Allergies Seasonal Allergies: No Past Medical History Surgeries: Breast, Orthopedic Cardiac: Chronic Edema/Swelling, Hypertension Reproductive: No Sexually Transmitted Disease: No HIV/AIDS: No Female Reproductive Disorders: Denies Gastrointestinal: Gastroesophageal Reflux, Chronic Constipation Musculoskeletal: Degenerate Disk Disease, Osteoporosis, Arthritis, Chronic Back Pain Loss of Vision: Bilateral Hearing Impairment: Denies Cancer: Skin, Breast What Type of Treatment Did You: Surgical Intervention History of Blood Disorders: No Adverse Reaction to Blood Rogers: No (HAD TRANSFUSION, NO REACTION) Family History Abdominal aortic aneurysm 19 MOTHER Alzheimer's disease 19 MOTHER Arthritis 19 MOTHER G8 BROTHER G8 SISTER BREAST CANCER 19 MOTHER Cardiovascular disease G8 SISTER Diabetes mellitus G8 BROTHER Review of Systems Constitutional: see HPI EENTM: no symptoms reported Respiratory: no symptoms reported Cardiovascular: no symptoms reported Gastrointestinal: no symptoms reported Genitourinary: no symptoms reported Musculoskeletal: joint pain Skin: no symptoms reported Psychiatric/Neurological: No Symptoms Reported All Other Systems Reviewed Negative Unless Noted: Yes Physical Exam Physical Exam Vital Signs Vital Signs - First Documented 10/18/18 10:00 Temp 96.8 Pulse 65 Resp 20 B/P (MAP) 152/81 (104) Pulse Ox 100 O2 Delivery Nasal Cannula O2 Flow Rate 3.00 Capillary Refill : Height, Weight, BMI Height: 5'5.00" Weight: 252lbs. 0.0oz. [id number]; 41.9 BMI Method: General Appearance: No Apparent Distress, WD/WN, Obese Eyes: Bilateral Eye Normal Inspection, Bilateral Eye PERRL HEENT: PERRL/EOMI, Normal ENT Inspection, Pharynx Normal Neck: Full Range of Motion, Normal Inspection, Non Tender, Supple, Carotid Bruit Respiratory: Chest Non Tender, Lungs Clear, Normal Breath Sounds, No Accessory Muscle Use, No Respiratory Distress Cardiovascular: Regular Rate, Rhythm, No Edema, No Gallop, No JVD, No Murmur, Normal Peripheral Pulses Gastrointestinal: Normal Bowel Sounds, No Organomegaly, No Pulsatile Mass, Non Tender, Soft Back: Normal Inspection, No CVA Tenderness, No Vertebral Tenderness Extremity: Normal Capillary Refill, Normal Inspection, Normal Range of Motion ( except left leg with CPM machine), Non Tender, No Calf Tenderness, No Pedal Edema Neurologic/Psychiatric: Alert, Oriented x3, No Motor/Sensory Deficits, Normal Mood/Affect Skin: Normal Color, Warm/Dry Lymphatic: No Adenopathy Results Results/Procedures Labs Laboratory Tests 10/18/18 13:30 Patient resulted labs reviewed. Assessment/Plan Assessment and Plan Assess & Plan/Chief Complaint Assessment: s/p left total knee replacement POD # 0 Hypokalemia Hypomagnesemia HTN h/o possible TIA Obesity Plan: Replace potassium and magnesium Home meds Monitor closely for volume overload Diagnosis/Problems Diagnosis/Problems (1) Knee joint replacement status Status: Acute Qualifiers: Laterality: left Qualified Codes: Z96.652 - Presence of left artificial knee joint (2) Hypokalemia Status: Acute (3) Hypomagnesemia Status: Acute (4) Hypertension Status: Chronic Qualifiers: Hypertension type: essential hypertension Qualified Codes: I10 - Essential (primary) hypertension (5) Obesity Status: Chronic Qualifiers: Obesity type: due to excess calories Obesity classification: adult class 3 (BMI >= 40) Serious obesity comorbidity presence: without serious comorbidity Body mass index: BMI 40.0-44.9 Qualified Codes: E66.01 - Morbid (severe) obesity due to excess calories; Z68.41 - Body mass index (BMI) 40.0- 44.9, adult (6) Osteoarthritis of left knee Status: Chronic Qualifiers: Osteoarthritis type: primary Qualified Codes: M17.12 - Unilateral primary osteoarthritis, left knee Clinical Quality Measures DVT/VTE Risk/Contraindication: Risk Factor Score Per Nursin RFS Level Per Nursing on Admit: 4+=Very High DERICK GALVAN DO Oct 18, 2018 12:27
[2018-10-18] MEDS ORDERED: NON-FORMULARY MEDICATION 1 EA EA (Bumetanide 1 MG) PO SCH (12:30)
[2018-10-18] MEDS ORDERED: FLU QUADRIvalent (5+ YOA) 2018-2019 (AFLURIA) 0.5 ML IM ONE (12:30)
[2018-10-18] MEDS: diphenhydrAMINE 50 MG/ML INJ (BENADRYL) IVP PRN ×2 (12:42→20:53)
--- NOTE | 2018-10-18 13:49 | Physical Therapy Evaluation ---
PT Evaluation-General Medical Diagnosis Admission Date Oct 18, 2018 at 06:00 Medical Diagnosis: left TKA Onset Date: Oct 18, 2018 Therapy Diagnosis Therapy Diagnosis: impaired mobility, strength, endurance, ROM Height/Weight Height (Feet): 5 Height (Inches): 5.00 Weight (Pounds): 252 Weight (Ounces): 0.0 Precautions Precautions/Isolations: Fall Prevention, Standard Precautions Weight Bear Status Left Lower Extremity: Left Weight Bearing/Tolerated Referral Physician: Rik Van Reason for Referral: Evaluation/Treatment Medical History Pertinent Medical History: HTN, OA Additional Medical History reflux, hyperlipidemia, anxiety, surg (appendectomy, lumbar, tubal ligation, cholecystectomy, hysterectomy, breast lumpectomy, pelvic sling, skin CA removal from face) Reviewed History: Yes Social History Home: Single Level Current Living Status: Entry Into Home: Level Entry Patient states she has one step inside the home and she will have assistance from multiple family members. Prior/Core FIM Prior Level of Function Therapy Code Descriptions/Definitions Functional [place] Measure: 0=Not Assessed/NA 4=Minimal Assistance 1=Total Assistance 5=Supervision or Setup 2=Maximal Assistance 6=Modified [place] 3=Moderate Assistance 7=Complete [place] Therapy Quality Codes: 6 Independent with activity with or without an assistive device 5 Patient requires set up or clean up by helper. Patient completes activity by themselves 4 Supervision or touching assist (CGA). [place] provide cues , steadying assist 3 The helper provides less than half the effort to complete the activity 2 The helper provides more than half the effort to complete the activity 1 Dependent. The helper does all the effort to complete an activity 7 Patient refused to complete or attempt activity 9 The patient did not perform the activity before the current illness or injury 88 Not attempted due to Medical conditions or safety concerns Functional Abilities and Goals: Independent: Patient completed the activities by him/herself, with or without an assistive device, with no assistance from a helper. Needed Some Help: Patient needed partial assistance from another person to complete activities. Dependent: A helper completed the activities for the patient. Unknown: Not Applicable: Bed Mobility: 7 Transfers (B,C,W/C) (FIM): 7 Gait: 6 Stairs: 6 Indoor Mobility (Ambulation): Independent Stairs: Independent Prior Devices Use: Walker Patient states she occasionally used a 4-wheeled walker. PT Evaluation-Current Subjective Patient in bed pre tx, agrees to PT, has pain of 7/10 in left knee. Pt/Family Goals to be independent at home Objective Patient Orientation: Person, Place, Situation Attachments: SCD's, Polar Pack, IV ROM/Strength ROM Lower Extremities left knee flexion 90 degrees, extension +5 degrees Strength Lower Extremities NT Neuromuscular (Tone, Coordination, Reflexes) NT Sensory Vision: Wears Glasses Hearing: Functional Sensation Right Lower Extremit: Intact Sensation Left Lower Extremity: Impaired Sensation Lower Extremities Patient has numbness from the knee down on the left side. Transfers Therapy Code Descriptions/Definitions Functional [place] Measure: 0=Not Assessed/NA 4=Minimal Assistance 1=Total Assistance 5=Supervision or Setup 2=Maximal Assistance 6=Modified [place] 3=Moderate Assistance 7=Complete [place] Transfers (B, C, W/C) (FIM): 4 Scootin Rollin Supine to/from Sit: 5 Sit to/from Stand: 4 bed t/f WC(FIM only if WC use): 4 CGA for sit to stand and transfers, cues for hand placement. No complaints of dizziness. Gait Mode of Locomotion: Walk Anticipated Mode of Locomotion: Walk Gait (FIM): 2 Distance: 50' Gait Level of Assist: 4 Gait Persons Needed: 1 Gait Assistive Device: FWW Comments/Gait Description Patient ambulated 50' with a rolling walker with CGA, she had a couple of moments of unsteadiness but no LOB, she ambulates with a slightly flexed left knee, decreased stance time on the left side. Balance Sitting Static: Normal Sitting Dynamic: Normal Standing Static: Good Standing Dynamic: Good Treatment left TKA protocol x10 (AP, QS, HS, SAQ, SLR) Assessment/Needs Patient has impaired mobility,strength, endurance, ROM post left TKA. Patient in bed post tx with nurse call, phone, tray, all needs met. She had her CPM donned and fit to her leg and set to 70/-2. SCD's on and polar care on. Rehab Potential: Fair PT Short Term Goals Short Term Goals Time Frame: Oct 25, 2018 Transfers (B,C,W/C) (FIM): 6 Gait (FIM): 5 Gait Distance Comment: 150' Gait Level of Assist: 5 Gait Assistive Device: FWW PT Plan Problem List Problem List: Activity Tolerance, Functional Strength, Safety, Balance, Gait, Transfer, Bed Mobility, ROM Treatment/Plan Treatment Plan: Continue Plan of Care Treatment Plan: Bed Mobility, Education, Functional Activity Ferdinand, Functional Strength, Gait, Safety, Therapeutic Exercise, Transfers Treatment Duration: Oct 25, 2018 Frequency: 11 times per week Estimated Hrs Per Day: .25 hour per day (15-30') Patient and/or Family Agrees t: Yes Safety Risks/Education Patient Education: Gait Training, Transfer Techniques, Correct Positioning, Safety Issues Teaching Recipient: Patient Teaching Methods: Demonstration, Discussion Response to Teaching: Reinforcement Needed Discharge Recommendations Plan Patient will perform bed mobility and transfer training, balance and endurance training, functional strengthening, stair training, gait training, and education , to improve functional mobility and independence at home. Therapy D/C Recommendations: Home w/ Family Support Time/GCodes Time In: 1310 Time Out: 1340 Total Billed Treatment Time: 30 Total Billed Treatment 1 visit KATIUSKA 20' GT 10' ALBARO STEPHENS PT Oct 18, 2018 13:48
[2018-10-18 13:58] LABS: BUN/CREATININE RATIO 19; CALCIUM 8.8 MG/DL (8.5-10.1); CARBON DIOXIDE 23 MMOL/L (21-32); CHLORIDE 102 MMOL/L (98-107); GFR ESTIMATED > 60; GLUCOSE 180 MG/DL (70-105); MAGNESIUM 1.6 MG/DL (1.8-2.4); POTASSIUM 3.1 MMOL/L (3.6-5.0); SODIUM 138 MMOL/L (135-145)
[2018-10-18] MEDS: CEFUROXIME INJECTION 750 MG in NS (IVPB) 50 ML IV SCH (15:49)
[2018-10-18 16:00] VITALS: BP 117/65
[2018-10-18 20:00] VITALS: BP 103/58
[2018-10-18] MEDS: GABAPENTIN 300 MG (NEURONTIN) CAP PO SCH (20:53)
[2018-10-18] MEDS: ZOLPIDEM 5 MG (AMBIEN) TAB PO SCH (20:53)
[2018-10-18] MEDS ORDERED: DIPHENHYDRAMINE HCL PO SCH (21:00)
[2018-10-18] MEDS ORDERED: NON-FORMULARY MEDICATION 1 EA EA (Eszopiclone 3 MG) PO SCH (21:00)
[2018-10-18] MEDS ORDERED: POTASSIUM CHLORIDE INJ 10 MEQ in NS IV 1000 ML 1,000 ML IV SCH (21:04)
[2018-10-18] MEDS: MAGNESIUM 1 GM/100 ML IVPB 100 ML IV SCH ×2 (22:09→23:33)
[2018-10-18] MEDS: POTASSIUM CL 10MEQ/50ML IVPB 50 ML IV SCH (23:01)
[2018-10-19] VITALS (7 sets, daily range): BP systolic 113–142; BP diastolic 56–83
[2018-10-19] MEDS: CEFUROXIME INJECTION 750 MG in NS (IVPB) 50 ML IV SCH (00:36)
[2018-10-19] MEDS: POTASSIUM CL 10MEQ/50ML IVPB 50 ML IV SCH ×3 (01:18→03:57)
[2018-10-19] MEDS ORDERED: POTASSIUM CL 10MEQ/50ML IVPB 50 ML IV ONE (03:53)
[2018-10-19] MEDS: MULTIVIT W/MINERALS TAB (THERAGRAN M) PO SCH (06:01)
[2018-10-19] MEDS: PANTOPRAZOLE 40 MG (PROTONIX) TAB PO SCH (06:01)
[2018-10-19 06:04] LABS: BASOPHILS % (AUTO) 0 % (0-10); EOSINOPHILS % (AUTO) 0 % (0-10); HEMATOCRIT 33 % (35-52); HEMOGLOBIN 10.5 G/DL (11.5-16.0); LYMPHOCYTES # (AUTO) 1.6 X 10^3 (1.0-4.0); LYMPHOCYTES % (AUTO) 9 % (12-44); MEAN CORPUSCULAR HEMOGLOBIN 27 PG (25-34); MEAN CORPUSCULAR HGB CONC 32 G/DL (32-36); MEAN CORPUSCULAR VOLUME 84 FL (80-99); MEAN PLATELET VOLUME 9.8 FL (7.4-10.4); MONOCYTES # (AUTO) 1.5 X 10^3 (0.0-1.0); MONOCYTES % (AUTO) 9 % (0-12); NEUTROPHILS # (AUTO) 14.1 X 10^3 (1.8-7.8); NEUTROPHILS % (AUTO) 82 % (42-75); PLATELET COUNT 335 10^3/uL (130-400); RED CELL DISTRIBUTION WIDTH 14.5 % (10.0-14.5); WHITE BLOOD COUNT 17.2 10^3/uL (4.3-11.0)
[2018-10-19 06:44] LABS: ALANINE AMINOTRANSFERASE 21 U/L (0-55); ALBUMIN 3.8 GM/DL (3.2-4.5); ALKALINE PHOSPHATASE 109 U/L (40-136); BILIRUBIN,TOTAL 0.4 MG/DL (0.1-1.0); BUN/CREATININE RATIO 17; CALCIUM 8.7 MG/DL (8.5-10.1); CARBON DIOXIDE 23 MMOL/L (21-32); CHLORIDE 104 MMOL/L (98-107); CREATININE SERUM 0.78 MG/DL (0.60-1.30); GFR ESTIMATED > 60; GLUCOSE 129 MG/DL (70-105); MAGNESIUM 2.4 MG/DL (1.8-2.4); POTASSIUM 3.4 MMOL/L (3.6-5.0); SODIUM 138 MMOL/L (135-145); TOTAL PROTEIN 6.5 GM/DL (6.4-8.2)
--- NOTE | 2018-10-19 07:09 | Anesthesia-General Post-Op ---
General Patient Condition Mental Status/LOC: Same as Preop Cardiovascular: Satisfactory Nausea/Vomiting: Absent Respiratory: Satisfactory Pain: Controlled Complications: Absent Post Op Complications Complications None Follow Up Care/Instructions Patient Instructions None needed. Anesthesia/Patient Condition Patient Condition Patient is doing well, no complaints, stable vital signs, no apparent adverse anesthesia problems. No complications reported per nursing. ARVIND HOLDER CRNA Oct 19, 2018 07:09
--- NOTE | 2018-10-19 08:01 | Progress Note-Standard ---
Standard Progress Note Progress Notes/Assess & Plan Date Seen by a Provider: Oct 19, 2018 Time Seen by a Provider: 08:00 Progress/Assessment & Plan post op check no complaints radiographs--HW well positioned without fracture LLE--2 plus DP pulse with brisk cap refill. Intact sensation throughout. Intact DF and PF of toes and ankle s/p LTKA mobilize as able Final Diagnosis no complaints Vital Signs Date Time Temp Pulse Resp B/P (MAP) Pulse Ox O2 Delivery O2 Flow Rate FiO2 10/19/18 06:45 18 10/19/18 04:00 97.7 64 18 118/60 (79) 95 Room Air 10/19/18 00:05 97.8 67 20 113/59 (77) 94 Room Air 10/18/18 21:00 Room Air 10/18/18 20:00 99.0 61 20 103/58 (73) 95 Room Air 10/18/18 16:00 99.4 65 18 117/65 (82) 95 Room Air 10/18/18 12:06 100 Nasal Cannula 3.00 10/18/18 12:00 97.4 74 20 138/73 (94) 100 Room Air 10/18/18 10:40 20 10/18/18 10:00 96.8 65 20 152/81 (104) 100 Nasal Cannula 3.00 I & O 10/19/18 07:00 Intake Total 6150 ml Balance 6150 ml Laboratory Tests Test 10/18/18 13:30 10/19/18 05:25 Range/Units Sodium Level 138 138 135-145 MMOL/L Potassium Level 3.1 L 3.4 L 3.6-5.0 MMOL/L Chloride Level 102 104 98-107 MMOL/L Carbon Dioxide Level 23 23 21-32 MMOL/L Anion Gap 13 11 5-14 MMOL/L Blood Urea Nitrogen 15 13 7-18 MG/DL Creatinine 0.80 0.78 0.60-1.30 MG/DL Estimat Glomerular Filtration Rate > 60 > 60 BUN/Creatinine Ratio 19 17 Glucose Level 180 H 129 H 70-105 MG/DL Calcium Level 8.8 8.7 8.5-10.1 MG/DL Magnesium Level 1.6 L 2.4 1.8-2.4 MG/DL White Blood Count 17.2 H 4.3-11.0 10^3/uL Red Blood Count 3.90 L 4.35-5.85 10^6/uL Hemoglobin 10.5 L 11.5-16.0 G/DL Hematocrit 33 L 35-52 % Mean Corpuscular Volume 84 80-99 FL Mean Corpuscular Hemoglobin 27 25-34 PG Mean Corpuscular Hemoglobin Concent 32 32-36 G/DL Red Cell Distribution Width 14.5 10.0-14.5 % Platelet Count 335 130-400 10^3/uL Mean Platelet Volume 9.8 7.4-10.4 FL Neutrophils (%) (Auto) 82 H 42-75 % Lymphocytes (%) (Auto) 9 L 12-44 % Monocytes (%) (Auto) 9 0-12 % Eosinophils (%) (Auto) 0 0-10 % Basophils (%) (Auto) 0 0-10 % Neutrophils # (Auto) 14.1 H 1.8-7.8 X 10^3 Lymphocytes # (Auto) 1.6 1.0-4.0 X 10^3 Monocytes # (Auto) 1.5 H 0.0-1.0 X 10^3 Eosinophils # (Auto) 0.0 0.0-0.3 10^3/uL Basophils # (Auto) 0.0 0.0-0.1 10^3/uL Corrected Calcium 8.9 8.5-10.1 MG/DL Total Bilirubin 0.4 0.1-1.0 MG/DL Aspartate Amino Transf (AST/SGOT) 19 5-34 U/L Alanine Aminotransferase (ALT/SGPT) 21 0-55 U/L Alkaline Phosphatase 109 40-136 U/L Total Protein 6.5 6.4-8.2 GM/DL Albumin 3.8 3.2-4.5 GM/DL LLE--dressing intact. able to perform SLR No cafl tenderness. Neg Nancy's s/p LTKA doing well PT/OT OC SMITH MD Oct 19, 2018 08:01
[2018-10-19] MEDS: oxyCODONE/APAP 5/325MG (PERCOCET 5) TABLET PO PRN ×3 (08:59→18:35)
[2018-10-19] MEDS ORDERED: BUMETANIDE 1 MG (BUMEX) TAB PO SCH (09:00)
[2018-10-19] MEDS: LOSARTAN 100 MG (COZAAR) TABLET PO SCH (09:00)
[2018-10-19] MEDS: ENOXAPARIN 30 MG/0.3 ML (LOVENOX) SYR SC SCH ×2 (09:00→21:04)
[2018-10-19] MEDS: HYDROCHLOROTHIAZIDE 12.5 MG (HCTZ) CAP PO SCH (09:00)
[2018-10-19] MEDS: ASPIRIN E.C. 81 MG (ECOTRIN) TAB PO SCH (09:00)
[2018-10-19] MEDS: FLUoxetine HCL 20 MG (PROzac) CAP PO SCH (09:00)
[2018-10-19] MEDS: SENNA W/DOCUSATE (SENOKOT S) TABLET PO SCH ×2 (09:00→21:09)
--- NOTE | 2018-10-19 09:45 | Physical Therapy Daily Note ---
PT Daily Note-Current Subjective Patient is very agreeable to participate with PT. Pain Numeric Pain Scale: 5-Moderate Pain Location: Left Location Body Site: Knee Pain Description: Acute Mental Status Patient Orientation: Normal For Age Attachments: IV Transfers Therapy Code Descriptions/Definitions Functional [place] Measure: 0=Not Assessed/NA 4=Minimal Assistance 1=Total Assistance 5=Supervision or Setup 2=Maximal Assistance 6=Modified [place] 3=Moderate Assistance 7=Complete [place] Therapy Quality Codes: 6 Independent with activity with or without an assistive device 5 Patient requires set up or clean up by helper. Patient completes activity by themselves 4 Supervision or touching assist (CGA). [place] provide cues , steadying assist 3 The helper provides less than half the effort to complete the activity 2 The helper provides more than half the effort to complete the activity 1 Dependent. The helper does all the effort to complete an activity 7 Patient refused to complete or attempt activity 9 The patient did not perform the activity before the current illness or injury 88 Not attempted due to Medical conditions or safety concerns Transfers (B, C, W/C) (FIM): 6 Scootin Rollin Supine to/from Sit: 6 Sit to/from Stand: 6 Bed to/from Chair: 6 Weight Bearing Left Lower Extremity: Left Weight Bearing/Tolerated Gait Training Gait (FIM): 6 Distance (FIM): 3=150 ft Distance: 400' Gait Level of Assist: 6 Gait Assistive Device: FWW steady, functional Exercises Supine Ex: Ankle pumps, Quad Set, Heel Slides, Straight leg raise Supine Reps: 15 Seated Therapy Exercises: Long arc quads Seated Reps: 15 Treatments CPM 0-80 degrees with polar pack in place Assessment Patient tolerated treatment well and is highly motivated with progress and plans dismissal to home tomorrow. PT Short Term Goals Short Term Goals Time Frame: Oct 25, 2018 Transfers (B,C,W/C) (FIM): 6 Gait (FIM): 5 Gait Distance Comment: 150' Gait Level of Assist: 5 Gait Assistive Device: FWW PT Plan Treatment/Plan Treatment Plan: Continue Plan of Care Treatment Plan: Bed Mobility, Education, Functional Activity Ferdinand, Functional Strength, Gait, Safety, Therapeutic Exercise, Transfers Treatment Duration: Oct 25, 2018 Frequency: 11 times per week Estimated Hrs Per Day: .25 hour per day (15-30') Patient and/or Family Agrees t: Yes Time/GCodes Time In: 830 Time Out: 853 Total Billed Treatment Time: 23 Total Billed Treatment 1 visit EX 15 min GT 8 min GILES LUCERO PT Oct 19, 2018 09:45
--- NOTE | 2018-10-19 11:16 | Progress Note-Hospitalist ---
DERICK GALVAN 10/19/18 1116: Subjective HPI/CC On Admission Date Seen by Provider: Oct 19, 2018 Time Seen by Provider: 10:00 CC: Left knee replacement POD # [address] Castañeda HPI: This is a 63yoWF clinic patient of Dr Roblero in [place] who presents after an uncomplicated left total knee replacement by Dr Castañeda. She denies pain at this current time and has no nausea. Home meds were evaluated and restarted only the necessary ones. She does not use O2 at home or CPAP. Checked pre-op labs and noted low potassium so will check potassium level now and tomorrow and evaluate the need for supplement. Subjective/Events-last exam Patient doing well Updated her on the need for potassium and magnesium supplement as outpt Reports fluid retention most of the time. Review of Systems Musculoskeletal: leg pain Objective Exam Vital Signs Vital Signs Date Time Temp Pulse Resp B/P (MAP) Pulse Ox O2 Delivery O2 Flow Rate FiO2 10/19/18 15:55 97.1 59 20 142/70 (94) 98 Room Air 10/18/18 12:06 3.00 Capillary Refill : General Appearance: No Apparent Distress, WD/WN Respiratory: Chest Non Tender, Lungs Clear, Normal Breath Sounds, No Accessory Muscle Use, No Respiratory Distress Cardiovascular: Regular Rate, Rhythm, No Edema, No Gallop, No JVD, No Murmur, Normal Peripheral Pulses Neurologic/Psychiatric: Alert, Oriented x3, No Motor/Sensory Deficits, Normal Mood/Affect Results/Procedures Lab Laboratory Tests 10/19/18 05:25 Patient resulted labs reviewed. Assessment/Plan Assessment and Plan Assess & Plan/Chief Complaint Assessment: s/p left total knee replacement POD # 1 Hypokalemia Hypomagnesemia HTN h/o possible TIA Obesity Plan: Replace potassium and magnesium PO and sent in Rx Home meds Monitor closely for volume overload Diagnosis/Problems Diagnosis/Problems (1) Knee joint replacement status Status: Acute Qualifiers: Laterality: left Qualified Codes: Z96.652 - Presence of left artificial knee joint (2) Hypokalemia Status: Acute (3) Hypomagnesemia Status: Resolved Resolution Date/Time: 10/19/18 @ 11:27 (4) Hypertension Status: Chronic Qualifiers: Hypertension type: essential hypertension Qualified Codes: I10 - Essential (primary) hypertension (5) Obesity Status: Chronic Qualifiers: Obesity type: due to excess calories Obesity classification: adult class 3 (BMI >= 40) Serious obesity comorbidity presence: without serious comorbidity Body mass index: BMI 40.0-44.9 Qualified Codes: E66.01 - Morbid (severe) obesity due to excess calories; Z68.41 - Body mass index (BMI) 40.0- 44.9, adult (6) Osteoarthritis of left knee Status: Chronic Qualifiers: Osteoarthritis type: primary Qualified Codes: M17.12 - Unilateral primary osteoarthritis, left knee Clinical Quality Measures DVT/VTE Risk/Contraindication: Risk Factor Score Per Nursin RFS Level Per Nursing on Admit: 4+=Very High RICHMONDJADON RÍOS MED STUDENT 10/19/18 1128: Subjective Subjective/Events-last exam Pt was awake and sitting in a chair this morning Reports she can tell her nerve block is wearing off- pain is 5/10 Hypokalemia improved, now 3.4 Hypomagnesemia resolved, now 2.4 Has been ambulating well Using IS Denies any bowel/bladder dysfunction Focused Exam Respiratory: Chest Non Tender, Normal Breath Sounds, No Accessory Muscle Use, No Respiratory Distress Cardiovascular: Regular Rate, Rhythm, No Murmur Skin: normal color Objective Exam General Appearance: No Apparent Distress Neck: Full Range of Motion, Normal Inspection Respiratory: Chest Non Tender, Normal Breath Sounds, No Accessory Muscle Use Cardiovascular: Regular Rate, Rhythm, No Edema, No Murmur, Normal Peripheral Pulses Extremity: Normal Capillary Refill Neurologic/Psychiatric: Alert, Oriented x3 Assessment/Plan Assessment and Plan Assess & Plan/Chief Complaint Assessment: s/p left total knee replacement POD #1 HTN h/o possible TIA Obesity Plan: Continue to ambulate PO potassium and magnesium outpatient- f/u with PCP Pain management IS Monitor labs Diagnosis/Problems Diagnosis/Problems (1) Knee joint replacement status Status: Acute Qualifiers: Laterality: left Qualified Codes: Z96.652 - Presence of left artificial knee joint (2) Hypomagnesemia Status: Resolved Resolution Date/Time: 10/19/18 @ 11:27 (3) Hypokalemia Status: Acute (4) Hypertension Status: Chronic Qualifiers: Hypertension type: essential hypertension Qualified Codes: I10 - Essential (primary) hypertension (5) Obesity Status: Chronic Qualifiers: Obesity type: due to excess calories Obesity classification: adult class 3 (BMI >= 40) Serious obesity comorbidity presence: without serious comorbidity Body mass index: BMI 40.0-44.9 Qualified Codes: E66.01 - Morbid (severe) obesity due to excess calories; Z68.41 - Body mass index (BMI) 40.0- 44.9, adult DERICK GALVAN DO Oct 19, 2018 11:16 JADON BEY MED STUDENT Oct 19, 2018 11:28
[2018-10-19] MEDS ORDERED: POTA10CA43 PO (11:19)
[2018-10-19] MEDS ORDERED: MAGN400T6 PO (11:19)
[2018-10-19] MEDS ORDERED: MAGNESIUM OXIDE (MAG-OX)400 MG TAB PO ONE (11:30)
[2018-10-19] MEDS: KCL 10 MEQ TAB (MICRO K) PO SCH ×2 (12:36→21:04)
--- NOTE | 2018-10-19 14:28 | Occupational Therapy Eval ---
OT Evaluation-General/PLF Medical Diagnosis Admission Date Oct 18, 2018 at 06:00 Medical Diagnosis: left TKA Onset Date: Oct 18, 2018 Therapy Diagnosis Therapy Diagnosis: decr self care Height/Weight Height (Feet): 5 Height (Inches): 5.00 Weight (Pounds): 252 Weight (Ounces): 0.0 Precautions Precautions/Isolations: Fall Prevention, Standard Precautions Safety Interventions: None Weight Bear Status Weight Bearing Restriction: Weight Bearing/Tolerated Location Restriction: L LE Referral Physician: Rik Van Referral Reason: Evaluation/Treatment Medical History Pertinent Medical History: Arthritis, GERD, HTN, OA Additional Medical History Anxiety. Lumbar spine surgeries. Breast lumpectomy, skin cancer. Chronic edema/ swelling. Chronic constipation. DDD. osteoporosis. Chronic back pain. R total knee two years ago. Current History Elective Left total knee replacement Reviewed History: Yes Social History Home: Single Level Current Living Status: Alone Entry Into Home: Level Entry Will have family members staying with her ADL-Prior Level of Function Therapy Code Descriptions/Definitions Functional [place] Measure: 0=Not Assessed/NA 4=Minimal Assistance 1=Total Assistance 5=Supervision or Setup 2=Maximal Assistance 6=Modified [place] 3=Moderate Assistance 7=Complete [place] Therapy Quality Codes: 6 Independent with activity with or without an assistive device 5 Patient requires set up or clean up by helper. Patient completes activity by themselves 4 Supervision or touching assist (CGA). [place] provide cues , steadying assist 3 The helper provides less than half the effort to complete the activity 2 The helper provides more than half the effort to complete the activity 1 Dependent. The helper does all the effort to complete an activity 7 Patient refused to complete or attempt activity 9 The patient did not perform the activity before the current illness or injury 88 Not attempted due to Medical conditions or safety concerns Functional Abilities and Goals: Independent: Patient completed the activities by him/herself, with or without an assistive device, with no assistance from a helper. Needed Some Help: Patient needed partial assistance from another person to complete activities. Dependent: A helper completed the activities for the patient. Unknown: Not Applicable: ADL PLOF Comments Pt reported that she was able to manage all of her basic self care needs but her knee hurt while she did them. She also did work around the house, had no problems managing medications or bills, still drove. 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 Self Care: Independent Functional Cognition: Independent DME/Equipment: Bath Chair, Grab Bars, Shower, Tall Toilet, Tub/Shower OT Current Status Subjective Pt seen in room, up in recliner, agreeable to OT. Pain reported 10/10 and she was rubbing her knee throughout evaluation. Pt will get polarpak on knee. Appearance Alert, cooperative Mental Status/Objective Patient Orientation: Person, Place, Time, Situation Attachments: IV Current Glasses/Contacts: Yes Hand Dominance: Right Upper Extremity ROM Grossly WFL bilat Upper Extremity Strength Grossly WFl bilat Education OT Patient Education: Modified ADL techniques, Purpose of tx/functional activities, Rehab process, Transfer techniques Teaching Recipient: Patient Teaching Methods: Discussion Response to Teaching: Verbalize Understanding OT Short Term Goals Short Term Goals Transfers (B,C,W/C) (FIM): 6 OT Long-Term Goals Long-Term Goals Time Frame: Oct 19, 2018 Additional Goals: 2-Verbalize Understanding (goal met) 2=Patient will verbalize/demonstrate understanding of assistive devices/ modifications for ADL. OT Education/Plan Problem List/Assessment Assessment: Impaired Self-Care Skills Pt would benefit from skilled OT to increase her independence in basic self care to allow her to safely return home Discharge Recommendations Plan/Recommendations: Discharge/Goals Met Therapy D/C Recommendations: Home w/ Family Support Treatment Plan/Plan of Care Treatment,Training & Education: Yes Patient would benefit from OT for education, treatment and training to promote independence in ADL's, mobility, safety and/or upper extremity function for ADL' s. Plan of Care: ADL Retraining Treatment Duration: Oct 19, 2018 Frequency: 1 time per week Estimated Hrs Per Day: .25 hour per day Agreement: Yes Rehab Potential: Good Time/GCodes Start Time: 13:50 Stop Time: 14:05 Total Time Billed (hr/min): 15 Billed Treatment Time visit, 15 minutes evaluation low intensity DAMIÁN CAMP OT Oct 19, 2018 14:28
--- NOTE | 2018-10-19 14:43 | Occupational Therapy Eval ---
OT Evaluation-General/PLF Medical Diagnosis Admission Date Oct 18, 2018 at 06:00 Medical Diagnosis: left TKA Onset Date: Oct 18, 2018 Therapy Diagnosis Therapy Diagnosis: decr self care Height/Weight Height (Feet): 5 Height (Inches): 5.00 Weight (Pounds): 252 Weight (Ounces): 0.0 Precautions Precautions/Isolations: Fall Prevention, Standard Precautions Safety Interventions: None Weight Bear Status Weight Bearing Restriction: Weight Bearing/Tolerated Referral Physician: Rik Van Referral Reason: Evaluation/Treatment Medical History Pertinent Medical History: Arthritis, GERD, HTN, OA Additional Medical History Anxiety. Lumbar spine surgeries. Breast lumpectomy, skin cancer. chronic edema/ swelling. Chronic constipation. DDD. Osteoporosis. Chronic back pain. R total knee two years ago. Current History Elective total knee Reviewed History: Yes Social History Home: Single Level Current Living Status: Entry Into Home: Level Entry Pt reported that she will have lots of help at home ADL-Prior Level of Function Therapy Code Descriptions/Definitions Functional [place] Measure: 0=Not Assessed/NA 4=Minimal Assistance 1=Total Assistance 5=Supervision or Setup 2=Maximal Assistance 6=Modified [place] 3=Moderate Assistance 7=Complete [place] Therapy Quality Codes: 6 Independent with activity with or without an assistive device 5 Patient requires set up or clean up by helper. Patient completes activity by themselves 4 Supervision or touching assist (CGA). [place] provide cues , steadying assist 3 The helper provides less than half the effort to complete the activity 2 The helper provides more than half the effort to complete the activity 1 Dependent. The helper does all the effort to complete an activity 7 Patient refused to complete or attempt activity 9 The patient did not perform the activity before the current illness or injury 88 Not attempted due to Medical conditions or safety concerns Functional Abilities and Goals: Independent: Patient completed the activities by him/herself, with or without an assistive device, with no assistance from a helper. Needed Some Help: Patient needed partial assistance from another person to complete activities. Dependent: A helper completed the activities for the patient. Unknown: Not Applicable: ADL PLOF Comments Pt reported that she has been able to manage her basic self care needs but her knee hurt while doing them. She was able to manage tasks around the home, medications, bills, and still drives. 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 Self Care: Independent Functional Cognition: Independent DME/Equipment: Bath Chair, Grab Bars, Shower, Tall Toilet, Tub/Shower OT Current Status Subjective Pt seen in room, up in recliner, agreeable to OT. Observed pt rubbing L knee throughout and pain rated 10/10 in knee - she was going to get Polarpak on. Appearance Alert, cooperative Mental Status/Objective Patient Orientation: Person, Place, Time, Situation Attachments: IV Current Glasses/Contacts: Yes Hand Dominance: Right Upper Extremity ROM Grossly WFL bilat Upper Extremity Strength Grossly WFL bilat ADL-Treatment ADL-Current Pt reported that she has been on/off the toilet in her room and had a BSC placed over it to make it easier. She has been able to feed herself without help. Today she transferred with modified independence and walked 400' with FWW. She was able to describe modified technique for dressing and OT shared technique for getting in/out of bathtub. She voices not concerns about going home tomorrow and said that she will have plenty of help if she needs it. Therapy Code Descriptions/Definitions Functional [place] Measure: 0=Not Assessed/NA 4=Minimal Assistance 1=Total Assistance 5=Supervision or Setup 2=Maximal Assistance 6=Modified [place] 3=Moderate Assistance 7=Complete [place] Therapy Quality Codes: 6 Independent with activity with or without an assistive device 5 Patient requires set up or clean up by helper. Patient completes activity by themselves 4 Supervision or touching assist (CGA). [place] provide cues , steadying assist 3 The helper provides less than half the effort to complete the activity 2 The helper provides more than half the effort to complete the activity 1 Dependent. The helper does all the effort to complete an activity 7 Patient refused to complete or attempt activity 9 The patient did not perform the activity before the current illness or injury 88 Not attempted due to Medical conditions or safety concerns Education OT Patient Education: Modified ADL techniques, Purpose of tx/functional activities, Rehab process, Safety issues, Transfer techniques Teaching Recipient: Patient Teaching Methods: Discussion Response to Teaching: Verbalize Understanding OT Short Term Goals Short Term Goals Transfers (B,C,W/C) (FIM): 6 OT Floor Coverings Installer Goals Floor Coverings Installer Goals Additional Goals: 2-Verbalize Understanding (met) 2=Patient will verbalize/demonstrate understanding of assistive devices/ modifications for ADL. OT Education/Plan Problem List/Assessment Assessment: Impaired Self-Care Skills Pt would benefit from skilled OT to increase her independence in basic self care to allow her to safely return home Discharge Recommendations Plan/Recommendations: Discharge/Goals Met Therapy D/C Recommendations: Home w/ Family Support Treatment Plan/Plan of Care Treatment,Training & Education: Yes Patient would benefit from OT for education, treatment and training to promote independence in ADL's, mobility, safety and/or upper extremity function for ADL' s. Plan of Care: ADL Retraining Treatment Duration: Oct 19, 2018 Frequency: 1 time per week Estimated Hrs Per Day: .25 hour per day Rehab Potential: Good Time/GCodes Start Time: 13:50 Stop Time: 14:05 Total Time Billed (hr/min): 15 Billed Treatment Time visit, 15 minutes evaluation low intensity DAMIÁN CAMP OT Oct 19, 2018 14:43
--- NOTE | 2018-10-19 14:49 | Physical Therapy Daily Note ---
PT Daily Note-Current Subjective Patient agrees to PT. Increase c/o left knee pain. Pain Numeric Pain Scale: 8 Location: Left Location Body Site: Knee Pain Description: Acute Mental Status Patient Orientation: Normal For Age Attachments: IV Transfers Therapy Code Descriptions/Definitions Functional [place] Measure: 0=Not Assessed/NA 4=Minimal Assistance 1=Total Assistance 5=Supervision or Setup 2=Maximal Assistance 6=Modified [place] 3=Moderate Assistance 7=Complete [place] Therapy Quality Codes: 6 Independent with activity with or without an assistive device 5 Patient requires set up or clean up by helper. Patient completes activity by themselves 4 Supervision or touching assist (CGA). [place] provide cues , steadying assist 3 The helper provides less than half the effort to complete the activity 2 The helper provides more than half the effort to complete the activity 1 Dependent. The helper does all the effort to complete an activity 7 Patient refused to complete or attempt activity 9 The patient did not perform the activity before the current illness or injury 88 Not attempted due to Medical conditions or safety concerns Transfers (B, C, W/C) (FIM): 6 Rollin Supine to/from Sit: 6 Sit to/from Stand: 6 Bed to/from Chair: 6 Weight Bearing Left Lower Extremity: Left Weight Bearing/Tolerated Gait Training Gait (FIM): 6 Distance (FIM): 3=150 ft Distance: 300' Gait Level of Assist: 6 Gait Assistive Device: FWW steady, antalgic Exercises Supine Ex: Ankle pumps, Quad Set, Heel Slides, Straight leg raise Supine Reps: 15 Seated Therapy Exercises: Long arc quads Seated Reps: 15 Assessment Patient progressing with treatment plan. Increase activity as tolerated. PT Short Term Goals Short Term Goals Time Frame: Oct 25, 2018 Transfers (B,C,W/C) (FIM): 6 Gait (FIM): 5 Gait Distance Comment: 150' Gait Level of Assist: 5 Gait Assistive Device: FWW PT Plan Treatment/Plan Treatment Plan: Continue Plan of Care Treatment Plan: Bed Mobility, Education, Functional Activity [place], Functional Strength, Gait, Safety, Therapeutic Exercise, Transfers Treatment Duration: Oct 25, 2018 Frequency: 11 times per week Estimated Hrs Per Day: .25 hour per day (15-30') Patient and/or Family Agrees t: Yes Time/GCodes Time In: 1405 Time Out: 1428 Total Billed Treatment Time: 23 Total Billed Treatment 1 visit EX 10 min GT 13 min NIC,GILES PT Oct 19, 2018 14:49
[2018-10-19] MEDS: MAGNESIUM OXIDE (MAG-OX)400 MG TAB PO SCH (18:35)
[2018-10-19] MEDS: ZOLPIDEM 5 MG (AMBIEN) TAB PO SCH (21:04)
[2018-10-19] MEDS: GABAPENTIN 300 MG (NEURONTIN) CAP PO SCH (21:05)
[2018-10-20] MEDS ORDERED: NS IV 500 ML 500 ML IV SCH (00:30)
[2018-10-20 04:00] VITALS: BP 132/58
[2018-10-20 05:59] LABS: BASOPHILS % (AUTO) 0 % (0-10); EOSINOPHILS % (AUTO) 0 % (0-10); HEMATOCRIT 33 % (35-52); HEMOGLOBIN 10.5 G/DL (11.5-16.0); LYMPHOCYTES # (AUTO) 2.6 X 10^3 (1.0-4.0); LYMPHOCYTES % (AUTO) 23 % (12-44); MEAN CORPUSCULAR HEMOGLOBIN 27 PG (25-34); MEAN CORPUSCULAR HGB CONC 32 G/DL (32-36); MEAN CORPUSCULAR VOLUME 85 FL (80-99); MEAN PLATELET VOLUME 9.6 FL (7.4-10.4); MONOCYTES # (AUTO) 1.2 X 10^3 (0.0-1.0); MONOCYTES % (AUTO) 11 % (0-12); NEUTROPHILS # (AUTO) 7.5 X 10^3 (1.8-7.8); NEUTROPHILS % (AUTO) 66 % (42-75); PLATELET COUNT 310 10^3/uL (130-400); RED BLOOD COUNT 3.91 10^6/uL (4.35-5.85); RED CELL DISTRIBUTION WIDTH 14.8 % (10.0-14.5); WHITE BLOOD COUNT 11.4 10^3/uL (4.3-11.0)
[2018-10-20] MEDS: MULTIVIT W/MINERALS TAB (THERAGRAN M) PO SCH (06:09)
[2018-10-20] MEDS: PANTOPRAZOLE 40 MG (PROTONIX) TAB PO SCH (06:09)
[2018-10-20 06:16] LABS: ALANINE AMINOTRANSFERASE 19 U/L (0-55); ALBUMIN 3.8 GM/DL (3.2-4.5); ALKALINE PHOSPHATASE 111 U/L (40-136); BILIRUBIN,TOTAL 0.6 MG/DL (0.1-1.0); BUN/CREATININE RATIO 11; CALCIUM 8.5 MG/DL (8.5-10.1); CARBON DIOXIDE 24 MMOL/L (21-32); CHLORIDE 103 MMOL/L (98-107); CREATININE SERUM 0.75 MG/DL (0.60-1.30); GFR ESTIMATED > 60; GLUCOSE 123 MG/DL (70-105); POTASSIUM 3.8 MMOL/L (3.6-5.0); SODIUM 136 MMOL/L (135-145); TOTAL PROTEIN 6.7 GM/DL (6.4-8.2)
--- NOTE | 2018-10-20 07:14 | Progress Note-Standard ---
Standard Progress Note Progress Notes/Assess & Plan Date Seen by a Provider: Oct 20, 2018 Time Seen by a Provider: 07:13 Progress/Assessment & Plan post op check no complaints radiographs--HW well positioned without fracture LLE--2 plus DP pulse with brisk cap refill. Intact sensation throughout. Intact DF and PF of toes and ankle s/p LTKA mobilize as able Final Diagnosis no complaints Vital Signs Date Time Temp Pulse Resp B/P (MAP) Pulse Ox O2 Delivery O2 Flow Rate FiO2 10/20/18 04:00 98.6 81 18 132/58 (82) 97 Room Air 10/19/18 23:51 99.1 77 18 124/59 (80) 98 Room Air 10/19/18 21:00 Room Air 10/19/18 19:50 97.8 69 18 142/66 (91) 98 Room Air 10/19/18 15:55 97.1 59 20 142/70 (94) 98 Room Air 10/19/18 12:00 98.5 58 20 128/83 (98) 100 Room Air 10/19/18 08:00 Room Air 10/19/18 08:00 97.9 59 20 115/56 (75) 99 Room Air I & O 10/20/18 07:00 Intake Total 2830 ml Balance 2830 ml Laboratory Tests Test 10/20/18 05:25 Range/Units White Blood Count 11.4 H 4.3-11.0 10^3/uL Red Blood Count 3.91 L 4.35-5.85 10^6/uL Hemoglobin 10.5 L 11.5-16.0 G/DL Hematocrit 33 L 35-52 % Mean Corpuscular Volume 85 80-99 FL Mean Corpuscular Hemoglobin 27 25-34 PG Mean Corpuscular Hemoglobin Concent 32 32-36 G/DL Red Cell Distribution Width 14.8 H 10.0-14.5 % Platelet Count 310 130-400 10^3/uL Mean Platelet Volume 9.6 7.4-10.4 FL Neutrophils (%) (Auto) 66 42-75 % Lymphocytes (%) (Auto) 23 12-44 % Monocytes (%) (Auto) 11 0-12 % Eosinophils (%) (Auto) 0 0-10 % Basophils (%) (Auto) 0 0-10 % Neutrophils # (Auto) 7.5 1.8-7.8 X 10^3 Lymphocytes # (Auto) 2.6 1.0-4.0 X 10^3 Monocytes # (Auto) 1.2 H 0.0-1.0 X 10^3 Eosinophils # (Auto) 0.0 0.0-0.3 10^3/uL Basophils # (Auto) 0.0 0.0-0.1 10^3/uL Sodium Level 136 135-145 MMOL/L Potassium Level 3.8 3.6-5.0 MMOL/L Chloride Level 103 98-107 MMOL/L Carbon Dioxide Level 24 21-32 MMOL/L Anion Gap 9 5-14 MMOL/L Blood Urea Nitrogen 8 7-18 MG/DL Creatinine 0.75 0.60-1.30 MG/DL Estimat Glomerular Filtration Rate > 60 BUN/Creatinine Ratio 11 Glucose Level 123 H 70-105 MG/DL Calcium Level 8.5 8.5-10.1 MG/DL Corrected Calcium 8.7 8.5-10.1 MG/DL Total Bilirubin 0.6 0.1-1.0 MG/DL Aspartate Amino Transf (AST/SGOT) 20 5-34 U/L Alanine Aminotransferase (ALT/SGPT) 19 0-55 U/L Alkaline Phosphatase 111 40-136 U/L Total Protein 6.7 6.4-8.2 GM/DL Albumin 3.8 3.2-4.5 GM/DL LLE--incision clean and dry. No calf tenderness. Neg Nancy's doing well s/p LTKA PT/OT DC later today OC SMITH MD Oct 20, 2018 07:14
[2018-10-20] MEDS ORDERED: morphine INJ 4 MG/ML 1 ML (VIAL/SYRINGE) IVP PRN (07:15)
[2018-10-20] MEDS: oxyCODONE/APAP 5/325MG (PERCOCET 5) TABLET PO PRN ×2 (07:42→09:47)
[2018-10-20 08:00] VITALS: BP 147/74
--- NOTE | 2018-10-20 08:32 | Progress Note-Hospitalist ---
Subjective HPI/CC On Admission Date Seen by Provider: Oct 20, 2018 Time Seen by Provider: 10:30 CC: Left knee replacement POD # [address] Castañeda HPI: This is a 63yoWF clinic patient of Dr Roblero in [place] who presents after an uncomplicated left total knee replacement by Dr Castañeda. She denies pain at this current time and has no nausea. Home meds were evaluated and restarted only the necessary ones. She does not use O2 at home or CPAP. Checked pre-op labs and noted low potassium so will check potassium level now and tomorrow and evaluate the need for supplement. Subjective/Events-last exam Patient doing well Bowel movement this morning Potassium now normal and sent in supplement to pharmacy Going home today Pain is under control Review of Systems Musculoskeletal: leg pain Objective Exam Vital Signs Vital Signs Date Time Temp Pulse Resp B/P (MAP) Pulse Ox O2 Delivery O2 Flow Rate FiO2 10/20/18 11:36 72 20 147/74 95 Room Air 10/20/18 08:00 99.7 10/18/18 12:06 3.00 Capillary Refill : General Appearance: No Apparent Distress, WD/WN, Chronically ill Respiratory: Chest Non Tender, Lungs Clear, Normal Breath Sounds, No Accessory Muscle Use, No Respiratory Distress Cardiovascular: Regular Rate, Rhythm, No Edema, No Gallop, No JVD, No Murmur, Normal Peripheral Pulses Neurologic/Psychiatric: Alert, Oriented x3, No Motor/Sensory Deficits, Normal Mood/Affect Results/Procedures Lab Laboratory Tests 10/20/18 05:25 Patient resulted labs reviewed. Assessment/Plan Assessment and Plan Assess & Plan/Chief Complaint Assessment: s/p left total knee replacement POD # 2 Hypokalemia resolved Hypomagnesemia resolved HTN h/o possible TIA Obesity Plan: Replace potassium and magnesium PO and sent in Rx Home meds DC home Diagnosis/Problems Diagnosis/Problems (1) Knee joint replacement status Status: Acute Qualifiers: Laterality: left Qualified Codes: Z96.652 - Presence of left artificial knee joint (2) Hypokalemia Status: Acute (3) Hypomagnesemia Status: Resolved Resolution Date/Time: 10/19/18 @ 11:27 (4) Hypertension Status: Chronic Qualifiers: Hypertension type: essential hypertension Qualified Codes: I10 - Essential (primary) hypertension (5) Obesity Status: Chronic Qualifiers: Obesity type: due to excess calories Obesity classification: adult class 3 (BMI >= 40) Serious obesity comorbidity presence: without serious comorbidity Body mass index: BMI 40.0-44.9 Qualified Codes: E66.01 - Morbid (severe) obesity due to excess calories; Z68.41 - Body mass index (BMI) 40.0- 44.9, adult (6) Osteoarthritis of left knee Status: Chronic Qualifiers: Osteoarthritis type: primary Qualified Codes: M17.12 - Unilateral primary osteoarthritis, left knee Clinical Quality Measures DVT/VTE Risk/Contraindication: Risk Factor Score Per Nursin RFS Level Per Nursing on Admit: 4+=Very High DERICK GALVAN DO Oct 20, 2018 08:32
[2018-10-20] MEDS: FLUoxetine HCL 20 MG (PROzac) CAP PO SCH (08:59)
[2018-10-20] MEDS: LOSARTAN 100 MG (COZAAR) TABLET PO SCH (08:59)
[2018-10-20] MEDS: HYDROCHLOROTHIAZIDE 12.5 MG (HCTZ) CAP PO SCH (08:59)
[2018-10-20] MEDS: ASPIRIN E.C. 81 MG (ECOTRIN) TAB PO SCH (08:59)
[2018-10-20] MEDS: KCL 10 MEQ TAB (MICRO K) PO SCH (09:00)
[2018-10-20] MEDS ORDERED: ENOXAPARIN 40 MG/0.4 ML (LOVENOX) SYR SC SCH (09:00)
[2018-10-20] MEDS: MAGNESIUM OXIDE (MAG-OX)400 MG TAB PO SCH (09:00)
[2018-10-20] MEDS: SENNA W/DOCUSATE (SENOKOT S) TABLET PO SCH (09:00)
--- NOTE | 2018-10-20 09:29 | Physical Therapy Daily Note ---
PT Daily Note-Current Subjective Patient has increase c/o left knee pain with meds issued. Patient reports she will dismiss to home on this date. Pain Numeric Pain Scale: 8 Location: Left Location Body Site: Knee Pain Description: Acute Mental Status Patient Orientation: Normal For Age Transfers Therapy Code Descriptions/Definitions Functional [place] Measure: 0=Not Assessed/NA 4=Minimal Assistance 1=Total Assistance 5=Supervision or Setup 2=Maximal Assistance 6=Modified [place] 3=Moderate Assistance 7=Complete [place] Therapy Quality Codes: 6 Independent with activity with or without an assistive device 5 Patient requires set up or clean up by helper. Patient completes activity by themselves 4 Supervision or touching assist (CGA). [place] provide cues , steadying assist 3 The helper provides less than half the effort to complete the activity 2 The helper provides more than half the effort to complete the activity 1 Dependent. The helper does all the effort to complete an activity 7 Patient refused to complete or attempt activity 9 The patient did not perform the activity before the current illness or injury 88 Not attempted due to Medical conditions or safety concerns Transfers (B, C, W/C) (FIM): 6 [place] Sit to/from Stand: 6 Weight Bearing Left Lower Extremity: Left Weight Bearing/Tolerated Gait Training Gait (FIM): 6 Distance (FIM): 3=150 ft Distance: 250' Gait Level of Assist: 6 Gait Assistive Device: FWW slow, antalgic Exercises Supine Ex: Ankle pumps, Quad Set, Heel Slides, Straight leg raise Supine Reps: 15 (in recliner) Seated Therapy Exercises: Long arc quads Seated Reps: 25 (2 sets) Assessment Patient progressing with treatment plan and will dismiss to home on this date. PT instructed patient and nursing staff that patient is to be up ad kevin in room and hallway. PT Short Term Goals Short Term Goals Time Frame: Oct 25, 2018 Transfers (B,C,W/C) (FIM): 6 Gait (FIM): 5 Gait Distance Comment: 150' Gait Level of Assist: 5 Gait Assistive Device: FWW PT Plan Treatment/Plan Treatment Plan: Continue Plan of Care Treatment Plan: Bed Mobility, Education, Functional Activity [place], Functional Strength, Gait, Safety, Therapeutic Exercise, Transfers Treatment Duration: Oct 25, 2018 Frequency: 11 times per week Estimated Hrs Per Day: .25 hour per day (15-30') Patient and/or Family Agrees t: Yes Time/GCodes Time In: 815 Time Out: 844 Total Billed Treatment Time: 29 Total Billed Treatment 1 visit EX 15 min GT 14 min GILES LUCERO PT Oct 20, 2018 09:29
[2018-10-20 11:36] VITALS: BP 147/74
--- NOTE | 2018-10-21 04:33 | DISCHARGE SUMMARY ---
DATE OF SERVICE: DIAGNOSES: 1. Left knee primary osteoarthritis. 2. Reflux. 3. Hyperlipidemia. 4. Hypertension. 5. Anxiety. 6. Hypokalemia. PROCEDURE: Left total knee arthroplasty. SUMMARY: The patient is a 63-year-old female, who underwent left total knee arthroplasty on the day of admission. Postoperatively, she was doing very well. At the time of discharge, her wound was clean and dry. Her hypokalemia had resolved. She was tolerating her diet well and tolerating pain with oral pain medication. CONDITION AT DISCHARGE: Good. DISCHARGE DIET: Regular. FOLLOWUP: Followup is in three weeks. Home physical therapy has been arranged. Activities are weightbearing as tolerated on left lower extremity with a walker. DISCHARGE MEDICATIONS: Home medications, Percocet as needed for pain and aspirin. Job ID: [id number] DocumentID: [id number] Dictated Date: 10/20/2018 07:13:03 Asset Coordinator Date: 10/21/2018 04:33:22 Dictated By: OC SMITH MD
== END 2018-10-20 11:25 | disposition home health service (06) | DRG 470 ==
LOC: 4TH 06:00 → SURG 06:01 → 4TH 09:31 → SURG 09:47
PROVIDERS: ADMIT Orthopaedic Surgery; ATTEND Orthopaedic Surgery
PROC: 0SRD0J9 Replacement of Left Knee Joint with Synthetic Substitute, Cemented, Open Approach (ICD-10-PCS; principal; 2018-10-18 07:24)
DX: M17.12 Unilateral primary osteoarthritis, left knee (principal); E66.01 Morbid (severe) obesity due to excess calories; Z68.41 Body mass index [BMI] 40.0-44.9, adult; E87.6 Hypokalemia; E83.42 Hypomagnesemia; F41.9 Anxiety disorder, unspecified; I10 Essential (primary) hypertension; E78.5 Hyperlipidemia, unspecified; M81.0 Age-related osteoporosis without current pathological fracture; K21.9 Gastro-esophageal reflux disease without esophagitis; K59.09 Other constipation; Z86.72 Personal history of thrombophlebitis
CPT/HCPCS: 36415; 73560; 80048; 80053; 83735; 85025; 86850; 86900; 86901; 94664